=== PATIENT | female | born 1930 | race Caucasian/White ===

== ENCOUNTER 2016-03-08 10:13 | Outpatient (CLI) | payer MEDICARE, OTHER, MEDICAID | END 2016-03-08 10:14 | disposition home or self-care (01) | DX: I26.99 Other pulmonary embolism without acute cor pulmonale (principal); I82.529 Chronic embolism and thrombosis of unspecified iliac vein; Z79.01 Long term (current) use of anticoagulants ==

== ENCOUNTER 2016-04-04 10:37 | Outpatient (CLI) | payer MEDICARE, OTHER, MEDICAID | END 2016-04-04 10:38 | disposition home or self-care (01) | DX: I26.99 Other pulmonary embolism without acute cor pulmonale (principal); I82.529 Chronic embolism and thrombosis of unspecified iliac vein; Z79.01 Long term (current) use of anticoagulants ==

== ENCOUNTER 2016-04-18 12:05 | Outpatient (CLI) | payer MEDICARE, OTHER, MEDICAID | END 2016-04-18 12:06 | disposition home or self-care (01) | DX: I26.99 Other pulmonary embolism without acute cor pulmonale (principal); I82.529 Chronic embolism and thrombosis of unspecified iliac vein; Z79.01 Long term (current) use of anticoagulants ==

== ENCOUNTER 2016-04-25 09:19 | Outpatient (CLI) | payer MEDICARE, OTHER, MEDICAID | END 2016-04-25 09:20 | disposition home or self-care (01) | DX: I26.99 Other pulmonary embolism without acute cor pulmonale (principal); I82.529 Chronic embolism and thrombosis of unspecified iliac vein; Z79.01 Long term (current) use of anticoagulants ==

== ENCOUNTER 2016-05-02 11:26 | Outpatient (CLI) | payer MEDICARE, OTHER, MEDICAID | END 2016-05-02 11:27 | disposition home or self-care (01) | DX: I26.99 Other pulmonary embolism without acute cor pulmonale (principal); I48.91 Unspecified atrial fibrillation; Z79.01 Long term (current) use of anticoagulants ==

== ENCOUNTER 2016-05-20 10:00 | Outpatient (CLI) | payer MEDICARE, OTHER, MEDICAID | END 2016-05-20 10:01 | disposition home or self-care (01) | DX: I26.99 Other pulmonary embolism without acute cor pulmonale (principal); I82.529 Chronic embolism and thrombosis of unspecified iliac vein; Z79.01 Long term (current) use of anticoagulants ==

== ENCOUNTER 2016-06-03 10:55 | Outpatient (CLI) | payer MEDICARE, OTHER, MEDICAID | END 2016-06-03 10:56 | disposition home or self-care (01) | DX: I26.99 Other pulmonary embolism without acute cor pulmonale (principal); I82.529 Chronic embolism and thrombosis of unspecified iliac vein; Z79.01 Long term (current) use of anticoagulants ==

== ENCOUNTER 2016-06-10 09:42 | Outpatient (CLI) | payer MEDICARE, OTHER, MEDICAID | END 2016-06-10 09:43 | disposition home or self-care (01) | DX: I26.99 Other pulmonary embolism without acute cor pulmonale (principal); I82.529 Chronic embolism and thrombosis of unspecified iliac vein; Z79.01 Long term (current) use of anticoagulants ==

== ENCOUNTER 2016-06-27 12:38 | Outpatient (CLI) | payer MEDICARE, OTHER, MEDICAID | END 2016-06-27 12:39 | disposition critical access hospital (66) | DX: R42 Dizziness and giddiness (principal) | CPT/HCPCS: A0425; A0429 ==

== ENCOUNTER 2016-06-27 12:43 | Inpatient (IN) | payer MEDICARE, OTHER, MEDICAID ==
[2016-06-27] MEDS ORDERED: SODIUM CHLORIDE 0.9% 500 ML IV ONE (13:00)
[2016-06-27] MEDS ORDERED: SODIUM CHLORIDE 0.9% 1,000 ML IV ONE ×2 (13:00→13:47)
[2016-06-27] MEDS ORDERED: SODIUM CHLORIDE FLUSH 0.9% 10 ML SYRINGE IVP PRN (17:14)
[2016-06-27] MEDS ORDERED: cefTRIAXone 1 GM in SODIUM CHLORIDE 0.9% MINIBAG 100 ML IV STA (17:31)
[2016-06-27] MEDS: SODIUM CHLORIDE 0.9% 1,000 ML IV SCH ×2 (18:57→22:43)
[2016-06-27] MEDS: SODIUM CHLORIDE FLUSH 0.9% 10 ML SYRINGE IVP SCH (18:57)
[2016-06-27] MEDS: DULoxetine 30 MG CAPSULE PO SCH (21:06)
[2016-06-27] MEDS: NITROFURANTOIN MACRO 100 MG CAPSULE PO SCH (21:06)
[2016-06-27] MEDS: HYDROcod/ACETAM 7.5 MG/325 MG TABLET PO PRN (21:06)
[2016-06-28] MEDS: LORazepam 0.5 MG TABLET PO PRN ×2 (00:45→23:44)
[2016-06-28] MEDS: SODIUM CHLORIDE FLUSH 0.9% 10 ML SYRINGE IVP SCH ×3 (06:59→20:29)
[2016-06-28] MEDS: PANTOPRAZOLE 40 MG TABLET PO SCH (07:00)
[2016-06-28] MEDS ORDERED: METOPROLOL 5 MG/5 ML VIAL IVP SCH (08:00)
[2016-06-28] MEDS: POLYETHYLENE GLYCOL 3350 17 GM PACKET PO SCH (08:24)
[2016-06-28] MEDS: DULoxetine 30 MG CAPSULE PO SCH ×2 (08:25→20:28)
[2016-06-28] MEDS: DOCUSATE SODIUM 100 MG CAPSULE PO SCH (08:25)
[2016-06-28] MEDS: NITROFURANTOIN MACRO 100 MG CAPSULE PO SCH ×2 (08:25→20:28)
[2016-06-28] MEDS: MULTIVITAMIN TABLET PO SCH (08:26)
[2016-06-28] MEDS: amLODIPine 5 MG TABLET PO SCH (08:26)
[2016-06-28] MEDS: SODIUM CHLORIDE 0.9% 1,000 ML IV SCH (08:28)
[2016-06-28] MEDS ORDERED: METOPROLOL 5 MG/5 ML VIAL IVP ONE ×2 (08:55→09:05)
[2016-06-28] MEDS ORDERED: LOSARTAN 50 MG TABLET PO SCH (09:00)
[2016-06-28] MEDS ORDERED: NON FORMULARY MED (Esomeprazole Magnesium [Nexium] 40 MG) PO SCH (09:00)
[2016-06-28] MEDS ORDERED: METOPROLOL TARTRATE 25 MG TABLET PO SCH (10:00)
[2016-06-28] MEDS: HYDROcod/ACETAM 7.5 MG/325 MG TABLET PO PRN (10:31)
[2016-06-28] MEDS: WARFARIN 2.5 MG TABLET PO SCH (14:21)
[2016-06-28] MEDS ORDERED: METOPROLOL TARTRATE 25 MG TABLET PO ONE (14:45)
[2016-06-28] MEDS: METOPROLOL TARTRATE 25 MG TABLET PO SCH (20:29)
[2016-06-29] MEDS: HYDROcod/ACETAM 7.5 MG/325 MG TABLET PO PRN ×2 (01:40→19:25)
[2016-06-29] MEDS: PANTOPRAZOLE 40 MG TABLET PO SCH (06:44)
[2016-06-29] MEDS: SODIUM CHLORIDE FLUSH 0.9% 10 ML SYRINGE IVP SCH ×3 (06:44→20:27)
[2016-06-29] MEDS: METOPROLOL TARTRATE 25 MG TABLET PO SCH ×2 (09:31→20:26)
[2016-06-29] MEDS: POLYETHYLENE GLYCOL 3350 17 GM PACKET PO SCH (09:31)
[2016-06-29] MEDS: amLODIPine 5 MG TABLET PO SCH (09:32)
[2016-06-29] MEDS: DULoxetine 30 MG CAPSULE PO SCH ×2 (09:34→20:25)
[2016-06-29] MEDS: DOCUSATE SODIUM 100 MG CAPSULE PO SCH (09:34)
[2016-06-29] MEDS: MULTIVITAMIN TABLET PO SCH (09:34)
[2016-06-29] MEDS: NITROFURANTOIN MACRO 100 MG CAPSULE PO SCH ×2 (09:34→20:25)
[2016-06-29] MEDS ORDERED: METOPROLOL TARTRATE 25 MG TABLET PO ONE (12:00)
[2016-06-29] MEDS: WARFARIN 2.5 MG TABLET PO SCH (13:45)
[2016-06-30] MEDS: LORazepam 0.5 MG TABLET PO PRN (00:07)
[2016-06-30] MEDS: PANTOPRAZOLE 40 MG TABLET PO SCH (06:19)
[2016-06-30] MEDS: SODIUM CHLORIDE FLUSH 0.9% 10 ML SYRINGE IVP SCH (06:19)
[2016-06-30] MEDS: POLYETHYLENE GLYCOL 3350 17 GM PACKET PO SCH (09:04)
[2016-06-30] MEDS: METOPROLOL TARTRATE 25 MG TABLET PO SCH (09:05)
[2016-06-30] MEDS: DOCUSATE SODIUM 100 MG CAPSULE PO SCH (09:06)
[2016-06-30] MEDS: MULTIVITAMIN TABLET PO SCH (09:06)
[2016-06-30] MEDS: NITROFURANTOIN MACRO 100 MG CAPSULE PO SCH (09:07)
[2016-06-30] MEDS: amLODIPine 5 MG TABLET PO SCH (09:08)
[2016-06-30] MEDS: DULoxetine 30 MG CAPSULE PO SCH (09:08)
== END 2016-06-30 13:16 | disposition home or self-care (01) | DRG 309 ==
DX: I48.92 Unspecified atrial flutter (principal); R00.0 Tachycardia, unspecified; N39.0 Urinary tract infection, site not specified; F32.9 Major depressive disorder, single episode, unspecified; K21.9 Gastro-esophageal reflux disease without esophagitis; B96.20 Unspecified Escherichia coli [E. coli] as the cause of diseases classified elsewhere; R55 Syncope and collapse; T42.8X5A Adverse effect of antiparkinsonism drugs and other central muscle-tone depressants, initial encounter; M48.56XD Collapsed vertebra, not elsewhere classified, lumbar region, subsequent encounter for fracture with routine healing; Y92.039 Unspecified place in apartment as the place of occurrence of the external cause; Z86.711 Personal history of pulmonary embolism; I48.91 Unspecified atrial fibrillation; Z88.0 Allergy status to penicillin; Z85.3 Personal history of malignant neoplasm of breast; Z90.11 Acquired absence of right breast and nipple; Z87.442 Personal history of urinary calculi; I10 Essential (primary) hypertension; Z87.891 Personal history of nicotine dependence; Z79.891 Long term (current) use of opiate analgesic; Z66 Do not resuscitate; G47.33 Obstructive sleep apnea (adult) (pediatric); G25.81 Restless legs syndrome; E66.9 Obesity, unspecified; Z16.12 Extended spectrum beta lactamase (ESBL) resistance; Z68.39 Body mass index [BMI] 39.0-39.9, adult; Z79.01 Long term (current) use of anticoagulants; Z86.718 Personal history of other venous thrombosis and embolism

== ENCOUNTER 2016-07-08 11:16 | Outpatient (CLI) | payer MEDICARE, OTHER, MEDICAID | END 2016-07-08 11:17 | disposition home or self-care (01) | DX: I26.99 Other pulmonary embolism without acute cor pulmonale (principal); I82.529 Chronic embolism and thrombosis of unspecified iliac vein ==

== ENCOUNTER 2016-08-01 13:03 | Outpatient (CLI) | payer MEDICARE, OTHER, MEDICAID | END 2016-08-01 23:59 | disposition critical access hospital (66) | LOC: EMS 13:03 | PROVIDERS: ATTEND Surgery | DX: R06.00 Dyspnea, unspecified (principal); R07.9 Chest pain, unspecified; R53.83 Other fatigue | CPT/HCPCS: A0425; A0429 ==

== ENCOUNTER 2016-08-01 13:05 | Inpatient (IN) | payer MEDICARE, OTHER, MEDICAID ==
--- NOTE | 2016-08-01 13:12 | ED Physician Documentation ---
PD HPI DYSPNEA - Stated complaint Stated Complaint: SOA - History obtained from History obtained from: Patient - History of Present Illness Timing - onset: How many weeks ago (2 weeks of cough and dyspnea, chills, and feeling weak. These symptoms worse the past 1-2 days. She felt weak for getting out of bed today so called EMS. They found her sats to be slightly low 88-90 on RA. Also they found her heart rate to be 140-150. Conversant though.) Timing - onset during: Rest Timing - duration: Weeks (2 weeks worsening cough and dyspnea.) Timing - details: Gradual onset, Still present Inciting event(s): URI. No: Out of meds, Allergic rxn/anaphylaxis Improved by: O2, BiPAP / CPAP (she wears it at night for sleep and has been using it during the day as well the past several days.), Inhaler/neb Associated symptoms: Fever, Cough, Wheezing, Anxiety. No: Hemoptysis, Chest pain / discomfort, Palpitations, Bilateral edema Similar symptoms before: Has not had sx before Recently seen: Not recently seen Review of Systems Constitutional: reports: Chills, Myalgias. denies: Fever Nose: reports: Congestion. denies: Rhinorrhea / runny nose Throat: reports: Sore throat Cardiac: denies: Chest pain / pressure Respiratory: reports: Dyspnea, Cough GI: denies: Abdominal Pain, Nausea, Vomiting, Diarrhea Musculoskeletal: reports: Extremity swelling (mild chronci edema in both ankles , left more.) Neurologic: denies: Focal weakness, Numbness PD PAST MEDICAL HISTORY - Past Medical History Cardiovascular: Hypertension, High cholesterol, Deep vein thrombosis, Pulmonary embolism Respiratory: Shortness of breath, Sleep apnea, CPAP use Neuro: None Endocrine/Autoimmune: None GI: GERD : Incontinence, Nocturia, Kidney stones HEENT: Chronic vision loss, Glaucoma, Chronic sinusitis Psych: Depression Musculoskeletal: Osteoarthritis, Osteoporosis, Fatigue, Chronic back pain Derm: None - Past Surgical History General: EGD, Colonoscopy Ortho: Arthroscopic surgery /[employer]: 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, Oophrectomy, Mastectomy HEENT: Cataracts, Other - Present Medications Home Medications: Ambulatory Orders Medication Instructions Recorded Confirmed Amlodipine Besylate 5 mg PO DAILY 07/31/12 08/01/16 Esomeprazole Magnesium [Nexium] 40 mg PO DAILY 03/08/14 08/01/16 Carboxymethylcellulose Sodium 1 drop EACHEYE QID PRN 01/16/15 08/01/16 [Refresh Tears] Latanoprost 0.005% Ophth Drops 1 drop RIGHTEYE QPM 01/16/15 08/01/16 [Xalatan Ophth Drops] Warfarin [Coumadin] 2.5 - 5 mg PO QDWARFARIN 04/23/15 08/01/16 DULoxetine [Cymbalta] 30 mg PO BID 05/17/15 08/01/16 Docusate Sodium 100 - 200 mg PO DAILY PRN 02/21/16 08/01/16 Hydrocodone/Acetaminophen 1 tab PO DAILY PRN 06/27/16 08/01/16 [Hydrocodon-Acetaminoph 7.5-325] Multivitamin [Theragran] 1 tab PO DAILY 06/27/16 08/01/16 Cetirizine HCl 10 mg PO DAILY 08/01/16 08/01/16 Magnesium Oxide [Mag Ox] 400 mg PO 0800 08/01/16 08/01/16 Metoprolol Tartrate [Metoprolol 75 mg PO BID 08/01/16 08/01/16 Tartrate] - Allergies Allergies/Adverse Reactions: Allergies Allergy/AdvReac Type Severity Reaction Status Date / Time Penicillins Allergy Rash Verified 06/27/16 12:48 prednisone Allergy Rash Verified 06/27/16 12:48 DEBBIE Inhibitors AdvReac Intermediate cough Verified 06/27/16 12:48 - Social History Does the pt smoke?: No Smoking Status: Never smoker Does the pt drink ETOH?: No Does the pt have substance abuse?: No - Immunizations Immunizations are current?: Yes - POLST Patient has POLST: No PD ED PE NORMAL - Vitals Vital signs reviewed: Yes - General General: Alert and oriented X 3, Well developed/nourished - HEENT HEENT: Pharynx benign - Neck Neck: Supple, no meningeal sign, No adenopathy, No JVD - Cardiac Cardiac: No: RRR (fast rate and irregular about 130-145) - Respiratory Respiratory: No: Clear bilaterally (some fine crackles in bases. Scattered moderate wheezing. ) - Abdomen Abdomen: Soft, Non tender - Female Female : Deferred - Rectal Rectal: Deferred - Back Back: No CVA TTP - Derm Derm: Normal color, Warm and dry - Extremities Extremities: No tenderness to palpate, Normal ROM s pain - Neuro Neuro: Alert and oriented X 3, No motor deficit, No sensory deficit - Psych Psych: Normal mood, Normal affect Results - Vitals Vitals: Vital Signs - 24 hr 08/01/16 08/01/16 08/01/16 13:09 13:55 13:58 Temperature 36.1 C L Heart Rate 125 H 119 H 106 H Respiratory 20 16 18 Rate Blood Pressure 129/86 H 124/103 H 101/80 O2 Saturation 96 93 94 08/01/16 08/01/16 08/01/16 14:13 14:20 15:09 Temperature Heart Rate 104 H 101 H 102 H Respiratory 16 24 Rate Blood Pressure 117/75 132/70 H O2 Saturation 100 08/01/16 08/01/16 16:29 16:37 Temperature Heart Rate 120 H 97 Respiratory 22 18 Rate Blood Pressure 115/91 H 137/89 H O2 Saturation 98 99 Oxygen O2 Source [With Activity] Room air O2 Source Nasal cannula - EKG (time done) 13:29 Rate: Rate (enter#) (105) Rhythm: Atrial fibrillation QRS: Normal Ischemia: Normal ST segments. No: ST elevation c/w ischemia, ST depression - Labs Labs: Laboratory Tests 08/01/16 08/01/16 08/01/16 13:20 13:20 13:56 WBC 12.0 H RBC 4.01 L Hgb 12.7 Hct 38.4 MCV 95.9 MCH 31.6 H MCHC 33.0 RDW 15.4 H Plt Count 302 MPV 8.0 Neut # 9.1 H Lymph # 1.9 Imperial # 0.7 Eos # 0.1 Baso # 0.1 Absolute Nucleated RBC 0.00 Nucleated RBCs 0.0 PT 65.1 H INR 5.7 H* Lactic Acid B-Natriuretic Peptide Blood Type Recheck A POSITIVE 08/01/16 08/01/16 13:56 13:56 WBC RBC Hgb Hct MCV MCH MCHC RDW Plt Count MPV Neut # Lymph # Imperial # Eos # Baso # Absolute Nucleated RBC Nucleated RBCs PT INR Lactic Acid 2.7 H B-Natriuretic Peptide 592 H Blood Type Recheck - Rads (name of study) chest Radiology: Prelim report reviewed (no acute infiltrates nor signs of failure) PD MEDICAL DECISION MAKING - ED course Complexity details: reviewed results, re-evaluated patient (she is improving with IV doses metoprolol, heart rate down to 100-110. She has had cough and wheezing. Concern for bronchitis/pneumonia, and given IV abx, steroids, nebulizers. During the ZIthromax infusion, she developed pallor, dyspnea, and nausea with vomiting once. No rash, sores, swelling of lips/throat, nor increased wheezing. Consider allergic reaction versus just effect of infection/ sepsis. Her BP remains good as does fast heart rate of 125. These symptoms do improve with some IV fluids and repeat nebulizer. ), considered differential, d/ w patient Departure - Departure Disposition: [facility] DC/Xfer Clinical Impression: Atrial fibrillation with rapid ventricular response, Bronchitis Dyspnea Qualifiers: Dyspnea type: shortness of breath Qualified Code(s): R06.02 - Shortness of breath Condition: Stable Discharge Date/Time: 08/01/16 18:14
[2016-08-01] MEDS ORDERED: METOPROLOL 5 MG/5 ML VIAL IVP STA ×4 (13:35→17:27)
[2016-08-01] MEDS ORDERED: LEVALBUTEROL 1.25 MG INH STA ×2 (13:35→17:27)
[2016-08-01 13:47] LABS: BASOPHILS # (AUTO) 0.1 10^3/uL (0.0-0.1); BASOPHILS % (AUTO) 0.7 %; EOSINOPHILS # (AUTO) 0.1 10^3/uL (0.0-0.7); EOSINOPHILS % (AUTO) 1.2 %; HCT - HEMATOCRIT 38.4 % (37.0-47.0); HGB - HEMOGLOBIN 12.7 g/dL (12.0-16.0); LYMPHOCYTES # (AUTO) 1.9 10^3/uL (1.5-3.5); LYMPHOCYTES % (AUTO) 16.2 %; MEAN CORPUSCULAR HEMOGLOBIN 31.6 pg (27.0-31.0); MEAN CORPUSCULAR VOLUME 95.9 fL (81.0-99.0); MONOCYTES # (AUTO) 0.7 10^3/uL (0.0-1.0); NEUTROPHILS # (AUTO) 9.1 10^3/uL (1.5-6.6); NEUTROPHILS % (AUTO) 75.9 %; RED BLOOD COUNT 4.01 10^6/uL (4.20-5.40); RED CELL DISTRIBUTION WIDTH 15.4 % (12.0-15.0)
[2016-08-01] MEDS ORDERED: METOPROLOL 5 MG/5 ML VIAL IVP ONE ×4 (13:52→17:28)
[2016-08-01] MEDS ORDERED: LEVALBUTEROL 1.25 MG INH ONE ×2 (14:00→17:41)
[2016-08-01] MEDS ORDERED: SODIUM CHLORIDE INHALATION 3 ML NEB ONE ×2 (14:01→17:42)
[2016-08-01 14:11] LABS: PT - PROTHROMBIN TIME 65.1 secs (9.9-12.6)
[2016-08-01 14:15] LABS: INR 5.7 (0.8-1.2)
[2016-08-01 14:21] LABS: ALBUMIN/GLOBULIN RATIO 1.2 (1.0-2.2); BILIRUBIN,TOTAL 0.6 mg/dL (0.2-1.0); CREATININE 1.1 mg/dL (0.4-1.0); MAGNESIUM 1.9 mg/dL (1.7-2.8); POTASSIUM 4.3 mmol/L (3.5-5.0); TOTAL PROTEIN 6.7 g/dL (6.7-8.2)
[2016-08-01] MEDS ORDERED: cefTRIAXone 1 GM in SODIUM CHLORIDE 0.9% MINIBAG 100 ML IV STA (15:12)
[2016-08-01] MEDS ORDERED: AZITHROMYCIN INJ 500 MG in SODIUM CHLORIDE 0.9% 250 ML IV STA (15:12)
[2016-08-01] MEDS ORDERED: BENZONATATE 100 MG CAPSULE PO STA (15:12)
[2016-08-01] MEDS ORDERED: BENZONATATE 100 MG CAPSULE PO ONE (15:38)
[2016-08-01] MEDS ORDERED: cefTRIAXone 1 GM VIAL ONE (15:39)
--- NOTE | 2016-08-01 16:38 | XRAY Preliminary Report ---
Exam: XR Chest 2 View PA/LAT IMPRESSION: Chronic findings. No definite acute disease. [facility] SITE ID: [id number]
[2016-08-01] MEDS ORDERED: ACETAMINOPHEN 325 MG TABLET PO PRN (16:41)
[2016-08-01] MEDS ORDERED: ONDANSETRON 4 MG/2 ML VIAL IVP PRN (16:41)
--- NOTE | 2016-08-01 16:41 | XRAY Report ---
EXAM: CHEST RADIOGRAPHY EXAM DATE: 08/01/2016 04:14 PM. CLINICAL HISTORY: Cough and dyspnea. COMPARISON: 11/14/2015. TECHNIQUE: 2 views. FINDINGS: Lungs/Pleura: Hyperexpanded with coarse lung markings typical of COPD. No localized infiltrate, effus ion, consolidation, or pneumothorax. Mediastinum: Heart and mediastinal contours are unremarkable. Other: Mild anterior compression of a midthoracic vertebral body unchanged. IMPRESSION: Chronic findings. No definite acute disease. [facility] Referring Provider Line: [phone] SITE ID: [id number]
[2016-08-01] MEDS ORDERED: ONDANSETRON 4 MG/2 ML VIAL IVP STA (17:27)
[2016-08-01] MEDS ORDERED: ONDANSETRON 4 MG/2 ML VIAL ONE (17:28)
[2016-08-01] MEDS ORDERED: SODIUM CHLORIDE 0.9% 500 ML IV ONE (17:43)
[2016-08-01] MEDS ORDERED: PHYTONADIONE 10 MG/ML AMP SUBQ ONE (18:00)
[2016-08-01] MEDS: PANTOPRAZOLE 40 MG TABLET PO SCH (19:07)
[2016-08-01] MEDS: HYDROcod/ACETAM 5/325 MG TABLET PO PRN (19:32)
[2016-08-01] MEDS: SODIUM CHLORIDE 0.9% 1,000 ML IV SCH (19:38)
--- NOTE | 2016-08-01 19:40 | HISTORY & PHYSICAL EXAMINATION ---
DATE OF ADMISSION: 08/01/2016 CHIEF COMPLAINT: Shortness of breath. IDENTIFYING INFORMATION: Please see summarized in personal history. She appears cogent, but is not excellent with recall. Additional information is obtained in the handoff from Dr. Eliseo Webb, Emergency Department physician, as well as EMS, and with personal review of past medical records which are summarized below, as well as data collected during this visit, the patient's examination as well is used in evaluation of this person and preparation of document. HISTORY OF PRESENT ILLNESS: The patient has been sick for 2 weeks. She has had a bad cough, she had bronchitis. She was given antibiotics, did not seem to get better, got more short of breath. She did have the sweats at home. She is very fatigued, as well. She has been using her BiPAP as directed. REVIEW OF SYSTEMS: The patient does not have a sore throat. She has had the cough, she is not bringing a lot up with the couth. The patient has no nausea, vomiting, she pooped last yesterday. The patient's urination has been okay. The rest of the complete review of systems as queried is negative except as noted above, as well. PAST MEDICAL HISTORY: 1. History of pulmonary embolus 1979. 2. Infiltrating ductal cancer, right breast, status post mastectomy 2012. 3. Hypertension. 4. Depression. 5. Gastroesophageal reflux disease. 6. Obstructive sleep apnea with BiPAP, which she uses. 7. Uric acid nephrolithiasis. 8. Chronic kidney disease. 9. Osteopenia. 10. T2 compression fracture. 11. Morbid obesity. 12. Venous thrombosis. PAST SURGICAL HISTORY: Right mastectomy 2002, hysterectomy, left eye glaucoma surgery x2 and bilateral cataract surgery. OBSTETRIC HISTORY: She had 6 pregnancies, 7 live births and one set of twins. SOCIAL HISTORY: She , now single, lives in [place] in the [facility] where she lives on the 7th floor. She does have 2 caregivers which come in 3 hours a day. The patient's smoking history was just 4 years, less than a 1/2 a pack a day many years ago. No alcohol or illicit drug use. FAMILY HISTORY: The patient's mother from breast cancer, the father of a CVA in his 90s and his sister with syringomyelia. ALLERGIES: 1. PENICILLIN. 2. PREDNISONE. 3. DEBBIE INHIBITORS. MEDICATIONS: 1. Amlodipine 5 mg a day. 2. Omeprazole 40 mg a day. 3. Refresh Tears 1 drop 4 times a day. 4. Latanoprost 0.005% drops, 1 drop right eye at bedtime. 5. Warfarin 2 to 5 mg as needed. 6. Cymbalta 30 mg b.i.d. 7. DSS 100 mg a day. 8. Hydrocodone/acetaminophen 1 tab daily. 9. Multivitamin once a day. 10. Metoprolol 125 mg twice a day. 11. Nitrofurantoin 100 mg daily. PHYSICAL EXAMINATION: GENERAL: The patient appears acutely ill. She is obese. She is complaining of multiple areas of pain. VITAL SIGNS: Heart rate is 120, 115/91, 22, 98% O2 saturation on 3 liters, heart rate is irregularly regular, atrial fibrillation on EKG. EYES: EOM within normal limits, PERRL, nonicteric. MOUTH AND THROAT: Somewhat dry. No other pathology noted in mouth or pharynx. NECK: No lymphadenopathy. No thyromegaly. No JVD, no bruits. CHEST WALL: Nontender, nonsymmetrical except for mastectomy on the right. No breast exam done. HEART: Irregular regular tachycardia (atrial fibrillation with rapid ventricular response). LUNGS: Distant breath sounds and some crackles scattered more right than left. No wheezes heard. ABDOMEN: Thick abdominal wall, soft, nontender. No masses appreciated. RECTAL/GENITAL: Exam not done. EXTREMITIES: 1+ to 2+ edema up to the knees bilaterally. No cyanosis. Capillary refill less than 2 seconds. Unable to feel posterior tibial pulses bilaterally. NEURO: Cranial nerves intact. Cognition intact. Motor intact. No gait tested. LABORATORY DATA: She has sodium 137, potassium is 4.3, chloride 107, CO2 20, BUN is 26, creatinine 1.1, glucose is 216, lactate is 2.7, calcium 9.0. Magnesium 1.9, bilirubin 0.6. Liver enzymes are mildly elevated with an AST of 66, ALT is 74. She has a BNP of 592, total protein 6.7, albumin is 3.3. The patient's CBC, white count 12.0, 12 and 38 hemoglobin and hematocrit, platelets 302. INR is 5.7. The patient's chest x-ray shows no definite acute pulmonary disease. SUMMARY: An 85-year-old female who had a cough, increased shortness of breath over the last 2 months. The patient has a past medical history of hypertension, pulmonary embolus, DVT, GERD. She is admitted now because she has atrial fibrillation with RVR and sepsis undetermined etiology. The patient also supratherapeutic on anticoagulation. DIAGNOSES: 1. Sepsis. 2. Atrial fibrillation with rapid ventricular response. 3. Hypertension. 4. Acute on chronic respiratory failure. 5. Obstructive sleep apnea on BiPAP. 6. Chronic kidney disease. 7. Pulmonary embolus in the remote past. DISCUSSION/DECISION MAKIN. Sepsis: The cluster of tachycardia, increased white count, increased lactate , the patient's septic workup will include blood cultures, UA, fluid resuscitation and antibiotics, namely Rocephin and Zithromax. The patient is at risk for other sources. She also has an elevated BNP, which she has no previous history of heart failure, this could be involved as well, so fluid resuscitation needs to be judicious. 2. Atrial fibrillation with rapid ventricular response. She will be placed on a diltiazem drip as metoprolol has not helped IV in addition to her high dose of metoprolol daily. 3. Hypertension. She is not hypertensive presently. Will be observed and is more at risk for hypotension actually. 4. Acute on chronic respiratory failure. The patient will be getting O2 supplementation, beta agonists and her BiPAP as needed. 5. Obstructive sleep apnea. She is currently on BiPAP at night. Respiratory will follow. 6. Chronic kidney disease will be monitored and interventions as needed. 7. Remote history of PE. She will be on warfarin, but since she is supratherapeutic and this will be held presently. She will have the daily INRs. HOSPITAL ISSUES: 1. CODE STATUS: SHE IS A DNR/DNI. 2. Deep venous thrombosis prophylaxis is warfarin. 3. Diet will be regular. 4. Activity with assistance. 5. Tubes and lines: She will just have a peripheral IV, may need a Mina catheter. 6. The patient is inpatient as she has serious illnesses which need diagnostic therapeutic interventions that will require at least 2 midnights. Length of stay will be estimated at 3 nights. 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 The patient will probably need physical therapy evaluation, as well. JOB #: [id number] EXT JOB #:[id number] MTDD
[2016-08-01] MEDS ORDERED: PHYTONADIONE 10 MG/ML AMP ONE (19:48)
[2016-08-01] MEDS ORDERED: diltiaZEM INJ 125 MG in DEXTROSE 5% 100 ML IV ONE (20:03)
[2016-08-01] MEDS ORDERED: diltiaZEM INJ 5 MG/ML VIAL IVP PRN (20:04)
[2016-08-01] MEDS ORDERED: LIDOCAINE-MPF 1% 5 ML VIAL ONE (20:22)
[2016-08-01] MEDS: METOPROLOL TARTRATE 50 MG TABLET PO SCH (21:07)
[2016-08-01] MEDS: DULoxetine 30 MG CAPSULE PO SCH (21:07)
[2016-08-01] MEDS: LATANOPROST 0.005% OPHTH DROPS RIGHTEYE SCH (21:15)
[2016-08-01] MEDS: SODIUM CHLORIDE FLUSH 0.9% 10 ML SYRINGE IVP SCH (21:16)
[2016-08-01 21:21] LABS: VBG BASE EXCESS -6.2 mmol/L (-2 - +2); VBG OXYGEN SATURATION 52.1 % (60-80); VBG PH 7.247 (7.31-7.41); VBG TOTAL CO2 22.7 mmol/L (24-29)
[2016-08-01] MEDS: MORPHINE 2 MG/ML SYRINGE IVP PRN (22:21)
[2016-08-01 23:40] LABS: INR 3.3 (0.8-1.2); PT - PROTHROMBIN TIME 38.1 secs (9.9-12.6)
[2016-08-01] MEDS: ALBUTEROL NEB 2.5 MG/3 ML INH SCH ×2 (23:46→23:47)
[2016-08-01] MEDS: IPRATROPIUM/ALBUTEROL 3 ML NEB INH SCH (23:47)
[2016-08-02] MEDS: ALBUTEROL NEB 2.5 MG/3 ML INH SCH ×2 (01:00→05:00)
[2016-08-02] MEDS: HYDROcod/ACETAM 5/325 MG TABLET PO PRN ×2 (01:45→20:04)
[2016-08-02 01:59] LABS: BILIRUBIN,URINE NEGATIVE (NEGATIVE); PH,URINE 5.5 PH (5.0-7.5)
[2016-08-02 02:11] LABS: UA w/ MICROSCOPIC CHARGE YES; UR CULTURE IF IND INDICATED; WBC,URINE >25 /HPF (0-5)
[2016-08-02 02:39] LABS: BASOPHILS # (AUTO) 0.1 10^3/uL (0.0-0.1); BASOPHILS % (AUTO) 0.6 %; EOSINOPHILS % (AUTO) 0.1 %; HCT - HEMATOCRIT 33.7 % (37.0-47.0); HGB - HEMOGLOBIN 11.1 g/dL (12.0-16.0); LYMPHOCYTES # (AUTO) 2.3 10^3/uL (1.5-3.5); LYMPHOCYTES % (AUTO) 17.3 %; MEAN CORPUSCULAR HEMOGLOBIN 31.5 pg (27.0-31.0); MEAN CORPUSCULAR HGB CONC 32.9 g/dL (32.0-36.0); MEAN CORPUSCULAR VOLUME 95.6 fL (81.0-99.0); MEAN PLATELET VOLUME 7.8 fL (7.9-10.8); MONOCYTES # (AUTO) 0.7 10^3/uL (0.0-1.0); NEUTROPHILS # (AUTO) 10.3 10^3/uL (1.5-6.6); RED BLOOD COUNT 3.52 10^6/uL (4.20-5.40); RED CELL DISTRIBUTION WIDTH 15.2 % (12.0-15.0); UNCORRECTED WHITE BLOOD COUNT 13.4 x10^3/uL; WHITE BLOOD COUNT 13.4 x10^3/uL (4.8-10.8)
[2016-08-02 02:40] LABS: VBG PH 7.392 (7.31-7.41)
[2016-08-02 02:41] LABS: VBG BASE EXCESS -2.5 mmol/L (-2 - +2); VBG OXYGEN SATURATION 96.8 % (60-80); VBG TOTAL CO2 23.1 mmol/L (24-29)
[2016-08-02 02:44] LABS: CALCIUM 8.9 mg/dL (8.5-10.3); CREATININE 1.1 mg/dL (0.4-1.0); POTASSIUM 4.1 mmol/L (3.5-5.0)
[2016-08-02 03:05] LABS: HEMOGLOBIN A1C 0.63 g/dL
[2016-08-02] MEDS: PANTOPRAZOLE 40 MG TABLET PO SCH ×2 (05:50→15:56)
[2016-08-02] MEDS: SODIUM CHLORIDE FLUSH 0.9% 10 ML SYRINGE IVP SCH ×3 (05:50→20:05)
[2016-08-02] MEDS ORDERED: ALBUTEROL NEB 2.5 MG/3 ML INH PRN (07:29)
[2016-08-02] MEDS: IPRATROPIUM/ALBUTEROL 3 ML NEB INH SCH ×3 (07:35→17:10)
[2016-08-02] MEDS: SODIUM CHLORIDE 0.9% 1,000 ML IV SCH ×2 (08:19→15:18)
[2016-08-02] MEDS: MAGNESIUM OXIDE 400 MG TABLET PO SCH (08:20)
[2016-08-02] MEDS: SACCHAROMYCES BOULARDII 250 MG CAPSULE PO SCH ×2 (08:20→17:18)
[2016-08-02] MEDS ORDERED: cefTRIAXone 1 GM VIAL IM SCH (08:30)
[2016-08-02] MEDS ORDERED: DIGOXIN 125 MCG TABLET PO SCH (08:35)
[2016-08-02] MEDS: diltiaZEM INJ 5 MG/ML VIAL IVP PRN ×4 (08:37→22:32)
[2016-08-02] MEDS: POLYETHYLENE GLYCOL 3350 17 GM PACKET PO SCH (08:44)
[2016-08-02] MEDS: cefTRIAXone 2 GM in SODIUM CHLORIDE 0.9% MINIBAG 100 ML IV SCH (08:45)
[2016-08-02] MEDS: METOPROLOL TARTRATE 50 MG TABLET PO SCH ×2 (08:45→20:04)
[2016-08-02] MEDS: MULTIVITAMIN TABLET PO SCH (08:47)
[2016-08-02] MEDS: DULoxetine 30 MG CAPSULE PO SCH ×2 (08:47→20:04)
[2016-08-02] MEDS: CETIRIZINE 10 MG TABLET PO SCH (08:49)
[2016-08-02] MEDS ORDERED: cloNIDine 0.1 MG TABLET PO SCH (09:00)
[2016-08-02] MEDS ORDERED: ENOXAPARIN 40 MG/0.4 ML SYRINGE SUBQ SCH (09:00)
[2016-08-02 09:06] LABS: INR 2.5 (0.8-1.2); PT - PROTHROMBIN TIME 27.9 secs (9.9-12.6)
[2016-08-02] MEDS: AZITHROMYCIN INJ 500 MG in SODIUM CHLORIDE 0.9% 250 ML IV SCH (09:29)
--- NOTE | 2016-08-02 11:05 | PROVIDER PROGRESS NOTE ---
Assessment/Plan - Problem List (1) Atrial fibrillation with rapid ventricular response Assessment/Plan: She has improved some.Last night was in the 30s for a short time. now on both Diltiazem and Toprol. Will monitor. (2) Urinary tract infection Assessment/Plan: awaiting C&S (3) Sepsis Assessment/Plan: She has UTI as source. Will get CXR tomorow to re assess the possibility of pneumonia. Rocephin should be satisfactory for UTI bacteria. C&S pending. No fevers over night. WBC up from 12 to 15 K - Current Meds Current Meds: Current Medications Generic Name Dose Route Start Last Admin Trade Name Freq PRN Reason Stop Dose Admin Acetaminophen/Hydrocodone Bitart 1 tab 08/01/16 16:41 08/02/16 01:45 [place] 5/325 PO 1 tab Q4HR PRN Administration Pain 5 to 7 Albuterol/Ipratropium 3 ml 08/01/16 19:00 08/02/16 07:35 Duoneb INH 08/02/16 18:59 3 ml RTQID LOWELL Administration Cetirizine HCl 10 mg 08/02/16 09:00 08/02/16 08:49 Zyrtec PO 10 mg DAILY LOWELL Administration Diltiazem HCl 10 mg 08/01/16 21:59 08/02/16 08:37 Cardizem Inj IVP 25 mg Q1H PRN Administration HR>110 Duloxetine HCl 30 mg 08/01/16 21:00 08/02/16 08:47 Cymbalta PO 30 mg BID LOWELL Administration Sodium Chloride 1,000 mls @ 70 mls/hr 08/01/16 18:00 08/02/16 08:19 Normal Saline 0.9% IV Not Given .[id number] LOWELL Azithromycin 500 mg/ Sodium 250 mls @ 250 mls/hr 08/02/16 10:00 08/02/16 09:29 Chloride IV 250 mls/hr DAILY@1000 LOWELL Administration Ceftriaxone Sodium 2 gm/ 100 mls @ 200 mls/hr 08/02/16 09:00 08/02/16 08:45 Sodium Chloride IV 200 mls/hr DAILY LOWELL Administration Diltiazem HCl 125 mg/ Dextrose 125 mls @ 5 mls/hr 08/01/16 20:03 08/01/16 22:50 IV 08/02/16 21:02 0 mg/hr .Q25H ONE Titration Protocol 5 MG/HR Latanoprost 1 drops 08/01/16 21:00 08/01/16 21:15 Xalatan Ophth Drops RIGHTEYE 1 drops QPM LOWELL Administration Magnesium Oxide 400 mg 08/02/16 08:00 08/02/16 08:20 Mag Ox PO 400 mg 0800 LOWELL Administration Metoprolol Tartrate 75 mg 08/01/16 21:00 08/02/16 08:45 Lopressor PO 75 mg BID LOWELL Administration Morphine Sulfate 2 mg 08/01/16 21:59 08/01/16 22:21 Morphine IVP 2 mg Q2HR PRN Administration PAIN Multivitamins 1 tab 08/02/16 09:00 08/02/16 08:47 Theragran PO 1 tab DAILY LOWELL Administration Ondansetron HCl 4 mg 08/01/16 16:41 08/01/16 17:47 Zofran Inj IVP 4 mg Q4HR PRN Administration Nausea / Vomiting Pantoprazole Sodium 40 mg 08/01/16 18:30 08/02/16 05:50 Protonix PO 40 mg BIDAC LOWELL Administration Polyethylene Glycol 17 gm 08/02/16 09:00 08/02/16 08:44 Miralax PO 17 gm DAILY LOWELL Administration Saccharomyces Boulardii 250 mg 08/02/16 08:00 08/02/16 08:20 Florastor PO 250 mg BIDWM LOWELL Administration Sodium Chloride 10 ml 08/01/16 22:00 08/02/16 05:50 Normal Saline Flush 0.9% IVP 10 ml Q8HR LOWELL Administration - Lab Result Fish Bone Diagrams: 08/02/16 02:26 08/02/16 02:26 - Additional Planning My Orders: My Active Orders 08/01/16 17:39 UA w/ MICROSCOPIC, CULT IF [URIN] Stat Carboxymethylcellulose 1% Opht [Refresh 1% Ophth Drops] 1 drops EACHEYE QID PRN Docusate Sodium 100Mg Capsule [Colace 100Mg Capsule] 200 mg PO DAILY PRN 08/01/16 18:30 Pantoprazole [Protonix] 40 mg PO BIDAC 08/01/16 21:00 DULoxetine [Cymbalta] 30 mg PO BID Latanoprost 0.005% Ophth Drops [Xalatan Ophth Drops] 1 drops RIGHTEYE QPM Metoprolol Tartrate [Lopressor] 75 mg PO BID 08/01/16 23:21 RT [Nebulizer/MDI Tx.] [] QID 08/02/16 FFP [FRESH FROZEN PLASMA] Urgent 08/02/16 07:29 Albuterol 2.5 mg INH RTQ4H PRN 08/02/16 08:00 Magnesium Oxide [Mag Ox] 400 mg PO 0800 08/02/16 08:29 Transfuse Fresh Frozen Plasma [] ONCE 08/02/16 08:50 Blood Glucose Checks - Eating [] 0800,1200,1700,2100 08/02/16 08:52 Initiate Hypoglycemia Protocol [] .protocol 08/02/16 09:00 Cetirizine [ZyrTEC] 10 mg PO DAILY Multivitamin [Theragran] 1 tab PO DAILY 08/02/16 12:00 Insulin Aspart [NovoLOG] 1 - 9 unit SUBQ 0800,1200,1700,2100 08/02/16 Lunch Carb-controlled Diet [DIET] 08/03/16 05:00 PT WITH INR [COAG] DAILYLAB 08/04/16 05:00 PT WITH INR [COAG] DAILYLAB 08/05/16 05:00 PT WITH INR [COAG] DAILYLAB Subjective - Subjective Patient Reports: Feeling Better, Fatigue, Shortness of Breath Objective Vital Signs: Vital Signs - 24 hr 08/01/16 08/01/16 08/01/16 17:45 18:36 18:41 Temperature Heart Rate 147 H Heart Rate [ 138 H 137 H Monitoring electrodes] Respiratory 34 H 26 H 22 Rate Blood Pressure 149/119 H Blood Pressure 113/87 H [Left Radial artery] Blood Pressure [Right Ankle] O2 Saturation 98 98 98 08/01/16 08/01/16 08/01/16 20:00 21:00 21:07 Temperature 37.0 C Heart Rate Heart Rate [ 144 H 138 H Monitoring electrodes] Respiratory 24 20 Rate Blood Pressure 131/91 H Blood Pressure 168/99 H 186/105 H [Left Radial artery] Blood Pressure [Right Ankle] O2 Saturation 95 95 08/01/16 08/01/16 08/01/16 22:00 22:45 23:00 Temperature 37.0 C 36.9 C Heart Rate 73 Heart Rate [ 142 H 72 Monitoring electrodes] Respiratory 22 18 18 Rate Blood Pressure Blood Pressure 165/106 H 115/98 H [Left Radial artery] Blood Pressure [Right Ankle] O2 Saturation 99 95 08/02/16 08/02/16 08/02/16 00:00 00:55 01:53 Temperature 36.8 C 36.8 C 36.6 C Heart Rate Heart Rate [ 60 73 104 H Monitoring electrodes] Respiratory 16 15 15 Rate Blood Pressure Blood Pressure 132/83 H 137/85 H 168/122 H [Left Radial artery] Blood Pressure [Right Ankle] O2 Saturation 96 98 94 08/02/16 08/02/16 08/02/16 02:59 03:53 04:58 Temperature 36.6 C Heart Rate Heart Rate [ 82 81 84 Monitoring electrodes] Respiratory 19 16 16 Rate Blood Pressure Blood Pressure 136/71 H 151/85 H 139/75 H [Left Radial artery] Blood Pressure [Right Ankle] O2 Saturation 94 96 98 08/02/16 08/02/16 08/02/16 05:55 06:59 07:35 Temperature Heart Rate 99 Heart Rate [ 90 88 Monitoring electrodes] Respiratory 16 19 18 Rate Blood Pressure Blood Pressure 148/69 H 149/88 H [Left Radial artery] Blood Pressure [Right Ankle] O2 Saturation 96 96 08/02/16 08/02/16 08/02/16 08:03 08:37 08:45 Temperature 36.8 C Heart Rate Heart Rate [ 114 H Monitoring electrodes] Respiratory 23 Rate Blood Pressure 138/109 H 150/91 H Blood Pressure 169/86 H [Left Radial artery] Blood Pressure [Right Ankle] O2 Saturation 95 08/02/16 08/02/16 08/02/16 09:00 09:07 10:00 Temperature Heart Rate Heart Rate [ 95 109 H Monitoring electrodes] Respiratory 21 21 Rate Blood Pressure 151/84 H Blood Pressure [Left Radial artery] Blood Pressure 149/81 H 142/82 H [Right Ankle] O2 Saturation 95 96 Oxygen O2 Source Nasal cannula I&O (Last 24 Hrs): Intake and Output Totals x24h 07/31/16 08/01/16 08/02/16 23:59 23:59 23:59 Intake Total 400 2270 Output Total 464 Balance 400 1806 General: Alert, Oriented x3, Cooperative HEENT: PERRLA, EOMI Neck: No JVD, No thyromegaly Neuro: Alert, Oriented Times 3 Cardiovascular: No murmurs Respiratory: Chest non-tender, No respiratory distress, Breath sounds nml Abdomen: Normal bowel sounds, Soft, No tenderness Skin: No breakdown - Results Results: Laboratory Results WBC 13.4 x10^3/uL (4.8-10.8) H 08/02/16 02:26 RBC 3.52 10^6/uL (4.20-5.40) L 08/02/16 02:26 Hgb 11.1 g/dL (12.0-16.0) L 08/02/16 02:26 Hct 33.7 % (37.0-47.0) L 08/02/16 02:26 MCV 95.6 fL (81.0-99.0) 08/02/16 02:26 MCH 31.5 pg (27.0-31.0) H 08/02/16 02:26 MCHC 32.9 g/dL (32.0-36.0) 08/02/16 02:26 RDW 15.2 % (12.0-15.0) H 08/02/16 02:26 Plt Count 268 10^3/uL (130-450) 08/02/16 02:26 MPV 7.8 fL (7.9-10.8) L 08/02/16 02:26 Neut # 10.3 10^3/uL (1.5-6.6) H 08/02/16 02:26 Lymph # 2.3 10^3/uL (1.5-3.5) 08/02/16 02:26 [place] # 0.7 10^3/uL (0.0-1.0) 08/02/16 02:26 Eos # 0.0 10^3/uL (0.0-0.7) 08/02/16 02:26 Baso # 0.1 10^3/uL (0.0-0.1) 08/02/16 02:26 Absolute Nucleated RBC 0.00 x10^3/uL 08/02/16 02:26 Nucleated RBCs 0.0 /100WBC 08/02/16 02:26 PT 27.9 secs (9.9-12.6) H 08/02/16 08:52 INR 2.5 (0.8-1.2) H 08/02/16 08:52 VBG pH 7.392 (7.31-7.41) 08/02/16 02:26 VBG pCO2 37.0 mmHg (41-51) L 08/02/16 02:26 VBG pO2 218.4 mmHg (25-47) H 08/02/16 02:26 VBG HCO3 22.0 mmol/L (23-28) L 08/02/16 02:26 VBG Total CO2 23.1 mmol/L (24-29) L 08/02/16 02:26 VBG O2 Saturation 96.8 % (60-80) H 08/02/16 02:26 VBG Base Excess -2.5 mmol/L (-2 - +2) L 08/02/16 02:26 Sodium 140 mmol/L (135-145) 08/02/16 02:26 Potassium 4.1 mmol/L (3.5-5.0) 08/02/16 02:26 Chloride 108 mmol/L (101-111) 08/02/16 02:26 Carbon Dioxide 21 mmol/L (21-32) 08/02/16 02:26 Anion Gap 11.0 (6-13) 08/02/16 02:26 BUN 28 mg/dL (6-20) H 08/02/16 02:26 Creatinine 1.1 mg/dL (0.4-1.0) H 08/02/16 02:26 Estimated GFR (MDRD) 47 (>89) L 08/02/16 02:26 Glucose 201 mg/dL (70-100) H 08/02/16 02:26 Glycated Hemoglobin 7.2 % (4.6-6.2) H 08/02/16 02:26 Estim Average Glucose 160 (70-100) H 08/02/16 02:26 Lactic Acid 1.1 mmol/L (0.5-2.2) 08/02/16 02:26 Calcium 8.9 mg/dL (8.5-10.3) 08/02/16 02:26 Magnesium 1.9 mg/dL (1.7-2.8) 08/01/16 Unknown Total Bilirubin 0.6 mg/dL (0.2-1.0) 08/01/16 Unknown AST 66 IU/L (10-42) H 08/01/16 Unknown ALT 74 IU/L (10-60) H 08/01/16 Unknown Alkaline Phosphatase 69 IU/L (42-121) 08/01/16 Unknown Troponin I 0.18 ng/mL (<0.49) 08/02/16 05:04 B-Natriuretic Peptide 592 pg/mL (5-100) H 08/01/16 13:56 Total Protein 6.7 g/dL (6.7-8.2) 08/01/16 Unknown Albumin 3.6 g/dL (3.2-5.5) 08/01/16 Unknown Globulin 3.1 g/dL (2.1-4.2) 08/01/16 Unknown Albumin/Globulin Ratio 1.2 (1.0-2.2) 08/01/16 Unknown Lipase 11 U/L (22-51) L 08/01/16 Unknown Urine Color YELLOW 08/02/16 01:27 Urine Clarity HAZY (CLEAR) 08/02/16 01:27 Urine pH 5.5 PH (5.0-7.5) 08/02/16 01:27 Ur Specific [place] 1.025 (1.002-1.030) 08/02/16 01:27 Urine Protein 30 mg/dL (NEGATIVE) H 08/02/16 01:27 Urine Glucose (UA) NEGATIVE mg/dL (NEGATIVE) 08/02/16 01:27 Urine Ketones NEGATIVE mg/dL (NEGATIVE) 08/02/16 01:27 Urine Occult Blood MODERATE (NEGATIVE) H 08/02/16 01:27 Urine Nitrite POSITIVE (NEGATIVE) H 08/02/16 01:27 Urine Bilirubin NEGATIVE (NEGATIVE) 08/02/16 01:27 Urine Urobilinogen 0.2 (NORMAL) E.U./dL (NORMAL) 08/02/16 01:27 Ur Leukocyte Esterase LARGE (NEGATIVE) H 08/02/16 01:27 Urine RBC 11-25 /HPF (0-5) H 08/02/16 01:27 Urine WBC >25 /HPF (0-5) H 08/02/16 01:27 Ur Squamous Epith Cells FEW Squamous (<= Few) 08/02/16 01:27 Urine Bacteria Moderate /HPF (None Seen) H 08/02/16 01:27 Ur Microscopic Review INDICATED 08/02/16 01:27 Urine Culture Comments INDICATED 08/02/16 01:27 Blood Type A POSITIVE 08/01/16 21:00 Blood Type Recheck A POSITIVE 08/01/16 13:20 - Procedures Procedures: Procedures ENDO RECTUM POLYPECTOMY (11/29/13) ENDOSC POLYPECTOMY OF LG INTEST (11/29/13) EXC LES SOFT TISSUE NEC (01/05/13) EYELID BIOPSY (03/09/14) LOCAL EXCIS BREAST LES (01/05/13) LYMPHATIC STRUCT BIOPSY (08/04/12) OTHER ENDOSCOPY OF SM INTEST (11/29/13) TU REMOV URETER OBSTRUCT (08/30/13) UNILAT EXTEN SIMP MASTEC (08/04/12) URETERAL CATHETERIZATION (08/30/13)
[2016-08-02] MEDS: MORPHINE 2 MG/ML SYRINGE IVP PRN (12:11)
[2016-08-02] MEDS: INSULIN ASPART 300 UNIT/3 ML PEN SUBQ SCH ×3 (13:56→20:08)
--- NOTE | 2016-08-02 14:04 | XRAY Report ---
FRONTAL CHEST: 08/02/2016 CLINICAL INDICATION: PICC placement. COMPARISON: 08/01/2016. FINDINGS: Frontal view of the chest demonstrates a left arm PICC terminating at the cavoatrial junct ion. Minimal interstitial prominence is stable from previous. No new consolidation, effusion, or pneu mothorax. IMPRESSION: LEFT ARM PICC TERMINATING AT THE CAVOATRIAL JUNCTION. JOB #: [id number] EXT JOB #:[id number]
[2016-08-02] MEDS: LATANOPROST 0.005% OPHTH DROPS RIGHTEYE SCH (20:04)
[2016-08-02] MEDS: SODIUM CHLORIDE FLUSH 0.9% 10 ML SYRINGE IVP PRN (20:04)
[2016-08-02] MEDS: CARBOXYMETHYLCELLULOSE OPHTH DROPS EACHEYE PRN (20:11)
[2016-08-03] MEDS: diltiaZEM INJ 5 MG/ML VIAL IVP PRN ×3 (02:51→08:29)
[2016-08-03 05:52] LABS: BASOPHILS # (AUTO) 0.1 10^3/uL (0.0-0.1); BASOPHILS % (AUTO) 0.9 %; EOSINOPHILS # (AUTO) 0.3 10^3/uL (0.0-0.7); EOSINOPHILS % (AUTO) 2.4 %; HCT - HEMATOCRIT 31.9 % (37.0-47.0); HGB - HEMOGLOBIN 10.5 g/dL (12.0-16.0); LYMPHOCYTES # (AUTO) 2.6 10^3/uL (1.5-3.5); LYMPHOCYTES % (AUTO) 22.9 %; MEAN CORPUSCULAR HEMOGLOBIN 31.8 pg (27.0-31.0); MEAN CORPUSCULAR HGB CONC 32.9 g/dL (32.0-36.0); MEAN CORPUSCULAR VOLUME 96.5 fL (81.0-99.0); MEAN PLATELET VOLUME 8.3 fL (7.9-10.8); MONOCYTES # (AUTO) 1.1 10^3/uL (0.0-1.0); MONOCYTES % (AUTO) 9.6 %; NEUTROPHILS # (AUTO) 7.4 10^3/uL (1.5-6.6); NEUTROPHILS % (AUTO) 64.2 %; NUCLEATED RED BLOOD CELLS AUTO 0.1 /100WBC; RED CELL DISTRIBUTION WIDTH 15.2 % (12.0-15.0); UNCORRECTED WHITE BLOOD COUNT 11.5 x10^3/uL; WHITE BLOOD COUNT 11.5 x10^3/uL (4.8-10.8)
[2016-08-03 05:53] LABS: INR 2.1 (0.8-1.2); PT - PROTHROMBIN TIME 23.6 secs (9.9-12.6)
[2016-08-03 05:55] LABS: CALCIUM 8.6 mg/dL (8.5-10.3); POTASSIUM 4.2 mmol/L (3.5-5.0)
[2016-08-03] MEDS: SODIUM CHLORIDE FLUSH 0.9% 10 ML SYRINGE IVP SCH ×3 (06:01→20:07)
[2016-08-03] MEDS: PANTOPRAZOLE 40 MG TABLET PO SCH ×2 (06:09→16:54)
[2016-08-03] MEDS: INSULIN ASPART 300 UNIT/3 ML PEN SUBQ SCH ×4 (08:19→20:05)
[2016-08-03] MEDS: MAGNESIUM OXIDE 400 MG TABLET PO SCH (08:21)
[2016-08-03] MEDS: cefTRIAXone 2 GM in SODIUM CHLORIDE 0.9% MINIBAG 100 ML IV SCH (08:22)
[2016-08-03] MEDS: CETIRIZINE 10 MG TABLET PO SCH (08:22)
[2016-08-03] MEDS: DULoxetine 30 MG CAPSULE PO SCH ×2 (08:25→20:03)
[2016-08-03] MEDS: METOPROLOL TARTRATE 50 MG TABLET PO SCH ×2 (08:26→20:03)
[2016-08-03] MEDS: MULTIVITAMIN TABLET PO SCH (08:27)
[2016-08-03] MEDS: POLYETHYLENE GLYCOL 3350 17 GM PACKET PO SCH (08:28)
[2016-08-03] MEDS: DOCUSATE SODIUM 100 MG CAPSULE PO PRN (08:29)
[2016-08-03] MEDS: SACCHAROMYCES BOULARDII 250 MG CAPSULE PO SCH ×2 (08:35→16:58)
--- NOTE | 2016-08-03 09:04 | PROVIDER PROGRESS NOTE ---
Assessment/Plan - Problem List (1) Atrial fibrillation with rapid ventricular response Assessment/Plan: Dulce Maria is still spiking to the 140s with min. exertion. She used 50 mgs 0f dilttiazem in 24 hrs. Will transition to 120 mgs BID. Her BP is in 160s so should tolerate Will not restart the Norvasc. (2) Urinary tract infection Assessment/Plan: on antibx. Await C&S (3) Sepsis Assessment/Plan: She has cleared the Sepsis see improvement on all organ systems except the RV - Current Meds Current Meds: Current Medications Generic Name Dose Route Start Last Admin Trade Name Freq PRN Reason Stop Dose Admin Acetaminophen/Hydrocodone Bitart 1 tab 08/01/16 16:41 08/02/16 20:04 [place] 5/325 PO 1 tab Q4HR PRN Administration Pain 5 to 7 Carboxymethylcellulose 1 drops 08/01/16 17:39 08/02/16 20:11 Refresh 1% Ophth Drops EACHEYE 1 drops QID PRN Administration Dry Eye Cetirizine HCl 10 mg 08/02/16 09:00 08/03/16 08:22 Zyrtec PO 10 mg DAILY LOWELL Administration Diltiazem HCl 10 mg 08/01/16 21:59 08/03/16 08:29 Cardizem Inj IVP 10 mg Q1H PRN Administration HR>110 Docusate Sodium 200 mg 08/01/16 17:39 08/03/16 08:29 Colace 100mg Capsule PO 200 mg DAILY PRN Administration Constipation Duloxetine HCl 30 mg 08/01/16 21:00 08/03/16 08:25 Cymbalta PO 30 mg BID LOWELL Administration Sodium Chloride 1,000 mls @ 70 mls/hr 08/01/16 18:00 08/02/16 15:18 Normal Saline 0.9% IV 70 mls/hr .[id number] LOWELL Administration Azithromycin 500 mg/ Sodium 250 mls @ 250 mls/hr 08/02/16 10:00 08/02/16 09:29 Chloride IV 250 mls/hr DAILY@1000 LOWELL Administration Ceftriaxone Sodium 2 gm/ 100 mls @ 200 mls/hr 08/02/16 09:00 08/03/16 08:22 Sodium Chloride IV 200 mls/hr DAILY LOWELL Administration Insulin Aspart 1 - 9 unit 08/02/16 12:00 08/03/16 08:19 Novolog SUBQ 1 unit 0800,1200,1700,2100 LOWELL Administration Protocol Latanoprost 1 drops 08/01/16 21:00 08/02/16 20:04 Xalatan Ophth Drops RIGHTEYE 1 drops QPM LOWELL Administration Magnesium Oxide 400 mg 08/02/16 08:00 08/03/16 08:21 Mag Ox PO 400 mg 0800 LOWELL Administration Metoprolol Tartrate 75 mg 08/01/16 21:00 08/03/16 08:26 Lopressor PO 75 mg BID LOWELL Administration Morphine Sulfate 2 mg 08/01/16 21:59 08/02/16 12:11 Morphine IVP 2 mg Q2HR PRN Administration PAIN Multivitamins 1 tab 08/02/16 09:00 08/03/16 08:27 Theragran PO 1 tab DAILY LOWELL Administration Ondansetron HCl 4 mg 08/01/16 16:41 08/01/16 17:47 Zofran Inj IVP 4 mg Q4HR PRN Administration Nausea / Vomiting Pantoprazole Sodium 40 mg 08/01/16 18:30 08/03/16 06:09 Protonix PO 40 mg BIDAC LOWELL Administration Polyethylene Glycol 17 gm 08/02/16 09:00 08/03/16 08:28 Miralax PO 17 gm DAILY LOWELL Administration Saccharomyces Boulardii 250 mg 08/02/16 08:00 08/03/16 08:35 Florastor PO 250 mg BIDWM LOWELL Administration Sodium Chloride 10 ml 08/01/16 16:41 08/02/16 20:04 Normal Saline Flush 0.9% IVP 10 ml PRN PRN Administration NEEDED PER PROVIDER ORDERS Sodium Chloride 10 ml 08/01/16 22:00 08/03/16 06:01 Normal Saline Flush 0.9% IVP Not Given Q8HR LOWELL - Lab Result Fish Bone Diagrams: 08/03/16 04:50 08/03/16 04:50 - Additional Planning My Orders: My Active Orders 08/02/16 08:29 Transfuse Fresh Frozen Plasma [RC] ONCE 08/02/16 08:50 Blood Glucose Checks - Eating [RC] 0800,1200,1700,2100 08/02/16 08:52 Initiate Hypoglycemia Protocol [RC] .protocol 08/02/16 09:00 Cetirizine [ZyrTEC] 10 mg PO DAILY Multivitamin [Theragran] 1 tab PO DAILY 08/02/16 12:00 Insulin Aspart [NovoLOG] 1 - 9 unit SUBQ 0800,1200,1700,2100 08/02/16 Lunch Carb-controlled Diet [DIET] 08/03/16 08:15 Chest 2 View PA/LAT [XR] Routine 08/03/16 09:00 [id number] CD [Cardizem Cd] 120 mg PO BID 08/03/16 14:00 Warfarin [Coumadin] 5 mg PO [id number] 08/03/16 21:00 Patient Own Med [Patient Own Medication] 1 each PO QPM 08/04/16 05:00 PT WITH INR [COAG] DAILYLAB 08/05/16 05:00 PT WITH INR [COAG] DAILYLAB Subjective - Subjective Patient Reports: Resting Comfortably, Fatigue (Needs her melotonin. She says she uses her CPAP alot at home even when she is well. She does go to [employer] and [employer] sometimes.) Nursing Reports: Cough, Shortness of Breath Objective Vital Signs: Vital Signs - 24 hr 08/02/16 08/02/16 08/02/16 09:07 10:00 11:00 Temperature Heart Rate Heart Rate [ 109 H 88 Monitoring electrodes] Respiratory 21 21 Rate Blood Pressure 151/84 H Blood Pressure [Left Ankle] Blood Pressure 142/82 H 118/80 [Right Ankle] O2 Saturation 96 95 08/02/16 08/02/16 08/02/16 11:44 11:45 12:00 Temperature Heart Rate 96 Heart Rate [ 92 Monitoring electrodes] Respiratory 21 22 Rate Blood Pressure 136/110 H Blood Pressure [Left Ankle] Blood Pressure 104/68 [Right Ankle] O2 Saturation 95 08/02/16 08/02/16 08/02/16 12:14 13:00 14:00 Temperature Heart Rate Heart Rate [ 72 57 L Monitoring electrodes] Respiratory 15 18 Rate Blood Pressure 104/68 Blood Pressure [Left Ankle] Blood Pressure 134/78 H 143/83 H [Right Ankle] O2 Saturation 94 96 08/02/16 08/02/16 08/02/16 15:00 16:00 16:48 Temperature 36.8 C Heart Rate Heart Rate [ 96 87 83 Monitoring electrodes] Respiratory 20 15 14 Rate Blood Pressure Blood Pressure [Left Ankle] Blood Pressure 152/99 H 152/87 H 138/78 H [Right Ankle] O2 Saturation 97 97 98 08/02/16 08/02/16 08/02/16 17:10 17:27 17:53 Temperature Heart Rate 99 Heart Rate [ Monitoring electrodes] Respiratory 19 Rate Blood Pressure 149/91 H 165/87 H Blood Pressure [Left Ankle] Blood Pressure [Right Ankle] O2 Saturation 08/02/16 08/02/16 08/02/16 18:00 19:00 19:10 Temperature Heart Rate 70 Heart Rate [ 72 70 Monitoring electrodes] Respiratory 16 17 18 Rate Blood Pressure Blood Pressure [Left Ankle] Blood Pressure 156/81 H 156/81 H [Right Ankle] O2 Saturation 95 96 08/02/16 08/02/16 08/02/16 19:57 20:04 21:00 Temperature 36.9 C Heart Rate Heart Rate [ 90 85 Monitoring electrodes] Respiratory 18 19 Rate Blood Pressure 162/81 H Blood Pressure [Left Ankle] Blood Pressure 162/81 H 129/84 H [Right Ankle] O2 Saturation 98 96 08/02/16 08/02/16 08/02/16 22:00 22:32 23:00 Temperature Heart Rate Heart Rate [ 109 H 88 Monitoring electrodes] Respiratory 22 17 Rate Blood Pressure 156/84 H Blood Pressure 157/82 H [Left Ankle] Blood Pressure 135/80 H [Right Ankle] O2 Saturation 95 98 08/02/16 08/03/16 08/03/16 23:02 00:25 01:00 Temperature Heart Rate Heart Rate [ 91 97 Monitoring electrodes] Respiratory 18 18 Rate Blood Pressure 157/82 H Blood Pressure 129/69 129/69 [Left Ankle] Blood Pressure [Right Ankle] O2 Saturation 93 94 08/03/16 08/03/16 08/03/16 02:00 02:51 03:00 Temperature Heart Rate Heart Rate [ 87 101 H Monitoring electrodes] Respiratory 19 19 Rate Blood Pressure 134/80 H Blood Pressure 137/77 H 138/75 H [Left Ankle] Blood Pressure [Right Ankle] O2 Saturation 93 94 08/03/16 08/03/16 08/03/16 03:21 04:00 05:00 Temperature Heart Rate Heart Rate [ 85 93 Monitoring electrodes] Respiratory 19 20 Rate Blood Pressure 138/75 H Blood Pressure 144/97 H 141/80 H [Left Ankle] Blood Pressure [Right Ankle] O2 Saturation 93 93 08/03/16 08/03/16 08/03/16 06:00 06:19 06:49 Temperature Heart Rate Heart Rate [ 102 H Monitoring electrodes] Respiratory 20 Rate Blood Pressure 159/97 H 133/84 H Blood Pressure 164/78 H [Left Ankle] Blood Pressure [Right Ankle] O2 Saturation 94 08/03/16 08/03/16 08/03/16 07:00 07:47 08:26 Temperature 37.4 C Heart Rate Heart Rate [ 86 110 H Monitoring electrodes] Respiratory 22 17 Rate Blood Pressure 155/114 H Blood Pressure 133/84 H 162/106 H [Left Ankle] Blood Pressure [Right Ankle] O2 Saturation 95 91 L 08/03/16 08/03/16 08:29 08:55 Temperature Heart Rate Heart Rate [ 82 Monitoring electrodes] Respiratory 15 Rate Blood Pressure 155/114 H Blood Pressure 129/79 [Left Ankle] Blood Pressure [Right Ankle] O2 Saturation 95 Oxygen O2 Source Oxymask I&O (Last 24 Hrs): Intake and Output Totals x24h 08/01/16 08/02/16 08/03/16 23:59 23:59 23:59 Intake Total 400 4320 1402 Output Total 949 545 Balance 400 3371 857 General: Alert, Oriented x3, Cooperative HEENT: PERRLA, EOMI Neck: No JVD, No thyromegaly Neuro: Alert, Oriented Times 3 Cardiovascular: No murmurs Respiratory: Chest non-tender, Rhonchi Abdomen: Normal bowel sounds, Soft Extremities: No cyanosis, No edema Skin: No rashes, No breakdown - Results Results: Laboratory Results WBC 11.5 x10^3/uL (4.8-10.8) H 08/03/16 04:50 RBC 3.30 10^6/uL (4.20-5.40) L 08/03/16 04:50 Hgb 10.5 g/dL (12.0-16.0) L 08/03/16 04:50 Hct 31.9 % (37.0-47.0) L 08/03/16 04:50 MCV 96.5 fL (81.0-99.0) 08/03/16 04:50 MCH 31.8 pg (27.0-31.0) H 08/03/16 04:50 MCHC 32.9 g/dL (32.0-36.0) 08/03/16 04:50 RDW 15.2 % (12.0-15.0) H 08/03/16 04:50 Plt Count 223 10^3/uL (130-450) 08/03/16 04:50 MPV 8.3 fL (7.9-10.8) 08/03/16 04:50 Neut # 7.4 10^3/uL (1.5-6.6) H 08/03/16 04:50 Lymph # 2.6 10^3/uL (1.5-3.5) 08/03/16 04:50 [place] # 1.1 10^3/uL (0.0-1.0) H 08/03/16 04:50 Eos # 0.3 10^3/uL (0.0-0.7) 08/03/16 04:50 Baso # 0.1 10^3/uL (0.0-0.1) 08/03/16 04:50 Absolute Nucleated RBC 0.01 x10^3/uL 08/03/16 04:50 Nucleated RBCs 0.1 /100WBC 08/03/16 04:50 PT 23.6 secs (9.9-12.6) H 08/03/16 04:50 INR 2.1 (0.8-1.2) H 08/03/16 04:50 VBG pH 7.392 (7.31-7.41) 08/02/16 02:26 VBG pCO2 37.0 mmHg (41-51) L 08/02/16 02:26 VBG pO2 218.4 mmHg (25-47) H 08/02/16 02:26 VBG HCO3 22.0 mmol/L (23-28) L 08/02/16 02:26 VBG Total CO2 23.1 mmol/L (24-29) L 08/02/16 02:26 VBG O2 Saturation 96.8 % (60-80) H 08/02/16 02:26 VBG Base Excess -2.5 mmol/L (-2 - +2) L 08/02/16 02:26 Sodium 141 mmol/L (135-145) 08/03/16 04:50 Potassium 4.2 mmol/L (3.5-5.0) 08/03/16 04:50 Chloride 109 mmol/L (101-111) 08/03/16 04:50 Carbon Dioxide 25 mmol/L (21-32) 08/03/16 04:50 Anion Gap 7.0 (6-13) 08/03/16 04:50 BUN 25 mg/dL (6-20) H 08/03/16 04:50 Creatinine 1.0 mg/dL (0.4-1.0) 08/03/16 04:50 Estimated GFR (MDRD) 53 (>89) L 08/03/16 04:50 Glucose 161 mg/dL (70-100) H 08/03/16 04:50 Glycated Hemoglobin 7.2 % (4.6-6.2) H 08/02/16 02:26 Estim Average Glucose 160 (70-100) H 08/02/16 02:26 Lactic Acid 1.1 mmol/L (0.5-2.2) 08/02/16 02:26 Calcium 8.6 mg/dL (8.5-10.3) 08/03/16 04:50 Magnesium 1.9 mg/dL (1.7-2.8) 08/01/16 Unknown Total Bilirubin 0.6 mg/dL (0.2-1.0) 08/01/16 Unknown AST 66 IU/L (10-42) H 08/01/16 Unknown ALT 74 IU/L (10-60) H 08/01/16 Unknown Alkaline Phosphatase 69 IU/L (42-121) 08/01/16 Unknown Troponin I 0.18 ng/mL (<0.49) 08/02/16 05:04 B-Natriuretic Peptide 592 pg/mL (5-100) H 08/01/16 13:56 Total Protein 6.7 g/dL (6.7-8.2) 08/01/16 Unknown Albumin 3.6 g/dL (3.2-5.5) 08/01/16 Unknown Globulin 3.1 g/dL (2.1-4.2) 08/01/16 Unknown Albumin/Globulin Ratio 1.2 (1.0-2.2) 08/01/16 Unknown Lipase 11 U/L (22-51) L 08/01/16 Unknown Urine Color YELLOW 08/02/16 01:27 Urine Clarity HAZY (CLEAR) 08/02/16 01:27 Urine pH 5.5 PH (5.0-7.5) 08/02/16 01:27 Ur Specific [place] 1.025 (1.002-1.030) 08/02/16 01:27 Urine Protein 30 mg/dL (NEGATIVE) H 08/02/16 01:27 Urine Glucose (UA) NEGATIVE mg/dL (NEGATIVE) 08/02/16 01:27 Urine Ketones NEGATIVE mg/dL (NEGATIVE) 08/02/16 01:27 Urine Occult Blood MODERATE (NEGATIVE) H 08/02/16 01:27 Urine Nitrite POSITIVE (NEGATIVE) H 08/02/16 01:27 Urine Bilirubin NEGATIVE (NEGATIVE) 08/02/16 01:27 Urine Urobilinogen 0.2 (NORMAL) E.U./dL (NORMAL) 08/02/16 01:27 Ur Leukocyte Esterase LARGE (NEGATIVE) H 08/02/16 01:27 Urine RBC 11-25 /HPF (0-5) H 08/02/16 01:27 Urine WBC >25 /HPF (0-5) H 08/02/16 01:27 Ur Squamous Epith Cells FEW Squamous (<= Few) 08/02/16 01:27 Urine Bacteria Moderate /HPF (None Seen) H 08/02/16 01:27 Ur Microscopic Review INDICATED 08/02/16 01:27 Urine Culture Comments INDICATED 08/02/16 01:27 Blood Type A POSITIVE 08/01/16 21:00 Blood Type Recheck A POSITIVE 08/01/16 13:20 - Procedures Procedures: Procedures ENDO RECTUM POLYPECTOMY (11/29/13) ENDOSC POLYPECTOMY OF LG INTEST (11/29/13) EXC LES SOFT TISSUE NEC (01/05/13) EYELID BIOPSY (03/09/14) LOCAL EXCIS BREAST LES (01/05/13) LYMPHATIC STRUCT BIOPSY (08/04/12) OTHER ENDOSCOPY OF SM INTEST (11/29/13) TU REMOV URETER OBSTRUCT (08/30/13) UNILAT EXTEN SIMP MASTEC (08/04/12) URETERAL CATHETERIZATION (08/30/13)
--- NOTE | 2016-08-03 10:12 | XRAY Preliminary Report ---
Exam: XR Chest 2 View PA/LAT IMPRESSION: New left lower lobe pleural effusion and increasing increased interstitial markings with peribronchia l cuffing which is nonspecific image seen in the setting of reactive airways disease, bronchitis and viral infection. [facility] SITE ID: [id number]
--- NOTE | 2016-08-03 10:15 | XRAY Report ---
EXAM: CHEST RADIOGRAPHY EXAM DATE: 08/03/2016 09:22 AM. CLINICAL HISTORY: Sepsis, cough. COMPARISON: Chest radiograph dated 08/01/2016. TECHNIQUE: 2 views. FINDINGS: Lungs/Pleura: Small left-sided pleural effusion. Increased interstitial markings with subtle peribron chial cuffing. This has increased from the prior examination. Mediastinum: Heart and mediastinal contours are unremarkable. Other: None. IMPRESSION: New left lower lobe pleural effusion and increasing increased interstitial markings with peribronchia l cuffing which is nonspecific image seen in the setting of reactive airways disease, bronchitis and viral infection. [facility] Referring Provider Line: [phone] SITE ID: [id number]
[2016-08-03] MEDS: AZITHROMYCIN INJ 500 MG in SODIUM CHLORIDE 0.9% 250 ML IV SCH (10:41)
[2016-08-03] MEDS: diltiaZEM CD 120 MG CAPSULE PO SCH ×2 (10:50→17:10)
[2016-08-03] MEDS: WARFARIN 5 MG TABLET PO SCH (14:12)
[2016-08-03] MEDS: SODIUM CHLORIDE 0.9% 1,000 ML IV SCH (14:17)
[2016-08-03] MEDS: HYDROcod/ACETAM 5/325 MG TABLET PO PRN (20:03)
[2016-08-03] MEDS: LATANOPROST 0.005% OPHTH DROPS RIGHTEYE SCH (20:06)
[2016-08-03] MEDS: [UNRECOGNIZED DRUG - OTHER] PO SCH (20:06)
[2016-08-03] MEDS: MELATONIN PO SCH (20:06)
[2016-08-03] MEDS: SODIUM CHLORIDE FLUSH 0.9% 10 ML SYRINGE IVP PRN (20:07)
[2016-08-03] MEDS ORDERED: MELATONIN 8 MG PO SCH (21:00)
[2016-08-04] MEDS: PANTOPRAZOLE 40 MG TABLET PO SCH ×2 (07:09→17:11)
[2016-08-04] MEDS: SODIUM CHLORIDE FLUSH 0.9% 10 ML SYRINGE IVP SCH ×4 (07:09→21:32)
[2016-08-04] MEDS: SODIUM CHLORIDE FLUSH 0.9% 10 ML SYRINGE IVP PRN ×2 (07:10→21:49)
[2016-08-04] MEDS: INSULIN ASPART 300 UNIT/3 ML PEN SUBQ SCH ×4 (08:07→21:20)
[2016-08-04] MEDS: SACCHAROMYCES BOULARDII 250 MG CAPSULE PO SCH ×2 (09:22→17:11)
[2016-08-04] MEDS: DULoxetine 30 MG CAPSULE PO SCH ×2 (09:22→20:57)
[2016-08-04] MEDS: POLYETHYLENE GLYCOL 3350 17 GM PACKET PO SCH (09:23)
[2016-08-04] MEDS: MAGNESIUM OXIDE 400 MG TABLET PO SCH (09:23)
[2016-08-04] MEDS: CETIRIZINE 10 MG TABLET PO SCH (09:23)
[2016-08-04] MEDS: MULTIVITAMIN TABLET PO SCH (09:23)
[2016-08-04] MEDS: cefTRIAXone 2 GM in SODIUM CHLORIDE 0.9% MINIBAG 100 ML IV SCH (09:24)
[2016-08-04] MEDS: diltiaZEM CD 120 MG CAPSULE PO SCH ×2 (09:24→20:57)
[2016-08-04] MEDS: METOPROLOL TARTRATE 50 MG TABLET PO SCH ×2 (09:25→20:58)
[2016-08-04 09:53] LABS: BASOPHILS % (AUTO) 1.5 %; EOSINOPHILS % (AUTO) 1.4 %; HCT - HEMATOCRIT 32.9 % (37.0-47.0); HGB - HEMOGLOBIN 10.8 g/dL (12.0-16.0); LYMPHOCYTES % (AUTO) 9.8 %; MEAN CORPUSCULAR HEMOGLOBIN 31.2 pg (27.0-31.0); MEAN CORPUSCULAR HGB CONC 32.7 g/dL (32.0-36.0); MEAN CORPUSCULAR VOLUME 95.3 fL (81.0-99.0); MEAN PLATELET VOLUME 7.9 fL (7.9-10.8); MONOCYTES % (AUTO) 6.6 %; NEUTROPHILS % (AUTO) 80.7 %; RED BLOOD COUNT 3.46 10^6/uL (4.20-5.40); RED CELL DISTRIBUTION WIDTH 15.7 % (12.0-15.0); UNCORRECTED WHITE BLOOD COUNT 12.4 x10^3/uL; WHITE BLOOD COUNT 12.4 x10^3/uL (4.8-10.8)
[2016-08-04 10:02] LABS: CREATININE 0.9 mg/dL (0.4-1.0); POTASSIUM 4.2 mmol/L (3.5-5.0)
[2016-08-04 10:03] LABS: INR 2.5 (0.8-1.2); PT - PROTHROMBIN TIME 27.8 secs (9.9-12.6)
[2016-08-04 10:24] LABS: BAND NEUTROPHILS % (MANUAL) 2 %; EOSINOPHILS % (MANUAL) 1 %; LYMPHOCYTES % (MANUAL) 10 %; NEUTROPHILS % (MANUAL) 79 %; NP AUTO DIFFERENTIAL? YES; NP MAN DIFFERENTIAL? NO; PLATELET ESTIMATE, MANUAL NORMAL (130-450,000) (NORMAL); WBC MORPHOLOGY (MULTIPLE) 1+ TOXIC GRANULATION (NORMAL)
[2016-08-04] MEDS: AZITHROMYCIN INJ 500 MG in SODIUM CHLORIDE 0.9% 250 ML IV SCH (11:24)
[2016-08-04] MEDS: WARFARIN 5 MG TABLET PO SCH (14:00)
[2016-08-04] MEDS: LORazepam 0.5 MG TABLET PO SCH ×2 (17:09→21:31)
[2016-08-04] MEDS ORDERED: ALTEPLASE 2 MG VIAL IC SCH (18:17)
[2016-08-04] MEDS: LATANOPROST 0.005% OPHTH DROPS RIGHTEYE SCH (20:59)
[2016-08-04] MEDS: MELATONIN PO SCH (21:01)
[2016-08-04] MEDS: [UNRECOGNIZED DRUG - OTHER] PO SCH (21:01)
[2016-08-04] MEDS: CARBOXYMETHYLCELLULOSE OPHTH DROPS EACHEYE PRN (21:28)
[2016-08-04] MEDS: HYDROcod/ACETAM 5/325 MG TABLET PO PRN (21:28)
[2016-08-05 05:51] LABS: BASOPHILS # (AUTO) 0.1 10^3/uL (0.0-0.1); BASOPHILS % (AUTO) 1.3 %; EOSINOPHILS # (AUTO) 0.2 10^3/uL (0.0-0.7); EOSINOPHILS % (AUTO) 1.5 %; HCT - HEMATOCRIT 32.4 % (37.0-47.0); HGB - HEMOGLOBIN 10.5 g/dL (12.0-16.0); LYMPHOCYTES # (AUTO) 2.7 10^3/uL (1.5-3.5); LYMPHOCYTES % (AUTO) 23.5 %; MEAN CORPUSCULAR HEMOGLOBIN 31.3 pg (27.0-31.0); MEAN CORPUSCULAR HGB CONC 32.4 g/dL (32.0-36.0); MEAN CORPUSCULAR VOLUME 96.5 fL (81.0-99.0); MEAN PLATELET VOLUME 7.9 fL (7.9-10.8); MONOCYTES # (AUTO) 0.8 10^3/uL (0.0-1.0); NEUTROPHILS # (AUTO) 7.6 10^3/uL (1.5-6.6); NEUTROPHILS % (AUTO) 66.7 %; RED BLOOD COUNT 3.36 10^6/uL (4.20-5.40); RED CELL DISTRIBUTION WIDTH 15.5 % (12.0-15.0); UNCORRECTED WHITE BLOOD COUNT 11.4 x10^3/uL; WHITE BLOOD COUNT 11.4 x10^3/uL (4.8-10.8)
[2016-08-05] MEDS: SODIUM CHLORIDE FLUSH 0.9% 10 ML SYRINGE IVP SCH ×3 (05:58→22:46)
[2016-08-05] MEDS: LORazepam 0.5 MG TABLET PO SCH ×3 (05:58→21:14)
[2016-08-05] MEDS: PANTOPRAZOLE 40 MG TABLET PO SCH ×2 (06:00→17:00)
[2016-08-05 06:14] LABS: BILIRUBIN,TOTAL 0.5 mg/dL (0.2-1.0); POTASSIUM 3.9 mmol/L (3.5-5.0); TOTAL PROTEIN 6.2 g/dL (6.7-8.2)
[2016-08-05 06:17] LABS: INR 3.3 (0.8-1.2); PT - PROTHROMBIN TIME 37.4 secs (9.9-12.6)
[2016-08-05] MEDS: diltiaZEM CD 120 MG CAPSULE PO SCH ×2 (08:13→21:14)
[2016-08-05] MEDS: cefTRIAXone 2 GM in SODIUM CHLORIDE 0.9% MINIBAG 100 ML IV SCH (08:13)
[2016-08-05] MEDS: POLYETHYLENE GLYCOL 3350 17 GM PACKET PO SCH (08:13)
[2016-08-05] MEDS: MULTIVITAMIN TABLET PO SCH (08:14)
[2016-08-05] MEDS: CETIRIZINE 10 MG TABLET PO SCH (08:14)
[2016-08-05] MEDS: SACCHAROMYCES BOULARDII 250 MG CAPSULE PO SCH ×2 (08:14→17:00)
[2016-08-05] MEDS: MAGNESIUM OXIDE 400 MG TABLET PO SCH (08:14)
[2016-08-05] MEDS: METOPROLOL TARTRATE 50 MG TABLET PO SCH ×2 (08:14→21:11)
[2016-08-05] MEDS: DULoxetine 30 MG CAPSULE PO SCH ×2 (08:14→21:11)
[2016-08-05] MEDS: INSULIN ASPART 300 UNIT/3 ML PEN SUBQ SCH ×4 (08:25→21:16)
[2016-08-05] MEDS: AZITHROMYCIN INJ 500 MG in SODIUM CHLORIDE 0.9% 250 ML IV SCH (10:24)
[2016-08-05] MEDS: WARFARIN 5 MG TABLET PO SCH (13:39)
--- NOTE | 2016-08-05 15:49 | PROVIDER PROGRESS NOTE ---
Subjective - Prog Note Date Prog Note Date: 08/05/16 Prog Note Time: 15:30 - Subjective Pt reports feeling: Improved Subjective: she is getting up with RN to go to bathroom this am. yesterday she was fearful of falling so didn't want to stand and walk. this am different story. still has castillo Current Medications - Current Medications Current Medications: Active Medications Acetaminophen (Tylenol) 650 mg PO Q4HR PRN PRN Reason: Pain 1 to 4 Acetaminophen/Hydrocodone Bitart (Usk 5/325) 1 tab PO Q4HR PRN PRN Reason: Pain 5 to 7 Last Admin: 08/04/16 21:28 Dose: 1 tab Carboxymethylcellulose (Refresh 1% Ophth Drops) 1 drops EACHEYE QID PRN PRN Reason: Dry Eye Last Admin: 08/04/16 21:28 Dose: 1 drops Cetirizine HCl (Zyrtec) 10 mg PO DAILY [facility] Last Admin: 08/05/16 08:14 Dose: 10 mg Diltiazem HCl (Cardizem Inj) 10 mg IVP Q1H PRN PRN Reason: HR>110 Last Admin: 08/03/16 08:29 Dose: 10 mg Diltiazem HCl (Cardizem Cd) 120 mg PO BID [facility] Last Admin: 08/05/16 08:13 Dose: 120 mg Docusate Sodium (Colace 100mg Capsule) 200 mg PO DAILY PRN PRN Reason: Constipation Last Admin: 08/03/16 08:29 Dose: 200 mg Duloxetine HCl (Cymbalta) 30 mg PO BID [facility] Last Admin: 08/05/16 08:14 Dose: 30 mg Azithromycin 500 mg/ Sodium (Chloride) 250 mls @ 250 mls/hr IV DAILY@1000 LOWELL Last Admin: 08/05/16 10:24 Dose: 250 mls/hr Ceftriaxone Sodium 2 gm/ (Sodium Chloride) 100 mls @ 200 mls/hr IV DAILY [facility] Last Admin: 08/05/16 08:13 Dose: 200 mls/hr Insulin Aspart (Novolog) 1 - 9 unit SUBQ 0800,1200,1700,2100 LOWELL PRN Reason: Protocol Last Admin: 08/05/16 11:59 Dose: 3 unit Latanoprost (Xalatan Ophth Drops) 1 drops RIGHTEYE QPM [facility] Last Admin: 08/04/16 20:59 Dose: 1 drops Lorazepam (Ativan) 0.5 mg PO TID [facility] Last Admin: 08/05/16 14:06 Dose: Not Given Magnesium Oxide (Mag Ox) 400 mg PO 0800 [facility] Last Admin: 08/05/16 08:14 Dose: 400 mg Metoprolol Tartrate (Lopressor) 75 mg PO BID [facility] Last Admin: 08/05/16 08:14 Dose: 75 mg Morphine Sulfate (Morphine) 2 mg IVP Q2HR PRN PRN Reason: PAIN Last Admin: 08/02/16 12:11 Dose: 2 mg Multivitamins (Theragran) 1 tab PO DAILY [facility] Last Admin: 08/05/16 08:14 Dose: 1 tab Ondansetron HCl (Zofran Inj) 4 mg IVP Q4HR PRN PRN Reason: Nausea / Vomiting Last Admin: 08/01/16 17:47 Dose: 4 mg Pantoprazole Sodium (Protonix) 40 mg PO BIDAC [facility] Last Admin: 08/05/16 06:00 Dose: 40 mg Meltatonin 5 Mg + (Melatonin 3 Mg Tabs) 1 each PO QPM [facility] Last Admin: 08/04/16 21:01 Dose: 1 each Polyethylene Glycol (Miralax) 17 gm PO DAILY [facility] Last Admin: 08/05/16 08:13 Dose: 17 gm Saccharomyces Boulardii (Florastor) 250 mg PO BIDWM [facility] Last Admin: 08/05/16 08:14 Dose: 250 mg Sodium Chloride (Normal Saline Flush 0.9%) 10 ml IVP PRN PRN PRN Reason: NEEDED PER PROVIDER ORDERS Last Admin: 08/04/16 21:49 Dose: 10 ml Sodium Chloride (Normal Saline Flush 0.9%) 10 ml IVP Q8HR [facility] Last Admin: 08/05/16 14:04 Dose: Not Given Warfarin Sodium (Coumadin) 5 mg PO QDWARFARIN [facility] Last Admin: 08/05/16 13:39 Dose: Not Given Amlodipine Besylate 5 mg PO DAILY 07/31/12 Esomeprazole Magnesium [Nexium] 40 mg PO DAILY 03/08/14 Carboxymethylcellulose Sodium [Refresh Tears] 1 drop EACHEYE QID PRN 01/16/15 Latanoprost 0.005% Ophth Drops [Xalatan Ophth Drops] 1 drop RIGHTEYE QPM Warfarin [Coumadin] 2.5 - 5 mg PO QDWARFARIN 04/23/15 DULoxetine [Cymbalta] 30 mg PO BID 05/17/15 Docusate Sodium 100 - 200 mg PO DAILY PRN 02/21/16 Hydrocodone/Acetaminophen [Hydrocodon-Acetaminoph 7.5-325] 1 tab PO DAILY PRN Multivitamin [Theragran] 1 tab PO DAILY 06/27/16 Cetirizine HCl 10 mg PO DAILY 08/01/16 Magnesium Oxide [Mag Ox] 400 mg PO 0800 08/01/16 Metoprolol Tartrate [Metoprolol Tartrate] 75 mg PO BID 08/01/16 Melatonin 8 mg PO QPM 08/03/16 Objective - Vital Signs/Intake & Output Reviewed Vital Signs: Yes Vital Signs: Vital Signs x48h Temp Pulse Resp BP Pulse Ox 08/05/16 11:58 36.4 C L 80 18 110/77 98 08/05/16 07:49 36.4 C L 78 19 159/95 H 95 Intake & Output: Intake & Output 08/02/16 08/03/16 08/04/16 08/05/16 23:59 23:59 23:59 23:59 Intake Total 4320 3463 1170 736 Output Total 949 1521 1495 400 Balance 3371 1942 -325 336 - Objective General Appearance: positive: No acute distress, Alert, Other (short statured morbidly obese elderly female looks younger than stated age.) Eyes Bilateral: positive: PERRL, EOMI ENT: positive: Pharynx nml Neck: positive: No JVD. negative: Lymphadenopathy (R), Lymphadenopathy (L) Respiratory: positive: Chest non-tender. negative: Wheezes, Rales, Rhonchi Cardiovascular: positive: Irregularly irregular (rate was 140s and today is 78 with change in cardizem) Abdomen: positive: Non-tender, Other (obese). negative: Guarding, Rebound Skin: positive: Warm, Dry Extremities: positive: Full ROM, Pedal edema (minimal) Neurologic/Psychiatric: positive: Oriented x3, CN's nml (2-12), Motor nml (but weak) - Lab Results Fish Bones: 08/05/16 05:37 08/05/16 05:37 Other Labs: Lab Results x24hrs 08/05/16 08/05/16 08/05/16 Range/Units 11:44 07:16 05:37 WBC (4.8-10.8) x10^3/uL RBC (4.20-5.40) 10^6/uL Hgb (12.0-16.0) g/dL Hct (37.0-47.0) % MCV (81.0-99.0) fL MCH (27.0-31.0) pg MCHC (32.0-36.0) g/dL RDW (12.0-15.0) % Plt Count (130-450) 10^3/uL MPV (7.9-10.8) fL Neut # (1.5-6.6) 10^3/uL Lymph # (1.5-3.5) 10^3/uL [place] # (0.0-1.0) 10^3/uL Eos # (0.0-0.7) 10^3/uL Baso # (0.0-0.1) 10^3/uL Absolute Nucleated RBC x10^3/uL Nucleated RBCs /100WBC PT (9.9-12.6) secs INR (0.8-1.2) Sodium 139 (135-145) mmol/L Potassium 3.9 (3.5-5.0) mmol/L Chloride 107 (101-111) mmol/L Carbon Dioxide 24 (21-32) mmol/L Anion Gap 8.0 (6-13) BUN 23 H (6-20) mg/dL Creatinine 1.0 (0.4-1.0) mg/dL Estimated GFR (MDRD) 53 L (>89) Glucose 142 H (70-100) mg/dL POC Whole Bld Glucose 213 H 146 H (70 - 100) mg/dL Calcium 9.0 (8.5-10.3) mg/dL Total Bilirubin 0.5 (0.2-1.0) mg/dL AST 27 (10-42) IU/L ALT 59 (10-60) IU/L Alkaline Phosphatase 66 (42-121) IU/L Total Protein 6.2 L (6.7-8.2) g/dL Albumin 3.1 L (3.2-5.5) g/dL Globulin 3.1 (2.1-4.2) g/dL Albumin/Globulin Ratio 1.0 (1.0-2.2) 08/05/16 08/05/16 08/04/16 Range/Units 05:37 05:37 20:44 WBC 11.4 H (4.8-10.8) x10^3/uL RBC 3.36 L (4.20-5.40) 10^6/uL Hgb 10.5 L (12.0-16.0) g/dL Hct 32.4 L (37.0-47.0) % MCV 96.5 (81.0-99.0) fL MCH 31.3 H (27.0-31.0) pg MCHC 32.4 (32.0-36.0) g/dL RDW 15.5 H (12.0-15.0) % Plt Count 247 (130-450) 10^3/uL MPV 7.9 (7.9-10.8) fL Neut # 7.6 H (1.5-6.6) 10^3/uL Lymph # 2.7 (1.5-3.5) 10^3/uL [place] # 0.8 (0.0-1.0) 10^3/uL Eos # 0.2 (0.0-0.7) 10^3/uL Baso # 0.1 (0.0-0.1) 10^3/uL Absolute Nucleated RBC 0.01 x10^3/uL Nucleated RBCs 0.0 /100WBC PT 37.4 H (9.9-12.6) secs INR 3.3 H (0.8-1.2) Sodium (135-145) mmol/L Potassium (3.5-5.0) mmol/L Chloride (101-111) mmol/L Carbon Dioxide (21-32) mmol/L Anion Gap (6-13) BUN (6-20) mg/dL Creatinine (0.4-1.0) mg/dL Estimated GFR (MDRD) (>89) Glucose (70-100) mg/dL POC Whole Bld Glucose 145 H (70 - 100) mg/dL Calcium (8.5-10.3) mg/dL Total Bilirubin (0.2-1.0) mg/dL AST (10-42) IU/L ALT (10-60) IU/L Alkaline Phosphatase (42-121) IU/L Total Protein (6.7-8.2) g/dL Albumin (3.2-5.5) g/dL Globulin (2.1-4.2) g/dL Albumin/Globulin Ratio (1.0-2.2) 08/04/16 08/04/16 08/04/16 Range/Units 16:26 12:48 11:12 WBC (4.8-10.8) x10^3/uL RBC (4.20-5.40) 10^6/uL Hgb (12.0-16.0) g/dL Hct (37.0-47.0) % MCV (81.0-99.0) fL MCH (27.0-31.0) pg MCHC (32.0-36.0) g/dL RDW (12.0-15.0) % Plt Count (130-450) 10^3/uL MPV (7.9-10.8) fL Neut # (1.5-6.6) 10^3/uL Lymph # (1.5-3.5) 10^3/uL [place] # (0.0-1.0) 10^3/uL Eos # (0.0-0.7) 10^3/uL Baso # (0.0-0.1) 10^3/uL Absolute Nucleated RBC x10^3/uL Nucleated RBCs /100WBC PT (9.9-12.6) secs INR (0.8-1.2) Sodium (135-145) mmol/L Potassium (3.5-5.0) mmol/L Chloride (101-111) mmol/L Carbon Dioxide (21-32) mmol/L Anion Gap (6-13) BUN (6-20) mg/dL Creatinine (0.4-1.0) mg/dL Estimated GFR (MDRD) (>89) Glucose (70-100) mg/dL POC Whole Bld Glucose 158 H 228 H 168 H (70 - 100) mg/dL Calcium (8.5-10.3) mg/dL Total Bilirubin (0.2-1.0) mg/dL AST (10-42) IU/L ALT (10-60) IU/L Alkaline Phosphatase (42-121) IU/L Total Protein (6.7-8.2) g/dL Albumin (3.2-5.5) g/dL Globulin (2.1-4.2) g/dL Albumin/Globulin Ratio (1.0-2.2) 08/04/16 08/03/16 08/03/16 Range/Units 07:49 20:02 16:42 WBC (4.8-10.8) x10^3/uL RBC (4.20-5.40) 10^6/uL Hgb (12.0-16.0) g/dL Hct (37.0-47.0) % MCV (81.0-99.0) fL MCH (27.0-31.0) pg MCHC (32.0-36.0) g/dL RDW (12.0-15.0) % Plt Count (130-450) 10^3/uL MPV (7.9-10.8) fL Neut # (1.5-6.6) 10^3/uL Lymph # (1.5-3.5) 10^3/uL [place] # (0.0-1.0) 10^3/uL Eos # (0.0-0.7) 10^3/uL Baso # (0.0-0.1) 10^3/uL Absolute Nucleated RBC x10^3/uL Nucleated RBCs /100WBC PT (9.9-12.6) secs INR (0.8-1.2) Sodium (135-145) mmol/L Potassium (3.5-5.0) mmol/L Chloride (101-111) mmol/L Carbon Dioxide (21-32) mmol/L Anion Gap (6-13) BUN (6-20) mg/dL Creatinine (0.4-1.0) mg/dL Estimated GFR (MDRD) (>89) Glucose (70-100) mg/dL POC Whole Bld Glucose 151 H 142 H 152 H (70 - 100) mg/dL Calcium (8.5-10.3) mg/dL Total Bilirubin (0.2-1.0) mg/dL AST (10-42) IU/L ALT (10-60) IU/L Alkaline Phosphatase (42-121) IU/L Total Protein (6.7-8.2) g/dL Albumin (3.2-5.5) g/dL Globulin (2.1-4.2) g/dL Albumin/Globulin Ratio (1.0-2.2) 08/03/16 08/03/16 08/03/16 Range/Units 11:05 08:49 07:26 WBC (4.8-10.8) x10^3/uL RBC (4.20-5.40) 10^6/uL Hgb (12.0-16.0) g/dL Hct (37.0-47.0) % MCV (81.0-99.0) fL MCH (27.0-31.0) pg MCHC (32.0-36.0) g/dL RDW (12.0-15.0) % Plt Count (130-450) 10^3/uL MPV (7.9-10.8) fL Neut # (1.5-6.6) 10^3/uL Lymph # (1.5-3.5) 10^3/uL [place] # (0.0-1.0) 10^3/uL Eos # (0.0-0.7) 10^3/uL Baso # (0.0-0.1) 10^3/uL Absolute Nucleated RBC x10^3/uL Nucleated RBCs /100WBC PT (9.9-12.6) secs INR (0.8-1.2) Sodium (135-145) mmol/L Potassium (3.5-5.0) mmol/L Chloride (101-111) mmol/L Carbon Dioxide (21-32) mmol/L Anion Gap (6-13) BUN (6-20) mg/dL Creatinine (0.4-1.0) mg/dL Estimated GFR (MDRD) (>89) Glucose (70-100) mg/dL POC Whole Bld Glucose 189 H 165 H 142 H (70 - 100) mg/dL Calcium (8.5-10.3) mg/dL Total Bilirubin (0.2-1.0) mg/dL AST (10-42) IU/L ALT (10-60) IU/L Alkaline Phosphatase (42-121) IU/L Total Protein (6.7-8.2) g/dL Albumin (3.2-5.5) g/dL Globulin (2.1-4.2) g/dL Albumin/Globulin Ratio (1.0-2.2) 08/02/16 08/02/16 08/02/16 Range/Units 20:04 17:14 11:49 WBC (4.8-10.8) x10^3/uL RBC (4.20-5.40) 10^6/uL Hgb (12.0-16.0) g/dL Hct (37.0-47.0) % MCV (81.0-99.0) fL MCH (27.0-31.0) pg MCHC (32.0-36.0) g/dL RDW (12.0-15.0) % Plt Count (130-450) 10^3/uL MPV (7.9-10.8) fL Neut # (1.5-6.6) 10^3/uL Lymph # (1.5-3.5) 10^3/uL [place] # (0.0-1.0) 10^3/uL Eos # (0.0-0.7) 10^3/uL Baso # (0.0-0.1) 10^3/uL Absolute Nucleated RBC x10^3/uL Nucleated RBCs /100WBC PT (9.9-12.6) secs INR (0.8-1.2) Sodium (135-145) mmol/L Potassium (3.5-5.0) mmol/L Chloride (101-111) mmol/L Carbon Dioxide (21-32) mmol/L Anion Gap (6-13) BUN (6-20) mg/dL Creatinine (0.4-1.0) mg/dL Estimated GFR (MDRD) (>89) Glucose (70-100) mg/dL POC Whole Bld Glucose 194 H 155 H 190 H (70 - 100) mg/dL Calcium (8.5-10.3) mg/dL Total Bilirubin (0.2-1.0) mg/dL AST (10-42) IU/L ALT (10-60) IU/L Alkaline Phosphatase (42-121) IU/L Total Protein (6.7-8.2) g/dL Albumin (3.2-5.5) g/dL Globulin (2.1-4.2) g/dL Albumin/Globulin Ratio (1.0-2.2) 08/01/16 Range/Units 17:42 WBC (4.8-10.8) x10^3/uL RBC (4.20-5.40) 10^6/uL Hgb (12.0-16.0) g/dL Hct (37.0-47.0) % MCV (81.0-99.0) fL MCH (27.0-31.0) pg MCHC (32.0-36.0) g/dL RDW (12.0-15.0) % Plt Count (130-450) 10^3/uL MPV (7.9-10.8) fL Neut # (1.5-6.6) 10^3/uL Lymph # (1.5-3.5) 10^3/uL [place] # (0.0-1.0) 10^3/uL Eos # (0.0-0.7) 10^3/uL Baso # (0.0-0.1) 10^3/uL Absolute Nucleated RBC x10^3/uL Nucleated RBCs /100WBC PT (9.9-12.6) secs INR (0.8-1.2) Sodium (135-145) mmol/L Potassium (3.5-5.0) mmol/L Chloride (101-111) mmol/L Carbon Dioxide (21-32) mmol/L Anion Gap (6-13) BUN (6-20) mg/dL Creatinine (0.4-1.0) mg/dL Estimated GFR (MDRD) (>89) Glucose (70-100) mg/dL POC Whole Bld Glucose 223 H (70 - 100) mg/dL Calcium (8.5-10.3) mg/dL Total Bilirubin (0.2-1.0) mg/dL AST (10-42) IU/L ALT (10-60) IU/L Alkaline Phosphatase (42-121) IU/L Total Protein (6.7-8.2) g/dL Albumin (3.2-5.5) g/dL Globulin (2.1-4.2) g/dL Albumin/Globulin Ratio (1.0-2.2) Assessment/Plan - Problem List (1) Pneumonia Impression: presented as cough, sob fatigue and sweats unreponsive to oupt tx. CXR on 08/01 and 08/02 neg but finally showed pneumonia on 08/03 blood C&S neg. on room air with good O2 sat., able to move more today. Day # 4 of rocephin and azithromycin plan for 7 days of abx. Qualifiers: Pneumonia type: due to unspecified organism Laterality: left Lung location: lower lobe of lung Qualified Code(s): J18.1 - Lobar pneumonia, unspecified organism (2) E. coli UTI Impression: present on admission. sensitive to rocephin Day #4 abx. (3) Atrial fibrillation with rapid ventricular response Impression: improving from the rate of 140s with min. exertion yesterday. She used 50 mgs of diltiazem in 24 hrs and was transitioned to 120 mgs BID. Her BP is in 110 to 159 systolic today Will not restart the Norvasc. on coumadin and INR is 3.3 Plan is to hold coumadin tonight. resume when INR <3. Check INR daily continue current dilt. (4) Vasovagal episode Impression: happened on the toilet yesterday. states it happens at home no change today. (5) Sepsis Impression: culture is from urine. sepsis criteria present on admission now resolved with appropriate tx. Qualifiers: Sepsis type: Escherichia coli Qualified Code(s): A41.51 - Sepsis due to Escherichia coli [E. coli] (6) Weakness Impression: from deconditioning and illness. improving a bit today. Plan: ANGEL castillo PT ordered. she is refusing now but encouraged to follow thru so she can get home.
[2016-08-05] MEDS: [UNRECOGNIZED DRUG - OTHER] PO SCH (21:14)
[2016-08-05] MEDS: MELATONIN PO SCH (21:14)
[2016-08-05] MEDS: LATANOPROST 0.005% OPHTH DROPS RIGHTEYE SCH (21:16)
[2016-08-05] MEDS: CARBOXYMETHYLCELLULOSE OPHTH DROPS EACHEYE PRN (21:19)
[2016-08-05] MEDS: HYDROcod/ACETAM 5/325 MG TABLET PO PRN (22:45)
[2016-08-06] MEDS: HYDROcod/ACETAM 5/325 MG TABLET PO PRN ×2 (02:36→18:19)
[2016-08-06 03:32] LABS: BASOPHILS # (AUTO) 0.1 10^3/uL (0.0-0.1); BASOPHILS % (AUTO) 0.9 %; EOSINOPHILS # (AUTO) 0.2 10^3/uL (0.0-0.7); EOSINOPHILS % (AUTO) 1.3 %; HCT - HEMATOCRIT 31.5 % (37.0-47.0); HGB - HEMOGLOBIN 10.3 g/dL (12.0-16.0); LYMPHOCYTES # (AUTO) 2.5 10^3/uL (1.5-3.5); LYMPHOCYTES % (AUTO) 20.6 %; MEAN CORPUSCULAR HGB CONC 32.7 g/dL (32.0-36.0); MEAN CORPUSCULAR VOLUME 94.5 fL (81.0-99.0); MEAN PLATELET VOLUME 7.9 fL (7.9-10.8); MONOCYTES # (AUTO) 0.8 10^3/uL (0.0-1.0); MONOCYTES % (AUTO) 6.9 %; NEUTROPHILS # (AUTO) 8.4 10^3/uL (1.5-6.6); NEUTROPHILS % (AUTO) 70.3 %; NUCLEATED RED BLOOD CELLS AUTO 0.1 /100WBC; RED BLOOD COUNT 3.33 10^6/uL (4.20-5.40); RED CELL DISTRIBUTION WIDTH 15.5 % (12.0-15.0); UNCORRECTED WHITE BLOOD COUNT 11.9 x10^3/uL; WHITE BLOOD COUNT 11.9 x10^3/uL (4.8-10.8)
[2016-08-06 03:38] LABS: BILIRUBIN,TOTAL 0.4 mg/dL (0.2-1.0); CALCIUM 8.8 mg/dL (8.5-10.3); MAGNESIUM 1.9 mg/dL (1.7-2.8); PHOSPHORUS 2.8 mg/dL (2.5-4.6); POTASSIUM 4.1 mmol/L (3.5-5.0); TOTAL PROTEIN 6.3 g/dL (6.7-8.2)
[2016-08-06] MEDS: SODIUM CHLORIDE FLUSH 0.9% 10 ML SYRINGE IVP SCH ×3 (05:30→21:16)
[2016-08-06] MEDS: LORazepam 0.5 MG TABLET PO SCH ×3 (06:13→21:13)
[2016-08-06] MEDS: PANTOPRAZOLE 40 MG TABLET PO SCH ×2 (06:13→18:10)
[2016-08-06] MEDS: INSULIN ASPART 300 UNIT/3 ML PEN SUBQ SCH ×4 (08:25→21:14)
[2016-08-06] MEDS: cefTRIAXone 2 GM in SODIUM CHLORIDE 0.9% MINIBAG 100 ML IV SCH (10:46)
[2016-08-06] MEDS: POLYETHYLENE GLYCOL 3350 17 GM PACKET PO SCH (10:46)
[2016-08-06] MEDS: MAGNESIUM OXIDE 400 MG TABLET PO SCH (10:59)
[2016-08-06] MEDS: SACCHAROMYCES BOULARDII 250 MG CAPSULE PO SCH ×2 (10:59→18:10)
[2016-08-06] MEDS: DULoxetine 30 MG CAPSULE PO SCH ×2 (10:59→21:12)
[2016-08-06] MEDS: diltiaZEM CD 120 MG CAPSULE PO SCH ×2 (11:00→21:13)
[2016-08-06] MEDS: METOPROLOL TARTRATE 50 MG TABLET PO SCH ×3 (11:00→21:12)
[2016-08-06] MEDS: CETIRIZINE 10 MG TABLET PO SCH (11:02)
[2016-08-06] MEDS: AZITHROMYCIN INJ 500 MG in SODIUM CHLORIDE 0.9% 250 ML IV SCH (11:33)
[2016-08-06] MEDS: MULTIVITAMIN TABLET PO SCH (11:36)
[2016-08-06 13:39] LABS: ABG ANALYSIS TIME 1330; ABG PCO2 33 mmHg (34-45); ABG PO2 135 mmHg (80-100)
[2016-08-06 13:40] LABS: ABG BASE EXCESS -3.6 mmol/L (-2.0-3.0); ABG HCO3 20.4 mmol/L (22.0-26.0); ABG OXYGEN SATURATION 96 % (94-98); ABG SATURATION PULSE OXIMETRY% 96 %; ABG SITE OF DRAW LEFT RADIAL; ABG TCO2 21.4 MMOL/L (21.0-29.0); ALLEN TEST POSITIVE
[2016-08-06 13:41] LABS: ABG O2 DEVICE NASAL CANNULA; ABG ROOM AIR YES
--- NOTE | 2016-08-06 18:15 | PROVIDER PROGRESS NOTE ---
Hospitalist Cross-cover Note - Cross-Cover Note Cross-Cover Note: Rapid response called. Patient complained of difficulty breathing and was difficult to arouse. She was not hypoxic and vitals were stable. Blood glucose normal. ABG showed no hypercapnia and good PO2. Patients lethargy was odd as she would answer certain questions and appeared alert but then would not respond for periods of time. No obvious source was found and this spontaneously resolved. This may have be secondary to anxiety.
[2016-08-06] MEDS: CARBOXYMETHYLCELLULOSE OPHTH DROPS EACHEYE PRN (18:22)
--- NOTE | 2016-08-06 18:25 | PROVIDER PROGRESS NOTE ---
Assessment/Plan - Problem List (1) Pneumonia Qualifiers: Laterality: left Lung location: lower lobe of lung Assessment/Plan: presented as cough, sob fatigue and sweats unreponsive to oupt tx. CXR on 08/01 and 08/02 neg but finally showed pneumonia on 08/03 blood C&S neg. On BiPAP most of the day not feeling well Had an episode of shortness of breath with unclear origin Requiring 3L of O2 Feels weaker Will repeat CXR in am if not improving and consider changing abx Day # 5 of rocephin and azithromycin plan for 7 days of abx. Qualifiers: Pneumonia type: due to unspecified organism Laterality: left Lung location: lower lobe of lung Qualified Code(s): J18.1 - Lobar pneumonia, unspecified organism (2) E. coli UTI Impression: present on admission. Ecoli on cx sensitive to rocephin Day #5of rocephin (3) Atrial fibrillation with rapid ventricular response Impression: HR is all over the place goes up to 120-130s at rest and then comes down to 90s Continue Dilt 120 bID and increase Metoprolol to 100 mg BID on coumadin recheck INR tomorrow yesterday was high at 3.3 Continue tele monitoring (4) Vasovagal episode Impression: happened on the toilet 2 days ago states it happens at home Stable (5) Sepsis Impression: Secondary to uti and pneumonia sepsis criteria present on admission now resolved with appropriate tx. Qualifiers: Sepsis type: Escherichia coli Qualified Code(s): A41.51 - Sepsis due to Escherichia coli [E. coli] (6) Weakness Impression: from deconditioning and illness. Poor today PT ordered very weak and SOA today will need to try again tomorrow - Current Meds Current Meds: Current Medications Generic Name Dose Route Start Last Admin Trade Name Freq PRN Reason Stop Dose Admin Acetaminophen/Hydrocodone Bitart 1 tab 08/01/16 16:41 08/06/16 02:36 Moro 5/325 PO 1 tab Q4HR PRN Administration Pain 5 to 7 Carboxymethylcellulose 1 drops 08/01/16 17:39 08/05/16 21:19 Refresh 1% Ophth Drops EACHEYE 1 drops QID PRN Administration Dry Eye Cetirizine HCl 10 mg 08/02/16 09:00 08/06/16 11:02 Zyrtec PO 10 mg DAILY LOWELL Administration Diltiazem HCl 10 mg 08/01/16 21:59 08/03/16 08:29 Cardizem Inj IVP 10 mg Q1H PRN Administration HR>110 Diltiazem HCl 120 mg 08/03/16 09:00 08/06/16 11:00 Cardizem Cd PO 120 mg BID LOWELL Administration Docusate Sodium 200 mg 08/01/16 17:39 08/03/16 08:29 Colace 100mg Capsule PO 200 mg DAILY PRN Administration Constipation Duloxetine HCl 30 mg 08/01/16 21:00 08/06/16 10:59 Cymbalta PO 30 mg BID LOWELL Administration Azithromycin 500 mg/ Sodium 250 mls @ 250 mls/hr 08/02/16 10:00 08/06/16 11:33 Chloride IV 250 mls/hr DAILY@1000 LOWELL Administration Ceftriaxone Sodium 2 gm/ 100 mls @ 200 mls/hr 08/02/16 09:00 08/06/16 10:46 Sodium Chloride IV 200 mls/hr DAILY LOWELL Administration Insulin Aspart 1 - 9 unit 08/02/16 12:00 08/06/16 18:10 Novolog SUBQ Not Given 0800,1200,1700,2100 [facility] Protocol Latanoprost 1 drops 08/01/16 21:00 08/05/16 21:16 Xalatan Ophth Drops RIGHTEYE 1 drops QPM LOWELL Administration Lorazepam 0.5 mg 08/04/16 15:00 08/06/16 15:24 Ativan PO 0.5 mg TID LOWELL Administration Magnesium Oxide 400 mg 08/02/16 08:00 08/06/16 10:59 Mag Ox PO 400 mg 0800 LOWELL Administration Metoprolol Tartrate 75 mg 08/01/16 21:00 08/06/16 11:33 Lopressor PO 50 mg BID LOWELL Administration Morphine Sulfate 2 mg 08/01/16 21:59 08/02/16 12:11 Morphine IVP 2 mg Q2HR PRN Administration PAIN Multivitamins 1 tab 08/02/16 09:00 08/06/16 11:36 Theragran PO 1 tab DAILY LOWELL Administration Ondansetron HCl 4 mg 08/01/16 16:41 08/01/16 17:47 Zofran Inj IVP 4 mg Q4HR PRN Administration Nausea / Vomiting Pantoprazole Sodium 40 mg 08/01/16 18:30 08/06/16 18:10 Protonix PO 40 mg BIDAC LOWELL Administration Meltatonin 5 Mg + 1 each 08/03/16 21:00 08/05/16 21:14 Melatonin 3 Mg Tabs PO 1 each QPM LOWELL Administration Polyethylene Glycol 17 gm 08/02/16 09:00 08/06/16 10:46 Miralax PO 17 gm DAILY LOWELL Administration Saccharomyces Boulardii 250 mg 08/02/16 08:00 08/06/16 18:10 Florastor PO 250 mg BIDWM LOWELL Administration Sodium Chloride 10 ml 08/01/16 16:41 08/04/16 21:49 Normal Saline Flush 0.9% IVP 10 ml PRN PRN Administration NEEDED PER PROVIDER ORDERS Sodium Chloride 10 ml 08/01/16 22:00 08/06/16 15:24 Normal Saline Flush 0.9% IVP 10 ml Q8HR LOWELL Administration - Lab Result Lab results reviewed: Yes Fish Bone Diagrams: 08/06/16 03:00 08/06/16 03:00 - EKG Results EKG Interpreted Independently: Yes - Additional Planning Condition/Complexity: Guarded Consult/Specialty: PT Plan Discussed with:: Patient Time Spent: 31-60 minutes Subjective - Subjective Patient Reports: Other (Feels weak today could not participate with PT. She is short of breath. Wearing bIPAP most of the day. She continues to have cough but no fevers. Denies any chest pain.) Nursing Reports: No Complaints Objective Vital Signs: Vital Signs - 24 hr 08/05/16 08/05/16 08/06/16 21:00 21:11 01:00 Temperature 37.3 C 36.6 C Heart Rate [ 66 Brachial] Heart Rate [ Monitoring electrodes] Heart Rate [ 82 Radial] Respiratory 16 20 Rate Blood Pressure 132/81 H Blood Pressure [Left Brachial artery] Blood Pressure 132/81 H 150/86 H [Left Radial artery] Blood Pressure [Right Brachial artery] O2 Saturation 95 95 08/06/16 08/06/16 08/06/16 03:15 06:28 08:28 Temperature 36.6 C 36.6 C Heart Rate [ 75 74 Brachial] Heart Rate [ 62 Monitoring electrodes] Heart Rate [ Radial] Respiratory 17 20 18 Rate Blood Pressure Blood Pressure 161/84 H 146/81 H [Left Brachial artery] Blood Pressure [Left Radial artery] Blood Pressure 120/73 [Right Brachial artery] O2 Saturation 93 96 93 08/06/16 08/06/16 08/06/16 11:00 11:33 12:17 Temperature 36.7 C Heart Rate [ 139 H Brachial] Heart Rate [ Monitoring electrodes] Heart Rate [ Radial] Respiratory 20 Rate Blood Pressure 140/105 H 180/106 H Blood Pressure 180/106 H [Left Brachial artery] Blood Pressure [Left Radial artery] Blood Pressure [Right Brachial artery] O2 Saturation 98 08/06/16 08/06/16 08/06/16 12:39 12:55 13:10 Temperature Heart Rate [ 75 Brachial] Heart Rate [ 124 H 76 Monitoring electrodes] Heart Rate [ Radial] Respiratory 20 8 L 16 Rate Blood Pressure Blood Pressure [Left Brachial artery] Blood Pressure 130/92 H 130/78 128/78 [Left Radial artery] Blood Pressure [Right Brachial artery] O2 Saturation 93 99 08/06/16 15:55 Temperature 36.6 C Heart Rate [ 68 Brachial] Heart Rate [ Monitoring electrodes] Heart Rate [ Radial] Respiratory 18 Rate Blood Pressure Blood Pressure [Left Brachial artery] Blood Pressure 130/86 H [Left Radial artery] Blood Pressure [Right Brachial artery] O2 Saturation 95 Oxygen O2 Source [With Activity] Nasal cannula O2 Source BIPAP I&O (Last 24 Hrs): Intake and Output Totals x24h 08/04/16 08/05/16 08/06/16 23:59 23:59 23:59 Intake Total 1170 1086 876 Output Total 1495 400 Balance -325 686 876 General: Alert, Oriented x3, Moderate distress (Short of breath and weak) HEENT: Atraumatic, PERRLA, EOMI, Mucous membr. moist/pink Neck: Supple, No JVD, No thyromegaly, +2 carotid pulse wo bruit, No LAD Lymphatic: no adenopathy Neuro: Alert, Non Focal, CN 2-12 Grossly Intact, Oriented Times 3 Cardiovascular: Regular rate, Normal S1, Normal S2, No murmurs Respiratory: Chest non-tender, Wheezes, Rhonchi Abdomen: Normal bowel sounds, Soft, No tenderness, No hepatospenomegaly, No masses Extremities: No clubbing, No cyanosis, No edema, Normal pulses, No tenderness/ swelling Skin: No rashes, No breakdown - Results Results: Laboratory Results WBC 11.9 x10^3/uL (4.8-10.8) H 08/06/16 03:00 RBC 3.33 10^6/uL (4.20-5.40) L 08/06/16 03:00 Hgb 10.3 g/dL (12.0-16.0) L 08/06/16 03:00 Hct 31.5 % (37.0-47.0) L 08/06/16 03:00 MCV 94.5 fL (81.0-99.0) 08/06/16 03:00 MCH 31.0 pg (27.0-31.0) 08/06/16 03:00 MCHC 32.7 g/dL (32.0-36.0) 08/06/16 03:00 RDW 15.5 % (12.0-15.0) H 08/06/16 03:00 Plt Count 262 10^3/uL (130-450) 08/06/16 03:00 MPV 7.9 fL (7.9-10.8) 08/06/16 03:00 Neut # 8.4 10^3/uL (1.5-6.6) H 08/06/16 03:00 Lymph # 2.5 10^3/uL (1.5-3.5) 08/06/16 03:00 [place] # 0.8 10^3/uL (0.0-1.0) 08/06/16 03:00 Eos # 0.2 10^3/uL (0.0-0.7) 08/06/16 03:00 Baso # 0.1 10^3/uL (0.0-0.1) 08/06/16 03:00 Absolute Nucleated RBC 0.01 x10^3/uL 08/06/16 03:00 Band Neuts % (Manual) 2 % (0-10) 08/04/16 09:45 Reactive Lymphs % (Man) 3 % 08/04/16 09:45 Neutrophils # (Manual) 10.0 10^3/uL (1.5-6.6) H 08/04/16 09:45 Lymphocytes # (Manual) 1.6 10^3/uL (1.5-3.5) 08/04/16 09:45 Monocytes # (Manual) 0.6 10^3/uL (0.0-1.0) 08/04/16 09:45 Eosinophils # (Manual) 0.1 10^3/uL (0-0.7) 08/04/16 09:45 Nucleated RBCs 0.1 /100WBC 08/06/16 03:00 WBC Morphology 1+ TOXIC GRANULATION (NORMAL) 08/04/16 09:45 Platelet Estimate NORMAL (130-450,000) (NORMAL) 08/04/16 09:45 RBC Morph Micro Appear NORMAL APPEARANCE (NORMAL) 08/04/16 09:45 PT 37.4 secs (9.9-12.6) H 08/05/16 05:37 INR 3.3 (0.8-1.2) H 08/05/16 05:37 Bld Gas Analysis Time 1330 08/06/16 13:30 Sample Site LEFT RADIAL 08/06/16 13:30 ABG pH 7.40 (7.35-7.45) 08/06/16 13:30 ABG pCO2 33 mmHg (34-45) L 08/06/16 13:30 ABG pO2 135 mmHg (80-100) H 08/06/16 13:30 ABG HCO3 20.4 mmol/L (22.0-26.0) L 08/06/16 13:30 ABG Total CO2 21.4 MMOL/L (21.0-29.0) 08/06/16 13:30 ABG O2 Saturation 96 % (94-98) 08/06/16 13:30 ABG Oximetry Spot Check 96 % 08/06/16 13:30 ABG Base Excess -3.6 mmol/L (-2.0-3.0) L 08/06/16 13:30 Matthew Test POSITIVE 08/06/16 13:30 VBG pH 7.392 (7.31-7.41) 08/02/16 02:26 VBG pCO2 37.0 mmHg (41-51) L 08/02/16 02:26 VBG pO2 218.4 mmHg (25-47) H 08/02/16 02:26 VBG HCO3 22.0 mmol/L (23-28) L 08/02/16 02:26 VBG Total CO2 23.1 mmol/L (24-29) L 08/02/16 02:26 VBG O2 Saturation 96.8 % (60-80) H 08/02/16 02:26 VBG Base Excess -2.5 mmol/L (-2 - +2) L 08/02/16 02:26 Room Air YES 08/06/16 13:30 O2 Delivery Device NASAL CANNULA 08/06/16 13:30 O2 Liters/Min 3.50 LPM 08/06/16 13:30 Sodium 137 mmol/L (135-145) 08/06/16 03:00 Potassium 4.1 mmol/L (3.5-5.0) 08/06/16 03:00 Chloride 104 mmol/L (101-111) 08/06/16 03:00 Carbon Dioxide 24 mmol/L (21-32) 08/06/16 03:00 Anion Gap 9.0 (6-13) 08/06/16 03:00 BUN 22 mg/dL (6-20) H 08/06/16 03:00 Creatinine 1.0 mg/dL (0.4-1.0) 08/06/16 03:00 Estimated GFR (MDRD) 53 (>89) L 08/06/16 03:00 Glucose 170 mg/dL (70-100) H 08/06/16 03:00 POC Whole Bld Glucose 137 mg/dL (70 - 100) H 08/06/16 16:46 Glycated Hemoglobin 7.2 % (4.6-6.2) H 08/02/16 02:26 Estim Average Glucose 160 (70-100) H 08/02/16 02:26 Lactic Acid 1.1 mmol/L (0.5-2.2) 08/02/16 02:26 Calcium 8.8 mg/dL (8.5-10.3) 08/06/16 03:00 Phosphorus 2.8 mg/dL (2.5-4.6) 08/06/16 03:00 Magnesium 1.9 mg/dL (1.7-2.8) 08/06/16 03:00 Total Bilirubin 0.4 mg/dL (0.2-1.0) 08/06/16 03:00 AST 29 IU/L (10-42) 08/06/16 03:00 ALT 61 IU/L (10-60) H 08/06/16 03:00 Alkaline Phosphatase 71 IU/L (42-121) 08/06/16 03:00 Troponin I 0.18 ng/mL (<0.49) 08/02/16 05:04 B-Natriuretic Peptide 592 pg/mL (5-100) H 08/01/16 13:56 Total Protein 6.3 g/dL (6.7-8.2) L 08/06/16 03:00 Albumin 3.1 g/dL (3.2-5.5) L 08/06/16 03:00 Globulin 3.2 g/dL (2.1-4.2) 08/06/16 03:00 Albumin/Globulin Ratio 1.0 (1.0-2.2) 08/06/16 03:00 Lipase 11 U/L (22-51) L 08/01/16 Unknown Urine Color YELLOW 08/02/16 01:27 Urine Clarity HAZY (CLEAR) 08/02/16 01:27 Urine pH 5.5 PH (5.0-7.5) 08/02/16 01:27 Ur Specific [place] 1.025 (1.002-1.030) 08/02/16 01:27 Urine Protein 30 mg/dL (NEGATIVE) H 08/02/16 01:27 Urine Glucose (UA) NEGATIVE mg/dL (NEGATIVE) 08/02/16 01:27 Urine Ketones NEGATIVE mg/dL (NEGATIVE) 08/02/16 01:27 Urine Occult Blood MODERATE (NEGATIVE) H 08/02/16 01:27 Urine Nitrite POSITIVE (NEGATIVE) H 08/02/16 01:27 Urine Bilirubin NEGATIVE (NEGATIVE) 08/02/16 01:27 Urine Urobilinogen 0.2 (NORMAL) E.U./dL (NORMAL) 08/02/16 01:27 Ur Leukocyte Esterase LARGE (NEGATIVE) H 08/02/16 01:27 Urine RBC 11-25 /HPF (0-5) H 08/02/16 01:27 Urine WBC >25 /HPF (0-5) H 08/02/16 01:27 Ur Squamous Epith Cells FEW Squamous (<= Few) 08/02/16 01:27 Urine Bacteria Moderate /HPF (None Seen) H 08/02/16 01:27 Ur Microscopic Review INDICATED 08/02/16 01:27 Urine Culture Comments INDICATED 08/02/16 01:27 Blood Type A POSITIVE 08/01/16 21:00 Blood Type Recheck A POSITIVE 08/01/16 13:20 - Procedures Procedures: Procedures ENDO RECTUM POLYPECTOMY (11/29/13) ENDOSC POLYPECTOMY OF LG INTEST (11/29/13) EXC LES SOFT TISSUE NEC (01/05/13) EYELID BIOPSY (03/09/14) LOCAL EXCIS BREAST LES (01/05/13) LYMPHATIC STRUCT BIOPSY (08/04/12) OTHER ENDOSCOPY OF SM INTEST (11/29/13) TU REMOV URETER OBSTRUCT (08/30/13) UNILAT EXTEN SIMP MASTEC (08/04/12) URETERAL CATHETERIZATION (08/30/13)
[2016-08-06] MEDS: LATANOPROST 0.005% OPHTH DROPS RIGHTEYE SCH (21:14)
[2016-08-06] MEDS: [UNRECOGNIZED DRUG - OTHER] PO SCH (21:16)
[2016-08-06] MEDS: MELATONIN PO SCH (21:16)
[2016-08-07] MEDS: LORazepam 0.5 MG TABLET PO SCH ×3 (06:11→20:45)
[2016-08-07] MEDS: SODIUM CHLORIDE FLUSH 0.9% 10 ML SYRINGE IVP SCH ×3 (06:11→20:47)
[2016-08-07] MEDS: PANTOPRAZOLE 40 MG TABLET PO SCH ×2 (06:11→17:06)
[2016-08-07 06:43] LABS: BASOPHILS # (AUTO) 0.1 10^3/uL (0.0-0.1); EOSINOPHILS # (AUTO) 0.2 10^3/uL (0.0-0.7); EOSINOPHILS % (AUTO) 1.2 %; HCT - HEMATOCRIT 38.1 % (37.0-47.0); HGB - HEMOGLOBIN 12.3 g/dL (12.0-16.0); LYMPHOCYTES # (AUTO) 2.8 10^3/uL (1.5-3.5); LYMPHOCYTES % (AUTO) 20.5 %; MEAN CORPUSCULAR HEMOGLOBIN 31.2 pg (27.0-31.0); MEAN CORPUSCULAR HGB CONC 32.4 g/dL (32.0-36.0); MEAN CORPUSCULAR VOLUME 96.2 fL (81.0-99.0); MEAN PLATELET VOLUME 7.5 fL (7.9-10.8); MONOCYTES # (AUTO) 1.1 10^3/uL (0.0-1.0); MONOCYTES % (AUTO) 7.9 %; NEUTROPHILS # (AUTO) 9.5 10^3/uL (1.5-6.6); NEUTROPHILS % (AUTO) 69.4 %; RED BLOOD COUNT 3.95 10^6/uL (4.20-5.40); RED CELL DISTRIBUTION WIDTH 15.3 % (12.0-15.0); UNCORRECTED WHITE BLOOD COUNT 13.8 x10^3/uL; WHITE BLOOD COUNT 13.8 x10^3/uL (4.8-10.8)
[2016-08-07 06:53] LABS: INR 2.9 (0.8-1.2); PT - PROTHROMBIN TIME 33.3 secs (9.9-12.6)
[2016-08-07 06:58] LABS: ALBUMIN/GLOBULIN RATIO 1.1 (1.0-2.2); BILIRUBIN,TOTAL 0.8 mg/dL (0.2-1.0); CALCIUM 9.2 mg/dL (8.5-10.3); CREATININE 0.9 mg/dL (0.4-1.0); POTASSIUM 4.4 mmol/L (3.5-5.0)
[2016-08-07] MEDS: INSULIN ASPART 300 UNIT/3 ML PEN SUBQ SCH ×4 (08:35→20:46)
[2016-08-07] MEDS: SACCHAROMYCES BOULARDII 250 MG CAPSULE PO SCH ×2 (09:00→17:06)
[2016-08-07] MEDS: MAGNESIUM OXIDE 400 MG TABLET PO SCH (09:00)
[2016-08-07] MEDS: diltiaZEM CD 120 MG CAPSULE PO SCH (09:01)
[2016-08-07] MEDS: METOPROLOL TARTRATE 50 MG TABLET PO SCH ×2 (09:01→20:43)
[2016-08-07] MEDS: MULTIVITAMIN TABLET PO SCH (09:01)
[2016-08-07] MEDS: CETIRIZINE 10 MG TABLET PO SCH (09:01)
[2016-08-07] MEDS: DULoxetine 30 MG CAPSULE PO SCH ×2 (09:01→20:44)
[2016-08-07] MEDS: POLYETHYLENE GLYCOL 3350 17 GM PACKET PO SCH (09:02)
[2016-08-07] MEDS: cefTRIAXone 2 GM in SODIUM CHLORIDE 0.9% MINIBAG 100 ML IV SCH (09:03)
[2016-08-07] MEDS: SODIUM CHLORIDE FLUSH 0.9% 10 ML SYRINGE IVP PRN (09:08)
--- NOTE | 2016-08-07 10:02 | XRAY Report ---
FRONTAL CHEST: 08/07/2016 CLINICAL INDICATION: Worsening shortness of breath and hypoxia. COMPARISON: 08/03/2016. FINDINGS: Frontal view of the chest demonstrates a mildly enlarged cardiac silhouette. Left effusion and changes of congestive failure appear stable. No new infiltrate or pneumothorax. IMPRESSION: STABLE EFFUSION, PULMONARY VASCULAR CONGESTION, AND CARDIOMEGALY. JOB #: [id number] EXT JOB #:[id number]
[2016-08-07] MEDS ORDERED: FUROSEMIDE 40 MG/4 ML VIAL IVP SCH (12:00)
[2016-08-07] MEDS ORDERED: diltiaZEM CD 120 MG CAPSULE PO SCH (12:00)
[2016-08-07] MEDS: AZITHROMYCIN INJ 500 MG in SODIUM CHLORIDE 0.9% 250 ML IV SCH (12:03)
[2016-08-07] MEDS ORDERED: LORazepam 2 MG/ML SYRINGE IVP ONE (13:40)
[2016-08-07] MEDS ORDERED: WARFARIN 2.5 MG TABLET PO SCH (14:00)
[2016-08-07] MEDS ORDERED: LORazepam 2 MG/ML SYRINGE IVP PRN (14:22)
[2016-08-07 15:55] LABS: BASOPHILS # (AUTO) 0.1 10^3/uL (0.0-0.1); BASOPHILS % (AUTO) 0.5 %; EOSINOPHILS # (AUTO) 0.1 10^3/uL (0.0-0.7); EOSINOPHILS % (AUTO) 0.3 %; HCT - HEMATOCRIT 35.8 % (37.0-47.0); HGB - HEMOGLOBIN 11.6 g/dL (12.0-16.0); LYMPHOCYTES # (AUTO) 1.2 10^3/uL (1.5-3.5); LYMPHOCYTES % (AUTO) 6.2 %; MEAN CORPUSCULAR HEMOGLOBIN 31.1 pg (27.0-31.0); MEAN CORPUSCULAR HGB CONC 32.5 g/dL (32.0-36.0); MEAN CORPUSCULAR VOLUME 95.9 fL (81.0-99.0); MEAN PLATELET VOLUME 7.9 fL (7.9-10.8); MONOCYTES # (AUTO) 1.2 10^3/uL (0.0-1.0); MONOCYTES % (AUTO) 5.9 %; NEUTROPHILS # (AUTO) 17.6 10^3/uL (1.5-6.6); NEUTROPHILS % (AUTO) 87.1 %; RED BLOOD COUNT 3.73 10^6/uL (4.20-5.40); RED CELL DISTRIBUTION WIDTH 15.3 % (12.0-15.0); UNCORRECTED WHITE BLOOD COUNT 20.1 x10^3/uL; WHITE BLOOD COUNT 20.1 x10^3/uL (4.8-10.8)
[2016-08-07 15:57] LABS: VBG BASE EXCESS -1.3 mmol/L (-2 - +2); VBG OXYGEN SATURATION 71.1 % (60-80); VBG PH 7.346 (7.31-7.41)
[2016-08-07 16:11] LABS: ALBUMIN/GLOBULIN RATIO 0.9 (1.0-2.2); BILIRUBIN,TOTAL 0.4 mg/dL (0.2-1.0); BUN - BLOOD UREA NITROGEN 21 mg/dL (6-20); CALCIUM 8.8 mg/dL (8.5-10.3); CARBON DIOXIDE - CO2 24 mmol/L (21-32); CHLORIDE 101 mmol/L (101-111); CREATININE 1.2 mg/dL (0.4-1.0); GFR - MDRD 43 (>89); GLUCOSE 195 mg/dL (70-100); PHOSPHORUS 4.5 mg/dL (2.5-4.6); POTASSIUM 4.5 mmol/L (3.5-5.0); SODIUM 135 mmol/L (135-145); TOTAL PROTEIN 6.8 g/dL (6.7-8.2)
[2016-08-07] MEDS: WARFARIN 2.5 MG TABLET PO SCH (17:06)
[2016-08-07] MEDS ORDERED: VANCOMYCIN WEIGHT BASED (PHA COMPOUNDING) IV SCH (18:00)
--- NOTE | 2016-08-07 18:13 | PROVIDER PROGRESS NOTE ---
Assessment/Plan - Problem List (1) Pneumonia Qualifiers: Laterality: left Lung location: lower lobe of lung Assessment/Plan: presented as cough, sob fatigue and sweats unreponsive to oupt tx. CXR on 08/01 and 08/02 neg but finally showed pneumonia on 08/03 blood C&S neg. On BiPAP most of the day not feeling well Had an episode of shortness of breath with unclear origin for 3rd time today and became diaphoretic and felt abd discomfort repeat labs showed worsening WBC and elevated lactate therefore CTA of abd ordered to rule out possible ischemic bowel as this appears to happen after meal every time Requiring 4L of O2 Feels weak Will repeat CXR in am if not improving and consider changing abx Day # 6 of rocephin and azithromycin switched to Vanco and cefepime today as WBC worsening and she is not improving Qualifiers: Pneumonia type: due to unspecified organism Laterality: left Lung location: lower lobe of lung Qualified Code(s): J18.1 - Lobar pneumonia, unspecified organism (2) E. coli UTI Impression: present on admission. Ecoli on cx sensitive to rocephin Day #6 of rocephin changed to cefepime today will complete treatment tomorrow (3) Atrial fibrillation with rapid ventricular response Impression: HR is all over the place goes up to 120-130s at rest and then comes down to 90s Change Dilt to 240 daily and continue Metoprolol to 100 mg BID on coumadin recheck INR tomorrow yesterday was high at 3.3 Continue tele monitoring (4) Vasovagal episode Impression: happened on the toilet 3 days ago states it happens at home Stable (5) Sepsis Impression: Secondary to uti and pneumonia sepsis criteria present on admission now resolved with appropriate tx. Qualifiers: Sepsis type: Escherichia coli Qualified Code(s): A41.51 - Sepsis due to Escherichia coli [E. coli] (6) Weakness Impression: from deconditioning and illness. PT will be reordered once patient is better - Current Meds Current Meds: Current Medications Generic Name Dose Route Start Last Admin Trade Name Freq PRN Reason Stop Dose Admin Acetaminophen/Hydrocodone Bitart 1 tab 08/01/16 16:41 08/06/16 18:19 [place] 5/325 PO 1 tab Q4HR PRN Administration Pain 5 to 7 Carboxymethylcellulose 1 drops 08/01/16 17:39 08/06/16 18:22 Refresh 1% Ophth Drops EACHEYE 1 drops QID PRN Administration Dry Eye Cetirizine HCl 10 mg 08/02/16 09:00 08/07/16 09:01 Zyrtec PO Not Given DAILY LOWELL Diltiazem HCl 10 mg 08/01/16 21:59 08/03/16 08:29 Cardizem Inj IVP 10 mg Q1H PRN Administration HR>110 Docusate Sodium 200 mg 08/01/16 17:39 08/03/16 08:29 Colace 100mg Capsule PO 200 mg DAILY PRN Administration Constipation Duloxetine HCl 30 mg 08/01/16 21:00 08/07/16 09:01 Cymbalta PO 30 mg BID LOWELL Administration Azithromycin 500 mg/ Sodium 250 mls @ 250 mls/hr 08/02/16 10:00 08/07/16 12:03 Chloride IV 250 mls/hr DAILY@1000 LOWELL Administration Ceftriaxone Sodium 2 gm/ 100 mls @ 200 mls/hr 08/02/16 09:00 08/07/16 09:03 Sodium Chloride IV 200 mls/hr DAILY LOWELL Administration Insulin Aspart 1 - 9 unit 08/02/16 12:00 08/07/16 17:06 Novolog SUBQ 1 unit 0800,1200,1700,2100 LOWELL Administration Protocol Latanoprost 1 drops 08/01/16 21:00 08/06/16 21:14 Xalatan Ophth Drops RIGHTEYE 1 drops QPM LOWELL Administration Lorazepam 0.5 mg 08/04/16 15:00 08/07/16 12:45 Ativan PO 0.5 mg TID LOWELL Administration Magnesium Oxide 400 mg 08/02/16 08:00 08/07/16 09:00 Mag Ox PO 400 mg 0800 LOWELL Administration Metoprolol Tartrate 100 mg 08/06/16 19:00 08/07/16 09:01 Lopressor PO 100 mg BID LOWELL Administration Morphine Sulfate 2 mg 08/01/16 21:59 08/02/16 12:11 Morphine IVP 2 mg Q2HR PRN Administration PAIN Multivitamins 1 tab 08/02/16 09:00 08/07/16 09:01 Theragran PO 1 tab DAILY LOWELL Administration Ondansetron HCl 4 mg 08/01/16 16:41 08/01/16 17:47 Zofran Inj IVP 4 mg Q4HR PRN Administration Nausea / Vomiting Pantoprazole Sodium 40 mg 08/01/16 18:30 08/07/16 17:06 Protonix PO 40 mg BIDAC LOWELL Administration Meltatonin 5 Mg + 1 each 08/03/16 21:00 08/06/16 21:16 Melatonin 3 Mg Tabs PO 1 each QPM LOWELL Administration Polyethylene Glycol 17 gm 08/02/16 09:00 08/07/16 09:02 Miralax PO 17 gm DAILY LOWELL Administration Saccharomyces Boulardii 250 mg 08/02/16 08:00 08/07/16 17:06 Florastor PO 250 mg BIDWM LOWELL Administration Sodium Chloride 10 ml 08/01/16 16:41 08/07/16 09:08 Normal Saline Flush 0.9% IVP 10 ml PRN PRN Administration NEEDED PER PROVIDER ORDERS Sodium Chloride 10 ml 08/01/16 22:00 08/07/16 13:56 Normal Saline Flush 0.9% IVP 10 ml Q8HR LOWELL Administration Warfarin Sodium 2.5 mg 08/07/16 16:00 08/07/16 17:06 Coumadin PO 2.5 mg QDWARFARIN LOWELL Administration - Lab Result Lab results reviewed: Yes Fish Bone Diagrams: 08/07/16 15:46 08/07/16 15:46 - EKG Results EKG Interpreted Independently: Yes - Diagnostic Imaging Results Diagnostic Imaging Results: positive: Final report reviewed - Additional Planning Condition/Complexity: Guarded My Orders: My Active Orders 08/06/16 19:00 Metoprolol Tartrate [Lopressor] 100 mg PO BID 08/07/16 Abdomen/Pelvis Angio [CT] Stat 08/07/16 14:22 LORazepam INJ [Ativan Inj] 1 mg IVP Q2HR PRN 08/07/16 16:00 Warfarin [Coumadin] 2.5 mg PO QDWARFARIN 08/07/16 18:00 Sodium Chloride 0.9% [Normal Saline 0.9%] 1,000 ml IV 125 mls/hr Vancomycin Inj [Vancomycin] 1.5 gm Sodium Chloride 0.9% [Normal Saline 0.9%] 500 ml IV Q24H 08/07/16 21:00 Cefepime 2 gm Sodium Chloride 0.9% Minibag [Normal Saline 0.9% Minibag] 100 ml IV Q24H 08/08/16 05:00 PT WITH INR [COAG] DAILYLAB 08/08/16 09:00 diltiaZEM CD [Cardizem Cd] 240 mg PO DAILY 08/09/16 05:00 PT WITH INR [COAG] DAILYLAB 08/10/16 05:00 PT WITH INR [COAG] DAILYLAB 08/10/16 15:30 VANCOMYCIN TROUGH [CHEM] Timed Plan Discussed with:: Patient, Family Time Spent: 31-60 minutes Subjective - Subjective Patient Reports: Fatigue, Shortness of Breath (Patient continues to be short of breath especially with exertion.), Other (Very weak. Had another episode today of acute SOA with diaphoresis and lower abd discomfort after eating.) Nursing Reports: Shortness of Breath Objective Vital Signs: Vital Signs - 24 hr 08/06/16 08/06/16 08/07/16 21:00 21:12 00:49 Temperature 37.1 C 36.5 C Heart Rate [ Brachial] Heart Rate [ 74 64 Radial] Respiratory 18 18 Rate Blood Pressure 141/77 H Blood Pressure [Left Brachial artery] Blood Pressure 141/77 H 148/85 H [Left Radial artery] O2 Saturation 93 94 08/07/16 08/07/16 08/07/16 05:15 09:00 09:01 Temperature 36.4 C L 36.5 C Heart Rate [ 77 118 H Brachial] Heart Rate [ Radial] Respiratory 20 24 Rate Blood Pressure 149/64 H Blood Pressure 149/64 H [Left Brachial artery] Blood Pressure 136/82 H [Left Radial artery] O2 Saturation 95 94 08/07/16 08/07/16 11:29 15:30 Temperature 37.0 C 36.6 C Heart Rate [ 89 73 Brachial] Heart Rate [ Radial] Respiratory 22 18 Rate Blood Pressure Blood Pressure 148/92 H 156/91 H [Left Brachial artery] Blood Pressure [Left Radial artery] O2 Saturation 93 97 Oxygen O2 Source [With Activity] Nasal cannula O2 Source Nasal cannula I&O (Last 24 Hrs): Intake and Output Totals x24h 08/05/16 08/06/16 08/07/16 23:59 23:59 23:59 Intake Total 1086 1226 200 Output Total 400 100 500 Balance 686 1126 -300 General: Alert, Oriented x3, Mild distress (SOB) HEENT: Atraumatic, PERRLA, EOMI, Mucous membr. moist/pink Neck: Supple, No JVD, No thyromegaly, +2 carotid pulse wo bruit, No LAD Lymphatic: no adenopathy Neuro: Alert, Non Focal, CN 2-12 Grossly Intact, Oriented Times 3 Cardiovascular: No murmurs, Other (Tachy, irregular) Respiratory: Chest non-tender, Rales, Rhonchi Abdomen: Normal bowel sounds, Soft, Other (Mild tenderness in lower abd) Extremities: No clubbing, No cyanosis, No edema, Normal pulses, No tenderness/ swelling Skin: No rashes, No breakdown, No significant lesion - Results Results: Laboratory Results WBC 20.1 x10^3/uL (4.8-10.8) H 08/07/16 15:46 RBC 3.73 10^6/uL (4.20-5.40) L 08/07/16 15:46 Hgb 11.6 g/dL (12.0-16.0) L 08/07/16 15:46 Hct 35.8 % (37.0-47.0) L 08/07/16 15:46 MCV 95.9 fL (81.0-99.0) 08/07/16 15:46 MCH 31.1 pg (27.0-31.0) H 08/07/16 15:46 MCHC 32.5 g/dL (32.0-36.0) 08/07/16 15:46 RDW 15.3 % (12.0-15.0) H 08/07/16 15:46 Plt Count 306 10^3/uL (130-450) 08/07/16 15:46 MPV 7.9 fL (7.9-10.8) 08/07/16 15:46 Neut # 17.6 10^3/uL (1.5-6.6) H 08/07/16 15:46 Lymph # 1.2 10^3/uL (1.5-3.5) L 08/07/16 15:46 [place] # 1.2 10^3/uL (0.0-1.0) H 08/07/16 15:46 Eos # 0.1 10^3/uL (0.0-0.7) 08/07/16 15:46 Baso # 0.1 10^3/uL (0.0-0.1) 08/07/16 15:46 Absolute Nucleated RBC 0.00 x10^3/uL 08/07/16 15:46 Band Neuts % (Manual) 2 % (0-10) 08/04/16 09:45 Reactive Lymphs % (Man) 3 % 08/04/16 09:45 Neutrophils # (Manual) 10.0 10^3/uL (1.5-6.6) H 08/04/16 09:45 Lymphocytes # (Manual) 1.6 10^3/uL (1.5-3.5) 08/04/16 09:45 Monocytes # (Manual) 0.6 10^3/uL (0.0-1.0) 08/04/16 09:45 Eosinophils # (Manual) 0.1 10^3/uL (0-0.7) 08/04/16 09:45 Nucleated RBCs 0.0 /100WBC 08/07/16 15:46 WBC Morphology 1+ TOXIC GRANULATION (NORMAL) 08/04/16 09:45 Platelet Estimate NORMAL (130-450,000) (NORMAL) 08/04/16 09:45 RBC Morph Micro Appear NORMAL APPEARANCE (NORMAL) 08/04/16 09:45 ESR 19 mm/Hr (0-30) 08/07/16 15:46 PT 33.3 secs (9.9-12.6) H 08/07/16 06:38 INR 2.9 (0.8-1.2) H 08/07/16 06:38 Bld Gas Analysis Time 1330 08/06/16 13:30 Sample Site LEFT RADIAL 08/06/16 13:30 ABG pH 7.40 (7.35-7.45) 08/06/16 13:30 ABG pCO2 33 mmHg (34-45) L 08/06/16 13:30 ABG pO2 135 mmHg (80-100) H 08/06/16 13:30 ABG HCO3 20.4 mmol/L (22.0-26.0) L 08/06/16 13:30 ABG Total CO2 21.4 MMOL/L (21.0-29.0) 08/06/16 13:30 ABG O2 Saturation 96 % (94-98) 08/06/16 13:30 ABG Oximetry Spot Check 96 % 08/06/16 13:30 ABG Base Excess -3.6 mmol/L (-2.0-3.0) L 08/06/16 13:30 Matthew Test POSITIVE 08/06/16 13:30 VBG pH 7.346 (7.31-7.41) 08/07/16 15:46 VBG pCO2 45.9 mmHg (41-51) 08/07/16 15:46 VBG pO2 40.2 mmHg (25-47) 08/07/16 15:46 VBG HCO3 24.5 mmol/L (23-28) 08/07/16 15:46 VBG Total CO2 26.0 mmol/L (24-29) 08/07/16 15:46 VBG O2 Saturation 71.1 % (60-80) 08/07/16 15:46 VBG Base Excess -1.3 mmol/L (-2 - +2) 08/07/16 15:46 Room Air YES 08/06/16 13:30 O2 Delivery Device NASAL CANNULA 08/06/16 13:30 O2 Liters/Min 3.50 LPM 08/06/16 13:30 Sodium 135 mmol/L (135-145) 08/07/16 15:46 Potassium 4.5 mmol/L (3.5-5.0) 08/07/16 15:46 Chloride 101 mmol/L (101-111) 08/07/16 15:46 Carbon Dioxide 24 mmol/L (21-32) 08/07/16 15:46 Anion Gap 10.0 (6-13) 08/07/16 15:46 BUN 21 mg/dL (6-20) H 08/07/16 15:46 Creatinine 1.2 mg/dL (0.4-1.0) H 08/07/16 15:46 Estimated GFR (MDRD) 43 (>89) L 08/07/16 15:46 Glucose 195 mg/dL (70-100) H 08/07/16 15:46 POC Whole Bld Glucose 180 mg/dL (70 - 100) H 08/07/16 16:53 Glycated Hemoglobin 7.2 % (4.6-6.2) H 08/02/16 02:26 Estim Average Glucose 160 (70-100) H 08/02/16 02:26 Lactic Acid 2.3 mmol/L (0.5-2.2) H 08/07/16 15:46 Calcium 8.8 mg/dL (8.5-10.3) 08/07/16 15:46 Ionized Calcium NO 08/07/16 15:46 Phosphorus 4.5 mg/dL (2.5-4.6) 08/07/16 15:46 Magnesium 2.0 mg/dL (1.7-2.8) 08/07/16 15:46 Total Bilirubin 0.4 mg/dL (0.2-1.0) 08/07/16 15:46 AST 76 IU/L (10-42) H 08/07/16 15:46 ALT 90 IU/L (10-60) H 08/07/16 15:46 Alkaline Phosphatase 104 IU/L (42-121) 08/07/16 15:46 Troponin I < 0.04 ng/mL (<0.49) 08/07/16 15:46 C-Reactive Protein < 1.0 mg/dL (0-1.0) 08/07/16 15:46 B-Natriuretic Peptide 592 pg/mL (5-100) H 08/01/16 13:56 Total Protein 6.8 g/dL (6.7-8.2) 08/07/16 15:46 Albumin 3.3 g/dL (3.2-5.5) 08/07/16 15:46 Globulin 3.5 g/dL (2.1-4.2) 08/07/16 15:46 Albumin/Globulin Ratio 0.9 (1.0-2.2) L 08/07/16 15:46 Lipase 11 U/L (22-51) L 08/01/16 Unknown Urine Color YELLOW 08/02/16 01:27 Urine Clarity HAZY (CLEAR) 08/02/16 01:27 Urine pH 5.5 PH (5.0-7.5) 08/02/16 01:27 Ur Specific [place] 1.025 (1.002-1.030) 08/02/16 01:27 Urine Protein 30 mg/dL (NEGATIVE) H 08/02/16 01:27 Urine Glucose (UA) NEGATIVE mg/dL (NEGATIVE) 08/02/16 01:27 Urine Ketones NEGATIVE mg/dL (NEGATIVE) 08/02/16 01:27 Urine Occult Blood MODERATE (NEGATIVE) H 08/02/16 01:27 Urine Nitrite POSITIVE (NEGATIVE) H 08/02/16 01:27 Urine Bilirubin NEGATIVE (NEGATIVE) 08/02/16 01:27 Urine Urobilinogen 0.2 (NORMAL) E.U./dL (NORMAL) 08/02/16 01:27 Ur Leukocyte Esterase LARGE (NEGATIVE) H 08/02/16 01:27 Urine RBC 11-25 /HPF (0-5) H 08/02/16 01:27 Urine WBC >25 /HPF (0-5) H 08/02/16 01:27 Ur Squamous Epith Cells FEW Squamous (<= Few) 08/02/16 01:27 Urine Bacteria Moderate /HPF (None Seen) H 08/02/16 01:27 Ur Microscopic Review INDICATED 08/02/16 01:27 Urine Culture Comments INDICATED 08/02/16 01:27 Blood Type A POSITIVE 08/01/16 21:00 Blood Type Recheck A POSITIVE 08/01/16 13:20 - Procedures Procedures: Procedures ENDO RECTUM POLYPECTOMY (11/29/13) ENDOSC POLYPECTOMY OF LG INTEST (11/29/13) EXC LES SOFT TISSUE NEC (01/05/13) EYELID BIOPSY (03/09/14) LOCAL EXCIS BREAST LES (01/05/13) LYMPHATIC STRUCT BIOPSY (08/04/12) OTHER ENDOSCOPY OF SM INTEST (11/29/13) TU REMOV URETER OBSTRUCT (08/30/13) UNILAT EXTEN SIMP MASTEC (08/04/12) URETERAL CATHETERIZATION (08/30/13)
[2016-08-07] MEDS: VANCOMYCIN INJ 1.5 GM in SODIUM CHLORIDE 0.9% 500 ML IV SCH (18:17)
[2016-08-07] MEDS: SODIUM CHLORIDE 0.9% 1,000 ML IV SCH (18:17)
[2016-08-07] MEDS: LATANOPROST 0.005% OPHTH DROPS RIGHTEYE SCH (20:44)
[2016-08-07] MEDS: MELATONIN PO SCH (20:45)
[2016-08-07] MEDS: [UNRECOGNIZED DRUG - OTHER] PO SCH (20:45)
[2016-08-07] MEDS ORDERED: IOPAMIDOL-300 100 ML VIAL IVP ONE (20:58)
--- NOTE | 2016-08-07 21:12 | CT Preliminary Report ---
Exam: CT Abdomen/Pelvis W/ IMPRESSION: 1. Small distal left ureteral stone with [id number] hydronephrosis. 2. Bilateral pleural effusions with underlying consolidative atelectasis versus infiltrates. 3. bilat. Renal cysts, atrophic left kidney. 4. Moderate diverticulosis and other chronic or incidental findings. [facility] SITE ID: [id number]
--- NOTE | 2016-08-07 21:14 | CT Report ---
EXAM: CT ABDOMEN AND PELVIS EXAM DATE: 08/07/2016 08:30 PM. CLINICAL HISTORY: WBC 20K with elevated lactate and episodic sweats. COMPARISONS: 01/09/2015. Also chest radiograph dated 08/07/2016. TECHNIQUE: Routine helical CT imaging was performed through the abdomen and pelvis. IV contrast: 100 cc Isovue-300. Enteric contrast: No. Reconstructions: Coronal and sagittal. In accordance with CT protocol optimization, one or more of the following dose reduction techniques w ere utilized for this exam: automated exposure control, adjustment of mA and/or KV based on patient s ize, or use of iterative reconstructive technique. FINDINGS: Lung Bases: Small pleural effusions, right more than left, with underlying consolidative atelectasis versus infiltrates in the lung bases. Liver: Subtle heterogeneity, especially in the periphery with tiny rounded foci of rim enhancement. Gallbladder/Bile Ducts: Small amount of pericholecystic fluid. Otherwise unremarkable. No ductal dila tion. Spleen: Normal. Pancreas: Atrophic changes. Adrenal Glands: Normal. Kidneys: 2 mm distal left ureteral stone about 2 cm proximal to the UVJ with [id number] hydrone phrosis. A prominent extra renal pelvis contributes to this appearance. Atrophic left kidney. Bilater al cysts including a right parapelvic cyst and possible left parapelvic cyst. Peritoneal Cavity/Bowel: Moderate colonic diverticulosis. A definite diverticulitis. No dilation. No free fluid, free air, or lymphadenopathy. The appendix is well visualized and normal. Pelvic Organs: Normal. The bladder and visualized pelvic organs are within normal limits. Vasculature: No aneurysms or other significant abnormality. Bones: Old L2 upper endplate fracture, degenerative changes. Other: None. IMPRESSION: 1. Small distal left ureteral stone with [id number] hydronephrosis. 2. Bilateral pleural effusions with underlying consolidative atelectasis versus infiltrates. 3. bilat. Renal cysts, atrophic left kidney. 4. Moderate diverticulosis and other chronic or incidental findings. [facility] Referring Provider Line: [phone] SITE ID: [id number]
[2016-08-07] MEDS: CEFEPIME 2 GM in SODIUM CHLORIDE 0.9% MINIBAG 100 ML IV SCH (22:22)
[2016-08-08] MEDS: MORPHINE 2 MG/ML SYRINGE IVP PRN (03:43)
[2016-08-08] MEDS: SODIUM CHLORIDE 0.9% 1,000 ML IV SCH (05:42)
[2016-08-08] MEDS ORDERED: FUROSEMIDE 40 MG/4 ML VIAL IVP STA (06:02)
[2016-08-08 06:13] LABS: BASOPHILS # (AUTO) 0.1 10^3/uL (0.0-0.1); BASOPHILS % (AUTO) 0.6 %; EOSINOPHILS % (AUTO) 0.2 %; HCT - HEMATOCRIT 33.5 % (37.0-47.0); HGB - HEMOGLOBIN 10.9 g/dL (12.0-16.0); LYMPHOCYTES # (AUTO) 1.8 10^3/uL (1.5-3.5); LYMPHOCYTES % (AUTO) 11.7 %; MEAN CORPUSCULAR HEMOGLOBIN 31.2 pg (27.0-31.0); MEAN CORPUSCULAR HGB CONC 32.5 g/dL (32.0-36.0); MEAN CORPUSCULAR VOLUME 95.9 fL (81.0-99.0); MEAN PLATELET VOLUME 7.7 fL (7.9-10.8); MONOCYTES % (AUTO) 6.7 %; NEUTROPHILS # (AUTO) 12.3 10^3/uL (1.5-6.6); NEUTROPHILS % (AUTO) 80.8 %; RED CELL DISTRIBUTION WIDTH 15.5 % (12.0-15.0); UNCORRECTED WHITE BLOOD COUNT 15.2 x10^3/uL; WHITE BLOOD COUNT 15.2 x10^3/uL (4.8-10.8)
[2016-08-08 06:23] LABS: INR 3.2 (0.8-1.2); PT - PROTHROMBIN TIME 36.6 secs (9.9-12.6)
[2016-08-08 06:24] LABS: ALBUMIN/GLOBULIN RATIO 1.1 (1.0-2.2); BILIRUBIN,TOTAL 0.8 mg/dL (0.2-1.0); CALCIUM 8.4 mg/dL (8.5-10.3); CREATININE 1.1 mg/dL (0.4-1.0); TOTAL PROTEIN 6.1 g/dL (6.7-8.2)
[2016-08-08] MEDS: LORazepam 0.5 MG TABLET PO SCH ×2 (06:30→13:20)
[2016-08-08] MEDS: SODIUM CHLORIDE FLUSH 0.9% 10 ML SYRINGE IVP SCH ×2 (06:30→13:20)
[2016-08-08] MEDS: PANTOPRAZOLE 40 MG TABLET PO SCH ×2 (06:49→16:45)
--- NOTE | 2016-08-08 07:08 | XRAY Preliminary Report ---
Exam: XR Chest 1 View Impression: Hypoexpansion of the lungs. Probable CHF. [facility] SITE ID: [id number]
--- NOTE | 2016-08-08 07:11 | XRAY Report ---
EXAM: CHEST RADIOGRAPHY EXAM DATE: 08/08/2016 07:01 AM. CLINICAL HISTORY: Acute sob, respriatory distress. COMPARISON: None. TECHNIQUE: 1 view. FINDINGS: There is hypoexpansion of the lungs. Increased perihilar lung markings are noted bilaterally. This ma y be secondary to atelectasis or infiltrates. There is blunting of both costophrenic angles most like ly represents bilateral pleural effusions. Atherosclerosis of the aorta is noted. Surgical clips are noted within the right axilla. Impression: Hypoexpansion of the lungs. Probable CHF. [facility] Referring Provider Line: [phone] SITE ID: [id number]
[2016-08-08 07:14] LABS: ABG BASE EXCESS -0.1 mmol/L (-2.0-3.0); ABG HCO3 23.3 mmol/L (22.0-26.0); ABG PCO2 34 mmHg (34-45); ABG PH 7.46 (7.35-7.45); ABG PO2 84 mmHg (80-100); ABG TCO2 24.4 MMOL/L (21.0-29.0)
[2016-08-08 07:15] LABS: ABG O2 DEVICE C-PAP; ABG OXYGEN SATURATION 94 % (94-98); ABG SITE OF DRAW LEFT RADIAL; ALLEN TEST POSITIVE
[2016-08-08] MEDS ORDERED: SODIUM CHLORIDE 0.9% 1,000 ML IV SCH (09:00)
[2016-08-08] MEDS: INSULIN ASPART 300 UNIT/3 ML PEN SUBQ SCH ×4 (09:27→21:18)
[2016-08-08] MEDS: MAGNESIUM OXIDE 400 MG TABLET PO SCH (09:28)
[2016-08-08] MEDS: CETIRIZINE 10 MG TABLET PO SCH (09:28)
[2016-08-08] MEDS: SACCHAROMYCES BOULARDII 250 MG CAPSULE PO SCH ×2 (09:28→16:42)
[2016-08-08] MEDS: diltiaZEM CD 240 MG CAPSULE PO SCH (09:28)
[2016-08-08] MEDS: DULoxetine 30 MG CAPSULE PO SCH ×2 (09:28→21:00)
[2016-08-08] MEDS: MULTIVITAMIN TABLET PO SCH (09:29)
[2016-08-08] MEDS: POLYETHYLENE GLYCOL 3350 17 GM PACKET PO SCH (09:29)
[2016-08-08] MEDS: METOPROLOL TARTRATE 50 MG TABLET PO SCH ×2 (09:29→21:00)
[2016-08-08 10:47] LABS: BILIRUBIN,URINE NEGATIVE (NEGATIVE); PH,URINE 5.5 PH (5.0-7.5)
[2016-08-08 10:53] LABS: WBC,URINE 0-3 /HPF (0-5)
[2016-08-08 10:54] LABS: UR CULTURE IF IND NOT INDICATED
[2016-08-08] MEDS: WARFARIN 2.5 MG TABLET PO SCH (13:20)
[2016-08-08] MEDS ORDERED: POTASSIUM CHLORIDE 20 MEQ TABLET PO SCH (16:00)
[2016-08-08] MEDS: VANCOMYCIN INJ 1.5 GM in SODIUM CHLORIDE 0.9% 500 ML IV SCH (18:38)
[2016-08-08] MEDS: CEFEPIME 2 GM in SODIUM CHLORIDE 0.9% MINIBAG 100 ML IV SCH (20:54)
[2016-08-08] MEDS: HYDROcod/ACETAM 5/325 MG TABLET PO PRN (21:03)
[2016-08-08] MEDS: MELATONIN PO SCH (21:03)
[2016-08-08] MEDS: [UNRECOGNIZED DRUG - OTHER] PO SCH (21:03)
[2016-08-08] MEDS: LATANOPROST 0.005% OPHTH DROPS RIGHTEYE SCH (21:04)
[2016-08-09] MEDS: LORazepam 0.5 MG TABLET PO SCH ×3 (00:39→13:55)
[2016-08-09 03:46] LABS: BASOPHILS # (AUTO) 0.1 10^3/uL (0.0-0.1); BASOPHILS % (AUTO) 1.2 %; EOSINOPHILS # (AUTO) 0.3 10^3/uL (0.0-0.7); EOSINOPHILS % (AUTO) 3.2 %; HCT - HEMATOCRIT 32.4 % (37.0-47.0); HGB - HEMOGLOBIN 10.8 g/dL (12.0-16.0); LYMPHOCYTES # (AUTO) 2.7 10^3/uL (1.5-3.5); LYMPHOCYTES % (AUTO) 25.1 %; MEAN CORPUSCULAR HEMOGLOBIN 31.5 pg (27.0-31.0); MEAN CORPUSCULAR HGB CONC 33.2 g/dL (32.0-36.0); MEAN CORPUSCULAR VOLUME 94.8 fL (81.0-99.0); MEAN PLATELET VOLUME 7.6 fL (7.9-10.8); MONOCYTES % (AUTO) 8.9 %; NEUTROPHILS # (AUTO) 6.7 10^3/uL (1.5-6.6); NEUTROPHILS % (AUTO) 61.6 %; RED BLOOD COUNT 3.42 10^6/uL (4.20-5.40); RED CELL DISTRIBUTION WIDTH 15.5 % (12.0-15.0); UNCORRECTED WHITE BLOOD COUNT 10.8 x10^3/uL; WHITE BLOOD COUNT 10.8 x10^3/uL (4.8-10.8)
[2016-08-09 03:52] LABS: INR 3.3 (0.8-1.2); PT - PROTHROMBIN TIME 38.1 secs (9.9-12.6)
[2016-08-09 03:54] LABS: ALBUMIN/GLOBULIN RATIO 1.1 (1.0-2.2); BILIRUBIN,TOTAL 0.7 mg/dL (0.2-1.0); BUN - BLOOD UREA NITROGEN 20 mg/dL (6-20); CALCIUM 8.8 mg/dL (8.5-10.3); CARBON DIOXIDE - CO2 29 mmol/L (21-32); CHLORIDE 103 mmol/L (101-111); GFR - MDRD 53 (>89); GLUCOSE 160 mg/dL (70-100); PHOSPHORUS 2.6 mg/dL (2.5-4.6); POTASSIUM 3.8 mmol/L (3.5-5.0); SODIUM 140 mmol/L (135-145); TOTAL PROTEIN 6.2 g/dL (6.7-8.2)
[2016-08-09] MEDS: SODIUM CHLORIDE FLUSH 0.9% 10 ML SYRINGE IVP SCH ×3 (05:53→13:55)
[2016-08-09] MEDS: PANTOPRAZOLE 40 MG TABLET PO SCH (06:43)
[2016-08-09] MEDS: INSULIN ASPART 300 UNIT/3 ML PEN SUBQ SCH ×2 (07:56→11:45)
[2016-08-09] MEDS: MAGNESIUM OXIDE 400 MG TABLET PO SCH (08:23)
[2016-08-09] MEDS: CETIRIZINE 10 MG TABLET PO SCH (08:26)
[2016-08-09] MEDS: diltiaZEM CD 240 MG CAPSULE PO SCH (08:26)
[2016-08-09] MEDS: METOPROLOL TARTRATE 50 MG TABLET PO SCH (08:27)
[2016-08-09] MEDS: DULoxetine 30 MG CAPSULE PO SCH (08:27)
[2016-08-09] MEDS: MULTIVITAMIN TABLET PO SCH (08:28)
[2016-08-09] MEDS: DOCUSATE SODIUM 100 MG CAPSULE PO PRN (08:29)
[2016-08-09] MEDS: POLYETHYLENE GLYCOL 3350 17 GM PACKET PO SCH (08:30)
[2016-08-09] MEDS: SACCHAROMYCES BOULARDII 250 MG CAPSULE PO SCH (08:33)
[2016-08-09] MEDS: WARFARIN 2.5 MG TABLET PO SCH (14:00)
--- NOTE | 2016-08-09 17:56 | PROVIDER PROGRESS NOTE ---
Assessment/Plan - Problem List (1) Sepsis Assessment/Plan: Patient initially presented with sepsis but seemed to be improving The last 23 days she would have episodes that appeared to be secondary to anxiety but yesterday the episode was more concerning as she became pale and diaphoretic and was having some lower abdominal pain CT abd was ordered and showed a small distal left uretral stone with mild to moderate hydronephrosis Patient also had CXR which showed possible CHF The patient however had increasing WBC up to 20.1 and became increasingly hypoxic, tachypnic and tachycardic also looked septic with elevated lactic acid She was transferred to the ICU overnight Her abx were changed vancomycin and cefepime and we repeated a UA She is not spiking fevers Will continue to monitor closely in the ICU (2) Community Acquired Pneumonia Impression: presented as cough, sob fatigue and sweats unreponsive to oupt tx. CXR on 08/01 and 08/02 neg but finally showed pneumonia on 08/03 blood C&S neg. Had an episode of shortness of breath with unclear origin for 3rd time yesterday and became diaphoretic and felt abd discomfort repeat labs showed worsening WBC and elevated lactate therefore CT of abd ordered to rule out possible ischemic bowel showed a small distal left uretral stone with mild to moderate hydronephrosis Increased O2 requirement and more short of breath Feels weak Repeat CXR showed possible CHF Patient received 6 days of rocephin and azithromycin switched to Vanco and cefepime for worsening WBC and elevated lactic acid Qualifiers: Pneumonia type: due to unspecified organism Laterality: left Lung location: lower lobe of lung Qualified Code(s): J18.1 - Lobar pneumonia, unspecified organism (3) E. coli UTI Impression: present on admission. Ecoli on cx sensitive to rocephin Received 6 days of rocephin changed to cefepime day 2 (4) Renal Caliculi Impression: CT abd was ordered and showed a small distal left uretral stone with mild to moderate hydronephrosis Pain is controlled May have been source of intermittent episodes of distress Would hydrate patient but she appears overloaded Will monitor Pain control (5) Atrial fibrillation with rapid ventricular response Impression: HR was elevated last night likely secondary to On Dilt to 240 daily and continue Metoprolol to 100 mg BID on coumadin recheck INR tomorrow yesterday was high at 3.3 Continue tele monitoring (6) Vasovagal episode Impression: happened on the toilet 4 days ago states it happens at home Stable (7) Weakness Impression: from deconditioning and illness. PT will be reordered once patient is better - Current Meds Current Meds: Current Medications Generic Name Dose Route Start Last Admin Trade Name Freq PRN Reason Stop Dose Admin Acetaminophen/Hydrocodone Bitart 1 tab 08/01/16 16:41 08/08/16 21:03 [place] 5/325 PO 1 tab Q4HR PRN Administration Pain 5 to 7 Carboxymethylcellulose 1 drops 08/01/16 17:39 08/06/16 18:22 Refresh 1% Ophth Drops EACHEYE 1 drops QID PRN Administration Dry Eye Cetirizine HCl 10 mg 08/02/16 09:00 08/09/16 08:26 Zyrtec PO 10 mg DAILY LOWELL Administration Diltiazem HCl 10 mg 08/01/16 21:59 08/03/16 08:29 Cardizem Inj IVP 10 mg Q1H PRN Administration HR>110 Diltiazem HCl 240 mg 08/08/16 09:00 08/09/16 08:26 Cardizem Cd PO 240 mg DAILY LOWELL Administration Docusate Sodium 200 mg 08/01/16 17:39 08/09/16 08:29 Colace 100mg Capsule PO 200 mg DAILY PRN Administration Constipation Duloxetine HCl 30 mg 08/01/16 21:00 08/09/16 08:27 Cymbalta PO 30 mg BID LOWELL Administration Cefepime HCl 2 gm/ Sodium 100 mls @ 200 mls/hr 08/07/16 21:00 08/08/16 20:54 Chloride IV 200 mls/hr Q24H LOWELL Administration Vancomycin HCl 1.5 gm/ Sodium 500 mls @ 250 mls/hr 08/07/16 18:00 08/08/16 18: 38 Chloride IV 250 mls/hr Q24H LOWELL Administration Insulin Aspart 1 - 9 unit 08/02/16 12:00 08/09/16 11:45 Novolog SUBQ 3 unit 0800,1200,1700,2100 LOWELL Administration Protocol Latanoprost 1 drops 08/01/16 21:00 08/08/16 21:04 Xalatan Ophth Drops RIGHTEYE 1 drops QPM LOWELL Administration Lorazepam 0.5 mg 08/04/16 15:00 06/16/17 13:55 Ativan PO Not Given TID LOWELL Lorazepam 1 mg 08/07/16 14:22 08/07/16 23:26 Ativan Inj IVP 1 mg Q2HR PRN Administration Anxiety Magnesium Oxide 400 mg 08/02/16 08:00 08/09/16 08:23 Mag Ox PO 400 mg 0800 LOWELL Administration Metoprolol Tartrate 100 mg 08/06/16 19:00 08/09/16 08:27 Lopressor PO 100 mg BID LOWELL Administration Morphine Sulfate 2 mg 08/01/16 21:59 08/08/16 03:43 Morphine IVP 2 mg Q2HR PRN Administration PAIN Multivitamins 1 tab 08/02/16 09:00 08/09/16 08:28 Theragran PO 1 tab DAILY LOWELL Administration Ondansetron HCl 4 mg 08/01/16 16:41 08/01/16 17:47 Zofran Inj IVP 4 mg Q4HR PRN Administration Nausea / Vomiting Pantoprazole Sodium 40 mg 08/01/16 18:30 08/09/16 06:43 Protonix PO 40 mg BIDAC LOWELL Administration Meltatonin 5 Mg + 1 each 08/03/16 21:00 08/08/16 21:03 Melatonin 3 Mg Tabs PO 1 each QPM LOWELL Administration Polyethylene Glycol 17 gm 08/02/16 09:00 08/09/16 08:30 Miralax PO 17 gm DAILY LOWELL Administration Saccharomyces Boulardii 250 mg 08/02/16 08:00 08/09/16 08:33 Florastor PO 250 mg BIDWM LOWELL Administration Sodium Chloride 10 ml 08/01/16 16:41 08/07/16 09:08 Normal Saline Flush 0.9% IVP 10 ml PRN PRN Administration NEEDED PER PROVIDER ORDERS Sodium Chloride 10 ml 08/01/16 22:00 08/09/16 13:55 Normal Saline Flush 0.9% IVP 10 ml Q8HR LOWELL Administration Warfarin Sodium 2.5 mg 08/07/16 16:00 08/09/16 14:00 Coumadin PO Not Given QDWARFARIN LOWELL - Lab Result Lab results reviewed: Yes Fish Bone Diagrams: 08/09/16 03:27 08/09/16 03:27 - EKG Results EKG Interpreted Independently: Yes - Diagnostic Imaging Results Diagnostic Imaging Results: positive: Final report reviewed - Additional Planning Condition/Complexity: Guarded My Orders: My Active Orders 08/09/16 Evaluate and Treat PT [PT] Routine 08/09/16 15:02 Admit [Admit \ Transfer \ Status] [RC] ONCE Vital Signs [RC] Q4HR 08/10/16 05:00 CBC - COMP BLD CT W/AUTO DIFF [HEME] DAILYLAB CMP, RFLX TO IONIZED CA IF [CHEM] DAILYLAB MAGNESIUM [CHEM] DAILYLAB PHOSPHORUS [CHEM] DAILYLAB PT WITH INR [COAG] DAILYLAB 08/10/16 15:30 VANCOMYCIN TROUGH [CHEM] Timed 08/11/16 05:00 CBC - COMP BLD CT W/AUTO DIFF [HEME] DAILYLAB CMP, RFLX TO IONIZED CA IF [CHEM] DAILYLAB MAGNESIUM [CHEM] DAILYLAB PHOSPHORUS [CHEM] DAILYLAB 08/12/16 05:00 CBC - COMP BLD CT W/AUTO DIFF [HEME] DAILYLAB CMP, RFLX TO IONIZED CA IF [CHEM] DAILYLAB MAGNESIUM [CHEM] DAILYLAB PHOSPHORUS [CHEM] DAILYLAB 08/13/16 05:00 CBC - COMP BLD CT W/AUTO DIFF [HEME] DAILYLAB CMP, RFLX TO IONIZED CA IF [CHEM] DAILYLAB MAGNESIUM [CHEM] DAILYLAB PHOSPHORUS [CHEM] DAILYLAB Plan Discussed with:: Patient Time Spent: 31-60 minutes Subjective - Subjective Patient Reports: Shortness of Breath (Feels short of breath and is very weak and lethargic this morning. Denies any cough or fevers. She denies any flank pain.) Nursing Reports: No Complaints Objective Vital Signs: Vital Signs - 24 hr 08/08/16 08/08/16 08/08/16 18:00 19:00 20:00 Temperature 36.8 C Heart Rate [ 84 82 94 Monitoring electrodes] Respiratory 18 20 22 Rate Blood Pressure Blood Pressure 141/80 H 127/79 152/92 H [Left Radial artery] O2 Saturation 94 98 96 08/08/16 08/08/16 08/08/16 21:00 22:00 23:00 Temperature Heart Rate [ 91 88 84 Monitoring electrodes] Respiratory 19 18 18 Rate Blood Pressure 156/78 H Blood Pressure 158/73 H 155/75 H 142/75 H [Left Radial artery] O2 Saturation 96 97 95 08/09/16 08/09/16 08/09/16 00:00 01:00 02:00 Temperature Heart Rate [ 83 82 63 Monitoring electrodes] Respiratory 18 20 17 Rate Blood Pressure Blood Pressure 124/75 146/69 H 108/83 H [Left Radial artery] O2 Saturation 94 95 95 08/09/16 08/09/16 08/09/16 03:00 04:00 05:00 Temperature 36.8 C Heart Rate [ 60 75 75 Monitoring electrodes] Respiratory 17 17 17 Rate Blood Pressure Blood Pressure 138/77 H 138/83 H 154/71 H [Left Radial artery] O2 Saturation 95 93 95 08/09/16 08/09/16 08/09/16 06:00 07:00 08:00 Temperature 97.5 C H Heart Rate [ 85 80 113 H Monitoring electrodes] Respiratory 19 18 20 Rate Blood Pressure Blood Pressure 152/87 H 155/83 H 159/92 H [Left Radial artery] O2 Saturation 97 95 96 08/09/16 08/09/16 08/09/16 08:27 09:00 10:00 Temperature Heart Rate [ 85 88 Monitoring electrodes] Respiratory 20 22 Rate Blood Pressure 159/92 H Blood Pressure 141/56 H 143/75 H [Left Radial artery] O2 Saturation 98 97 08/09/16 08/09/16 08/09/16 11:00 11:59 13:00 Temperature 98.7 C H Heart Rate [ 105 H 88 65 Monitoring electrodes] Respiratory 18 19 20 Rate Blood Pressure Blood Pressure 149/75 H 132/64 H 141/85 H [Left Radial artery] O2 Saturation 96 95 96 08/09/16 14:00 Temperature Heart Rate [ 64 Monitoring electrodes] Respiratory 19 Rate Blood Pressure Blood Pressure 124/66 [Left Radial artery] O2 Saturation 95 Oxygen O2 Source [With Activity] Nasal cannula O2 Source Nasal cannula I&O (Last 24 Hrs): Intake and Output Totals x24h 08/07/16 08/08/16 08/09/16 23:59 23:59 23:59 Intake Total 1105 3036 1050 Output Total 500 4910 676 Balance 605 -3557 374 General: Cooperative, Mild distress (short of breath), Other (lethargic) HEENT: Atraumatic, PERRLA, EOMI, Mucous membr. moist/pink Neck: Supple, No JVD, No thyromegaly, +2 carotid pulse wo bruit, No LAD Lymphatic: no adenopathy Neuro: Non Focal, CN 2-12 Grossly Intact, Other (Lethargic) Cardiovascular: No murmurs, Other (Irregular tachy) Respiratory: Chest non-tender, Rales, Rhonchi Abdomen: Normal bowel sounds, Soft, No tenderness, No hepatospenomegaly Extremities: No clubbing, No cyanosis, Normal pulses Skin: No rashes, No breakdown - Results Results: Laboratory Results WBC 10.8 x10^3/uL (4.8-10.8) 08/09/16 03:27 RBC 3.42 10^6/uL (4.20-5.40) L 08/09/16 03:27 Hgb 10.8 g/dL (12.0-16.0) L 08/09/16 03:27 Hct 32.4 % (37.0-47.0) L 08/09/16 03:27 MCV 94.8 fL (81.0-99.0) 08/09/16 03:27 MCH 31.5 pg (27.0-31.0) H 08/09/16 03:27 MCHC 33.2 g/dL (32.0-36.0) 08/09/16 03:27 RDW 15.5 % (12.0-15.0) H 08/09/16 03:27 Plt Count 270 10^3/uL (130-450) 08/09/16 03:27 MPV 7.6 fL (7.9-10.8) L 08/09/16 03:27 Neut # 6.7 10^3/uL (1.5-6.6) H 08/09/16 03:27 Lymph # 2.7 10^3/uL (1.5-3.5) 08/09/16 03:27 [place] # 1.0 10^3/uL (0.0-1.0) 08/09/16 03:27 Eos # 0.3 10^3/uL (0.0-0.7) 08/09/16 03:27 Baso # 0.1 10^3/uL (0.0-0.1) 08/09/16 03:27 Absolute Nucleated RBC 0.01 x10^3/uL 08/09/16 03:27 Band Neuts % (Manual) 2 % (0-10) 08/04/16 09:45 Reactive Lymphs % (Man) 3 % 08/04/16 09:45 Neutrophils # (Manual) 10.0 10^3/uL (1.5-6.6) H 08/04/16 09:45 Lymphocytes # (Manual) 1.6 10^3/uL (1.5-3.5) 08/04/16 09:45 Monocytes # (Manual) 0.6 10^3/uL (0.0-1.0) 08/04/16 09:45 Eosinophils # (Manual) 0.1 10^3/uL (0-0.7) 08/04/16 09:45 Nucleated RBCs 0.0 /100WBC 08/09/16 03:27 WBC Morphology 1+ TOXIC GRANULATION (NORMAL) 08/04/16 09:45 Platelet Estimate NORMAL (130-450,000) (NORMAL) 08/04/16 09:45 RBC Morph Micro Appear NORMAL APPEARANCE (NORMAL) 08/04/16 09:45 ESR 19 mm/Hr (0-30) 08/07/16 15:46 PT 38.1 secs (9.9-12.6) H 08/09/16 03:27 INR 3.3 (0.8-1.2) H 08/09/16 03:27 Bld Gas Analysis Time 07:07 08/08/16 07:07 Sample Site LEFT RADIAL 08/08/16 07:07 ABG pH 7.46 (7.35-7.45) H 08/08/16 07:07 ABG pCO2 34 mmHg (34-45) 08/08/16 07:07 ABG pO2 84 mmHg (80-100) 08/08/16 07:07 ABG HCO3 23.3 mmol/L (22.0-26.0) 08/08/16 07:07 ABG Total CO2 24.4 MMOL/L (21.0-29.0) 08/08/16 07:07 ABG O2 Saturation 94 % (94-98) 08/08/16 07:07 ABG Oximetry Spot Check 96 % 08/06/16 13:30 ABG Base Excess -0.1 mmol/L (-2.0-3.0) 08/08/16 07:07 Matthew Test POSITIVE 08/08/16 07:07 VBG pH 7.346 (7.31-7.41) 08/07/16 15:46 VBG pCO2 45.9 mmHg (41-51) 08/07/16 15:46 VBG pO2 40.2 mmHg (25-47) 08/07/16 15:46 VBG HCO3 24.5 mmol/L (23-28) 08/07/16 15:46 VBG Total CO2 26.0 mmol/L (24-29) 08/07/16 15:46 VBG O2 Saturation 71.1 % (60-80) 08/07/16 15:46 VBG Base Excess -1.3 mmol/L (-2 - +2) 08/07/16 15:46 Room Air YES 08/06/16 13:30 O2 Delivery Device C-PAP 08/08/16 07:07 O2 Liters/Min 4.00 LPM 08/08/16 07:07 Sodium 140 mmol/L (135-145) 08/09/16 03:27 Potassium 3.8 mmol/L (3.5-5.0) 08/09/16 03:27 Chloride 103 mmol/L (101-111) 08/09/16 03:27 Carbon Dioxide 29 mmol/L (21-32) 08/09/16 03:27 Anion Gap 8.0 (6-13) 08/09/16 03:27 BUN 20 mg/dL (6-20) 08/09/16 03:27 Creatinine 1.0 mg/dL (0.4-1.0) 08/09/16 03:27 Estimated GFR (MDRD) 53 (>89) L 08/09/16 03:27 Glucose 160 mg/dL (70-100) H 08/09/16 03:27 POC Whole Bld Glucose 205 mg/dL (70 - 100) H 08/09/16 11:37 Glycated Hemoglobin 7.2 % (4.6-6.2) H 08/02/16 02:26 Estim Average Glucose 160 (70-100) H 08/02/16 02:26 Lactic Acid 2.3 mmol/L (0.5-2.2) H 08/07/16 15:46 Calcium 8.8 mg/dL (8.5-10.3) 08/09/16 03:27 Ionized Calcium NO 08/09/16 03:27 Phosphorus 2.6 mg/dL (2.5-4.6) 08/09/16 03:27 Magnesium 2.0 mg/dL (1.7-2.8) 08/09/16 03:27 Total Bilirubin 0.7 mg/dL (0.2-1.0) 08/09/16 03:27 AST 26 IU/L (10-42) 08/09/16 03:27 ALT 56 IU/L (10-60) 08/09/16 03:27 Alkaline Phosphatase 80 IU/L (42-121) 08/09/16 03:27 Troponin I < 0.04 ng/mL (<0.49) 08/08/16 06:00 C-Reactive Protein < 1.0 mg/dL (0-1.0) 08/07/16 15:46 B-Natriuretic Peptide 592 pg/mL (5-100) H 08/01/16 13:56 Total Protein 6.2 g/dL (6.7-8.2) L 08/09/16 03:27 Albumin 3.2 g/dL (3.2-5.5) 08/09/16 03:27 Globulin 3.0 g/dL (2.1-4.2) 08/09/16 03:27 Albumin/Globulin Ratio 1.1 (1.0-2.2) 08/09/16 03:27 Lipase 11 U/L (22-51) L 08/01/16 Unknown Urine Color LIGHT YELLOW 08/08/16 09:45 Urine Clarity CLEAR (CLEAR) 08/08/16 09:45 Urine pH 5.5 PH (5.0-7.5) 08/08/16 09:45 Ur Specific [place] 1.010 (1.002-1.030) 08/08/16 09:45 Urine Protein NEGATIVE mg/dL (NEGATIVE) 08/08/16 09:45 Urine Glucose (UA) NEGATIVE mg/dL (NEGATIVE) 08/08/16 09:45 Urine Ketones NEGATIVE mg/dL (NEGATIVE) 08/08/16 09:45 Urine Occult Blood TRACE-LYSE (NEGATIVE) 08/08/16 09:45 Urine Nitrite NEGATIVE (NEGATIVE) 08/08/16 09:45 Urine Bilirubin NEGATIVE (NEGATIVE) 08/08/16 09:45 Urine Urobilinogen 0.2 (NORMAL) E.U./dL (NORMAL) 08/08/16 09:45 Ur Leukocyte Esterase NEGATIVE (NEGATIVE) 08/08/16 09:45 Urine RBC None Seen /HPF (0-5) 08/08/16 09:45 Urine WBC 0-3 /HPF (0-5) 08/08/16 09:45 Ur Squamous Epith Cells NONE SEEN (<= Few) 08/08/16 09:45 Urine Bacteria Rare /HPF (None Seen) 08/08/16 09:45 Ur Microscopic Review INDICATED 08/02/16 01:27 Urine Culture Comments NOT INDICATED 08/08/16 09:45 Blood Type A POSITIVE 08/01/16 21:00 Blood Type Recheck A POSITIVE 08/01/16 13:20 - Procedures Procedures: Procedures ENDO RECTUM POLYPECTOMY (11/29/13) ENDOSC POLYPECTOMY OF LG INTEST (11/29/13) EXC LES SOFT TISSUE NEC (01/05/13) EYELID BIOPSY (03/09/14) LOCAL EXCIS BREAST LES (01/05/13) LYMPHATIC STRUCT BIOPSY (08/04/12) OTHER ENDOSCOPY OF SM INTEST (11/29/13) TU REMOV URETER OBSTRUCT (08/30/13) UNILAT EXTEN SIMP MASTEC (08/04/12) URETERAL CATHETERIZATION (08/30/13)
[2016-08-10] MEDS: PANTOPRAZOLE 40 MG TABLET PO SCH ×3 (02:40→16:10)
[2016-08-10] MEDS: INSULIN ASPART 300 UNIT/3 ML PEN SUBQ SCH ×6 (02:42→21:58)
[2016-08-10] MEDS: SACCHAROMYCES BOULARDII 250 MG CAPSULE PO SCH ×3 (02:43→18:52)
[2016-08-10] MEDS: VANCOMYCIN INJ 1.5 GM in SODIUM CHLORIDE 0.9% 500 ML IV SCH ×2 (02:43→16:27)
[2016-08-10] MEDS: CEFEPIME 2 GM in SODIUM CHLORIDE 0.9% MINIBAG 100 ML IV SCH ×2 (02:43→21:45)
[2016-08-10] MEDS: DULoxetine 30 MG CAPSULE PO SCH ×3 (02:44→21:53)
[2016-08-10] MEDS: LATANOPROST 0.005% OPHTH DROPS RIGHTEYE SCH ×2 (02:44→21:49)
[2016-08-10] MEDS: METOPROLOL TARTRATE 50 MG TABLET PO SCH ×4 (02:44→21:50)
[2016-08-10] MEDS: LORazepam 0.5 MG TABLET PO SCH (02:46)
[2016-08-10] MEDS: [UNRECOGNIZED DRUG - OTHER] PO SCH ×2 (02:46→21:52)
[2016-08-10] MEDS: MELATONIN PO SCH ×2 (02:46→21:52)
[2016-08-10] MEDS: SODIUM CHLORIDE FLUSH 0.9% 10 ML SYRINGE IVP SCH ×4 (02:47→22:54)
[2016-08-10 05:49] LABS: BASOPHILS % (AUTO) 0.2 %; EOSINOPHILS # (AUTO) 0.4 10^3/uL (0.0-0.7); EOSINOPHILS % (AUTO) 3.5 %; HCT - HEMATOCRIT 33.4 % (37.0-47.0); HGB - HEMOGLOBIN 11.1 g/dL (12.0-16.0); LYMPHOCYTES # (AUTO) 2.7 10^3/uL (1.5-3.5); LYMPHOCYTES % (AUTO) 26.4 %; MEAN CORPUSCULAR HEMOGLOBIN 32.2 pg (27.0-31.0); MEAN CORPUSCULAR HGB CONC 33.2 g/dL (32.0-36.0); MEAN CORPUSCULAR VOLUME 96.8 fL (81.0-99.0); MEAN PLATELET VOLUME 7.5 fL (7.9-10.8); MONOCYTES # (AUTO) 0.9 10^3/uL (0.0-1.0); MONOCYTES % (AUTO) 9.2 %; NEUTROPHILS # (AUTO) 6.2 10^3/uL (1.5-6.6); NEUTROPHILS % (AUTO) 60.7 %; NUCLEATED RED BLOOD CELLS AUTO 0.1 /100WBC; RED BLOOD COUNT 3.45 10^6/uL (4.20-5.40); RED CELL DISTRIBUTION WIDTH 16.1 % (12.0-15.0); UNCORRECTED WHITE BLOOD COUNT 10.2 x10^3/uL; WHITE BLOOD COUNT 10.2 x10^3/uL (4.8-10.8)
[2016-08-10 05:52] LABS: INR 3.5 (0.8-1.2)
[2016-08-10 05:57] LABS: ALBUMIN/GLOBULIN RATIO 1.1 (1.0-2.2); BILIRUBIN,TOTAL 0.4 mg/dL (0.2-1.0); BUN - BLOOD UREA NITROGEN 19 mg/dL (6-20); CALCIUM 9.1 mg/dL (8.5-10.3); CARBON DIOXIDE - CO2 28 mmol/L (21-32); CHLORIDE 103 mmol/L (101-111); GFR - MDRD 53 (>89); GLUCOSE 151 mg/dL (70-100); PHOSPHORUS 3.2 mg/dL (2.5-4.6); POTASSIUM 4.2 mmol/L (3.5-5.0); SODIUM 138 mmol/L (135-145); TOTAL PROTEIN 6.2 g/dL (6.7-8.2)
--- NOTE | 2016-08-10 07:39 | PROVIDER PROGRESS NOTE ---
Assessment/Plan - Problem List (1) Sepsis Assessment/Plan: Likely secondary to pneumonia and UTI Seemed to worsen during hospitalization with likely worsening pneumonia Abx changed to Vancomycin and Cefepime day 3 with which patient had a good response She is much improved today Will transfer to med/surg (2) Community Acquired Pneumonia Impression: Presented with Sepsis, cough and shortness of breath initial CXR was negative but subsequent CXR showed pneumonia CT abd/pelvis showed lower lobe infiltrates and patient had worsening status had to be moved back to ICU with sepsis so abx were escalated Patient received 6 days of rocephin and azithromycin switched to Vanco and cefepime for worsening WBC and elevated lactic acid now on day 3 Patient is improving Decreased O2 requirement Continue Abx Qualifiers: Pneumonia type: due to unspecified organism Laterality: left Lung location: lower lobe of lung Qualified Code(s): J18.1 - Lobar pneumonia, unspecified organism (3) E. coli UTI Impression: present on admission. Ecoli on cx sensitive to rocephin Received 6 days of rocephin changed to cefepime day 3 Repeat UA negative Resolving (4) Renal Caliculi Impression: CT abd was ordered and showed a small distal left uretral stone with mild to moderate hydronephrosis Pain is controlled May have been source of intermittent episodes of distress Renal function is stable Repeat UA is negative Patient feels much better has likely passed the stone (5) Atrial fibrillation with rapid ventricular response Impression: HR better controlled On Dilt to 240 daily and continue Metoprolol to 100 mg BID On coumadin recheck INR is 3.3 will hold coumadin today Continue tele monitoring (6) Obstructive Sleep Apnea Impression: On CPAP (7) Weakness Impression: from deconditioning and illness. PT to evaluate - Current Meds Current Meds: Current Medications Generic Name Dose Route Start Last Admin Trade Name Freq PRN Reason Stop Dose Admin Acetaminophen/Hydrocodone Bitart 1 tab 08/01/16 16:41 08/08/16 21:03 [place] 5/325 PO 1 tab Q4HR PRN Administration Pain 5 to 7 Carboxymethylcellulose 1 drops 08/01/16 17:39 08/06/16 18:22 Refresh 1% Ophth Drops EACHEYE 1 drops QID PRN Administration Dry Eye Cetirizine HCl 10 mg 08/02/16 09:00 08/09/16 08:26 Zyrtec PO 10 mg DAILY LOWELL Administration Diltiazem HCl 10 mg 08/01/16 21:59 08/03/16 08:29 Cardizem Inj IVP 10 mg Q1H PRN Administration HR>110 Diltiazem HCl 240 mg 08/08/16 09:00 08/09/16 08:26 Cardizem Cd PO 240 mg DAILY LOWELL Administration Docusate Sodium 200 mg 08/01/16 17:39 08/09/16 08:29 Colace 100mg Capsule PO 200 mg DAILY PRN Administration Constipation Duloxetine HCl 30 mg 08/01/16 21:00 08/10/16 02:44 Cymbalta PO Not Given BID [facility] Cefepime HCl 2 gm/ Sodium 100 mls @ 200 mls/hr 08/07/16 21:00 08/10/16 02:43 Chloride IV Not Given Q24H [facility] Vancomycin HCl 1.5 gm/ Sodium 500 mls @ 250 mls/hr 08/07/16 18:00 08/10/16 02: 43 Chloride IV Not Given Q24H [facility] Insulin Aspart 1 - 9 unit 08/02/16 12:00 08/10/16 02:44 Novolog SUBQ Not Given 0800,1200,1700,2100 [facility] Protocol Latanoprost 1 drops 08/01/16 21:00 08/10/16 02:44 Xalatan Ophth Drops RIGHTEYE Not Given QPM [facility] Lorazepam 0.5 mg 08/04/16 15:00 08/10/16 02:46 Ativan PO Not Given TID [facility] Lorazepam 1 mg 08/07/16 14:22 08/07/16 23:26 Ativan Inj IVP 1 mg Q2HR PRN Administration Anxiety Magnesium Oxide 400 mg 08/02/16 08:00 08/09/16 08:23 Mag Ox PO 400 mg 0800 [facility] Administration Metoprolol Tartrate 100 mg 08/06/16 19:00 08/10/16 02:44 Lopressor PO Not Given BID [facility] Morphine Sulfate 2 mg 08/01/16 21:59 08/08/16 03:43 Morphine IVP 2 mg Q2HR PRN Administration PAIN Multivitamins 1 tab 08/02/16 09:00 08/09/16 08:28 Theragran PO 1 tab DAILY [facility] Administration Ondansetron HCl 4 mg 08/01/16 16:41 08/01/16 17:47 Zofran Inj IVP 4 mg Q4HR PRN Administration Nausea / Vomiting Pantoprazole Sodium 40 mg 08/01/16 18:30 08/10/16 07:01 Protonix PO 40 mg BIDAC [facility] Administration Meltatonin 5 Mg + 1 each 08/03/16 21:00 08/10/16 02:46 Melatonin 3 Mg Tabs PO Not Given QPM [facility] Polyethylene Glycol 17 gm 08/02/16 09:00 08/09/16 08:30 Miralax PO 17 gm DAILY [facility] Administration Saccharomyces Boulardii 250 mg 08/02/16 08:00 08/10/16 02:43 Florastor PO Not Given BIDWM [facility] Sodium Chloride 10 ml 08/01/16 16:41 08/07/16 09:08 Normal Saline Flush 0.9% IVP 10 ml PRN PRN Administration NEEDED PER PROVIDER ORDERS Sodium Chloride 10 ml 08/01/16 22:00 08/10/16 06:55 Normal Saline Flush 0.9% IVP 10 ml Q8HR [facility] Administration Warfarin Sodium 2.5 mg 08/07/16 16:00 08/09/16 14:00 Coumadin PO Not Given QDWARFARIN LOWE[facility] - Lab Result Lab results reviewed: Yes Fish Bone Diagrams: 08/10/16 05:30 08/10/16 05:30 - EKG Results EKG Interpreted Independently: Yes - Diagnostic Imaging Results Diagnostic Imaging Results: positive: Final report reviewed - Additional Planning Condition/Complexity: Guarded My Orders: My Active Orders 08/09/16 15:02 Admit [Admit \ Transfer \ Status] [RC] ONCE Vital Signs [RC] Q4HR 08/10/16 15:30 VANCOMYCIN TROUGH [CHEM] Timed 08/11/16 05:00 CBC - COMP BLD CT W/AUTO DIFF [HEME] DAILYLAB CMP, RFLX TO IONIZED CA IF [CHEM] DAILYLAB MAGNESIUM [CHEM] DAILYLAB PHOSPHORUS [CHEM] DAILYLAB 08/12/16 05:00 CBC - COMP BLD CT W/AUTO DIFF [HEME] DAILYLAB CMP, RFLX TO IONIZED CA IF [CHEM] DAILYLAB MAGNESIUM [CHEM] DAILYLAB PHOSPHORUS [CHEM] DAILYLAB 08/13/16 05:00 CBC - COMP BLD CT W/AUTO DIFF [HEME] DAILYLAB CMP, RFLX TO IONIZED CA IF [CHEM] DAILYLAB MAGNESIUM [CHEM] DAILYLAB PHOSPHORUS [CHEM] DAILYLAB Plan Discussed with:: Patient Time Spent: 31-60 minutes Subjective - Subjective Patient Reports: Feeling Better (Denies any pain, she states she still feels weak but breathing is improved.), Shortness of Breath (Improving), Other Nursing Reports: No Complaints Objective Vital Signs: Vital Signs - 24 hr 08/09/16 08/09/16 08/09/16 08:00 08:27 09:00 Temperature 97.5 C H Heart Rate [ 113 H 85 Monitoring electrodes] Respiratory 20 20 Rate Blood Pressure 159/92 H Blood Pressure 159/92 H 141/56 H [Left Radial artery] O2 Saturation 96 98 08/09/16 08/09/16 08/09/16 10:00 11:00 11:59 Temperature 98.7 C H Heart Rate [ 88 105 H 88 Monitoring electrodes] Respiratory 22 18 19 Rate Blood Pressure Blood Pressure 143/75 H 149/75 H 132/64 H [Left Radial artery] O2 Saturation 97 96 95 08/09/16 08/09/16 08/10/16 13:00 14:00 05:00 Temperature 36.8 C Heart Rate [ 65 64 62 Monitoring electrodes] Respiratory 20 19 20 Rate Blood Pressure Blood Pressure 141/85 H 124/66 138/66 H [Left Radial artery] O2 Saturation 96 95 96 Oxygen O2 Source [With Activity] Nasal cannula O2 Source Nasal cannula I&O (Last 24 Hrs): Intake and Output Totals x24h 08/08/16 08/09/16 08/10/16 23:59 23:59 23:59 Intake Total 3036 1050 Output Total 4910 676 Balance -1874 374 General: Alert, Oriented x3, Cooperative, Other (Obese) HEENT: Atraumatic, PERRLA, EOMI, Mucous membr. moist/pink Neck: Supple, No JVD, No thyromegaly, +2 carotid pulse wo bruit, No LAD Lymphatic: no adenopathy Neuro: Alert, Non Focal, CN 2-12 Grossly Intact, Oriented Times 3 Cardiovascular: Other (irregular) Respiratory: Chest non-tender, Rales, Rhonchi Abdomen: Normal bowel sounds, Soft, No tenderness, No hepatospenomegaly Extremities: No clubbing, No cyanosis, No edema, Normal pulses Skin: No rashes, No breakdown - Results Results: Laboratory Results WBC 10.2 x10^3/uL (4.8-10.8) 08/10/16 05:30 RBC 3.45 10^6/uL (4.20-5.40) L 08/10/16 05:30 Hgb 11.1 g/dL (12.0-16.0) L 08/10/16 05:30 Hct 33.4 % (37.0-47.0) L 08/10/16 05:30 MCV 96.8 fL (81.0-99.0) 08/10/16 05:30 MCH 32.2 pg (27.0-31.0) H 08/10/16 05:30 MCHC 33.2 g/dL (32.0-36.0) 08/10/16 05:30 RDW 16.1 % (12.0-15.0) H 08/10/16 05:30 Plt Count 267 10^3/uL (130-450) 08/10/16 05:30 MPV 7.5 fL (7.9-10.8) L 08/10/16 05:30 Neut # 6.2 10^3/uL (1.5-6.6) 08/10/16 05:30 Lymph # 2.7 10^3/uL (1.5-3.5) 08/10/16 05:30 [place] # 0.9 10^3/uL (0.0-1.0) 08/10/16 05:30 Eos # 0.4 10^3/uL (0.0-0.7) 08/10/16 05:30 Baso # 0.0 10^3/uL (0.0-0.1) 08/10/16 05:30 Absolute Nucleated RBC 0.01 x10^3/uL 08/10/16 05:30 Band Neuts % (Manual) 2 % (0-10) 08/04/16 09:45 Reactive Lymphs % (Man) 3 % 08/04/16 09:45 Neutrophils # (Manual) 10.0 10^3/uL (1.5-6.6) H 08/04/16 09:45 Lymphocytes # (Manual) 1.6 10^3/uL (1.5-3.5) 08/04/16 09:45 Monocytes # (Manual) 0.6 10^3/uL (0.0-1.0) 08/04/16 09:45 Eosinophils # (Manual) 0.1 10^3/uL (0-0.7) 08/04/16 09:45 Nucleated RBCs 0.1 /100WBC 08/10/16 05:30 WBC Morphology 1+ TOXIC GRANULATION (NORMAL) 08/04/16 09:45 Platelet Estimate NORMAL (130-450,000) (NORMAL) 08/04/16 09:45 RBC Morph Micro Appear NORMAL APPEARANCE (NORMAL) 08/04/16 09:45 ESR 19 mm/Hr (0-30) 08/07/16 15:46 PT 40.0 secs (9.9-12.6) H 08/10/16 05:30 INR 3.5 (0.8-1.2) H 08/10/16 05:30 Bld Gas Analysis Time 07:07 08/08/16 07:07 Sample Site LEFT RADIAL 08/08/16 07:07 ABG pH 7.46 (7.35-7.45) H 08/08/16 07:07 ABG pCO2 34 mmHg (34-45) 08/08/16 07:07 ABG pO2 84 mmHg (80-100) 08/08/16 07:07 ABG HCO3 23.3 mmol/L (22.0-26.0) 08/08/16 07:07 ABG Total CO2 24.4 MMOL/L (21.0-29.0) 08/08/16 07:07 ABG O2 Saturation 94 % (94-98) 08/08/16 07:07 ABG Oximetry Spot Check 96 % 08/06/16 13:30 ABG Base Excess -0.1 mmol/L (-2.0-3.0) 08/08/16 07:07 Matthew Test POSITIVE 08/08/16 07:07 VBG pH 7.346 (7.31-7.41) 08/07/16 15:46 VBG pCO2 45.9 mmHg (41-51) 08/07/16 15:46 VBG pO2 40.2 mmHg (25-47) 08/07/16 15:46 VBG HCO3 24.5 mmol/L (23-28) 08/07/16 15:46 VBG Total CO2 26.0 mmol/L (24-29) 08/07/16 15:46 VBG O2 Saturation 71.1 % (60-80) 08/07/16 15:46 VBG Base Excess -1.3 mmol/L (-2 - +2) 08/07/16 15:46 Room Air YES 08/06/16 13:30 O2 Delivery Device C-PAP 08/08/16 07:07 O2 Liters/Min 4.00 LPM 08/08/16 07:07 Sodium 138 mmol/L (135-145) 08/10/16 05:30 Potassium 4.2 mmol/L (3.5-5.0) 08/10/16 05:30 Chloride 103 mmol/L (101-111) 08/10/16 05:30 Carbon Dioxide 28 mmol/L (21-32) 08/10/16 05:30 Anion Gap 7.0 (6-13) 08/10/16 05:30 BUN 19 mg/dL (6-20) 08/10/16 05:30 Creatinine 1.0 mg/dL (0.4-1.0) 08/10/16 05:30 Estimated GFR (MDRD) 53 (>89) L 08/10/16 05:30 Glucose 151 mg/dL (70-100) H 08/10/16 05:30 POC Whole Bld Glucose 157 mg/dL (70 - 100) H 08/09/16 21:36 Glycated Hemoglobin 7.2 % (4.6-6.2) H 08/02/16 02:26 Estim Average Glucose 160 (70-100) H 08/02/16 02:26 Lactic Acid 2.3 mmol/L (0.5-2.2) H 08/07/16 15:46 Calcium 9.1 mg/dL (8.5-10.3) 08/10/16 05:30 Ionized Calcium NO 08/10/16 05:30 Phosphorus 3.2 mg/dL (2.5-4.6) 08/10/16 05:30 Magnesium 2.0 mg/dL (1.7-2.8) 08/10/16 05:30 Total Bilirubin 0.4 mg/dL (0.2-1.0) 08/10/16 05:30 AST 21 IU/L (10-42) 08/10/16 05:30 ALT 45 IU/L (10-60) 08/10/16 05:30 Alkaline Phosphatase 75 IU/L (42-121) 08/10/16 05:30 Troponin I < 0.04 ng/mL (<0.49) 08/08/16 06:00 C-Reactive Protein < 1.0 mg/dL (0-1.0) 08/07/16 15:46 B-Natriuretic Peptide 592 pg/mL (5-100) H 08/01/16 13:56 Total Protein 6.2 g/dL (6.7-8.2) L 08/10/16 05:30 Albumin 3.2 g/dL (3.2-5.5) 08/10/16 05:30 Globulin 3.0 g/dL (2.1-4.2) 08/10/16 05:30 Albumin/Globulin Ratio 1.1 (1.0-2.2) 08/10/16 05:30 Lipase 11 U/L (22-51) L 08/01/16 Unknown Urine Color LIGHT YELLOW 08/08/16 09:45 Urine Clarity CLEAR (CLEAR) 08/08/16 09:45 Urine pH 5.5 PH (5.0-7.5) 08/08/16 09:45 Ur Specific [place] 1.010 (1.002-1.030) 08/08/16 09:45 Urine Protein NEGATIVE mg/dL (NEGATIVE) 08/08/16 09:45 Urine Glucose (UA) NEGATIVE mg/dL (NEGATIVE) 08/08/16 09:45 Urine Ketones NEGATIVE mg/dL (NEGATIVE) 08/08/16 09:45 Urine Occult Blood TRACE-LYSE (NEGATIVE) 08/08/16 09:45 Urine Nitrite NEGATIVE (NEGATIVE) 08/08/16 09:45 Urine Bilirubin NEGATIVE (NEGATIVE) 08/08/16 09:45 Urine Urobilinogen 0.2 (NORMAL) E.U./dL (NORMAL) 08/08/16 09:45 Ur Leukocyte Esterase NEGATIVE (NEGATIVE) 08/08/16 09:45 Urine RBC None Seen /HPF (0-5) 08/08/16 09:45 Urine WBC 0-3 /HPF (0-5) 08/08/16 09:45 Ur Squamous Epith Cells NONE SEEN (<= Few) 08/08/16 09:45 Urine Bacteria Rare /HPF (None Seen) 08/08/16 09:45 Ur Microscopic Review INDICATED 08/02/16 01:27 Urine Culture Comments NOT INDICATED 08/08/16 09:45 Blood Type A POSITIVE 08/01/16 21:00 Blood Type Recheck A POSITIVE 08/01/16 13:20 - Procedures Procedures: Procedures ENDO RECTUM POLYPECTOMY (11/29/13) ENDOSC POLYPECTOMY OF LG INTEST (11/29/13) EXC LES SOFT TISSUE NEC (01/05/13) EYELID BIOPSY (03/09/14) LOCAL EXCIS BREAST LES (01/05/13) LYMPHATIC STRUCT BIOPSY (08/04/12) OTHER ENDOSCOPY OF SM INTEST (11/29/13) TU REMOV URETER OBSTRUCT (08/30/13) UNILAT EXTEN SIMP MASTEC (08/04/12) URETERAL CATHETERIZATION (08/30/13)
[2016-08-10] MEDS: MAGNESIUM OXIDE 400 MG TABLET PO SCH (09:12)
[2016-08-10] MEDS: diltiaZEM CD 240 MG CAPSULE PO SCH (09:14)
[2016-08-10] MEDS: MULTIVITAMIN TABLET PO SCH (09:15)
[2016-08-10] MEDS: CETIRIZINE 10 MG TABLET PO SCH (09:15)
[2016-08-10] MEDS: POLYETHYLENE GLYCOL 3350 17 GM PACKET PO SCH (09:54)
[2016-08-10] MEDS: WARFARIN 2.5 MG TABLET PO SCH (14:04)
[2016-08-10] MEDS: SODIUM CHLORIDE FLUSH 0.9% 10 ML SYRINGE IVP PRN (15:40)
[2016-08-11 06:10] LABS: BUN - BLOOD UREA NITROGEN 15 mg/dL (6-20); CALCIUM 9.1 mg/dL (8.5-10.3); CARBON DIOXIDE - CO2 26 mmol/L (21-32); CHLORIDE 102 mmol/L (101-111); GFR - MDRD 53 (>89); GLUCOSE 157 mg/dL (70-100); MAGNESIUM 1.8 mg/dL (1.7-2.8); PHOSPHORUS 2.4 mg/dL (2.5-4.6); POTASSIUM 4.2 mmol/L (3.5-5.0); SODIUM 138 mmol/L (135-145); TOTAL PROTEIN 6.7 g/dL (6.7-8.2)
[2016-08-11 06:27] LABS: BASOPHILS # (AUTO) 0.2 10^3/uL (0.0-0.1); BASOPHILS % (AUTO) 1.2 %; EOSINOPHILS # (AUTO) 0.2 10^3/uL (0.0-0.7); EOSINOPHILS % (AUTO) 1.2 %; HCT - HEMATOCRIT 35.2 % (37.0-47.0); HGB - HEMOGLOBIN 11.6 g/dL (12.0-16.0); LYMPHOCYTES # (AUTO) 3.1 10^3/uL (1.5-3.5); LYMPHOCYTES % (AUTO) 21.6 %; MEAN CORPUSCULAR HEMOGLOBIN 31.7 pg (27.0-31.0); MONOCYTES # (AUTO) 1.1 10^3/uL (0.0-1.0); NEUTROPHILS # (AUTO) 9.7 10^3/uL (1.5-6.6); RED BLOOD COUNT 3.66 10^6/uL (4.20-5.40); RED CELL DISTRIBUTION WIDTH 15.8 % (12.0-15.0); UNCORRECTED WHITE BLOOD COUNT 14.3 x10^3/uL; WHITE BLOOD COUNT 14.3 x10^3/uL (4.8-10.8)
[2016-08-11 06:32] LABS: PLATELET ESTIMATE, MANUAL NORMAL (130-450,000) (NORMAL); PLATELET MORPHOLOGY PLATELET CLUMPING (NORMAL)
[2016-08-11] MEDS: PANTOPRAZOLE 40 MG TABLET PO SCH ×2 (06:39→16:57)
[2016-08-11] MEDS: SODIUM CHLORIDE FLUSH 0.9% 10 ML SYRINGE IVP SCH ×3 (06:40→21:18)
[2016-08-11] MEDS: WARFARIN 2.5 MG TABLET PO SCH (08:15)
[2016-08-11] MEDS: POLYETHYLENE GLYCOL 3350 17 GM PACKET PO SCH (09:20)
[2016-08-11] MEDS: DULoxetine 30 MG CAPSULE PO SCH ×2 (09:23→19:16)
[2016-08-11] MEDS: MAGNESIUM OXIDE 400 MG TABLET PO SCH (09:23)
[2016-08-11] MEDS: CETIRIZINE 10 MG TABLET PO SCH (09:24)
[2016-08-11] MEDS: MULTIVITAMIN TABLET PO SCH (09:24)
[2016-08-11] MEDS: METOPROLOL TARTRATE 50 MG TABLET PO SCH ×2 (09:26→19:16)
[2016-08-11] MEDS: diltiaZEM CD 240 MG CAPSULE PO SCH (09:26)
[2016-08-11] MEDS: SACCHAROMYCES BOULARDII 250 MG CAPSULE PO SCH ×2 (09:26→16:57)
[2016-08-11] MEDS: INSULIN ASPART 300 UNIT/3 ML PEN SUBQ SCH ×4 (09:33→20:55)
[2016-08-11] MEDS ORDERED: VANCOMYCIN INJ 1.5 GM in SODIUM CHLORIDE 0.9% 500 ML IV SCH (18:00)
[2016-08-11] MEDS: LORazepam 0.5 MG TABLET PO PRN (19:05)
[2016-08-11] MEDS: HYDROcod/ACETAM 5/325 MG TABLET PO PRN (19:18)
[2016-08-11] MEDS: CEFEPIME 2 GM in SODIUM CHLORIDE 0.9% MINIBAG 100 ML IV SCH (21:17)
[2016-08-11] MEDS: LATANOPROST 0.005% OPHTH DROPS RIGHTEYE SCH (21:17)
[2016-08-11] MEDS: [UNRECOGNIZED DRUG - OTHER] PO SCH (21:18)
[2016-08-11] MEDS: MELATONIN PO SCH (21:18)
[2016-08-11] MEDS ORDERED: FUROSEMIDE 40 MG/4 ML VIAL IVP SCH (22:32)
[2016-08-11] MEDS: SODIUM CHLORIDE FLUSH 0.9% 10 ML SYRINGE IVP PRN (23:37)
[2016-08-12] MEDS: diltiaZEM INJ 5 MG/ML VIAL IVP PRN (02:13)
[2016-08-12] MEDS: SODIUM CHLORIDE FLUSH 0.9% 10 ML SYRINGE IVP SCH (05:30)
[2016-08-12] MEDS: SODIUM CHLORIDE FLUSH 0.9% 10 ML SYRINGE IVP PRN (05:31)
[2016-08-12] MEDS: PANTOPRAZOLE 40 MG TABLET PO SCH (05:42)
[2016-08-12 06:58] LABS: BASOPHILS # (AUTO) 0.1 10^3/uL (0.0-0.1); BASOPHILS % (AUTO) 0.5 %; EOSINOPHILS # (AUTO) 0.1 10^3/uL (0.0-0.7); HGB - HEMOGLOBIN 12.3 g/dL (12.0-16.0); LYMPHOCYTES % (AUTO) 23.2 %; MEAN CORPUSCULAR HEMOGLOBIN 31.4 pg (27.0-31.0); MEAN CORPUSCULAR HGB CONC 32.4 g/dL (32.0-36.0); MEAN CORPUSCULAR VOLUME 96.8 fL (81.0-99.0); MEAN PLATELET VOLUME 7.8 fL (7.9-10.8); MONOCYTES # (AUTO) 1.1 10^3/uL (0.0-1.0); MONOCYTES % (AUTO) 8.6 %; NEUTROPHILS # (AUTO) 8.7 10^3/uL (1.5-6.6); NEUTROPHILS % (AUTO) 66.7 %; RED BLOOD COUNT 3.93 10^6/uL (4.20-5.40); RED CELL DISTRIBUTION WIDTH 16.6 % (12.0-15.0); UNCORRECTED WHITE BLOOD COUNT 13.1 x10^3/uL; WHITE BLOOD COUNT 13.1 x10^3/uL (4.8-10.8)
[2016-08-12 07:13] LABS: BUN - BLOOD UREA NITROGEN 15 mg/dL (6-20); CALCIUM 9.4 mg/dL (8.5-10.3); CARBON DIOXIDE - CO2 26 mmol/L (21-32); CHLORIDE 104 mmol/L (101-111); GFR - MDRD 53 (>89); GLUCOSE 150 mg/dL (70-100); PHOSPHORUS 2.7 mg/dL (2.5-4.6); SODIUM 142 mmol/L (135-145); TOTAL PROTEIN 7.4 g/dL (6.7-8.2)
[2016-08-12] MEDS: INSULIN ASPART 300 UNIT/3 ML PEN SUBQ SCH ×2 (07:30→11:36)
--- NOTE | 2016-08-12 07:58 | PROVIDER PROGRESS NOTE ---
Assessment/Plan - Problem List (1) Sepsis Assessment/Plan: Likely secondary to pneumonia and UTI Seemed to worsen during hospitalization with likely worsening pneumonia Abx changed to Vancomycin and Cefepime day 4 with which patient had a good response Continues to improve slowly Resolving (2) Community Acquired Pneumonia Impression: Presented with Sepsis, cough and shortness of breath initial CXR was negative but subsequent CXR showed pneumonia CT abd/pelvis showed lower lobe infiltrates and patient had worsening status had to be moved back to ICU with sepsis so abx were escalated Patient received 6 days of rocephin and azithromycin switched to Vanco and cefepime for worsening WBC and elevated lactic acid now on day 4 Patient is improving slowly Wean O2 Continue Abx Qualifiers: Pneumonia type: due to unspecified organism Laterality: left Lung location: lower lobe of lung Qualified Code(s): J18.1 - Lobar pneumonia, unspecified organism (3) E. coli UTI Impression: present on admission. Ecoli on cx sensitive to rocephin Received 6 days of rocephin changed to cefepime day 4 Repeat UA negative Resolving (4) Renal Caliculi Impression: CT abd was ordered and showed a small distal left uretral stone with mild to moderate hydronephrosis Pain is controlled May have been source of intermittent episodes of distress Renal function is stable Repeat UA is negative Patient feels much better has likely passed the stone (5) Atrial fibrillation with rapid ventricular response Impression: HR still up and down but better controlled she seems to get more SOA when HR goes up likely gets congested when she is uncontrolled On Dilt to 240 daily and continue Metoprolol to 100 mg BID On coumadin recheck INR is 3.3 will hold coumadin today Continue tele monitoring (6) Obstructive Sleep Apnea Impression: On CPAP (7) Weakness Impression: from deconditioning and illness. PT recs SNF - Current Meds Current Meds: Current Medications Generic Name Dose Route Start Last Admin Trade Name Freq PRN Reason Stop Dose Admin Acetaminophen/Hydrocodone Bitart 1 tab 08/01/16 16:41 08/11/16 19:18 [place] 5/325 PO 1 tab Q4HR PRN Administration Pain 5 to 7 Carboxymethylcellulose 1 drops 08/01/16 17:39 08/06/16 18:22 Refresh 1% Ophth Drops EACHEYE 1 drops QID PRN Administration Dry Eye Cetirizine HCl 10 mg 08/02/16 09:00 08/11/16 09:24 Zyrtec PO 10 mg DAILY LOWELL Administration Diltiazem HCl 10 mg 08/01/16 21:59 08/12/16 02:13 Cardizem Inj IVP 10 mg Q1H PRN Administration HR>110 Diltiazem HCl 240 mg 08/08/16 09:00 08/11/16 09:26 Cardizem Cd PO 240 mg DAILY LOWELL Administration Docusate Sodium 200 mg 08/01/16 17:39 08/09/16 08:29 Colace 100mg Capsule PO 200 mg DAILY PRN Administration Constipation Duloxetine HCl 30 mg 08/01/16 21:00 08/11/16 19:16 Cymbalta PO 30 mg BID LOWELL Administration Cefepime HCl 2 gm/ Sodium 100 mls @ 200 mls/hr 08/07/16 21:00 08/11/16 21:17 Chloride IV 200 mls/hr Q24H LOWELL Administration Vancomycin HCl 1.5 gm/ Sodium 500 mls @ 250 mls/hr 08/11/16 18:00 08/11/16 17: 03 Chloride IV 250 mls/hr Q24H LOWELL Administration Insulin Aspart 1 - 9 unit 08/02/16 12:00 08/11/16 20:55 Novolog SUBQ 3 unit 0800,1200,1700,2100 LOWELL Administration Protocol Latanoprost 1 drops 08/01/16 21:00 08/11/16 21:17 Xalatan Ophth Drops RIGHTEYE 1 drops QPM LOWELL Administration Lorazepam 0.5 mg 08/10/16 09:29 08/11/16 19:05 Ativan PO 0.5 mg TID PRN Administration Anxiety Magnesium Oxide 400 mg 08/02/16 08:00 08/11/16 09:23 Mag Ox PO 400 mg 0800 LOWELL Administration Metoprolol Tartrate 100 mg 08/11/16 07:58 08/11/16 19:16 Lopressor PO 100 mg BID LOWELL Administration Morphine Sulfate 2 mg 08/01/16 21:59 08/08/16 03:43 Morphine IVP 2 mg Q2HR PRN Administration PAIN Multivitamins 1 tab 08/02/16 09:00 08/11/16 09:24 Theragran PO 1 tab DAILY LOWELL Administration Ondansetron HCl 4 mg 08/01/16 16:41 08/01/16 17:47 Zofran Inj IVP 4 mg Q4HR PRN Administration Nausea / Vomiting Pantoprazole Sodium 40 mg 08/01/16 18:30 08/12/16 05:42 Protonix PO 40 mg BIDAC LOWELL Administration Meltatonin 5 Mg + 1 each 08/03/16 21:00 08/11/16 21:18 Melatonin 3 Mg Tabs PO Not Given QPM LOWELL Polyethylene Glycol 17 gm 08/02/16 09:00 08/11/16 09:20 Miralax PO 17 gm DAILY LOWELL Administration Saccharomyces Boulardii 250 mg 08/02/16 08:00 08/11/16 16:57 Florastor PO 250 mg BIDWM LOWELL Administration Sodium Chloride 10 ml 08/01/16 16:41 08/12/16 05:31 Normal Saline Flush 0.9% IVP 10 ml PRN PRN Administration NEEDED PER PROVIDER ORDERS Sodium Chloride 10 ml 08/01/16 22:00 08/12/16 05:30 Normal Saline Flush 0.9% IVP 10 ml Q8HR LOWELL Administration Warfarin Sodium 2.5 mg 08/07/16 16:00 08/11/16 08:15 Coumadin PO Not Given QDWARFARIN LOWELL - Lab Result Lab results reviewed: Yes Fish Bone Diagrams: 08/12/16 06:00 08/12/16 06:00 - EKG Results EKG Interpreted Independently: Yes - Diagnostic Imaging Results Diagnostic Imaging Results: positive: Final report reviewed - Additional Planning Condition/Complexity: Guarded My Orders: My Active Orders 08/11/16 07:58 Metoprolol Tartrate [Lopressor] 100 mg PO BID 08/11/16 18:00 Vancomycin Inj [Vancomycin] 1.5 gm Sodium Chloride 0.9% [Normal Saline 0.9%] 500 ml IV Q24H 08/13/16 05:00 CBC - COMP BLD CT W/AUTO DIFF [HEME] DAILYLAB CMP, RFLX TO IONIZED CA IF [CHEM] DAILYLAB MAGNESIUM [CHEM] DAILYLAB PHOSPHORUS [CHEM] DAILYLAB Consult/Specialty: PT Plan Discussed with:: Patient Subjective - Subjective Patient Reports: Shortness of Breath (Still feels short of breath. Did get up with PT but very weak. Denies chest pain. More alert. NO fevers overnight.) Nursing Reports: Shortness of Breath Objective Vital Signs: Vital Signs - 24 hr 08/11/16 08/11/16 08/11/16 08:00 09:15 09:26 Temperature 36.5 C Heart Rate [ 102 H 85 Brachial] Heart Rate [ Monitoring electrodes] Heart Rate [ Radial] Respiratory 22 Rate Blood Pressure 148/88 H Blood Pressure 154/105 H [Left Brachial artery] Blood Pressure 148/88 H [Left Radial artery] O2 Saturation 98 08/11/16 08/11/16 08/11/16 12:48 16:02 19:16 Temperature 36.5 C 36.4 C L Heart Rate [ 101 H Brachial] Heart Rate [ Monitoring electrodes] Heart Rate [ 91 Radial] Respiratory 20 20 Rate Blood Pressure 172/90 H Blood Pressure 169/89 H [Left Brachial artery] Blood Pressure 130/100 H [Left Radial artery] O2 Saturation 97 98 08/11/16 08/11/16 08/12/16 20:49 23:45 00:23 Temperature 36.4 C L 36.4 C L Heart Rate [ 88 113 H 90 Brachial] Heart Rate [ Monitoring electrodes] Heart Rate [ Radial] Respiratory 18 20 Rate Blood Pressure Blood Pressure [Left Brachial artery] Blood Pressure 161/96 H 179/122 H 170/88 H [Left Radial artery] O2 Saturation 93 96 08/12/16 08/12/16 08/12/16 01:58 02:13 02:21 Temperature Heart Rate [ Brachial] Heart Rate [ 96 90 Monitoring electrodes] Heart Rate [ Radial] Respiratory Rate Blood Pressure 178/86 H Blood Pressure [Left Brachial artery] Blood Pressure 166/80 H [Left Radial artery] O2 Saturation 08/12/16 08/12/16 08/12/16 02:23 02:43 02:45 Temperature Heart Rate [ Brachial] Heart Rate [ 87 83 Monitoring electrodes] Heart Rate [ Radial] Respiratory Rate Blood Pressure 153/90 H Blood Pressure [Left Brachial artery] Blood Pressure 156/78 H 153/90 H [Left Radial artery] O2 Saturation 08/12/16 08/12/16 02:57 04:30 Temperature 36.6 C Heart Rate [ 105 H Brachial] Heart Rate [ 102 H Monitoring electrodes] Heart Rate [ Radial] Respiratory 20 Rate Blood Pressure Blood Pressure [Left Brachial artery] Blood Pressure 158/90 H 130/81 H [Left Radial artery] O2 Saturation 94 Oxygen O2 Source [With Activity] Nasal cannula O2 Source BIPAP I&O (Last 24 Hrs): Intake and Output Totals x24h 08/10/16 08/11/16 08/12/16 23:59 23:59 23:59 Intake Total 750 1060 Output Total 850 2500 Balance -100 1060 -2500 General: Alert, Oriented x3, Cooperative, No acute distress HEENT: Atraumatic, PERRLA, EOMI, Mucous membr. moist/pink Neck: Supple, No JVD, No thyromegaly, +2 carotid pulse wo bruit, No LAD Lymphatic: no adenopathy Neuro: Alert, Non Focal, CN 2-12 Grossly Intact, Oriented Times 3 Cardiovascular: No murmurs, Other (Irregularly irregular) Respiratory: Chest non-tender, No respiratory distress, Rales, Rhonchi ( bilateral) Abdomen: Normal bowel sounds, Soft, No tenderness, No hepatospenomegaly Extremities: No clubbing, No cyanosis, No edema, Normal pulses Skin: No rashes, No breakdown - Results Results: Laboratory Results WBC 13.1 x10^3/uL (4.8-10.8) H 08/12/16 06:00 RBC 3.93 10^6/uL (4.20-5.40) L 08/12/16 06:00 Hgb 12.3 g/dL (12.0-16.0) 08/12/16 06:00 Hct 38.0 % (37.0-47.0) 08/12/16 06:00 MCV 96.8 fL (81.0-99.0) 08/12/16 06:00 MCH 31.4 pg (27.0-31.0) H 08/12/16 06:00 MCHC 32.4 g/dL (32.0-36.0) 08/12/16 06:00 RDW 16.6 % (12.0-15.0) H 08/12/16 06:00 Plt Count 291 10^3/uL (130-450) 08/12/16 06:00 MPV 7.8 fL (7.9-10.8) L 08/12/16 06:00 Neut # 8.7 10^3/uL (1.5-6.6) H 08/12/16 06:00 Lymph # 3.0 10^3/uL (1.5-3.5) 08/12/16 06:00 [place] # 1.1 10^3/uL (0.0-1.0) H 08/12/16 06:00 Eos # 0.1 10^3/uL (0.0-0.7) 08/12/16 06:00 Baso # 0.1 10^3/uL (0.0-0.1) 08/12/16 06:00 Absolute Nucleated RBC 0.00 x10^3/uL 08/12/16 06:00 Band Neuts % (Manual) 2 % (0-10) 08/04/16 09:45 Reactive Lymphs % (Man) 3 % 08/04/16 09:45 Neutrophils # (Manual) 10.0 10^3/uL (1.5-6.6) H 08/04/16 09:45 Lymphocytes # (Manual) 1.6 10^3/uL (1.5-3.5) 08/04/16 09:45 Monocytes # (Manual) 0.6 10^3/uL (0.0-1.0) 08/04/16 09:45 Eosinophils # (Manual) 0.1 10^3/uL (0-0.7) 08/04/16 09:45 Nucleated RBCs 0.0 /100WBC 08/12/16 06:00 Manual Slide Review Indicated 08/11/16 05:30 WBC Morphology 1+ TOXIC GRANULATION (NORMAL) 08/04/16 09:45 Platelet Estimate NORMAL (130-450,000) (NORMAL) 08/11/16 05:30 Platelet Morphology PLATELET CLUMPING (NORMAL) 08/11/16 05:30 RBC Morph Micro Appear NORMAL APPEARANCE (NORMAL) 08/11/16 05:30 ESR 19 mm/Hr (0-30) 08/07/16 15:46 PT 40.0 secs (9.9-12.6) H 08/10/16 05:30 INR 3.5 (0.8-1.2) H 08/10/16 05:30 Bld Gas Analysis Time 07:07 08/08/16 07:07 Sample Site LEFT RADIAL 08/08/16 07:07 ABG pH 7.46 (7.35-7.45) H 08/08/16 07:07 ABG pCO2 34 mmHg (34-45) 08/08/16 07:07 ABG pO2 84 mmHg (80-100) 08/08/16 07:07 ABG HCO3 23.3 mmol/L (22.0-26.0) 08/08/16 07:07 ABG Total CO2 24.4 MMOL/L (21.0-29.0) 08/08/16 07:07 ABG O2 Saturation 94 % (94-98) 08/08/16 07:07 ABG Oximetry Spot Check 96 % 08/06/16 13:30 ABG Base Excess -0.1 mmol/L (-2.0-3.0) 08/08/16 07:07 Matthew Test POSITIVE 08/08/16 07:07 VBG pH 7.346 (7.31-7.41) 08/07/16 15:46 VBG pCO2 45.9 mmHg (41-51) 08/07/16 15:46 VBG pO2 40.2 mmHg (25-47) 08/07/16 15:46 VBG HCO3 24.5 mmol/L (23-28) 08/07/16 15:46 VBG Total CO2 26.0 mmol/L (24-29) 08/07/16 15:46 VBG O2 Saturation 71.1 % (60-80) 08/07/16 15:46 VBG Base Excess -1.3 mmol/L (-2 - +2) 08/07/16 15:46 Room Air YES 08/06/16 13:30 O2 Delivery Device C-PAP 08/08/16 07:07 O2 Liters/Min 4.00 LPM 08/08/16 07:07 Sodium 142 mmol/L (135-145) 08/12/16 06:00 Potassium 4.0 mmol/L (3.5-5.0) 08/12/16 06:00 Chloride 104 mmol/L (101-111) 08/12/16 06:00 Carbon Dioxide 26 mmol/L (21-32) 08/12/16 06:00 Anion Gap 12.0 (6-13) 08/12/16 06:00 BUN 15 mg/dL (6-20) 08/12/16 06:00 Creatinine 1.0 mg/dL (0.4-1.0) 08/12/16 06:00 Estimated GFR (MDRD) 53 (>89) L 08/12/16 06:00 Glucose 150 mg/dL (70-100) H 08/12/16 06:00 POC Whole Bld Glucose 134 mg/dL (70 - 100) H 08/12/16 07:41 Glycated Hemoglobin 7.2 % (4.6-6.2) H 08/02/16 02:26 Estim Average Glucose 160 (70-100) H 08/02/16 02:26 Lactic Acid 2.3 mmol/L (0.5-2.2) H 08/07/16 15:46 Calcium 9.4 mg/dL (8.5-10.3) 08/12/16 06:00 Ionized Calcium NO 08/12/16 06:00 Phosphorus 2.7 mg/dL (2.5-4.6) 08/12/16 06:00 Magnesium 2.0 mg/dL (1.7-2.8) 08/12/16 06:00 Total Bilirubin 1.0 mg/dL (0.2-1.0) 08/12/16 06:00 AST 25 IU/L (10-42) 08/12/16 06:00 ALT 41 IU/L (10-60) 08/12/16 06:00 Alkaline Phosphatase 78 IU/L (42-121) 08/12/16 06:00 Troponin I < 0.04 ng/mL (<0.49) 08/08/16 06:00 C-Reactive Protein < 1.0 mg/dL (0-1.0) 08/07/16 15:46 B-Natriuretic Peptide 941 pg/mL (5-100) H 08/12/16 06:00 Total Protein 7.4 g/dL (6.7-8.2) 08/12/16 06:00 Albumin 3.7 g/dL (3.2-5.5) 08/12/16 06:00 Globulin 3.7 g/dL (2.1-4.2) 08/12/16 06:00 Albumin/Globulin Ratio 1.0 (1.0-2.2) 08/12/16 06:00 Lipase 11 U/L (22-51) L 08/01/16 Unknown Urine Color LIGHT YELLOW 08/08/16 09:45 Urine Clarity CLEAR (CLEAR) 08/08/16 09:45 Urine pH 5.5 PH (5.0-7.5) 08/08/16 09:45 Ur Specific [place] 1.010 (1.002-1.030) 08/08/16 09:45 Urine Protein NEGATIVE mg/dL (NEGATIVE) 08/08/16 09:45 Urine Glucose (UA) NEGATIVE mg/dL (NEGATIVE) 08/08/16 09:45 Urine Ketones NEGATIVE mg/dL (NEGATIVE) 08/08/16 09:45 Urine Occult Blood TRACE-LYSE (NEGATIVE) 08/08/16 09:45 Urine Nitrite NEGATIVE (NEGATIVE) 08/08/16 09:45 Urine Bilirubin NEGATIVE (NEGATIVE) 08/08/16 09:45 Urine Urobilinogen 0.2 (NORMAL) E.U./dL (NORMAL) 08/08/16 09:45 Ur Leukocyte Esterase NEGATIVE (NEGATIVE) 08/08/16 09:45 Urine RBC None Seen /HPF (0-5) 08/08/16 09:45 Urine WBC 0-3 /HPF (0-5) 08/08/16 09:45 Ur Squamous Epith Cells NONE SEEN (<= Few) 08/08/16 09:45 Urine Bacteria Rare /HPF (None Seen) 08/08/16 09:45 Ur Microscopic Review INDICATED 08/02/16 01:27 Urine Culture Comments NOT INDICATED 08/08/16 09:45 Last Dose Date 08/07/16 08/10/16 15:36 Last Dose Time 1800 08/10/16 15:36 Vancomycin Trough 14.0 ug/mL (5.0-15.0) 08/10/16 15:36 Blood Type A POSITIVE 08/01/16 21:00 Blood Type Recheck A POSITIVE 08/01/16 13:20 - Procedures Procedures: Procedures ENDO RECTUM POLYPECTOMY (11/29/13) ENDOSC POLYPECTOMY OF LG INTEST (11/29/13) EXC LES SOFT TISSUE NEC (01/05/13) EYELID BIOPSY (03/09/14) LOCAL EXCIS BREAST LES (01/05/13) LYMPHATIC STRUCT BIOPSY (08/04/12) OTHER ENDOSCOPY OF SM INTEST (11/29/13) TU REMOV URETER OBSTRUCT (08/30/13) UNILAT EXTEN SIMP MASTEC (08/04/12) URETERAL CATHETERIZATION (08/30/13)
[2016-08-12] MEDS: MULTIVITAMIN TABLET PO SCH (08:07)
[2016-08-12] MEDS: CETIRIZINE 10 MG TABLET PO SCH (08:07)
[2016-08-12] MEDS: SACCHAROMYCES BOULARDII 250 MG CAPSULE PO SCH (08:08)
[2016-08-12] MEDS: MAGNESIUM OXIDE 400 MG TABLET PO SCH (08:08)
[2016-08-12] MEDS: POLYETHYLENE GLYCOL 3350 17 GM PACKET PO SCH (08:09)
[2016-08-12] MEDS: METOPROLOL TARTRATE 50 MG TABLET PO SCH (08:09)
--- NOTE | 2016-08-12 08:09 | PROVIDER PROGRESS NOTE ---
Assessment/Plan - Problem List (1) Sepsis Assessment/Plan: Likely secondary to pneumonia and UTI Seemed to worsen during hospitalization with likely worsening pneumonia Abx changed to Vancomycin and Cefepime day 5 with which patient improved Resolved (2) Community Acquired Pneumonia Impression: Presented with Sepsis, cough and shortness of breath initial CXR was negative but subsequent CXR showed pneumonia CT abd/pelvis showed lower lobe infiltrates and patient had worsening status had to be moved back to ICU with sepsis so abx were escalated Patient received 6 days of rocephin and azithromycin switched to Vanco and cefepime for worsening WBC and elevated lactic acid now on day 5 Patient is improving slowly Wean O2 Continue Abx Needs placement will plan for CareAge tomorrow Qualifiers: Pneumonia type: due to unspecified organism Laterality: left Lung location: lower lobe of lung Qualified Code(s): J18.1 - Lobar pneumonia, unspecified organism (3) E. coli UTI Impression: present on admission. Ecoli on cx sensitive to rocephin Received 6 days of rocephin changed to cefepime day 5 Repeat UA negative Resolving (4) Renal Caliculi Impression: CT abd was ordered and showed a small distal left uretral stone with mild to moderate hydronephrosis Pain is controlled May have been source of intermittent episodes of distress Renal function is stable Repeat UA is negative Patient feels much better has likely passed the stone (5) Atrial fibrillation with rapid ventricular response Impression: HR still up and down but better controlled she seems to get more SOA when HR goes up likely gets congested when she is uncontrolled On Dilt to 240 daily and continue Metoprolol to 100 mg BID On coumadin recheck INR is 3.3 will hold coumadin today Continue tele monitoring (6) Obstructive Sleep Apnea Impression: On CPAP (7) Weakness Impression: from deconditioning and illness. PT recs SNF patient to go to [facility] - Current Meds Current Meds: Current Medications Generic Name Dose Route Start Last Admin Trade Name Freq PRN Reason Stop Dose Admin Acetaminophen/Hydrocodone Bitart 1 tab 08/01/16 16:41 08/11/16 19:18 Byron 5/325 PO 1 tab Q4HR PRN Administration Pain 5 to 7 Carboxymethylcellulose 1 drops 08/01/16 17:39 08/06/16 18:22 Refresh 1% Ophth Drops EACHEYE 1 drops QID PRN Administration Dry Eye Cetirizine HCl 10 mg 08/02/16 09:00 08/11/16 09:24 Zyrtec PO 10 mg DAILY LOWELL Administration Diltiazem HCl 10 mg 08/01/16 21:59 08/12/16 02:13 Cardizem Inj IVP 10 mg Q1H PRN Administration HR>110 Diltiazem HCl 240 mg 08/08/16 09:00 08/11/16 09:26 Cardizem Cd PO 240 mg DAILY LOWELL Administration Docusate Sodium 200 mg 08/01/16 17:39 08/09/16 08:29 Colace 100mg Capsule PO 200 mg DAILY PRN Administration Constipation Duloxetine HCl 30 mg 08/01/16 21:00 08/11/16 19:16 Cymbalta PO 30 mg BID LOWELL Administration Cefepime HCl 2 gm/ Sodium 100 mls @ 200 mls/hr 08/07/16 21:00 08/11/16 21:17 Chloride IV 200 mls/hr Q24H LOWELL Administration Vancomycin HCl 1.5 gm/ Sodium 500 mls @ 250 mls/hr 08/11/16 18:00 08/11/16 17: 03 Chloride IV 250 mls/hr Q24H LOWELL Administration Insulin Aspart 1 - 9 unit 08/02/16 12:00 08/11/16 20:55 Novolog SUBQ 3 unit 0800,1200,1700,2100 LOWELL Administration Protocol Latanoprost 1 drops 08/01/16 21:00 08/11/16 21:17 Xalatan Ophth Drops RIGHTEYE 1 drops QPM LOWELL Administration Lorazepam 0.5 mg 08/10/16 09:29 08/11/16 19:05 Ativan PO 0.5 mg TID PRN Administration Anxiety Magnesium Oxide 400 mg 08/02/16 08:00 08/11/16 09:23 Mag Ox PO 400 mg 0800 LOWELL Administration Metoprolol Tartrate 100 mg 08/11/16 07:58 08/11/16 19:16 Lopressor PO 100 mg BID LOWELL Administration Morphine Sulfate 2 mg 08/01/16 21:59 08/08/16 03:43 Morphine IVP 2 mg Q2HR PRN Administration PAIN Multivitamins 1 tab 08/02/16 09:00 08/11/16 09:24 Theragran PO 1 tab DAILY LOWELL Administration Ondansetron HCl 4 mg 08/01/16 16:41 08/01/16 17:47 Zofran Inj IVP 4 mg Q4HR PRN Administration Nausea / Vomiting Pantoprazole Sodium 40 mg 08/01/16 18:30 08/12/16 05:42 Protonix PO 40 mg BIDAC LOWELL Administration Meltatonin 5 Mg + 1 each 08/03/16 21:00 08/11/16 21:18 Melatonin 3 Mg Tabs PO Not Given QPM LOWELL Polyethylene Glycol 17 gm 08/02/16 09:00 08/11/16 09:20 Miralax PO 17 gm DAILY LOWELL Administration Saccharomyces Boulardii 250 mg 08/02/16 08:00 08/11/16 16:57 Florastor PO 250 mg BIDWM LOWELL Administration Sodium Chloride 10 ml 08/01/16 16:41 08/12/16 05:31 Normal Saline Flush 0.9% IVP 10 ml PRN PRN Administration NEEDED PER PROVIDER ORDERS Sodium Chloride 10 ml 08/01/16 22:00 08/12/16 05:30 Normal Saline Flush 0.9% IVP 10 ml Q8HR LOWELL Administration Warfarin Sodium 2.5 mg 08/07/16 16:00 08/11/16 08:15 Coumadin PO Not Given QDWARFARIN LOWELL - Lab Result Lab results reviewed: Yes Fish Bone Diagrams: 08/12/16 06:00 08/12/16 06:00 - EKG Results EKG Interpreted Independently: Yes - Diagnostic Imaging Results Diagnostic Imaging Results: positive: Final report reviewed - Additional Planning Condition/Complexity: Improved My Orders: My Active Orders 08/11/16 07:58 Metoprolol Tartrate [Lopressor] 100 mg PO BID 08/11/16 18:00 Vancomycin Inj [Vancomycin] 1.5 gm Sodium Chloride 0.9% [Normal Saline 0.9%] 500 ml IV Q24H 08/13/16 05:00 CBC - COMP BLD CT W/AUTO DIFF [HEME] DAILYLAB CMP, RFLX TO IONIZED CA IF [CHEM] DAILYLAB MAGNESIUM [CHEM] DAILYLAB PHOSPHORUS [CHEM] DAILYLAB Consult/Specialty: PT Plan Discussed with:: Patient Time Spent: 31-60 minutes Subjective - Subjective Patient Reports: Shortness of Breath (Still feels short of breath. No fevers. Patient states she still feels weak and is not feeling ready to go to SNF.) Nursing Reports: No Complaints Objective Vital Signs: Vital Signs - 24 hr 08/11/16 08/11/16 08/11/16 09:15 09:26 12:48 Temperature 36.5 C Heart Rate [ 85 101 H Brachial] Heart Rate [ Monitoring electrodes] Heart Rate [ Radial] Respiratory 20 Rate Blood Pressure 148/88 H Blood Pressure 169/89 H [Left Brachial artery] Blood Pressure 148/88 H [Left Radial artery] O2 Saturation 97 08/11/16 08/11/16 08/11/16 16:02 19:16 20:49 Temperature 36.4 C L 36.4 C L Heart Rate [ 88 Brachial] Heart Rate [ Monitoring electrodes] Heart Rate [ 91 Radial] Respiratory 20 18 Rate Blood Pressure 172/90 H Blood Pressure [Left Brachial artery] Blood Pressure 130/100 H 161/96 H [Left Radial artery] O2 Saturation 98 93 08/11/16 08/12/16 08/12/16 23:45 00:23 01:58 Temperature 36.4 C L Heart Rate [ 113 H 90 Brachial] Heart Rate [ 96 Monitoring electrodes] Heart Rate [ Radial] Respiratory 20 Rate Blood Pressure Blood Pressure [Left Brachial artery] Blood Pressure 179/122 H 170/88 H [Left Radial artery] O2 Saturation 96 08/12/16 08/12/16 08/12/16 02:13 02:21 02:23 Temperature Heart Rate [ Brachial] Heart Rate [ 90 87 Monitoring electrodes] Heart Rate [ Radial] Respiratory Rate Blood Pressure 178/86 H Blood Pressure [Left Brachial artery] Blood Pressure 166/80 H 156/78 H [Left Radial artery] O2 Saturation 08/12/16 08/12/16 08/12/16 02:43 02:45 02:57 Temperature Heart Rate [ Brachial] Heart Rate [ 83 102 H Monitoring electrodes] Heart Rate [ Radial] Respiratory Rate Blood Pressure 153/90 H Blood Pressure [Left Brachial artery] Blood Pressure 153/90 H 158/90 H [Left Radial artery] O2 Saturation 08/12/16 04:30 Temperature 36.6 C Heart Rate [ 105 H Brachial] Heart Rate [ Monitoring electrodes] Heart Rate [ Radial] Respiratory 20 Rate Blood Pressure Blood Pressure [Left Brachial artery] Blood Pressure 130/81 H [Left Radial artery] O2 Saturation 94 Oxygen O2 Source [With Activity] Nasal cannula O2 Source BIPAP I&O (Last 24 Hrs): Intake and Output Totals x24h 08/10/16 08/11/16 08/12/16 23:59 23:59 23:59 Intake Total 750 1060 Output Total 850 2500 Balance -100 1060 -2500 General: Alert, Oriented x3, Cooperative, No acute distress HEENT: Atraumatic, PERRLA, EOMI, Mucous membr. moist/pink Neck: Supple, No JVD, No thyromegaly, +2 carotid pulse wo bruit Lymphatic: no adenopathy Neuro: Alert, Non Focal, CN 2-12 Grossly Intact, Oriented Times 3 Cardiovascular: No murmurs, Other (Irregularily irregular) Respiratory: Chest non-tender, Rales, Rhonchi Abdomen: Normal bowel sounds, Soft, No tenderness, No hepatospenomegaly Extremities: No clubbing, No cyanosis, Normal pulses Skin: No rashes, No breakdown - Results Results: Laboratory Results WBC 13.1 x10^3/uL (4.8-10.8) H 08/12/16 06:00 RBC 3.93 10^6/uL (4.20-5.40) L 08/12/16 06:00 Hgb 12.3 g/dL (12.0-16.0) 08/12/16 06:00 Hct 38.0 % (37.0-47.0) 08/12/16 06:00 MCV 96.8 fL (81.0-99.0) 08/12/16 06:00 MCH 31.4 pg (27.0-31.0) H 08/12/16 06:00 MCHC 32.4 g/dL (32.0-36.0) 08/12/16 06:00 RDW 16.6 % (12.0-15.0) H 08/12/16 06:00 Plt Count 291 10^3/uL (130-450) 08/12/16 06:00 MPV 7.8 fL (7.9-10.8) L 08/12/16 06:00 Neut # 8.7 10^3/uL (1.5-6.6) H 08/12/16 06:00 Lymph # 3.0 10^3/uL (1.5-3.5) 08/12/16 06:00 Loup # 1.1 10^3/uL (0.0-1.0) H 08/12/16 06:00 Eos # 0.1 10^3/uL (0.0-0.7) 08/12/16 06:00 Baso # 0.1 10^3/uL (0.0-0.1) 08/12/16 06:00 Absolute Nucleated RBC 0.00 x10^3/uL 08/12/16 06:00 Band Neuts % (Manual) 2 % (0-10) 08/04/16 09:45 Reactive Lymphs % (Man) 3 % 08/04/16 09:45 Neutrophils # (Manual) 10.0 10^3/uL (1.5-6.6) H 08/04/16 09:45 Lymphocytes # (Manual) 1.6 10^3/uL (1.5-3.5) 08/04/16 09:45 Monocytes # (Manual) 0.6 10^3/uL (0.0-1.0) 08/04/16 09:45 Eosinophils # (Manual) 0.1 10^3/uL (0-0.7) 08/04/16 09:45 Nucleated RBCs 0.0 /100WBC 08/12/16 06:00 Manual Slide Review Indicated 08/11/16 05:30 WBC Morphology 1+ TOXIC GRANULATION (NORMAL) 08/04/16 09:45 Platelet Estimate NORMAL (130-450,000) (NORMAL) 08/11/16 05:30 Platelet Morphology PLATELET CLUMPING (NORMAL) 08/11/16 05:30 RBC Morph Micro Appear NORMAL APPEARANCE (NORMAL) 08/11/16 05:30 ESR 19 mm/Hr (0-30) 08/07/16 15:46 PT 40.0 secs (9.9-12.6) H 08/10/16 05:30 INR 3.5 (0.8-1.2) H 08/10/16 05:30 Bld Gas Analysis Time 07:07 08/08/16 07:07 Sample Site LEFT RADIAL 08/08/16 07:07 ABG pH 7.46 (7.35-7.45) H 08/08/16 07:07 ABG pCO2 34 mmHg (34-45) 08/08/16 07:07 ABG pO2 84 mmHg (80-100) 08/08/16 07:07 ABG HCO3 23.3 mmol/L (22.0-26.0) 08/08/16 07:07 ABG Total CO2 24.4 MMOL/L (21.0-29.0) 08/08/16 07:07 ABG O2 Saturation 94 % (94-98) 08/08/16 07:07 ABG Oximetry Spot Check 96 % 08/06/16 13:30 ABG Base Excess -0.1 mmol/L (-2.0-3.0) 08/08/16 07:07 Matthew Test POSITIVE 08/08/16 07:07 VBG pH 7.346 (7.31-7.41) 08/07/16 15:46 VBG pCO2 45.9 mmHg (41-51) 08/07/16 15:46 VBG pO2 40.2 mmHg (25-47) 08/07/16 15:46 VBG HCO3 24.5 mmol/L (23-28) 08/07/16 15:46 VBG Total CO2 26.0 mmol/L (24-29) 08/07/16 15:46 VBG O2 Saturation 71.1 % (60-80) 08/07/16 15:46 VBG Base Excess -1.3 mmol/L (-2 - +2) 08/07/16 15:46 Room Air YES 08/06/16 13:30 O2 Delivery Device C-PAP 08/08/16 07:07 O2 Liters/Min 4.00 LPM 08/08/16 07:07 Sodium 142 mmol/L (135-145) 08/12/16 06:00 Potassium 4.0 mmol/L (3.5-5.0) 08/12/16 06:00 Chloride 104 mmol/L (101-111) 08/12/16 06:00 Carbon Dioxide 26 mmol/L (21-32) 08/12/16 06:00 Anion Gap 12.0 (6-13) 08/12/16 06:00 BUN 15 mg/dL (6-20) 08/12/16 06:00 Creatinine 1.0 mg/dL (0.4-1.0) 08/12/16 06:00 Estimated GFR (MDRD) 53 (>89) L 08/12/16 06:00 Glucose 150 mg/dL (70-100) H 08/12/16 06:00 POC Whole Bld Glucose 134 mg/dL (70 - 100) H 08/12/16 07:41 Glycated Hemoglobin 7.2 % (4.6-6.2) H 08/02/16 02:26 Estim Average Glucose 160 (70-100) H 08/02/16 02:26 Lactic Acid 2.3 mmol/L (0.5-2.2) H 08/07/16 15:46 Calcium 9.4 mg/dL (8.5-10.3) 08/12/16 06:00 Ionized Calcium NO 08/12/16 06:00 Phosphorus 2.7 mg/dL (2.5-4.6) 08/12/16 06:00 Magnesium 2.0 mg/dL (1.7-2.8) 08/12/16 06:00 Total Bilirubin 1.0 mg/dL (0.2-1.0) 08/12/16 06:00 AST 25 IU/L (10-42) 08/12/16 06:00 ALT 41 IU/L (10-60) 08/12/16 06:00 Alkaline Phosphatase 78 IU/L (42-121) 08/12/16 06:00 Troponin I < 0.04 ng/mL (<0.49) 08/08/16 06:00 C-Reactive Protein < 1.0 mg/dL (0-1.0) 08/07/16 15:46 B-Natriuretic Peptide 941 pg/mL (5-100) H 08/12/16 06:00 Total Protein 7.4 g/dL (6.7-8.2) 08/12/16 06:00 Albumin 3.7 g/dL (3.2-5.5) 08/12/16 06:00 Globulin 3.7 g/dL (2.1-4.2) 08/12/16 06:00 Albumin/Globulin Ratio 1.0 (1.0-2.2) 08/12/16 06:00 Lipase 11 U/L (22-51) L 08/01/16 Unknown Urine Color LIGHT YELLOW 08/08/16 09:45 Urine Clarity CLEAR (CLEAR) 08/08/16 09:45 Urine pH 5.5 PH (5.0-7.5) 08/08/16 09:45 Ur Specific Murdock 1.010 (1.002-1.030) 08/08/16 09:45 Urine Protein NEGATIVE mg/dL (NEGATIVE) 08/08/16 09:45 Urine Glucose (UA) NEGATIVE mg/dL (NEGATIVE) 08/08/16 09:45 Urine Ketones NEGATIVE mg/dL (NEGATIVE) 08/08/16 09:45 Urine Occult Blood TRACE-LYSE (NEGATIVE) 08/08/16 09:45 Urine Nitrite NEGATIVE (NEGATIVE) 08/08/16 09:45 Urine Bilirubin NEGATIVE (NEGATIVE) 08/08/16 09:45 Urine Urobilinogen 0.2 (NORMAL) E.U./dL (NORMAL) 08/08/16 09:45 Ur Leukocyte Esterase NEGATIVE (NEGATIVE) 08/08/16 09:45 Urine RBC None Seen /HPF (0-5) 08/08/16 09:45 Urine WBC 0-3 /HPF (0-5) 08/08/16 09:45 Ur Squamous Epith Cells NONE SEEN (<= Few) 08/08/16 09:45 Urine Bacteria Rare /HPF (None Seen) 08/08/16 09:45 Ur Microscopic Review INDICATED 08/02/16 01:27 Urine Culture Comments NOT INDICATED 08/08/16 09:45 Last Dose Date 08/07/16 08/10/16 15:36 Last Dose Time 1800 08/10/16 15:36 Vancomycin Trough 14.0 ug/mL (5.0-15.0) 08/10/16 15:36 Blood Type A POSITIVE 08/01/16 21:00 Blood Type Recheck A POSITIVE 08/01/16 13:20 - Procedures Procedures: Procedures ENDO RECTUM POLYPECTOMY (11/29/13) ENDOSC POLYPECTOMY OF LG INTEST (11/29/13) EXC LES SOFT TISSUE NEC (01/05/13) EYELID BIOPSY (03/09/14) LOCAL EXCIS BREAST LES (01/05/13) LYMPHATIC STRUCT BIOPSY (08/04/12) OTHER ENDOSCOPY OF SM INTEST (11/29/13) TU REMOV URETER OBSTRUCT (08/30/13) UNILAT EXTEN SIMP MASTEC (08/04/12) URETERAL CATHETERIZATION (08/30/13)
[2016-08-12] MEDS: diltiaZEM CD 240 MG CAPSULE PO SCH (08:10)
[2016-08-12] MEDS: DULoxetine 30 MG CAPSULE PO SCH (08:12)
--- NOTE | 2016-08-12 10:17 | XRAY Report ---
AP PORTABLE CHEST: 08/12/2016 CLINICAL HISTORY: Shortness of breath. COMPARISON: 08/08/2016 FINDINGS: EKG electrodes are noted across the chest. Normal cardiac size is seen with vascular calcification in the aortic arch. PICC line is noted in place with its tip in the superior vena cava. It enters the vascular system via the left antecubital vein. Pulmonary parenchyma appears improved as compared to preceding exam. Reduction of interstitial parenchymal disease about each perihilar region is noted. There is some mild obscuration of each hemidiaphragm that raises concern in regard to small to moderate-sized bilateral pleural effusions. IMPRESSION: 1. PICC LINE IS NOTED IN PLACE WITH ITS TIP IN THE SUPERIOR VENA CAVA. IT ENTERS THE VASCULAR SYSTEM VIA THE LEFT ANTECUBITAL VEIN. 2. IMPROVEMENT IS NOTED COMPARED TO PRECEDING EXAM DATED 08/08/2016 WITH RESOLUTION OF PREVIOUSLY NOTED BILATERAL INTERSTITIAL PERIHILAR PARENCHYMAL DISEASE/INTERSTITIAL EDEMA. 3. FINDINGS ARE SUGGESTIVE OF PERSISTENT SMALL TO MODERATE-SIZED BILATERAL PLEURAL EFFUSIONS. JOB #: [id number] EXT JOB #: [id number] [facility]
[2016-08-12] MEDS: LORazepam 0.5 MG TABLET PO PRN (10:19)
[2016-08-12 10:22] VITALS: BP 143/85
[2016-08-12] MEDS: WARFARIN 2.5 MG TABLET PO SCH (11:35)
--- NOTE | 2016-08-13 09:16 | DISCHARGE SUMMARY ---
DATE OF ADMISSION: 08/01/2016 DATE OF DISCHARGE: 08/12/2016 PRIMARY CARE PHYSICIAN: Berry Lance M.D. DISCHARGING PHYSICIAN: Byron lBanchard MD DISCHARGE DIAGNOSES 1. Sepsis. 2. Community-acquired pneumonia. 3. Escherichia coli urinary tract infection. 4. Renal calculus. 5. Fibrillation with rapid ventricular response. 6. Obstructive sleep apnea on CPAP. 7. Weakness. 8. Diabetes. DISCHARGE MEDICATIONS 1. Cefuroxime 250 mg p.o. b.i.d. for 3 days. 2. Coumadin 2.5 mg p.o. daily. 3. Lopressor 100 mg p.o. b.i.d. 4. Diltiazem XR 320 mg p.o. daily. 5. Amlodipine 5 mg p.o. daily. 6. Multivitamin 1 tablet p.o. daily. 7. Cymbalta 30 mg p.o. b.i.d. 8. Refresh 1% ophthalmic eye drops 1 drop each eye q.i.d. p.r.n. for dry eyes. 9. Hydrocodone/acetaminophen 7.5/325 mg 1 tablet p.o. q.8h. p.r.n. for pain. 10. Melatonin 8 mg p.o. at bedtime p.r.n. for insomnia. 11. Zyrtec 10 mg p.o. daily. 12. Latanoprost 0.005% ophthalmic drops 1 drop each eye nightly. 13. Nexium 40 mg p.o. daily. 14. Florastor 250 mg p.o. b.i.d. for 3 days. 15. CPAP at night. 16. NovoLog sliding scale insulin low dose. 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 She had had a bad cough, she had bronchitis, and she was becoming more and more short of breath despite being given antibiotics. She was having sweats at home and was very fatigued, and continued to use her BiPAP as directed but was not improving. The patient on presentation was found to be tachycardic, tachypneic, and hypoxic, requiring 3 liters of oxygen. She had a leukocytosis and was admitted to the hospital with sepsis. The source initially was thought to be urinary. The patient's repeat chest x-ray, however, revealed that she did have a pn eumonia as well. The patient was treated initially with IV antibiotics with ceftriaxone and azithromy olegario, and she appeared to be improving; however, then began having acute episodes of shortness of tano th, diaphoresis, and becoming quite cool and pale. This was thought to be panic attacks initially, bu t then it was realized that the patient was having some sort of vagal response, possibly TO worsening illness. Patient's labs were repeated. Her WBC had increased to 20.1. It appeared that she was again septic as her lactic acid was elevated. She underwent a CT abdomen and pelvis showed that she was having worse elian pneumonia, also revealed that she had a ureteral stone with some hydronephrosis. So patient's an tibiotics were changed to vancomycin and cefepime. The patient did have increasing oxygen requirement s and also began having increased atrial fibrillation/RVR with pulmonary vascular congestion. The bruce jackson was treated with Lasix, IV antibiotics, and monitored in the ICU. She did improve and was able t o be weaned off of oxygen by the time of discharge. We did get her heart rate better controlled with increasing her doses of diltiazem and Lopressor. The patient was eventually stabilized enough to be seen by Physical Therapy. After assessment, the kedar obando was thought to need rehabilitation at [facility]. The patient was discharged to [facility] to [facility] on oral antibiotics for 3 additional days. She was off of oxygen and appeared to be finally improvi ng after a long hospitalization with pneumonia, UTI, and sepsis. PHYSICAL EXAMINATION AT DISCHARGE VITAL SIGNS: Temperature 36.5, heart rate 98, blood pressure 143/85, respiratory rate 20, O2 saturati on 96% on room air. GENERAL: Patient is alert, sitting up in the chair. She does have some mild paranoia about the nurse, but otherwise is a little anxious and not in any acute respiratory distress. HEENT: Pupils are equal and reactive to light. Extraocular muscles are intact. Mucous membranes are m oist. There is no conjunctival pallor or scleral icterus noted. NECK: Supple. No thyromegaly, no JVD. Trachea is midline. LYMPH NODES: There is no cervical or axillary lymphadenopathy noted. CARDIOVASCULAR: S1, S2, irregularly irregular rhythm. No murmurs, rubs, or gallops. LUNGS: There is still some mild rhonchi at the bases along with mild rales bibasilar. There is no use of accessory muscles of breathing. The patient is not in any respiratory distress at the moment. ABDOMEN: Obese, soft, nontender, nondistended. Bowel sounds are present in all 4 quadrants. EXTREMITIES: The patient has mild lower extremity edema. Peripheral pulses are palpable. There is no cyanosis or clubbing. MUSCULOSKELETAL: The patient has good range of motion. No joint tenderness, no joint effusions. SKIN: No skin rashes, lesions, cellulitis, or abscesses. NEUROLOGIC: Patient is alert, oriented x3. Cranial nerves 2 through 12 are grossly intact. Strength i s grossly normal. Sensations are intact. LABORATORY: WBC is 13.1, hemoglobin 12.3, hematocrit 38.0, platelet count 291. Sodium 142, potassium 4.0, chloride 104, carbon dioxide 26, BUN 15, creatinine 1.0, glucose 191, calcium 9.4, phosphorus 2. 7, magnesium 2.0. Total bilirubin 1.0, AST 25, ALT 41, alkaline phosphatase 78. BNP 941. Total protei n 7.4, albumin 3.7. UA initial greater than 25 WBCs with moderate bacteria, RBCs, and large leukocyte esterase, positive nitrites. Repeat UA negative. MICROBIOLOGY: Negative blood cultures. Urine culture growing E coli, susceptible to cefuroxime. IMAGING Chest x-ray. Impression: Chronic findings, no definite acute disease. Repeat chest x-ray. Impression: Left arm PICC terminating at the cavoatrial junction. Chest x-ray on 08/03/2016. Impression: New left lower lobe pleural effusion and increased interstitia l markings with peribronchial cuffing which is nonspecific image, seen in the setting of reactive air way disease, bronchitis, or viral infection. Chest x-ray 08/07/2016. Impression: Stable effusion, pulmonary vascular congestion and cardiomegaly. CT abdomen/pelvis. Impression: 1. Small distal left ureteral stone with mild to moderate hydronephrosis. 2. Bilateral pleural effusion with underlying consolidative atelectasis versus infiltrates. 3. Bilateral renal cysts, atrophic left kidney. 4. Moderate diverticulosis and other chronic incidental findings. Chest x-ray 08/08/2016. Impression: Hypo-expansion of the lungs, probable CHF. Chest x-ray 08/12/2016. Impression: 1. PICC line is noted in place with its tip in the superior vena cava. It enters the vascular system by the left antecubital vein. 2. Improvement is noted as compared to preceding exam, with resolution of previous noted bilateral i nterstitial perihilar parenchymal disease, congestive failure noted. 3. Findings are suggestive of persistent small to moderate sized bilateral pleural effusions. FOLLOWUP/RECOMMENDATIONS: Patient had a prolonged hospitalization with sepsis from urinary tract infe ction and persistent pneumonia. She had to have her IV antibiotics switched during the hospitalizatio n, which did help to improve her symptoms. She was also found to have a ureteral stone with some hydr onephrosis. The patient had several attacks of anxiety during the hospitalization. She was also found to be in atrial fibrillation with RVR and then did develop pulmonary vascular congestion, required s everal doses of IV Lasix. By the time of discharge, the patient's respiratory status had stabilized, she was requiring 3 more days of antibiotics, which she will take orally at [facility]. She was found to be too weak to return home. Therefore, she is going to a retirement facility for rehabilitation with physical therapy. The patient did have her doses of diltiazem and metoprolol increased for her AFib with RVR. The patient was discharged in guarded condition and will need to follow up with her [facility] physician. TIME SPENT ON DISCHARGE: Greater than 30 minutes were spent on discharge. JOB #: [id number] EXT JOB #:[id number]
== END 2016-08-12 13:00 | DRG 871 ==
LOC: EDUNIT# → ED 13:05 → ICU 16:41 → MS 08-04 03:30 → ICU 08-08 06:39 → MS 08-10 22:13
PROVIDERS: ADMIT Internal Medicine; ATTEND Internal Medicine
PROC: 30233K1 Transfusion of Nonautologous Frozen Plasma into Peripheral Vein, Percutaneous Approach (ICD-10-PCS; 2016-08-01)
PROC: 02HV33Z Insertion of Infusion Device into Superior Vena Cava, Percutaneous Approach (ICD-10-PCS; principal; 2016-08-02)
DX: A41.51 Sepsis due to Escherichia coli [E. coli] (principal); J40 Bronchitis, not specified as acute or chronic; I10 Essential (primary) hypertension; E78.00 Pure hypercholesterolemia, unspecified; G47.30 Sleep apnea, unspecified; J18.1 Lobar pneumonia, unspecified organism; J96.21 Acute and chronic respiratory failure with hypoxia; N13.6 Pyonephrosis; Z68.41 Body mass index [BMI] 40.0-44.9, adult; R65.20 Severe sepsis without septic shock; I48.91 Unspecified atrial fibrillation; I12.9 Hypertensive chronic kidney disease with stage 1 through stage 4 chronic kidney disease, or unspecified chronic kidney disease; E11.22 Type 2 diabetes mellitus with diabetic chronic kidney disease; N18.9 Chronic kidney disease, unspecified; F32.9 Major depressive disorder, single episode, unspecified; K21.9 Gastro-esophageal reflux disease without esophagitis; G47.33 Obstructive sleep apnea (adult) (pediatric); F41.9 Anxiety disorder, unspecified; E66.01 Morbid (severe) obesity due to excess calories; Z66 Do not resuscitate; Z87.442 Personal history of urinary calculi; Z87.891 Personal history of nicotine dependence; Z90.11 Acquired absence of right breast and nipple; Z86.711 Personal history of pulmonary embolism; Z85.3 Personal history of malignant neoplasm of breast; Z79.01 Long term (current) use of anticoagulants; Z86.718 Personal history of other venous thrombosis and embolism
CPT/HCPCS: 36415; 36600; 71010; 71020; 74177; 80048; 80053; 81001; 81003; 82803; 83036; 83605; 83690; 83735; 83880; 84100; 84132; 84484; 85025; 85610; 85651; 86140; 86900; 86901; 87040; 87077; 87086; 87150; 93005; 93010; 94640; 96365; 96367; 96375; 96376; 99284

== ENCOUNTER 2016-08-21 08:00 | Outpatient (CLI) | payer MEDICAID, MEDICARE, OTHER ==
[2016-08-21 17:58] LABS: ALBUMIN/GLOBULIN RATIO 1.1 (1.0-2.2); BILIRUBIN,TOTAL 0.4 mg/dL (0.2-1.0); CALCIUM 9.2 mg/dL (8.5-10.3); CREATININE 1.1 mg/dL (0.4-1.0); POTASSIUM 4.6 mmol/L (3.5-5.0); TOTAL PROTEIN 7.1 g/dL (6.7-8.2)
[2016-08-21 20:59] LABS: BASOPHILS # (AUTO) 0.2 10^3/uL (0.0-0.1); BASOPHILS % (AUTO) 1.7 %; EOSINOPHILS # (AUTO) 0.3 10^3/uL (0.0-0.7); EOSINOPHILS % (AUTO) 2.4 %; HCT - HEMATOCRIT 37.7 % (37.0-47.0); HGB - HEMOGLOBIN 12.5 g/dL (12.0-16.0); LYMPHOCYTES # (AUTO) 2.8 10^3/uL (1.5-3.5); LYMPHOCYTES % (AUTO) 22.3 %; MEAN CORPUSCULAR HEMOGLOBIN 32.1 pg (27.0-31.0); MEAN CORPUSCULAR HGB CONC 33.3 g/dL (32.0-36.0); MEAN CORPUSCULAR VOLUME 96.6 fL (81.0-99.0); MEAN PLATELET VOLUME 8.2 fL (7.9-10.8); MONOCYTES # (AUTO) 0.8 10^3/uL (0.0-1.0); MONOCYTES % (AUTO) 6.4 %; NEUTROPHILS # (AUTO) 8.5 10^3/uL (1.5-6.6); NEUTROPHILS % (AUTO) 67.2 %; RED CELL DISTRIBUTION WIDTH 16.6 % (12.0-15.0); UNCORRECTED WHITE BLOOD COUNT 12.7 x10^3/uL; WHITE BLOOD COUNT 12.7 x10^3/uL (4.8-10.8)
[2016-08-21 21:17] LABS: PLATELET ESTIMATE, MANUAL NORMAL (130-450,000) (NORMAL); PLATELET MORPHOLOGY NORMAL APPEARANCE (NORMAL)
== END 2016-08-21 08:01 | disposition home or self-care (01) ==
LOC: LAB.R 08:00
DX: D55.1 Anemia due to other disorders of glutathione metabolism (principal)
CPT/HCPCS: 80053; 83880; 85025

== ENCOUNTER 2016-08-30 08:00 | Outpatient (CLI) | payer MEDICAID, MEDICARE, OTHER | END 2016-08-30 08:01 | disposition home or self-care (01) | DX: N18.9 Chronic kidney disease, unspecified (principal) ==

== ENCOUNTER 2016-09-18 10:56 | Outpatient (CLI) | payer MEDICARE, OTHER, MEDICAID | END 2016-09-18 10:57 | disposition home or self-care (01) | LOC: LAB 10:56 | PROVIDERS: ATTEND Physician Assistant Medical | DX: I26.99 Other pulmonary embolism without acute cor pulmonale (principal) | CPT/HCPCS: 85610 ==

== ENCOUNTER 2016-09-25 14:37 | Outpatient (CLI) | payer MEDICARE, OTHER, MEDICAID | END 2016-09-25 14:38 | disposition home or self-care (01) | LOC: SC 14:37 | PROVIDERS: ATTEND Nurse Practitioner Family | DX: G47.33 Obstructive sleep apnea (adult) (pediatric) (principal); G47.00 Insomnia, unspecified | CPT/HCPCS: 99204; G0463; 99212 ==

== ENCOUNTER 2016-10-02 10:22 | Outpatient (CLI) | payer MEDICARE, OTHER, MEDICAID | END 2016-10-02 10:23 | disposition home or self-care (01) | LOC: LAB 10:22 | PROVIDERS: ATTEND Physician Assistant Medical | DX: I26.99 Other pulmonary embolism without acute cor pulmonale (principal) | CPT/HCPCS: 85610 ==

== ENCOUNTER 2016-10-10 06:53 | Emergency (ER) | payer MEDICARE, OTHER, MEDICAID ==
--- NOTE | 2016-10-10 07:01 | ED Physician Documentation ---
PD HPI DYSPNEA - Stated complaint Stated Complaint: SOA - History obtained from History obtained from: Patient - History of Present Illness Timing - onset: How many days ago (some dyspnea for few days, worse last night and could not sleep/lie down due to dyspnea and heaviness on chest.) Timing - onset during: Rest Timing - duration: Days Timing - details: Gradual onset, Still present Inciting event(s): No: Out of meds (she said she was without meds for 2 days as pharmacy did not deliver her med pack.), URI, Immobilization/travel Improved by: Sitting up. No: Rest Worsened by: Exertion, Laying flat. No: Coughing Associated symptoms: Bilateral edema. No: Fever, Cough, Wheezing, Palpitations Similar symptoms before: Diagnosis Recently seen: Admitted (in July for 11 days then was at [facility] for 3 weeks. Has been home for few weeks.) Review of Systems Constitutional: denies: Fever, Chills Ears: denies: Ear pain Nose: reports: Congestion. denies: Rhinorrhea / runny nose Throat: reports: Sore throat Cardiac: reports: Pedal edema. denies: Chest pain / pressure, Calf pain Respiratory: reports: Dyspnea, Cough. denies: Wheezing Musculoskeletal: reports: Extremity swelling. denies: Neck pain, Back pain Neurologic: reports: Generalized weakness. denies: Focal weakness, Numbness, Near syncope Endocrine: reports: Easy bruising / bleeding. denies: Weight gain Immunocompromised: denies: Immunocompromised PD PAST MEDICAL HISTORY - Past Medical History Cardiovascular: Hypertension, High cholesterol, Deep vein thrombosis, Pulmonary embolism Respiratory: Shortness of breath, Sleep apnea, CPAP use Neuro: None Endocrine/Autoimmune: Type 2 diabetes GI: GERD : Incontinence, Nocturia, Kidney stones HEENT: Chronic vision loss, Glaucoma, Chronic sinusitis Psych: Depression Musculoskeletal: Osteoarthritis, Osteoporosis, Fatigue, Chronic back pain Derm: None - Past Surgical History Past Surgical History: Yes General: EGD, Colonoscopy Ortho: Arthroscopic surgery /COLLECTIONS 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, Oophrectomy, Mastectomy HEENT: Cataracts, Other - Present Medications Home Medications: Ambulatory Orders Medication Instructions Recorded Confirmed Amlodipine Besylate 5 mg PO DAILY 07/31/12 10/10/16 Esomeprazole Magnesium [Nexium] 40 mg PO DAILY 03/08/14 10/10/16 Carboxymethylcellulose Sodium 1 drop EACHEYE QID PRN 01/16/15 10/10/16 [Refresh Tears] Latanoprost 0.005% Ophth Drops 1 drop RIGHTEYE QPM 01/16/15 10/10/16 [Xalatan Ophth Drops] Warfarin [Coumadin] 2.5 - 5 mg PO QDWARFARIN 04/23/15 10/10/16 DULoxetine [Cymbalta] 30 mg PO BID 05/17/15 10/10/16 Docusate Sodium 100 - 200 mg PO DAILY PRN 02/21/16 10/10/16 Hydrocodone/Acetaminophen 1 tab PO DAILY PRN 06/27/16 10/10/16 [Hydrocodon-Acetaminoph 7.5-325] Multivitamin [Theragran] 1 tab PO DAILY 06/27/16 10/10/16 Cetirizine HCl 10 mg PO DAILY 08/01/16 10/10/16 Magnesium Oxide [Mag Ox] 400 mg PO 0800 08/01/16 10/10/16 Metoprolol Tartrate [Metoprolol 75 mg PO BID 08/01/16 10/10/16 Tartrate] Melatonin 8 mg PO QPM 08/03/16 10/10/16 Albuterol Sulfate [Proair Hfa 2 puffs IH QID #1 hfa.aer.ad 10/10/16 Inhaler] - Allergies Allergies/Adverse Reactions: Allergies Allergy/AdvReac Type Severity Reaction Status Date / Time Penicillins Allergy Rash Verified 10/10/16 07:15 prednisone Allergy Rash Verified 10/10/16 07:15 DEBBIE Inhibitors AdvReac Intermediate cough Verified 10/10/16 07:15 - Living Situation Living Situation: reports: Alone Living Arrangement: reports: Assisted living, Other (has aide 4 days per week for few hours daily, who has not been there this week due to illness/or such. ) - Social History Does the pt smoke?: No Smoking Status: Former smoker Does the pt drink ETOH?: No Does the pt have substance abuse?: No - Immunizations Immunizations are current?: Yes - POLST Patient has POLST: No PD ED PE NORMAL - Vitals Vital signs reviewed: Yes - General General: Alert and oriented X 3, No acute distress, Well developed/nourished - HEENT HEENT: Moist mucous membranes, Pharynx benign - Neck Neck: Supple, no meningeal sign, No adenopathy - Cardiac Cardiac: RRR, No murmur - Respiratory Respiratory: Clear bilaterally (no wheeze nor crackles) - Abdomen Abdomen: Soft, Non tender - Back Back: No CVA TTP - Derm Derm: Normal color, Warm and dry - Extremities Extremities: No tenderness to palpate, Normal ROM s pain, No calf tenderness / cord, Other (1+ edema in ankles) - Neuro Neuro: Alert and oriented X 3, No motor deficit, Normal speech - Psych Psych: Normal mood. No: Normal affect (slightly anxious) Results - Vitals Vitals: Vital Signs - 24 hr 10/10/16 10/10/16 10/10/16 07:05 07:33 07:40 Temperature 35.9 C L Heart Rate 65 60 61 Respiratory 23 20 19 Rate Blood Pressure 167/72 H 152/65 H 114/65 O2 Saturation 96 94 93 10/10/16 10/10/16 10/10/16 08:19 08:59 09:15 Temperature Heart Rate 60 58 L 64 Respiratory 18 12 16 Rate Blood Pressure 143/55 H 142/56 H O2 Saturation 94 93 10/10/16 09:53 Temperature Heart Rate 62 Respiratory 16 Rate Blood Pressure 129/73 O2 Saturation 95 Oxygen O2 Source [With Activity] Nasal cannula O2 Source Room air - Labs Labs: Laboratory Tests 10/10/16 10/10/16 10/10/16 07:36 07:36 07:36 WBC 9.6 RBC 3.99 L Hgb 12.4 Hct 37.2 MCV 93.3 MCH 31.2 H MCHC 33.4 RDW 15.3 H Plt Count 231 MPV 7.4 L Neut # 5.9 Lymph # 2.7 [place] # 0.8 Eos # 0.2 Baso # 0.1 Absolute Nucleated RBC 0.00 Nucleated RBCs 0.0 PT INR Sodium 135 Potassium 4.1 Chloride 103 Carbon Dioxide 24 Anion Gap 8.0 BUN 25 H Creatinine 1.1 H Estimated GFR (MDRD) 47 L Glucose 193 H Calcium 9.7 Magnesium 1.8 Total Bilirubin 0.4 AST 14 ALT 29 Alkaline Phosphatase 65 Troponin I < 0.04 B-Natriuretic Peptide Total Protein 7.3 Albumin 3.7 Globulin 3.6 Albumin/Globulin Ratio 1.0 Lipase 18 L Urine Color Urine Clarity Urine pH Ur Specific [place] Urine Protein Urine Glucose (UA) Urine Ketones Urine Occult Blood Urine Nitrite Urine Bilirubin Urine Urobilinogen Ur Leukocyte Esterase Urine RBC Urine WBC Ur Epithelial Cells Ur Squamous Epith Cells Urine Bacteria Ur Microscopic Review Urine Culture Comments 10/10/16 10/10/16 10/10/16 07:36 07:36 08:30 WBC RBC Hgb Hct MCV MCH MCHC RDW Plt Count MPV Neut # Lymph # [place] # Eos # Baso # Absolute Nucleated RBC Nucleated RBCs PT 16.9 H INR 1.5 H Sodium Potassium Chloride Carbon Dioxide Anion Gap BUN Creatinine Estimated GFR (MDRD) Glucose Calcium Magnesium Total Bilirubin AST ALT Alkaline Phosphatase Troponin I B-Natriuretic Peptide 255 H Total Protein Albumin Globulin Albumin/Globulin Ratio Lipase Urine Color YELLOW Urine Clarity CLEAR Urine pH 6.0 Ur Specific [place] <=1.005 Urine Protein NEGATIVE Urine Glucose (UA) NEGATIVE Urine Ketones NEGATIVE Urine Occult Blood SMALL H Urine Nitrite NEGATIVE Urine Bilirubin NEGATIVE Urine Urobilinogen 0.2 (NORMAL) Ur Leukocyte Esterase NEGATIVE Urine RBC 0-5 Urine WBC 0-3 Ur Epithelial Cells RARE Transitional Ur Squamous Epith Cells NONE SEEN Urine Bacteria Rare Ur Microscopic Review INDICATED Urine Culture Comments NOT INDICATED PD MEDICAL DECISION MAKING - ED course Complexity details: re-evaluated patient (no improvement with NTG nor GI cocktail. She did feel improved with Albuterol neb. CXR and labs are good. Heart rhythm is normal. Can try MDI and short course steroid to see if better, though states allergy to Prednisone. She did feel better with albuterol neb; so can give MDI and she is agreeable with this idea. ), considered differential ( will get labs, CXR, ECG to consider pneumonia, lung process, ND, CHF, anemia, lytes. Consider possible anxious due to aide not being there this week. ), d/w patient Departure - Departure Disposition: 01 Home, Self Care Clinical Impression: Dyspnea Qualifiers: Dyspnea type: shortness of breath Qualified Code(s): R06.02 - Shortness of breath Condition: Stable Record reviewed to determine appropriate education?: Yes Instructions: ED Dyspnea Shortness of Breath Follow-Up: Berry Lance MD [Primary Care Provider] - Prescriptions: Albuterol Sulfate [Proair Hfa Inhaler] 2 puffs IH QID #1 hfa.aer.ad Comments: Continue usual medications. Add albuterol inhaler 2 puffs 4 times a day for the next week. Recheck if not improved over the next few days. Return if worsening symptoms. Right now there is no signs of heart failure, pneumonia, heart attack. I presume your shortness of breath is related to some bronchial irritation and the inhaler should help. Discharge Date/Time: 10/10/16 10:13
[2016-10-10] MEDS ORDERED: SODIUM CHLORIDE FLUSH 0.9% 10 ML SYRINGE IVP ONE (07:10)
[2016-10-10] MEDS ORDERED: NITROGLYCERIN SL 0.4 MG TABLET SL STA (07:18)
[2016-10-10] MEDS ORDERED: NITROGLYCERIN SL 0.4 MG TABLET SL ONE (07:31)
[2016-10-10] MEDS ORDERED: MAG HYDROX/AL HYDROX/SIMETH 30 ML UDC PO STA (07:40)
[2016-10-10 07:44] LABS: BASOPHILS # (AUTO) 0.1 10^3/uL (0.0-0.1); BASOPHILS % (AUTO) 0.5 %; EOSINOPHILS # (AUTO) 0.2 10^3/uL (0.0-0.7); EOSINOPHILS % (AUTO) 2.4 %; HCT - HEMATOCRIT 37.2 % (37.0-47.0); HGB - HEMOGLOBIN 12.4 g/dL (12.0-16.0); LYMPHOCYTES # (AUTO) 2.7 10^3/uL (1.5-3.5); LYMPHOCYTES % (AUTO) 28.4 %; MEAN CORPUSCULAR HEMOGLOBIN 31.2 pg (27.0-31.0); MEAN CORPUSCULAR HGB CONC 33.4 g/dL (32.0-36.0); MEAN CORPUSCULAR VOLUME 93.3 fL (81.0-99.0); MEAN PLATELET VOLUME 7.4 fL (7.9-10.8); MONOCYTES # (AUTO) 0.8 10^3/uL (0.0-1.0); MONOCYTES % (AUTO) 7.9 %; NEUTROPHILS # (AUTO) 5.9 10^3/uL (1.5-6.6); NEUTROPHILS % (AUTO) 60.8 %; RED BLOOD COUNT 3.99 10^6/uL (4.20-5.40); RED CELL DISTRIBUTION WIDTH 15.3 % (12.0-15.0); UNCORRECTED WHITE BLOOD COUNT 9.6 x10^3/uL; WHITE BLOOD COUNT 9.6 x10^3/uL (4.8-10.8)
[2016-10-10] MEDS ORDERED: MAG HYDROX/AL HYDROX/SIMETH 30 ML UDC ONE (07:49)
[2016-10-10 07:54] LABS: INR 1.5 (0.8-1.2); PT - PROTHROMBIN TIME 16.9 secs (9.9-12.6)
[2016-10-10 07:58] LABS: BILIRUBIN,TOTAL 0.4 mg/dL (0.2-1.0); CALCIUM 9.7 mg/dL (8.5-10.3); CREATININE 1.1 mg/dL (0.4-1.0); MAGNESIUM 1.8 mg/dL (1.7-2.8); POTASSIUM 4.1 mmol/L (3.5-5.0); TOTAL PROTEIN 7.3 g/dL (6.7-8.2)
[2016-10-10] MEDS ORDERED: ALBUTEROL NEB 2.5 MG/3 ML INH STA (08:27)
--- NOTE | 2016-10-10 08:37 | XRAY Preliminary Report ---
Exam: XR Chest 2 View PA/LAT IMPRESSION: No acute cardiopulmonary findings. [facility] SITE ID: [id number]
[2016-10-10] MEDS ORDERED: ALBUTEROL NEB 2.5 MG/3 ML INH ONE (08:39)
--- NOTE | 2016-10-10 08:40 | XRAY Report ---
EXAM: CHEST RADIOGRAPHY EXAM DATE: 10/10/2016 08:14 AM. CLINICAL HISTORY: Dyspnea for 5 days, worsening yesterday. History of pneumonia in August 2016 COMPARISON: 08/12/2016 and 08/03/2016 radiograph. TECHNIQUE: 2 views. FINDINGS: Lungs/Pleura: No focal opacities evident. No pleural effusion. No pneumothorax. Normal volumes. Mediastinum: The heart size is normal. Arterial calcifications indicate atherosclerosis. Other: A 2 column burst fracture of the mid thoracic vertebral body is chronic. Moderate osteopenia i s demonstrated. IMPRESSION: No acute cardiopulmonary findings. [facility] Referring Provider Line: [phone] SITE ID: [id number]
[2016-10-10 09:22] LABS: BILIRUBIN,URINE NEGATIVE (NEGATIVE)
[2016-10-10 09:29] LABS: UA w/ MICROSCOPIC CHARGE YES
[2016-10-10 09:44] LABS: UR CULTURE IF IND NOT INDICATED; WBC,URINE 0-3 /HPF (0-5)
[2016-10-10] MEDS ORDERED: WARFARIN 5 MG TABLET PO STA (09:47)
[2016-10-10 09:55] VITALS: BP 129/73
== END 2016-10-10 10:13 | disposition home or self-care (01) ==
LOC: ED 06:53
DX: R06.02 Shortness of breath (principal); I45.10 Unspecified right bundle-branch block; I10 Essential (primary) hypertension; E78.00 Pure hypercholesterolemia, unspecified; Z86.718 Personal history of other venous thrombosis and embolism; Z86.711 Personal history of pulmonary embolism
CPT/HCPCS: 36415; 71020; 80053; 81001; 83690; 83735; 83880; 84484; 85025; 85610; 93005; 94640; 99284; A9270; J7613; 81003; 87086

== ENCOUNTER 2016-10-16 08:38 | Outpatient (CLI) | payer MEDICARE, OTHER, MEDICAID | END 2016-10-16 08:39 | disposition home or self-care (01) | LOC: LAB 08:38 | PROVIDERS: ATTEND Physician Assistant Medical | DX: I26.99 Other pulmonary embolism without acute cor pulmonale (principal) | CPT/HCPCS: 85610 ==

== ENCOUNTER 2016-11-01 12:45 | Outpatient (CLI) | payer MEDICARE, OTHER, MEDICAID | END 2016-11-01 12:46 | disposition home or self-care (01) | LOC: LAB.R 12:45 | PROVIDERS: ATTEND Nurse Practitioner Primary Care | DX: N39.0 Urinary tract infection, site not specified (principal) | CPT/HCPCS: 87086 ==

== ENCOUNTER 2016-11-02 17:08 | Outpatient (CLI) | payer MEDICARE, OTHER, MEDICAID | END 2016-11-02 17:09 | disposition EMS.NT | LOC: EMS 17:08 | PROVIDERS: ATTEND Surgery | DX: S80.212A Abrasion, left knee, initial encounter (principal); W06.XXXA Fall from bed, initial encounter; Y92.032 Bedroom in apartment as the place of occurrence of the external cause ==

== ENCOUNTER 2016-11-10 13:10 | Outpatient (CLI) | payer MEDICARE, OTHER, MEDICAID | END 2016-11-10 13:11 | disposition critical access hospital (66) | LOC: EMS 13:10 | PROVIDERS: ATTEND Surgery | DX: R07.81 Pleurodynia (principal); Z91.81 History of falling | CPT/HCPCS: A0425; A0429 ==

== ENCOUNTER 2016-11-10 13:15 | Emergency (ER) | payer MEDICARE, OTHER, MEDICAID ==
[2016-11-10] MEDS ORDERED: HYDROcod/ACETAM 5/325 MG TABLET PO STA (13:29)
--- NOTE | 2016-11-10 13:30 | ED Physician Documentation ---
PD HPI TRUNK INJURY - Stated complaint Stated Complaint: RIB PX - History obtained from History obtained from: Patient, EMS - History of Present Illness Location: Posterior chest, Left chest Type of injury: Fall (lost balance and fell against stand, striking left lower thoracic area.) Timing - duration: Days (5) Timing - details: Abrupt onset, Still present (worse pain today with moving to get up from bed.) Quality: Pain, Sharp Improved by: Rest Worsened by: Moving, Palpating, Other (only some worse with breathing.) Associated symtptoms: No: Weakness, Numbness Similar symptoms before: Has not had sx before Recently seen: Not recently seen Review of Systems Constitutional: denies: Fever, Chills Throat: denies: Sore throat Cardiac: denies: Palpitations Respiratory: denies: Dyspnea, Cough GI: denies: Abdominal Pain, Nausea, Vomiting, Diarrhea : denies: Hematuria Skin: denies: Abrasion (s), Laceration (s) Neurologic: denies: Focal weakness, Numbness PD PAST MEDICAL HISTORY - Past Medical History Cardiovascular: Hypertension, High cholesterol, Deep vein thrombosis, Pulmonary embolism Respiratory: Shortness of breath, Sleep apnea, CPAP use Neuro: None Endocrine/Autoimmune: Type 2 diabetes GI: GERD : Incontinence, Nocturia, Kidney stones HEENT: Chronic vision loss, Glaucoma, Chronic sinusitis Psych: Depression Musculoskeletal: Osteoarthritis, Osteoporosis, Fatigue, Chronic back pain Derm: None - Past Surgical History Past Surgical History: Yes General: EGD, Colonoscopy 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: 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, Oophrectomy, Mastectomy HEENT: Cataracts, Other - Present Medications Home Medications: Ambulatory Orders Medication Instructions Recorded Confirmed Amlodipine Besylate 5 mg PO DAILY 07/31/12 10/10/16 Esomeprazole Magnesium [Nexium] 40 mg PO DAILY 03/08/14 10/10/16 Carboxymethylcellulose Sodium 1 drop EACHEYE QID PRN 01/16/15 10/10/16 [Refresh Tears] Latanoprost 0.005% Ophth Drops 1 drop RIGHTEYE QPM 01/16/15 10/10/16 [Xalatan Ophth Drops] Warfarin [Coumadin] 2.5 - 5 mg PO QDWARFARIN 04/23/15 10/10/16 DULoxetine [Cymbalta] 30 mg PO BID 05/17/15 10/10/16 Docusate Sodium 100 - 200 mg PO DAILY PRN 02/21/16 10/10/16 Hydrocodone/Acetaminophen 1 tab PO DAILY PRN 06/27/16 10/10/16 [Hydrocodon-Acetaminoph 7.5-325] Multivitamin [Theragran] 1 tab PO DAILY 06/27/16 10/10/16 Cetirizine HCl 10 mg PO DAILY 08/01/16 10/10/16 Magnesium Oxide [Mag Ox] 400 mg PO 0800 08/01/16 10/10/16 Metoprolol Tartrate [Metoprolol 75 mg PO BID 08/01/16 10/10/16 Tartrate] Melatonin 8 mg PO QPM 08/03/16 10/10/16 Albuterol Sulfate [Proair Hfa 2 puffs IH QID #1 hfa.aer.ad 10/10/16 Inhaler] HYDROcod/ACETAM 5/325 [[place] 5/325] 1 tab PO Q6H PRN #25 tablet 11/10/16 - Allergies Allergies/Adverse Reactions: Allergies Allergy/AdvReac Type Severity Reaction Status Date / Time Penicillins Allergy Rash Verified 11/10/16 13:19 prednisone Allergy Rash Verified 11/10/16 13:19 DEBBIE Inhibitors AdvReac Intermediate cough Verified 11/10/16 13:19 - Social History Does the pt smoke?: No Smoking Status: Former smoker Does the pt drink ETOH?: No Does the pt have substance abuse?: No - Immunizations Immunizations are current?: Yes - POLST Patient has POLST: No PD ED PE NORMAL - Vitals Vital signs reviewed: Yes - General General: Alert and oriented X 3, No acute distress, Well developed/nourished - HEENT HEENT: Atraumatic - Neck Neck: Supple, no meningeal sign, No bony TTP, No adenopathy - Cardiac Cardiac: RRR, No murmur - Respiratory Respiratory: No respiratory distress, Clear bilaterally, Other (tender posterolateral chest/back lower ribs area. No crepitance. ) - Abdomen Abdomen: Normal bowel sounds, Soft, Non tender, Non distended, No organomegaly - Derm Derm: Normal color, Warm and dry - Extremities Extremities: No tenderness to palpate, Normal ROM s pain - Neuro Neuro: Alert and oriented X 3, No motor deficit, No sensory deficit, Normal speech Results - Vitals Vitals: Oxygen O2 Source [With Activity] Nasal cannula O2 Source Room air - Labs Labs: Laboratory Tests 11/10/16 13:38 Whole Blood INR 2.3 H - Rads (name of study) chest CT Radiology: Prelim report reviewed (10th rib fracture nondisplaced on left. No lung injury. ) PD MEDICAL DECISION MAKING - ED course Complexity details: reviewed results (single 10th rib fracture without internal injury. ), considered differential, d/w patient Departure - Departure Disposition: 01 Home, Self Care Clinical Impression: Accidental fall Qualifiers: Encounter type: initial encounter Qualified Code(s): W19.XXXA - Unspecified fall, initial encounter Rib fracture Qualifiers: Encounter type: initial encounter Rib fracture type: single rib Fracture type: closed Laterality: left Qualified Code(s): S22.32XA - Fracture of one rib, left side, initial encounter for closed fracture Condition: Stable Record reviewed to determine appropriate education?: Yes Instructions: ED Fx Rib Follow-Up: Altagracia Mckeon PA-C [Primary Care Provider] - Prescriptions: HYDROcod/ACETAM 5/325 [[place] 5/325] 1 tab PO Q6H PRN #25 tablet PRN Reason: Pain Comments: Continue usual medications. Activity as able based on comfort. He did have just a single broken rib but this will often hurt quite a bit for the first week and a half until the early callus formation keep it more still. It will take about 4 weeks to fully healed up. Use Tylenol 650 mg 2-3 times a day and add hydrocodone as needed for pain. Follow-up with your primary care towards the end of this week for recheck. Discharge Date/Time: 11/10/16 15:36
[2016-11-10] MEDS ORDERED: HYDROcod/ACETAM 5/325 MG TABLET ONE (13:36)
--- NOTE | 2016-11-10 14:52 | CT Preliminary Report ---
Exam: CT Chest W/O IMPRESSION: 1. Acute nondisplaced left posterolateral 10th rib fracture. 2. Within the limits of noncontrast examination, no other acute traumatic injury detected. [facility] SITE ID: [id number]
--- NOTE | 2016-11-10 14:54 | CT Report ---
EXAM: CT CHEST EXAM DATE: 11/10/2016 02:00 PM. CLINICAL HISTORY: Fell few days ago. Left rib pain. COMPARISONS: CTA chest 01/09/2015. TECHNIQUE: Routine helical CT imaging was performed through the chest. IV contrast: None. Reconstruct ions: Coronal and sagittal. In accordance with CT protocol optimization, one or more of the following dose reduction techniques w ere utilized for this exam: automated exposure control, adjustment of mA and/or KV based on patient s ize, or use of iterative reconstructive technique. FINDINGS: Lungs/Pleura: Mild atelectasis and/or scarring in the bilateral lower lobe bases. No focal consolidat ion, pleural effusion, or pneumothorax. Mediastinum: No evidence for mediastinal hematoma. Heart size is normal. Mild atherosclerotic complic ations in the left anterior descending coronary artery. Moderate atherosclerotic calcifications withi n the aorta. No aortic aneurysm. No adenopathy. Bones: Acute nondisplaced fracture of the left posterolateral 10th rib. Chronic compression deformiti es of the T4 and T12 vertebral bodies, and L2 superior endplate. Visualized Abdomen: Bilateral renal parapelvic cysts. 3.2 cm exophytic cortical cyst arising from the left upper pole. Multifocal left renal cortical scarring. Other: Post-right mastectomy. IMPRESSION: 1. Acute nondisplaced left posterolateral 10th rib fracture. 2. Within the limits of noncontrast examination, no other acute traumatic injury detected. [facility] Referring Provider Line: [phone] SITE ID: [id number]
[2016-11-10 15:29] VITALS: BP 150/78
== END 2016-11-10 15:36 | disposition home or self-care (01) ==
LOC: EDUNIT# → ED 13:15
DX: S22.32XA Fracture of one rib, left side, initial encounter for closed fracture (principal); W18.30XA Fall on same level, unspecified, initial encounter; I10 Essential (primary) hypertension; E11.9 Type 2 diabetes mellitus without complications; Z86.718 Personal history of other venous thrombosis and embolism; Z86.711 Personal history of pulmonary embolism; Z79.01 Long term (current) use of anticoagulants; Z87.891 Personal history of nicotine dependence
CPT/HCPCS: 71250; 85610; 99283; 99284; A9270

== ENCOUNTER 2016-11-22 12:12 | Outpatient (CLI) | payer MEDICARE, OTHER, MEDICAID | END 2016-11-22 12:13 | disposition home or self-care (01) | LOC: LAB 12:12 | PROVIDERS: ATTEND Physician Assistant Medical | DX: I26.99 Other pulmonary embolism without acute cor pulmonale (principal); I82.529 Chronic embolism and thrombosis of unspecified iliac vein; Z79.01 Long term (current) use of anticoagulants | CPT/HCPCS: 85610 ==

== ENCOUNTER 2016-11-25 08:46 | Outpatient (CLI) | payer MEDICARE, OTHER, MEDICAID | END 2016-11-25 08:47 | disposition home or self-care (01) | LOC: SC 08:46 | PROVIDERS: ATTEND Nurse Practitioner Family | DX: G47.33 Obstructive sleep apnea (adult) (pediatric) (principal); G47.00 Insomnia, unspecified | CPT/HCPCS: 99214; G0463; 99212 ==

== ENCOUNTER 2016-12-20 13:55 | Outpatient (CLI) | payer MEDICARE, OTHER, MEDICAID | END 2016-12-20 13:56 | disposition home or self-care (01) | LOC: LAB 13:55 | PROVIDERS: ATTEND Physician Assistant Medical | DX: I26.99 Other pulmonary embolism without acute cor pulmonale (principal); I82.529 Chronic embolism and thrombosis of unspecified iliac vein; Z79.01 Long term (current) use of anticoagulants | CPT/HCPCS: 85610 ==

== ENCOUNTER 2017-01-20 14:49 | Outpatient (CLI) | payer MEDICARE, OTHER, MEDICAID | END 2017-01-20 14:50 | disposition home or self-care (01) | LOC: LAB 14:49 | PROVIDERS: ATTEND Internal Medicine | DX: I26.99 Other pulmonary embolism without acute cor pulmonale (principal); I82.529 Chronic embolism and thrombosis of unspecified iliac vein; Z79.01 Long term (current) use of anticoagulants | CPT/HCPCS: 85610 ==

== ENCOUNTER 2017-01-27 10:39 | Outpatient (CLI) | payer MEDICARE, OTHER, MEDICAID | END 2017-01-27 10:40 | disposition home or self-care (01) | LOC: LAB 10:39 | PROVIDERS: ATTEND Internal Medicine | DX: I26.99 Other pulmonary embolism without acute cor pulmonale (principal); I82.529 Chronic embolism and thrombosis of unspecified iliac vein; Z79.01 Long term (current) use of anticoagulants | CPT/HCPCS: 85610 ==

== ENCOUNTER 2017-02-12 15:29 | Outpatient (CLI) | payer MEDICARE, OTHER, MEDICAID | END 2017-02-12 15:30 | disposition home or self-care (01) | LOC: LAB 15:29 | PROVIDERS: ATTEND Internal Medicine | DX: I26.99 Other pulmonary embolism without acute cor pulmonale (principal); I82.529 Chronic embolism and thrombosis of unspecified iliac vein; Z79.01 Long term (current) use of anticoagulants | CPT/HCPCS: 85610 ==

== ENCOUNTER 2017-02-28 13:47 | Outpatient (CLI) | payer MEDICARE, OTHER, MEDICAID | END 2017-02-28 13:48 | disposition home or self-care (01) | LOC: LAB 13:47 | PROVIDERS: ATTEND Internal Medicine | DX: I26.99 Other pulmonary embolism without acute cor pulmonale (principal); Z79.01 Long term (current) use of anticoagulants; I82.529 Chronic embolism and thrombosis of unspecified iliac vein | CPT/HCPCS: 85610 ==

== ENCOUNTER 2017-03-06 13:42 | Outpatient (CLI) | payer MEDICARE, OTHER, MEDICAID | END 2017-03-06 13:43 | disposition home or self-care (01) | LOC: LAB 13:42 | PROVIDERS: ATTEND Internal Medicine | DX: I26.99 Other pulmonary embolism without acute cor pulmonale (principal); I82.529 Chronic embolism and thrombosis of unspecified iliac vein; Z79.01 Long term (current) use of anticoagulants | CPT/HCPCS: 85610 ==

== ENCOUNTER 2017-03-13 13:02 | Outpatient (CLI) | payer MEDICARE, OTHER, MEDICAID ==
[2017-03-13 13:20] LABS: BASOPHILS # (AUTO) 0.1 10^3/uL (0.0-0.1); BASOPHILS % (AUTO) 1.1 %; EOSINOPHILS # (AUTO) 0.1 10^3/uL (0.0-0.7); EOSINOPHILS % (AUTO) 1.2 %; HGB - HEMOGLOBIN 14.4 g/dL (12.0-16.0); LYMPHOCYTES # (AUTO) 2.3 10^3/uL (1.5-3.5); LYMPHOCYTES % (AUTO) 21.5 %; MEAN CORPUSCULAR HEMOGLOBIN 30.9 pg (27.0-31.0); MEAN CORPUSCULAR HGB CONC 32.7 g/dL (32.0-36.0); MEAN CORPUSCULAR VOLUME 94.7 fL (81.0-99.0); MEAN PLATELET VOLUME 7.7 fL (7.9-10.8); MONOCYTES # (AUTO) 0.6 10^3/uL (0.0-1.0); NEUTROPHILS # (AUTO) 7.3 10^3/uL (1.5-6.6); NEUTROPHILS % (AUTO) 70.2 %; PLT - PLATELET COUNT 276 10^3/uL (130-450); RED BLOOD COUNT 4.66 10^6/uL (4.20-5.40); RED CELL DISTRIBUTION WIDTH 15.2 % (12.0-15.0); WHITE BLOOD COUNT 10.5 x10^3/uL (4.8-10.8)
[2017-03-13 13:27] LABS: PT - PROTHROMBIN TIME 21.6 secs (9.9-12.6)
[2017-03-13 13:35] LABS: HB2 TOTAL 15.5 g/dL; HEMOGLOBIN A1C 0.94 g/dL; HEMOGLOBIN A1C % 7.7 % (4.6-6.2)
[2017-03-13 13:36] LABS: ALBUMIN 4.1 g/dL (3.2-5.5); ALBUMIN/GLOBULIN RATIO 1.1 (1.0-2.2); ALKALINE PHOSPHATASE 74 IU/L (42-121); ALT ALANINE AMINOTRANSFERASE 51 IU/L (10-60); AST ASPARTATE AMINOTRANSFERASE 42 IU/L (10-42); BILIRUBIN,TOTAL 0.6 mg/dL (0.2-1.0); BUN - BLOOD UREA NITROGEN 26 mg/dL (6-20); CALCIUM 9.4 mg/dL (8.5-10.3); CARBON DIOXIDE - CO2 24 mmol/L (21-32); CHLORIDE 98 mmol/L (101-111); CHOL/HDL RATIO 5.5 (<4.4); CHOLESTEROL 210 mg/dL; CREATININE 1.3 mg/dL (0.4-1.0); GFR - MDRD 39 (>89); GLUCOSE 175 mg/dL (70-100); HDL CHOLESTEROL 38 mg/dL; LDL CHOLESTEROL,CALCULATED 128 mg/dL; LDL/HDL RATIO 3.4 (<4.4); SODIUM 134 mmol/L (135-145); VLDL CHOLESTEROL 44 mg/dL
== END 2017-03-13 13:03 | disposition home or self-care (01) ==
LOC: LAB 13:02
PROVIDERS: ATTEND Physician Assistant Medical
DX: E66.9 Obesity, unspecified (principal); Z79.899 Other long term (current) drug therapy; I10 Essential (primary) hypertension; R73.9 Hyperglycemia, unspecified; Z79.01 Long term (current) use of anticoagulants; I26.99 Other pulmonary embolism without acute cor pulmonale; I82.529 Chronic embolism and thrombosis of unspecified iliac vein
CPT/HCPCS: 36415; 80053; 80061; 83036; 85025; 85610

== ENCOUNTER 2017-03-20 13:47 | Outpatient (CLI) | payer MEDICARE, OTHER, MEDICAID | END 2017-03-20 13:48 | disposition home or self-care (01) | LOC: NS 13:47 | PROVIDERS: ATTEND Physician Assistant Medical | DX: Z71.3 Dietary counseling and surveillance (principal); E66.9 Obesity, unspecified; E11.9 Type 2 diabetes mellitus without complications; N18.3 Chronic kidney disease, stage 3 (moderate); Z68.41 Body mass index [BMI] 40.0-44.9, adult | CPT/HCPCS: 97802 ==

== ENCOUNTER 2017-03-25 13:51 | Outpatient (CLI) | payer MEDICARE, OTHER, MEDICAID | END 2017-03-25 13:52 | disposition home or self-care (01) | LOC: SC 13:51 | PROVIDERS: ATTEND Nurse Practitioner Family | DX: G47.33 Obstructive sleep apnea (adult) (pediatric) (principal); G47.00 Insomnia, unspecified; R06.00 Dyspnea, unspecified; J44.9 Chronic obstructive pulmonary disease, unspecified | CPT/HCPCS: 71046; 99214; G0463; 99212 ==

== ENCOUNTER 2017-03-25 16:31 | Outpatient (CLI) | payer MEDICARE, OTHER, MEDICAID ==
--- NOTE | 2017-03-26 09:37 | XRAY Report ---
DATE OF SERVICE: 03/25/2017 TWO VIEW CHEST: 03/25/2017 CLINICAL INDICATION: Dyspnea. COMPARISON: 10/10/2016, chest CT of 11/10/2016. FINDINGS: Frontal and lateral views of the chest demonstrate a normal cardiac silhouette. Linear scarring or fibrosis at the left base is stable. No focal consolidation, effusion, or pneumothorax is present. IMPRESSION: STABLE LINEAR SCARRING OR FIBROSIS AT THE LEFT BASE. COPD. TD: 03/26/2017 10:36
== END 2017-03-25 16:32 | disposition home or self-care (01) ==
LOC: DI 16:31
PROVIDERS: ATTEND Nurse Practitioner Family
DX: R06.09 Other forms of dyspnea (principal); J44.9 Chronic obstructive pulmonary disease, unspecified
CPT/HCPCS: 71046

== ENCOUNTER 2017-03-27 14:00 | Outpatient (CLI) | payer MEDICARE, OTHER, MEDICAID | END 2017-03-27 14:01 | disposition home or self-care (01) | LOC: LAB 14:00 | PROVIDERS: ATTEND Internal Medicine | DX: I26.99 Other pulmonary embolism without acute cor pulmonale (principal); I82.529 Chronic embolism and thrombosis of unspecified iliac vein; Z79.01 Long term (current) use of anticoagulants | CPT/HCPCS: 85610 ==

== ENCOUNTER 2017-04-03 12:23 | Outpatient (CLI) | payer MEDICARE, OTHER, MEDICAID | END 2017-04-03 12:24 | disposition home or self-care (01) | LOC: LAB 12:23 | PROVIDERS: ATTEND Internal Medicine | DX: I26.99 Other pulmonary embolism without acute cor pulmonale (principal); I82.529 Chronic embolism and thrombosis of unspecified iliac vein; Z79.01 Long term (current) use of anticoagulants | CPT/HCPCS: 85610 ==

== ENCOUNTER 2017-04-17 13:44 | Outpatient (CLI) | payer MEDICARE, OTHER, MEDICAID | END 2017-04-17 13:45 | disposition home or self-care (01) | LOC: LAB 13:44 | PROVIDERS: ATTEND Internal Medicine | DX: I26.99 Other pulmonary embolism without acute cor pulmonale (principal); I82.529 Chronic embolism and thrombosis of unspecified iliac vein; Z79.01 Long term (current) use of anticoagulants | CPT/HCPCS: 85610 ==

== ENCOUNTER 2017-04-17 14:24 | Outpatient (CLI) | payer MEDICARE, OTHER, MEDICAID | END 2017-04-17 14:25 | disposition home or self-care (01) | LOC: NS 14:24 | PROVIDERS: ATTEND Physician Assistant Medical | DX: Z71.3 Dietary counseling and surveillance (principal); E11.9 Type 2 diabetes mellitus without complications; N18.3 Chronic kidney disease, stage 3 (moderate); E66.9 Obesity, unspecified; I82.529 Chronic embolism and thrombosis of unspecified iliac vein; I26.99 Other pulmonary embolism without acute cor pulmonale; Z79.01 Long term (current) use of anticoagulants; Z68.41 Body mass index [BMI] 40.0-44.9, adult | CPT/HCPCS: 85610; 97803 ==

== ENCOUNTER 2017-04-24 13:14 | Outpatient (CLI) | payer MEDICARE, OTHER, MEDICAID ==
[2017-04-24 15:41] LABS: BASOPHILS # (AUTO) 0.1 10^3/uL (0.0-0.1); EOSINOPHILS # (AUTO) 0.2 10^3/uL (0.0-0.7); HGB - HEMOGLOBIN 13.8 g/dL (12.0-16.0); LYMPHOCYTES % (AUTO) 21.7 %; MEAN CORPUSCULAR HEMOGLOBIN 30.7 pg (27.0-31.0); MEAN CORPUSCULAR HGB CONC 32.6 g/dL (32.0-36.0); MEAN PLATELET VOLUME 8.1 fL (7.9-10.8); MONOCYTES # (AUTO) 0.7 10^3/uL (0.0-1.0); MONOCYTES % (AUTO) 7.1 %; NEUTROPHILS # (AUTO) 6.3 10^3/uL (1.5-6.6); NEUTROPHILS % (AUTO) 68.2 %; PLT - PLATELET COUNT 239 10^3/uL (130-450); RED BLOOD COUNT 4.49 10^6/uL (4.20-5.40); RED CELL DISTRIBUTION WIDTH 16.8 % (12.0-15.0); WHITE BLOOD COUNT 9.2 x10^3/uL (4.8-10.8)
[2017-04-24 15:47] LABS: ALBUMIN 3.9 g/dL (3.2-5.5); ALBUMIN/GLOBULIN RATIO 1.1 (1.0-2.2); BILIRUBIN,TOTAL 0.7 mg/dL (0.2-1.0); CALCIUM 9.3 mg/dL (8.5-10.3); CREATININE 1.2 mg/dL (0.4-1.0); TOTAL PROTEIN 7.4 g/dL (6.7-8.2)
--- NOTE | 2017-04-24 18:03 | XRAY Report ---
TWO VIEW CHEST: 04/24/2017 CLINICAL INDICATION: Dyspnea. COMPARISON: 03/25/2017 FINDINGS: Frontal and lateral views of the chest demonstrate a normal cardiac silhouette. Left basilar scarring is stable, as are fibrotic changes. No focal consolidation, effusion, or pneumothorax is present. IMPRESSION: STABLE COPD AND FIBROSIS. NO SIGNIFICANT INTERVAL CHANGE. TD: 04/24/2017 18:02
== END 2017-04-24 13:15 | disposition home or self-care (01) ==
LOC: LAB 13:14
PROVIDERS: ATTEND Internal Medicine
DX: J44.9 Chronic obstructive pulmonary disease, unspecified (principal); J84.10 Pulmonary fibrosis, unspecified; I48.91 Unspecified atrial fibrillation; I26.99 Other pulmonary embolism without acute cor pulmonale; I82.529 Chronic embolism and thrombosis of unspecified iliac vein; Z79.01 Long term (current) use of anticoagulants
CPT/HCPCS: 36415; 71046; 80053; 83880; 85025; 85610

== ENCOUNTER 2017-05-01 13:43 | Outpatient (CLI) | payer MEDICARE, OTHER, MEDICAID | END 2017-05-01 13:44 | disposition home or self-care (01) | LOC: LAB 13:43 | PROVIDERS: ATTEND Internal Medicine | DX: I26.99 Other pulmonary embolism without acute cor pulmonale (principal); I82.529 Chronic embolism and thrombosis of unspecified iliac vein; Z79.01 Long term (current) use of anticoagulants | CPT/HCPCS: 85610 ==

== ENCOUNTER 2017-05-02 13:23 | Outpatient (CLI) | payer MEDICARE, OTHER, MEDICAID | END 2017-05-02 13:24 | disposition home or self-care (01) | LOC: LAB 13:23 | PROVIDERS: ATTEND Physician Assistant Medical | DX: N39.0 Urinary tract infection, site not specified (principal) | CPT/HCPCS: 87086 ==

== ENCOUNTER 2017-05-08 15:22 | Outpatient (CLI) | payer MEDICARE, OTHER, MEDICAID | END 2017-05-08 15:23 | disposition home or self-care (01) | LOC: LAB 15:22 | PROVIDERS: ATTEND Internal Medicine | DX: I26.99 Other pulmonary embolism without acute cor pulmonale (principal); I82.529 Chronic embolism and thrombosis of unspecified iliac vein; Z79.01 Long term (current) use of anticoagulants | CPT/HCPCS: 85610 ==

== ENCOUNTER 2017-05-09 16:16 | Emergency (ER) | payer MEDICARE, OTHER, MEDICAID ==
[2017-05-09 18:05] LABS: BASOPHILS # (AUTO) 0.1 10^3/uL (0.0-0.1); BASOPHILS % (AUTO) 1.1 %; EOSINOPHILS # (AUTO) 0.2 10^3/uL (0.0-0.7); EOSINOPHILS % (AUTO) 2.2 %; HGB - HEMOGLOBIN 13.4 g/dL (12.0-16.0); LYMPHOCYTES # (AUTO) 2.5 10^3/uL (1.5-3.5); LYMPHOCYTES % (AUTO) 22.9 %; MEAN CORPUSCULAR HEMOGLOBIN 30.5 pg (27.0-31.0); MEAN CORPUSCULAR HGB CONC 32.3 g/dL (32.0-36.0); MEAN CORPUSCULAR VOLUME 94.4 fL (81.0-99.0); MEAN PLATELET VOLUME 7.8 fL (7.9-10.8); MONOCYTES # (AUTO) 0.8 10^3/uL (0.0-1.0); MONOCYTES % (AUTO) 7.2 %; NEUTROPHILS # (AUTO) 7.2 10^3/uL (1.5-6.6); NEUTROPHILS % (AUTO) 66.6 %; PLT - PLATELET COUNT 254 10^3/uL (130-450); RED BLOOD COUNT 4.39 10^6/uL (4.20-5.40); RED CELL DISTRIBUTION WIDTH 17.2 % (12.0-15.0); WHITE BLOOD COUNT 10.8 x10^3/uL (4.8-10.8)
[2017-05-09 18:16] LABS: INR 1.7 (0.8-1.2); PT - PROTHROMBIN TIME 18.9 secs (9.9-12.6)
[2017-05-09] MEDS ORDERED: FUROSEMIDE 20 MG/2 ML VIAL IVP STA (18:17)
[2017-05-09] MEDS ORDERED: ALBUTEROL NEB 2.5 MG/3 ML INH STA (18:17)
[2017-05-09 18:18] LABS: TROPONIN I < 0.04 ng/mL (<0.49)
--- NOTE | 2017-05-09 18:19 | ED Physician Documentation ---
PD HPI DYSPNEA - Stated complaint Stated Complaint: SOA - Chief complaint Chief Complaint: Cardiac - History obtained from History obtained from: Patient - History of Present Illness Timing - onset: Other (This is an 86-year-old woman with history of pulmonary embolism and A. fib for which she is maintained on warfarin, she also has sleep apnea and uses BiPAP. For the last week she has been short of breath with exertion but it is not positional. She denies pedal edema. There is no cough. She has had constant mild chest pressure with it. Records were reviewed, she had an echocardiogram last year showing mild LVH with an EF of 50-55%, mild MR and mildly high right heart pressures.) Review of Systems Ten Systems: 10 systems reviewed and negative Constitutional: reports: Fatigue. denies: Fever, Chills Throat: denies: Dental pain / toothache, Sore throat Cardiac: reports: Chest pain / pressure. denies: Palpitations, Pedal edema, Calf pain Respiratory: reports: Dyspnea. denies: Cough GI: denies: Abdominal Pain, Nausea, Vomiting PD PAST MEDICAL HISTORY - Past Medical History Past Medical History: Yes Cardiovascular: Hypertension, High cholesterol, Deep vein thrombosis, Pulmonary embolism Respiratory: Shortness of breath, Sleep apnea, CPAP use Neuro: None Endocrine/Autoimmune: Type 2 diabetes GI: GERD : Incontinence, Nocturia, Kidney stones HEENT: Chronic vision loss, Glaucoma, Chronic sinusitis Psych: Depression Musculoskeletal: Osteoarthritis, Osteoporosis, Fatigue, Chronic back pain Derm: None - Past Surgical History Past Surgical History: Yes General: EGD, Colonoscopy 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, 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, 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 HEENT: Cataracts, Other - Present Medications Home Medications: Ambulatory Orders Medication Instructions Recorded Confirmed Amlodipine Besylate 5 mg PO DAILY 07/31/12 10/10/16 Esomeprazole Magnesium [Nexium] 40 mg PO DAILY 03/08/14 10/10/16 Carboxymethylcellulose Sodium 1 drop EACHEYE QID PRN 01/16/15 10/10/16 [Refresh Tears] Latanoprost 0.005% Ophth Drops 1 drop RIGHTEYE QPM 01/16/15 10/10/16 [Xalatan Ophth Drops] Warfarin [Coumadin] 2.5 - 5 mg PO QDWARFARIN 04/23/15 10/10/16 DULoxetine [Cymbalta] 30 mg PO BID 05/17/15 10/10/16 Docusate Sodium 100 - 200 mg PO DAILY PRN 02/21/16 10/10/16 Hydrocodone/Acetaminophen 1 tab PO DAILY PRN 06/27/16 10/10/16 [Hydrocodone-Acetamin 7.5-325] Multivitamin [Theragran] 1 tab PO DAILY 06/27/16 10/10/16 Cetirizine HCl 10 mg PO DAILY 08/01/16 10/10/16 Magnesium Oxide [Mag Ox] 400 mg PO 0800 08/01/16 10/10/16 Metoprolol Tartrate [Metoprolol 75 mg PO BID 08/01/16 10/10/16 Tartrate] Melatonin 8 mg PO QPM 08/03/16 10/10/16 Albuterol Sulfate [Proair Hfa 2 puffs IH QID #1 hfa.aer.ad 10/10/16 Inhaler] HYDROcod/ACETAM 5/325 [[place] 5/325] 1 tab PO Q6H PRN #25 tablet 11/10/16 - Allergies Allergies/Adverse Reactions: Allergies Allergy/AdvReac Type Severity Reaction Status Date / Time Penicillins Allergy Rash Verified 05/09/17 16:37 prednisone Allergy Rash Verified 05/09/17 16:37 DEBBIE Inhibitors AdvReac Intermediate cough Verified 05/09/17 16:37 - Social History Does the pt smoke?: No Smoking Status: Never smoker Does the pt drink ETOH?: No Does the pt have substance abuse?: No - Immunizations Immunizations are current?: Yes - POLST Patient has POLST: No PD ED PE NORMAL - Vitals Vital signs reviewed: Yes - General General: Alert and oriented X 3, No acute distress - HEENT HEENT: PERRL, EOMI - Neck Neck: Supple, no meningeal sign, No bony TTP - Cardiac Cardiac: RRR, No murmur - Respiratory Respiratory: Other (Mild bibasilar rhonchi) - Abdomen Abdomen: Soft, Non tender - Back Back: No CVA TTP, No spinal TTP - Extremities Extremities: Other (Slight pitting pedal edema of both legs) - Neuro Neuro: Alert and oriented X 3, Normal speech Results - Vitals Vitals: Vital Signs - 24 hr 03/16/18 03/16/18 03/16/18 16:29 17:30 18:30 Temperature 36 C L Heart Rate 60 77 90 Respiratory 24 24 22 Rate Blood Pressure 132/74 H 116/75 134/80 H O2 Saturation 96 94 94 05/09/17 05/09/17 18:31 19:03 Temperature Heart Rate 95 86 Respiratory 14 20 Rate Blood Pressure O2 Saturation 95 Oxygen O2 Source [] Nasal cannula O2 Source Room air - EKG (time done) 1632 Rate: Rate (enter#) (102) Rhythm: NSR (Sinus rhythm with frequent PACs) Intervals: Prolonged MT Ischemia: Other (She has a right bundle branch block and tiny Q waves in the anterior septal areas which are old compared with an EKG dated October 10, 2016.) . No: ST elevation c/w ischemia Computer interpretation: Agree with computer - Labs Labs: Laboratory Tests 05/09/17 05/09/17 05/09/17 17:56 17:56 17:56 WBC 10.8 RBC 4.39 Hgb 13.4 Hct 41.5 MCV 94.4 MCH 30.5 MCHC 32.3 RDW 17.2 H Plt Count 254 MPV 7.8 L Neut # 7.2 H Lymph # 2.5 [place] # 0.8 Eos # 0.2 Baso # 0.1 Absolute Nucleated RBC 0.00 Nucleated RBC % 0.0 PT 18.9 H INR 1.7 H Sodium 134 L Potassium 4.0 Chloride 102 Carbon Dioxide 23 Anion Gap 9.0 BUN 25 H Creatinine 1.1 H Estimated GFR (MDRD) 47 L Glucose 148 H Calcium 9.1 Total Bilirubin 0.5 AST 27 ALT 35 Alkaline Phosphatase 62 Total Creatine Kinase 42 CK-MB (CK-2) Troponin I B-Natriuretic Peptide Total Protein 7.2 Albumin 4.0 Globulin 3.2 Albumin/Globulin Ratio 1.3 Lipase < 10 L 05/09/17 05/09/17 17:56 17:56 WBC RBC Hgb Hct MCV MCH MCHC RDW Plt Count MPV Neut # Lymph # [place] # Eos # Baso # Absolute Nucleated RBC Nucleated RBC % PT INR Sodium Potassium Chloride Carbon Dioxide Anion Gap BUN Creatinine Estimated GFR (MDRD) Glucose Calcium Total Bilirubin AST ALT Alkaline Phosphatase Total Creatine Kinase CK-MB (CK-2) 1.4 Troponin I < 0.04 B-Natriuretic Peptide 325 H Total Protein Albumin Globulin Albumin/Globulin Ratio Lipase PD MEDICAL DECISION MAKING - ED course ED course: This is an 86-year-old woman who presents with nonspecific dyspnea, she may be in mild CHF and she is administered Lasix and albuterol. PE is considered, but she is not tachycardic and she is anticoagulated. Of note talking to her I think another component is she seems profoundly depressed. She is talking about how her family never visits even though they live locally. Departure - Departure Disposition: Home, Self Care Clinical Impression: Congestive heart failure Qualifiers: Congestive heart failure type: unspecified Congestive heart failure chronicity : acute Qualified Code(s): I50.9 - Heart failure, unspecified Condition: Good Record reviewed to determine appropriate education?: Yes Instructions: ED CHF General Comments: Your INR was 1.7 today, we gave you an extra dose. Also a dose of Lasix to take some of the extra fluid off. Follow-up with Dr. giraldo on Friday and return if worse. Discharge Date/Time: 05/09/17 19:05
[2017-05-09 18:21] LABS: CREATINE KINASE MB 1.4 ng/mL (0.6-6.3)
--- NOTE | 2017-05-09 18:31 | XRAY Report ---
EXAM: CHEST RADIOGRAPHY EXAM DATE: 05/09/2017 05:56 PM. CLINICAL HISTORY: Dyspnea x1 week. COMPARISON: 04/24/2017. TECHNIQUE: 1 view. FINDINGS: Lungs/Pleura: Stable mild left basilar atelectasis or scarring. No consolidation or pulmonary edema. Stable mild diffuse interstitial prominence. No pneumothorax or obvious pleural effusion. Mediastinum: Stable cardiomediastinal silhouette. Other: No acute fracture evident. Right-sided surgical clips. IMPRESSION: 1. No acute cardiopulmonary findings or significant change. [facility] Referring Provider Line: [phone] SITE ID: [id number]
--- NOTE | 2017-05-09 18:31 | XRAY Preliminary Report ---
Exam: XR CHEST 1 VIEW X-RAY IMPRESSION: 1. No acute cardiopulmonary findings or significant change. [facility] SITE ID: [id number]
[2017-05-09 18:40] LABS: ALBUMIN/GLOBULIN RATIO 1.3 (1.0-2.2); ALKALINE PHOSPHATASE 62 IU/L (42-121); ALT ALANINE AMINOTRANSFERASE 35 IU/L (10-60); AST ASPARTATE AMINOTRANSFERASE 27 IU/L (10-42); BILIRUBIN,TOTAL 0.5 mg/dL (0.2-1.0); BUN - BLOOD UREA NITROGEN 25 mg/dL (6-20); CALCIUM 9.1 mg/dL (8.5-10.3); CARBON DIOXIDE - CO2 23 mmol/L (21-32); CHLORIDE 102 mmol/L (101-111); CK- CREATINE KINASE 42 IU/L (22-269); CREATININE 1.1 mg/dL (0.4-1.0); GFR - MDRD 47 (>89); GLUCOSE 148 mg/dL (70-100); SODIUM 134 mmol/L (135-145); TOTAL PROTEIN 7.2 g/dL (6.7-8.2)
[2017-05-09] MEDS ORDERED: WARFARIN 5 MG TABLET PO STA (18:48)
[2017-05-09 18:57] VITALS: BP 134/80
[2017-05-09 19:21] LABS: LIPASE < 10 U/L (22-51)
== END 2017-05-09 19:05 | disposition home or self-care (01) ==
LOC: ED 16:16
DX: I11.0 Hypertensive heart disease with heart failure (principal); I50.9 Heart failure, unspecified; E78.00 Pure hypercholesterolemia, unspecified; E11.9 Type 2 diabetes mellitus without complications; I48.91 Unspecified atrial fibrillation; I45.81 Long QT syndrome; I45.10 Unspecified right bundle-branch block; R00.8 Other abnormalities of heart beat; Z86.711 Personal history of pulmonary embolism; Z86.718 Personal history of other venous thrombosis and embolism; Z79.01 Long term (current) use of anticoagulants
CPT/HCPCS: 36415; 71045; 80053; 82550; 82553; 83690; 83880; 84484; 85025; 85610; 93005; 94640; 96374; 99283; 99284; A9270

== ENCOUNTER 2017-05-15 12:54 | Outpatient (CLI) | payer MEDICARE, OTHER, MEDICAID | END 2017-05-15 12:55 | disposition home or self-care (01) | LOC: LAB 12:54 | PROVIDERS: ATTEND Internal Medicine | DX: I26.99 Other pulmonary embolism without acute cor pulmonale (principal); I82.529 Chronic embolism and thrombosis of unspecified iliac vein; Z79.01 Long term (current) use of anticoagulants | CPT/HCPCS: 85610 ==

== ENCOUNTER 2017-05-15 12:58 | Outpatient (CLI) | payer MEDICARE, OTHER, MEDICAID | END 2017-05-15 12:59 | disposition home or self-care (01) | LOC: NS 12:58 | PROVIDERS: ATTEND Physician Assistant Medical | DX: Z71.3 Dietary counseling and surveillance (principal); I26.99 Other pulmonary embolism without acute cor pulmonale; I82.529 Chronic embolism and thrombosis of unspecified iliac vein; E66.9 Obesity, unspecified; E11.22 Type 2 diabetes mellitus with diabetic chronic kidney disease; N18.3 Chronic kidney disease, stage 3 (moderate); Z79.01 Long term (current) use of anticoagulants; Z79.84 Long term (current) use of oral hypoglycemic drugs; Z68.41 Body mass index [BMI] 40.0-44.9, adult | CPT/HCPCS: 85610; 97803 ==

== ENCOUNTER 2017-05-22 14:15 | Outpatient (CLI) | payer MEDICARE, OTHER, MEDICAID | END 2017-05-22 14:16 | disposition home or self-care (01) | LOC: LAB 14:15 | PROVIDERS: ATTEND Internal Medicine | DX: I26.99 Other pulmonary embolism without acute cor pulmonale (principal); I82.529 Chronic embolism and thrombosis of unspecified iliac vein; Z79.01 Long term (current) use of anticoagulants | CPT/HCPCS: 85610 ==

== ENCOUNTER 2017-05-29 13:56 | Emergency (ER) | payer MEDICARE, OTHER, MEDICAID ==
--- NOTE | 2017-05-29 14:17 | ED Physician Documentation ---
PD HPI FOCAL NEURO - Stated complaint Stated Complaint: DIZZY/WEAK/FATIGUE - Chief complaint Chief Complaint: Neuro - History obtained from History obtained from: Patient - History of Present Illness Timing - onset: Other (This is a ru 86-year-old woman with history of PE on warfarin, also A. fib, obesity, and right-sided breast cancer as well as sleep apnea on BiPAP at night. She feels profoundly weak starting this morning, there is no other specific complaint. Weakness is all over and not associated with shortness of breath more than normal, chest pain, abdominal pain. She is constipated but has not noted any dark or tarry stools. She denies pedal edema , wheezing. No urinary complaints.) Review of Systems Constitutional: reports: Fatigue. denies: Fever, Chills, Myalgias Nose: denies: Rhinorrhea / runny nose, Congestion Throat: denies: Sore throat Cardiac: denies: Chest pain / pressure, Palpitations Respiratory: reports: Dyspnea (Always, not more than normal) GI: reports: Constipation. 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, 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, 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 HEENT: Cataracts, Other - Present Medications Home Medications: Ambulatory Orders Medication Instructions Recorded Confirmed Amlodipine Besylate 5 mg PO DAILY 07/31/12 10/10/16 Esomeprazole Magnesium [Nexium] 40 mg PO DAILY 03/08/14 10/10/16 Carboxymethylcellulose Sodium 1 drop EACHEYE QID PRN 01/16/15 10/10/16 [Refresh Tears] Latanoprost 0.005% Ophth Drops 1 drop RIGHTEYE QPM 01/16/15 10/10/16 [Xalatan Ophth Drops] Warfarin [Coumadin] 2.5 - 5 mg PO QDWARFARIN 04/23/15 10/10/16 DULoxetine [Cymbalta] 30 mg PO BID 05/17/15 10/10/16 Docusate Sodium 100 - 200 mg PO DAILY PRN 02/21/16 10/10/16 Hydrocodone/Acetaminophen 1 tab PO DAILY PRN 06/27/16 10/10/16 [Hydrocodone-Acetamin 7.5-325] Multivitamin [Theragran] 1 tab PO DAILY 06/27/16 10/10/16 Cetirizine HCl 10 mg PO DAILY 08/01/16 10/10/16 Magnesium Oxide [Mag Ox] 400 mg PO 0800 08/01/16 10/10/16 Metoprolol Tartrate [Metoprolol 75 mg PO BID 08/01/16 10/10/16 Tartrate] Melatonin 8 mg PO QPM 08/03/16 10/10/16 Albuterol Sulfate [Proair Hfa 2 puffs IH QID #1 hfa.aer.ad 10/10/16 Inhaler] HYDROcod/ACETAM 5/325 [[place] 5/325] 1 tab PO Q6H PRN #25 tablet 11/10/16 - Allergies Allergies/Adverse Reactions: Allergies Allergy/AdvReac Type Severity Reaction Status Date / Time Penicillins Allergy Rash Verified 05/09/17 16:37 prednisone Allergy Rash Verified 05/09/17 16:37 DEBBIE Inhibitors AdvReac Intermediate cough Verified 05/09/17 16:37 - Social History Does the pt smoke?: No Smoking Status: Never smoker Does the pt drink ETOH?: No Does the pt have substance abuse?: No - Family History Family history: reports: Non contributory - Immunizations Immunizations are current?: Yes - POLST Patient has POLST: No PD ED PE NORMAL - Vitals Vital signs reviewed: Yes - General General: Alert and oriented X 3, Other (She looks ill, slightly slow to answer questions and somnolent but alert and oriented and cooperative.) - HEENT HEENT: PERRL, EOMI - Neck Neck: Supple, no meningeal sign, No bony TTP - Cardiac Cardiac: RRR, No murmur - Respiratory Respiratory: No respiratory distress, Clear bilaterally - Abdomen Abdomen: Normal bowel sounds, Soft, Non tender - Back Back: No CVA TTP, No spinal TTP - Derm Derm: Normal color, Warm and dry - Extremities Extremities: No edema, No calf tenderness / cord - Neuro Neuro: Alert and oriented X 3, Normal speech, Other (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 Rate: Rate (enter#) (55) Rhythm: NSR [place]: Normal Intervals: RBBB Compare to prior EKG: Unchanged from prior EKG (Compared with May 09 of this year, she has decreased extrasystoles, otherwise there is no interval change.) Computer interpretation: Agree with computer - Labs Labs: Laboratory Tests 05/29/17 05/29/17 05/29/17 14:12 14:16 14:16 WBC 10.5 RBC 4.57 Hgb 14.4 Hct 42.9 MCV 93.9 MCH 31.5 H MCHC 33.6 RDW 17.1 H Plt Count 257 MPV 8.2 Neut # 7.0 H Lymph # 2.4 [place] # 0.8 Eos # 0.2 Baso # 0.1 Absolute Nucleated RBC 0.00 Nucleated RBC % 0.0 PT INR Sodium Potassium Chloride Carbon Dioxide Anion Gap BUN Creatinine Estimated GFR (MDRD) Glucose POC Whole Bld Glucose 160 H Lactic Acid Calcium Total Bilirubin AST ALT Alkaline Phosphatase Total Creatine Kinase CK-MB (CK-2) Troponin I Total Protein Albumin Globulin Albumin/Globulin Ratio Lipase Urine Color Urine Clarity Urine pH Ur Specific [place] Urine Protein Urine Glucose (UA) Urine Ketones Urine Occult Blood Urine Nitrite Urine Bilirubin Urine Urobilinogen Ur Leukocyte Esterase Urine RBC Urine WBC Ur Squamous Epith Cells Urine Bacteria Ur Microscopic Review Urine Culture Comments Blood Type A POSITIVE Antibody Screen NEGATIVE 05/29/17 05/29/17 05/29/17 14:16 14:16 14:23 WBC RBC Hgb Hct MCV MCH MCHC RDW Plt Count MPV Neut # Lymph # [place] # Eos # Baso # Absolute Nucleated RBC Nucleated RBC % PT INR Sodium 136 Potassium 4.4 Chloride 104 Carbon Dioxide 24 Anion Gap 8.0 BUN 31 H Creatinine 1.3 H Estimated GFR (MDRD) 39 L Glucose 164 H POC Whole Bld Glucose Lactic Acid 1.4 Calcium 9.4 Total Bilirubin 0.7 AST 26 ALT 29 Alkaline Phosphatase 74 Total Creatine Kinase 50 CK-MB (CK-2) 1.9 Troponin I < 0.04 Total Protein 7.5 Albumin 4.1 Globulin 3.4 Albumin/Globulin Ratio 1.2 Lipase 10 L Urine Color Urine Clarity Urine pH Ur Specific [place] Urine Protein Urine Glucose (UA) Urine Ketones Urine Occult Blood Urine Nitrite Urine Bilirubin Urine Urobilinogen Ur Leukocyte Esterase Urine RBC Urine WBC Ur Squamous Epith Cells Urine Bacteria Ur Microscopic Review Urine Culture Comments Blood Type Antibody Screen 05/29/17 05/29/17 14:56 16:25 WBC RBC Hgb Hct MCV MCH MCHC RDW Plt Count MPV Neut # Lymph # [place] # Eos # Baso # Absolute Nucleated RBC Nucleated RBC % PT 29.9 H INR 2.8 H Sodium Potassium Chloride Carbon Dioxide Anion Gap BUN Creatinine Estimated GFR (MDRD) Glucose POC Whole Bld Glucose Lactic Acid Calcium Total Bilirubin AST ALT Alkaline Phosphatase Total Creatine Kinase CK-MB (CK-2) Troponin I Total Protein Albumin Globulin Albumin/Globulin Ratio Lipase Urine Color YELLOW Urine Clarity CLEAR Urine pH 6.0 Ur Specific [place] 1.020 Urine Protein NEGATIVE Urine Glucose (UA) NEGATIVE Urine Ketones NEGATIVE Urine Occult Blood SMALL H Urine Nitrite NEGATIVE Urine Bilirubin NEGATIVE Urine Urobilinogen 0.2 (NORMAL) Ur Leukocyte Esterase NEGATIVE Urine RBC 0-5 Urine WBC 0-3 Ur Squamous Epith Cells MANY Squamous H Urine Bacteria Few Ur Microscopic Review INDICATED Urine Culture Comments NOT INDICATED Blood Type Antibody Screen - Rads (name of study) CT Head Radiology: EMP read contemporaneously (NAD) 1v chest Radiology: EMP read contemporaneously (NAD) PD MEDICAL DECISION MAKING - ED course ED course: 86-year-old woman with a nonspecific episode of weakness here that was not lateralizing or otherwise consistent with CVA. A thorough workup was undertaken with head CT, urinalysis, blood work, no acute findings were found. She was feeling better here and passed a "road test." Departure - Departure Disposition: 01 Home, Self Care Clinical Impression: Dizziness, Weakness Condition: Good Record reviewed to determine appropriate education?: Yes Instructions: ED Dizziness UKO Comments: Call your doctor to arrange a follow-up appointment, make the next available appointment. In the interim, return anytime if worse or if new symptoms develop.
[2017-05-29 14:35] LABS: BASOPHILS # (AUTO) 0.1 10^3/uL (0.0-0.1); EOSINOPHILS # (AUTO) 0.2 10^3/uL (0.0-0.7); EOSINOPHILS % (AUTO) 2.2 %; HGB - HEMOGLOBIN 14.4 g/dL (12.0-16.0); LYMPHOCYTES # (AUTO) 2.4 10^3/uL (1.5-3.5); LYMPHOCYTES % (AUTO) 22.9 %; MEAN CORPUSCULAR HEMOGLOBIN 31.5 pg (27.0-31.0); MEAN CORPUSCULAR HGB CONC 33.6 g/dL (32.0-36.0); MEAN CORPUSCULAR VOLUME 93.9 fL (81.0-99.0); MEAN PLATELET VOLUME 8.2 fL (7.9-10.8); MONOCYTES # (AUTO) 0.8 10^3/uL (0.0-1.0); MONOCYTES % (AUTO) 7.3 %; NEUTROPHILS % (AUTO) 66.6 %; PLT - PLATELET COUNT 257 10^3/uL (130-450); RED BLOOD COUNT 4.57 10^6/uL (4.20-5.40); RED CELL DISTRIBUTION WIDTH 17.1 % (12.0-15.0); WHITE BLOOD COUNT 10.5 x10^3/uL (4.8-10.8)
[2017-05-29 14:41] LABS: ALBUMIN 4.1 g/dL (3.2-5.5); ALBUMIN/GLOBULIN RATIO 1.2 (1.0-2.2); BILIRUBIN,TOTAL 0.7 mg/dL (0.2-1.0); CALCIUM 9.4 mg/dL (8.5-10.3); CREATININE 1.3 mg/dL (0.4-1.0); TOTAL PROTEIN 7.5 g/dL (6.7-8.2)
--- NOTE | 2017-05-29 14:45 | CT Report ---
EXAM: CT HEAD EXAM DATE: 05/29/2017 02:39 PM. CLINICAL HISTORY: Weakness. COMPARISON: None. TECHNIQUE: Multiaxial CT images were obtained from the foramen magnum to the vertex. Reformats: Coron al. IV contrast: None. In accordance with CT protocol optimization, one or more of the following dose reduction techniques w ere utilized for this exam: automated exposure control, adjustment of mA and/or KV based on patient s ize, or use of iterative reconstructive technique. FINDINGS: Parenchyma: No intraparenchymal hemorrhage. No evidence of mass, midline shift, or CT findings of inf arction. Seaman-white differentiation is distinct. Extraaxial Spaces: There is generalized volume loss. No subdural or epidural collections identified. Ventricles: Normal in size and position. Sinuses and Orbits: No acute paranasal sinus opacification. Patient has undergone left orbital globe surgery. Mastoid air cells are clear. Bones: No evidence of fracture or calvarial defect. Other: None. IMPRESSION: No acute intracranial CT abnormality. [facility] Referring Provider Line: [phone] SITE ID: [id number]
[2017-05-29 14:46] LABS: TROPONIN I < 0.04 ng/mL (<0.49)
[2017-05-29 14:48] LABS: CREATINE KINASE MB 1.9 ng/mL (0.6-6.3)
--- NOTE | 2017-05-29 15:07 | XRAY Report ---
EXAM: CHEST RADIOGRAPHY EXAM DATE: 05/29/2017 02:43 PM. CLINICAL HISTORY: Weakness. COMPARISON: 05/09/2017. TECHNIQUE: 1 view. FINDINGS: Lungs/Pleura: Somewhat limited secondary to body habitus and AP technique. No apparent focal consolidation or evide nce of edema. No pleural effusion. Mediastinum: Within exam limitations, the cardiomediastinal contour is normal. Other: None. IMPRESSION: Mildly limited exam. No apparent acute disease. [facility] Referring Provider Line: [phone] SITE ID: [id number]
--- NOTE | 2017-05-29 15:07 | XRAY Preliminary Report ---
Exam: XR CHEST 1 VIEW X-RAY IMPRESSION: Mildly limited exam. No apparent acute disease. [facility] SITE ID: [id number]
[2017-05-29 15:15] LABS: INR 2.8 (0.8-1.2); PT - PROTHROMBIN TIME 29.9 secs (9.9-12.6)
[2017-05-29 16:05] VITALS: BP 119/57
[2017-05-29 16:31] LABS: BILIRUBIN,URINE NEGATIVE (NEGATIVE); GLUCOSE, URINE (UA) NEGATIVE (NEGATIVE); KETONES,URINE (UA) NEGATIVE (NEGATIVE); LEUKOCYTE ESTERASE, URINE NEGATIVE (NEGATIVE); NITRITE,URINE NEGATIVE (NEGATIVE); OCCULT BLOOD,URINE SMALL (NEGATIVE); PROTEIN,URINE NEGATIVE (NEGATIVE); UROBILINOGEN,URINE 0.2 (NORMAL) E.U./dL (NORMAL)
[2017-05-29 16:32] LABS: CLARITY,URINE CLEAR (CLEAR)
[2017-05-29 16:38] LABS: BACTERIA,URINE Few /HPF (None Seen); RBC,URINE 0-5 /HPF (0-5); SQUAMOUS EPITHELIAL CELL,UR MANY Squamous (<= Few)
== END 2017-05-29 17:00 | disposition home or self-care (01) ==
LOC: ED 13:56
DX: R42 Dizziness and giddiness (principal); R53.1 Weakness; I45.10 Unspecified right bundle-branch block; I10 Essential (primary) hypertension; Z86.711 Personal history of pulmonary embolism; Z79.01 Long term (current) use of anticoagulants; E11.9 Type 2 diabetes mellitus without complications; G47.30 Sleep apnea, unspecified; E66.9 Obesity, unspecified; Z85.3 Personal history of malignant neoplasm of breast
CPT/HCPCS: 36415; 70450; 71045; 80053; 81001; 81003; 82550; 82553; 83605; 83690; 84484; 85025; 85610; 86850; 86900; 86901; 87086; 93005; 99284

== ENCOUNTER 2017-06-05 13:15 | Outpatient (CLI) | payer MEDICAID, MEDICARE, OTHER ==
[2017-06-05 14:01] LABS: INR 2.4 (0.8-1.2); PT - PROTHROMBIN TIME 26.5 secs (9.9-12.6)
[2017-06-05 14:09] LABS: CALCIUM 9.4 mg/dL (8.5-10.3); CREATININE 1.2 mg/dL (0.4-1.0)
[2017-06-05 15:42] LABS: HB2 TOTAL 15.1 g/dL; HEMOGLOBIN A1C 0.82 g/dL; HEMOGLOBIN A1C % 7.1 % (4.6-6.2)
== END 2017-06-05 13:16 | disposition home or self-care (01) ==
LOC: LAB 13:15
PROVIDERS: ATTEND Internal Medicine
DX: I26.99 Other pulmonary embolism without acute cor pulmonale (principal); I82.529 Chronic embolism and thrombosis of unspecified iliac vein; Z79.01 Long term (current) use of anticoagulants; E11.9 Type 2 diabetes mellitus without complications
CPT/HCPCS: 36415; 80048; 83036; 85610

== ENCOUNTER 2017-06-16 03:33 | Outpatient (CLI) | payer MEDICARE, OTHER, MEDICAID | END 2017-06-16 03:34 | disposition critical access hospital (66) | LOC: EMS 03:33 | PROVIDERS: ATTEND Surgery | DX: R07.89 Other chest pain (principal); M54.5 Low back pain; W01.198A Fall on same level from slipping, tripping and stumbling with subsequent striking against other object, initial encounter; Y92.009 Unspecified place in unspecified non-institutional (private) residence as the place of occurrence of the external cause | CPT/HCPCS: A0425; A0429 ==

== ENCOUNTER 2017-06-16 03:38 | Observation (INO) | payer MEDICARE, OTHER, MEDICAID ==
--- NOTE | 2017-06-16 04:24 | ED Physician Documentation ---
PD HPI Fall - Stated complaint Stated Complaint: GLF - CHEST AND BACK PAIN - Chief complaint Chief Complaint: Trauma Ch/Bk - History obtained from History obtained from: Patient - History of Present Illness Mechanism of injury: Tripped Fall distance: Standing position Where injury occurred: Home Timing - onset: How many minutes ago (approximately 30-40 minutes [employer]) Injury(ies) location: Chest, Back Pain level now: 8 Quality of pain: Pain Associated symptoms: No: LOC, AMS, Neck pain, Weakness, Dyspnea, Nausea / vomiting Symptoms improve with: Rest Worsens with: Movement Contributing factors: Anticoagulated. No: Intoxicated Recently seen: Emergency Dept (T+R earlier this month for generalized weakness) - Additional information Additional information: patient tripped over a box tonight, the corner of a wall struck her anterior chest and right face. denies WATKINS. She c/o chest pain, low back pain, and right facial pain Review of Systems Constitutional: reports: Reviewed and negative Eyes: reports: Reviewed and negative Ears: reports: Reviewed and negative Nose: reports: Reviewed and negative Throat: reports: Reviewed and negative Cardiac: reports: Chest pain / pressure. denies: Palpitations Respiratory: reports: Reviewed and negative GI: reports: Reviewed and negative : denies: Dysuria, Frequency, Hematuria Skin: denies: Abrasion (s), Laceration (s) Musculoskeletal: reports: Back pain. denies: Neck pain, Extremity pain Neurologic: reports: Generalized weakness, Head injury. denies: Focal weakness , Numbness, Headache, LOC PD PAST MEDICAL HISTORY - Past Medical History Cardiovascular: Hypertension, High cholesterol, Deep vein thrombosis, Pulmonary embolism Respiratory: Shortness of breath, Sleep apnea, CPAP use Neuro: None Endocrine/Autoimmune: Type 2 diabetes GI: GERD : Incontinence, Nocturia, Kidney stones HEENT: Chronic vision loss, Glaucoma, Chronic sinusitis Psych: Depression Musculoskeletal: Osteoarthritis, Osteoporosis, Fatigue, Chronic back pain Derm: None - Past Surgical History Past Surgical History: Yes General: EGD, Colonoscopy Ortho: Arthroscopic surgery /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: 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, Oophrectomy, Mastectomy HEENT: Cataracts, Other - Present Medications Home Medications: Ambulatory Orders Medication Instructions Recorded Confirmed Amlodipine Besylate 5 mg PO DAILY 07/31/12 10/10/16 Warfarin [Coumadin] 2.5 - 5 mg PO QDWARFARIN 04/23/15 10/10/16 DULoxetine [Cymbalta] 30 mg PO BID 05/17/15 10/10/16 Multivitamin [Theragran] 1 tab PO DAILY 06/27/16 10/10/16 Metoprolol Tartrate [Metoprolol 100 mg PO BID 08/01/16 10/10/16 Tartrate] Melatonin 8 mg PO QPM 08/03/16 10/10/16 Diltiazem HCl [Diltiazem 24Hr Cd] 240 mg PO DAILY 06/16/17 Furosemide [Furosemide] 20 mg PO DAILY 06/16/17 Omeprazole [Omeprazole] 40 mg PO DAILY 06/16/17 Potassium Chloride [Micro-K] 10 meq PO DAILY 06/16/17 buPROPion [Wellbutrin Sr] 75 mg PO DAILY 06/16/17 - Allergies Allergies/Adverse Reactions: Allergies Allergy/AdvReac Type Severity Reaction Status Date / Time Penicillins Allergy Rash Verified 06/16/17 03:43 prednisone Allergy Rash Verified 06/16/17 03:43 DEBBIE Inhibitors AdvReac Intermediate cough Verified 06/16/17 03:43 - Social History Does the pt smoke?: No Smoking Status: Never smoker Does the pt drink ETOH?: No Does the pt have substance abuse?: No - Immunizations Immunizations are current?: Yes - POLST Patient has POLST: No PD ED PE NORMAL - Vitals Vital signs reviewed: Yes - General General: Alert and oriented X 3, Well developed/nourished, Other (NAD at rest, painful distress with movement of trunk (such as trying to turn to either side or sit up; she is unable to do so due to pain)) - HEENT HEENT: PERRL, EOMI, Moist mucous membranes - Neck Neck: No bony TTP - Cardiac Cardiac: No murmur - Respiratory Respiratory: No respiratory distress, Clear bilaterally - Abdomen Abdomen: Soft, Non tender - Back Back: No CVA TTP, Other (mild tenderness upper lumbar spine without swelling or obvious/palpable deformity/step-off) - Derm Derm: Other (echymosis across upper chest, from left mid/upper chest to right anterolateral neck base; tenderness left and midline anterior chest wall. 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, No motor deficit, No sensory deficit, Normal speech Eye Opening: Spontaneous Motor: Obeys Commands Verbal: Oriented GCS Score: 15 Results - Vitals Vitals: Vital Signs - 24 hr 06/16/17 06/16/17 06/16/17 03:39 04:30 05:03 Temperature 36.6 C Heart Rate 73 84 83 Respiratory 20 22 21 Rate Blood Pressure 149/79 H 131/66 H 133/70 H O2 Saturation 92 95 95 06/16/17 06/16/17 06/16/17 05:47 06:37 08:00 Temperature Heart Rate 98 89 88 Respiratory 23 23 22 Rate Blood Pressure 135/75 H 128/80 142/90 H O2 Saturation 94 97 99 Oxygen O2 Source [With Activity] Nasal cannula O2 Source Room air - Labs Labs: Laboratory Tests 06/16/17 06/16/17 06/16/17 04:58 04:58 04:58 WBC 12.5 H RBC 4.20 Hgb 12.8 Hct 39.6 MCV 94.4 MCH 30.5 MCHC 32.3 RDW 16.9 H Plt Count 231 MPV 7.7 L Neut # 9.1 H Lymph # 2.1 Candler # 0.9 Eos # 0.2 Baso # 0.1 Absolute Nucleated RBC 0.00 Nucleated RBC % 0.0 PT INR APTT Sodium 137 Potassium 4.1 Chloride 102 Carbon Dioxide 26 Anion Gap 9.0 BUN 29 H Creatinine 1.5 H Estimated GFR (MDRD) 33 L Glucose 159 H Calcium 9.4 Troponin I < 0.04 Urine Color Urine Clarity Urine pH Ur Specific Hung[place] Horse Urine Protein Urine Glucose (UA) Urine Ketones Urine Occult Blood Urine Nitrite Urine Bilirubin Urine Urobilinogen Ur Leukocyte Esterase Ur Microscopic Review Urine Culture Comments 06/16/17 06/16/17 04:58 05:20 WBC RBC Hgb Hct MCV MCH MCHC RDW Plt Count MPV Neut # Lymph # Candler # Eos # Baso # Absolute Nucleated RBC Nucleated RBC % PT 33.6 H INR 3.1 H APTT 31.3 Sodium Potassium Chloride Carbon Dioxide Anion Gap BUN Creatinine Estimated GFR (MDRD) Glucose Calcium Troponin I Urine Color YELLOW Urine Clarity CLEAR Urine pH 6.5 Ur Specific [place] Horse 1.015 Urine Protein NEGATIVE Urine Glucose (UA) NEGATIVE Urine Ketones NEGATIVE Urine Occult Blood TRACE-LYSE Urine Nitrite NEGATIVE Urine Bilirubin NEGATIVE Urine Urobilinogen 0.2 (NORMAL) Ur Leukocyte Esterase NEGATIVE Ur Microscopic Review NOT INDICATED Urine Culture Comments NOT INDICATED - Rads (name of study) CT head Radiology: Prelim report reviewed, See rad report chest CT Radiology: Prelim report reviewed, See rad report PD MEDICAL DECISION MAKING - ED course Complexity details: reviewed old records, reviewed results, re-evaluated patient , considered differential, d/w patient Departure - Departure Disposition: ED Place in Observation Clinical Impression: Accidental fall, Rib fracture Condition: Stable Discharge Date/Time: 06/16/17 08:34
[2017-06-16 05:06] LABS: BASOPHILS # (AUTO) 0.1 10^3/uL (0.0-0.1); BASOPHILS % (AUTO) 1.1 %; EOSINOPHILS # (AUTO) 0.2 10^3/uL (0.0-0.7); HGB - HEMOGLOBIN 12.8 g/dL (12.0-16.0); LYMPHOCYTES # (AUTO) 2.1 10^3/uL (1.5-3.5); LYMPHOCYTES % (AUTO) 16.6 %; MEAN CORPUSCULAR HEMOGLOBIN 30.5 pg (27.0-31.0); MEAN CORPUSCULAR HGB CONC 32.3 g/dL (32.0-36.0); MEAN CORPUSCULAR VOLUME 94.4 fL (81.0-99.0); MEAN PLATELET VOLUME 7.7 fL (7.9-10.8); MONOCYTES # (AUTO) 0.9 10^3/uL (0.0-1.0); MONOCYTES % (AUTO) 7.5 %; NEUTROPHILS # (AUTO) 9.1 10^3/uL (1.5-6.6); NEUTROPHILS % (AUTO) 72.8 %; PLT - PLATELET COUNT 231 10^3/uL (130-450); RED CELL DISTRIBUTION WIDTH 16.9 % (12.0-15.0); WHITE BLOOD COUNT 12.5 x10^3/uL (4.8-10.8)
[2017-06-16 05:09] LABS: CALCIUM 9.4 mg/dL (8.5-10.3); CREATININE 1.5 mg/dL (0.4-1.0)
[2017-06-16 05:11] LABS: INR 3.1 (0.8-1.2); PT - PROTHROMBIN TIME 33.6 secs (9.9-12.6)
[2017-06-16 05:32] LABS: BILIRUBIN,URINE NEGATIVE (NEGATIVE); GLUCOSE, URINE (UA) NEGATIVE (NEGATIVE); KETONES,URINE (UA) NEGATIVE (NEGATIVE); LEUKOCYTE ESTERASE, URINE NEGATIVE (NEGATIVE); NITRITE,URINE NEGATIVE (NEGATIVE); OCCULT BLOOD,URINE TRACE-LYSE (NEGATIVE); PH,URINE 6.5 PH (5.0-7.5); PROTEIN,URINE NEGATIVE (NEGATIVE); UROBILINOGEN,URINE 0.2 (NORMAL) E.U./dL (NORMAL)
[2017-06-16 05:34] LABS: CLARITY,URINE CLEAR (CLEAR)
--- NOTE | 2017-06-16 06:00 | CT Report ---
EXAM: CT HEAD EXAM DATE: 06/16/2017 05:44 AM. CLINICAL HISTORY: Fall, head injury, on warfarin. COMPARISON: 05/29/2017. TECHNIQUE: Multiaxial CT images were obtained from the foramen magnum to the vertex. Reformats: Coron al. IV contrast: None. In accordance with CT protocol optimization, one or more of the following dose reduction techniques w ere utilized for this exam: automated exposure control, adjustment of mA and/or KV based on patient s ize, or use of iterative reconstructive technique. FINDINGS: Parenchyma: No intraparenchymal hemorrhage. No evidence of mass, midline shift, or CT findings of inf arction. Seaman-white differentiation is distinct. Extraaxial Spaces: Normal for age. No subdural or epidural collections identified. Ventricles: Normal in size and position. Sinuses and Orbits: Left orbit implant as before. Paranasal sinuses and mastoids appear unremarkable. Bones: No evidence of fracture or calvarial defect. Other: No change since the prior study. IMPRESSION: No acute intracranial process identified. Stable findings since 05/29/2017. [facility] Referring Provider Line: [phone] SITE ID: [id number]
--- NOTE | 2017-06-16 06:04 | CT Report ---
EXAM: CT CHEST EXAM DATE: 06/16/2017 05:46 AM. CLINICAL HISTORY: Fall, chest pain after injury. COMPARISONS: 11/10/2016. TECHNIQUE: Routine helical CT imaging was performed through the chest. IV contrast: None. Reconstruct ions: Coronal and sagittal. In accordance with CT protocol optimization, one or more of the following dose reduction techniques w ere utilized for this exam: automated exposure control, adjustment of mA and/or KV based on patient s ize, or use of iterative reconstructive technique. FINDINGS: Lungs/Pleura: Bilateral atelectasis, infiltrate, or scarring is similar compared with the prior exam. No pleural effusion seen. No pneumothorax. Mediastinum: Heart size upper normal. Normal-sized mediastinal lymph nodes. Aortic atherosclerosis. N o aortic aneurysm. Bones: Degenerative changes in the spine. Thoracic and lumbar vertebral body fractures are similar co mpared with the prior exam. Visualized Abdomen: Pancreatic atrophy. Bilateral renal cysts. Cortical scarring in the left kidney. Other: Status post right mastectomy. Nondisplaced fractures involving at least the left fourth throug h sixth ribs. IMPRESSION: 1. Nondisplaced left fourth through sixth rib fractures. 2. Thoracic and lumbar vertebral body fractures are similar compared with the prior CT. 3. Bilateral pulmonary opacities are similar compared with the prior exam. 4. Status post right mastectomy. [facility] Referring Provider Line: [phone] SITE ID: [id number]
--- NOTE | 2017-06-16 06:04 | CT Preliminary Report ---
Exam: CT CHEST W/O IMPRESSION: 1. Nondisplaced left fourth through sixth rib fractures. 2. Thoracic and lumbar vertebral body fractures are similar compared with the prior CT. 3. Bilateral pulmonary opacities are similar compared with the prior exam. 4. Status post right mastectomy. [facility] SITE ID: [id number]
[2017-06-16] MEDS ORDERED: HYDROcod/ACETAM 5/325 MG TABLET PO PRN (07:53)
[2017-06-16] MEDS ORDERED: HYDROcod/ACETAM 10 MG/325 MG TABLET PO PRN (07:53)
[2017-06-16] MEDS ORDERED: SODIUM CHLORIDE FLUSH 0.9% 10 ML SYRINGE IVP PRN ×2 (07:53→09:34)
[2017-06-16] MEDS ORDERED: PROCHLORPERAZINE 10 MG/2 ML VIAL IVP PRN ×2 (07:53→09:34)
[2017-06-16] MEDS ORDERED: ONDANSETRON 4 MG/2 ML VIAL IVP PRN ×2 (07:53→09:34)
[2017-06-16] MEDS ORDERED: ACETAMINOPHEN 325 MG TABLET PO PRN ×2 (07:53→09:34)
[2017-06-16] MEDS ORDERED: ZOLPIDEM 5 MG TABLET PO PRN ×2 (07:53→09:34)
[2017-06-16] MEDS ORDERED: HYDROcod/ACETAM 5/325 MG TABLET PO STA (07:57)
[2017-06-16] MEDS ORDERED: SODIUM CHLORIDE 0.9% 1,000 ML IV SCH (08:00)
[2017-06-16] MEDS ORDERED: POLYETHYLENE GLYCOL 3350 17 GM PACKET PO SCH (09:00)
[2017-06-16] MEDS ORDERED: FAMOTIDINE 20 MG TABLET PO SCH (09:00)
[2017-06-16] MEDS ORDERED: SODIUM CHLORIDE FLUSH 0.9% 10 ML SYRINGE IVP SCH (09:00)
[2017-06-16] MEDS ORDERED: SODIUM CHLORIDE FLUSH 0.9% 10 ML SYRINGE ONE (10:00)
[2017-06-16] MEDS: SODIUM CHLORIDE 0.9% 1,000 ML IV SCH ×2 (10:25→20:29)
[2017-06-16] MEDS: HYDROcod/ACETAM 10 MG/325 MG TABLET PO PRN ×2 (11:53→20:44)
[2017-06-16] MEDS: diltiaZEM CD 120 MG CAPSULE PO SCH (11:54)
[2017-06-16] MEDS: amLODIPine 5 MG TABLET PO SCH (11:54)
[2017-06-16] MEDS: INSULIN ASPART 300 UNIT/3 ML PEN SUBQ SCH ×3 (12:02→20:44)
--- NOTE | 2017-06-16 14:22 | HISTORY & PHYSICAL EXAMINATION ---
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 The patient was in her normal state of health and woke up at 230 this morning to use the bathroom. She states that after using the bathroom she got a drink of water and on her way to her bedroom she tripped over a box of the floor and fell into the doorway hitting the side of the doorway on the left side of her face and then across her chest wall. She states that after she fell to the floor she was unable to get up and pressed her life alert button which prompted EMS to come to her home. The patient denies any fevers, chills, headaches, blurred vision, runny nose, sore throat, nasal congestion, difficulty swallowing, shortness of air, orthopnea, PND, increased lower extremity swelling, abdominal pain, nausea, vomiting, diarrhea, constipation, dysuria, increased urinary urgency, joint swelling, back pain, neck stiffness, recent unintentional weight loss, night sweats, changes in appetite, skin rash, hair loss or any focal neurologic deficits. On presentation to the emergency department the patient was afebrile she was slightly hypertensive and tachypneic but was saturating well on room air. The patient underwent routine lab work which did show a mild leukocytosis of 12.5, elevated INR of 3.1, creatinine of 1.5 which was mildly elevated from her baseline. Patient's troponin was negative her UA was negative and she had no fevers. The patient did undergo CT of her head given her fall and that showed no acute intracranial process. The patient's CT chest did reveal nondisplaced left fourth through sixth rib fractures. There is also finding of thoracic and lumbar vertebral fractures which are similar to previous CT scan. The patient had severe weakness and was unable to sit up in her stretcher or get up and stand. The patient also had significant pain due to her new rib fractures therefore she was placed in observation for pain control and weakness. The patient will be given hydration and we will monitor for any bleeding given that she is on Coumadin and had trauma. History - Past Medical History Cardiovascular: reports: Hypertension, High cholesterol, Deep vein thrombosis, Pulmonary embolism Respiratory: reports: Shortness of breath, Sleep apnea, CPAP use Neuro: reports: None Endocrine/Autoimmune: reports: Type 2 diabetes GI: reports: GERD : reports: Incontinence, Nocturia, Kidney stones HEENT: reports: Chronic vision loss, Glaucoma, Chronic sinusitis Psych: reports: Depression Musculoskeletal: reports: Osteoarthritis, Osteoporosis, Fatigue, Chronic back pain Derm: reports: None MRSA Hx?: No Other Past Medical History: Breast ca s/p R breast masectomy - Past Surgical History General: reports: EGD, Colonoscopy Ortho: reports: 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 She lives alone in [place] at [facility]. She lives on the second floor. She has caregivers who come in a few hours a day. She has to go up one flight of stairs but take the elevator. 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 She has a daughter the lives in the area but they do not speak. She also had great grandkids who are in the area but the dynamic with them is not good. She uses a walker at home. She had diminished vision and no longer drives. The patient states that she use to smoke for 3-4 years and smoked less than half a pack a day. She denies any alcohol use or illicit drug use. - POLST Patient has POLST: No POLST Status: DNR Meds/Allgy - Home Medications Home Medications: Ambulatory Orders Medication Instructions Recorded Confirmed Amlodipine Besylate 5 mg PO DAILY 07/31/12 06/16/17 Warfarin [Coumadin] 2.5 mg PO SUMOTUTHFRSA 04/23/15 06/16/17 DULoxetine [Cymbalta] 30 mg PO BID 05/17/15 06/16/17 Multivitamin [Theragran] 1 tab PO DAILY 06/27/16 06/16/17 Metoprolol Tartrate [Metoprolol 100 mg PO BID 08/01/16 06/16/17 Tartrate] Melatonin 8 mg PO QPM 08/03/16 06/16/17 Diltiazem HCl [Diltiazem 24Hr Cd] 240 mg PO DAILY 06/16/17 06/16/17 Furosemide [Furosemide] 30 mg PO DAILY 06/16/17 06/16/17 Hydrocodone/Acetaminophen 1 each PO DAILY PRN 06/16/17 06/16/17 [Hydrocodon-Acetaminoph 7.5-325] Loratadine [Claritin] 10 mg PO DAILY 06/16/17 06/16/17 Magnesium Oxide [Mag Ox] 400 mg PO BID 06/16/17 06/16/17 Omeprazole [Omeprazole] 40 mg PO DAILY 06/16/17 06/16/17 Potassium Chloride [Micro-K] 10 meq PO DAILY 06/16/17 06/16/17 buPROPion [Wellbutrin Sr] 75 mg PO DAILY 06/16/17 06/16/17 metFORMIN [Glucophage] 500 mg PO DAILY 06/16/17 06/16/17 - Allergies Allergies/Adverse Reactions: Allergies Allergy/AdvReac Type Severity Reaction Status Date / Time Penicillins Allergy Rash Verified 06/16/17 03:43 prednisone Allergy Rash Verified 06/16/17 03:43 DEBBIE Inhibitors AdvReac Intermediate cough Verified 06/16/17 03:43 Review of Systems - Other Findings Other Findings: A comprehensive review of systems was performed the pertinent positives and negatives are stated above in the HPI and the remainder of the review of systems is negative. Exam - Vital Signs Reviewed Vital Signs: Yes Vital Signs: Vital Signs x48h Temp Pulse Pulse Resp BP BP BP 06/16/17 12:01 37.7 C H 76 92 H 132/71 H 06/16/17 08:30 36.9 C 89 20 139/89 H 06/16/17 08:00 88 22 142/90 H Pulse Ox 06/16/17 12:01 06/16/17 08:30 93 04/23/18 08:00 99 - Physical Exam General Appearance: positive: No acute distress, Alert, Other (Depressed mood) Eyes Bilateral: positive: Normal inspection, PERRL, EOMI, No lid inflammation, Conjunctivae nml, No scleral icterus ENT: positive: ENT inspection nml, Pharynx nml, Dry mucous membranes. negative : Purulent nasal drainage, Pharyngeal erythema, Oral lesions Neck: positive: Nml inspection, Thyroid nml, No JVD, Trachea midline. negative : Thyromegaly, Lymphadenopathy (R), Lymphadenopathy (L), Stiff neck, Carotid bruit, Tracheal deviation Respiratory: positive: No respiratory distress, Breath sounds nml, Other ( Diminished at bases, tnderness of the left chest wall). negative: Wheezes, Rales, Rhonchi Cardiovascular: positive: Regular rate & rhythm, No murmur, No gallop Peripheral Pulses: positive: 2+ Abdomen: positive: Non-tender, No organomegaly, Nml bowel sounds, No distention. negative: Guarding, Rebound, Hepatomegaly Back: positive: Nml inspection. negative: CVA tenderness (R), CVA tenderness (L ) Skin: positive: Color nml, No rash, Warm, Other (Bruising across left chest wall ) Extremities: positive: Non-tender, Full ROM, Nml appearance, No pedal edema Neurologic/Psychiatric: positive: Oriented x3, CN's nml (2-12), Motor nml, Sensation nml, Mood/affect nml Conclusion/Plan - Problem List (1) Multiple rib fractures Conclusion/Plan: Patient had a mechanical fall at home and hit the doorway with her head and chest wall. Patient had nondisplaced fracture of the left fourth through sixth ribs on CT. In the emergency room the patient had significant pain and weakness. Patient is on Coumadin and has INR of 3.1 Plan: Observe patient overnight Watch for bleeding given elevated INR Treat pain with p.o. Bunch and IV morphine as needed Incentive spirometry PT evaluation Qualifiers: Encounter type: initial encounter Fracture type: closed Laterality: left Qualified Code(s): S22.42XA - Multiple fractures of ribs, left side, initial encounter for closed fracture (2) Weakness Conclusion/Plan: The patient has generalized weakness. She could not sit up in the stretcher in the emergency department. She also could not stand up after her fall. The patient's lab work did show a leukocytosis however her urine analysis was negative and CT of her chest did not reveal any source of pneumonia. The patient may be slightly dehydrated as her creatinine was also elevated and BUN was elevated. The patient will be given IV fluids and we will continue to treat the patient's pain. The patient will be reevaluated in the morning if at that point her strength has improved she may be able to return home. If the patient is still weak we will need a physical therapy evaluation and consideration for placement or home health. (3) Depression Conclusion/Plan: Patient has history of major depression has had suicidal ideations in the past. She still states that she is very depressed because of problems with her family. She states that she really wants to go down to [place], [place] where there is a [place] that is known for healing but at times she just wants to and wonders why God just will not take her. Currently she does not have any suicide plans or suicidal ideation. Plan: Patient will be continued on her home antidepressant medications including Cymbalta and Wellbutrin We will continue to monitor. Qualifiers: Depression Type: major depressive disorder (4) Diabetes Conclusion/Plan: Patient has type 2 diabetes and is on metformin at home. While the patient is hospitalized we will hold metformin and place her on diabetic diet and sliding scale insulin. We will check her hemoglobin A1c and blood glucose before meals at bedtime. Qualifiers: Diabetes mellitus type: type 2 (5) History of pulmonary embolus (PE) Conclusion/Plan: The patient has a history of pulmonary embolism and is on Coumadin. She has a INR of 3.1 on presentation. We will hold her Coumadin for tonight as she had 3 rib fractures and has bruising over her chest wall. We are concerned for possible bleeding or development of hematoma. The patient will be placed in observation will monitor for any trauma. We will also monitor for any bleeding as we will recheck the hemoglobin in the morning. The patient will be restarted on Coumadin once she is ready for discharge. Monitor INR (6) Hypertension Conclusion/Plan: Patient has history of hypertension on presentation the patient's blood pressure was slightly elevated likely secondary to pain. The patient's blood pressure is now stable. The patient's home antihypertensive medications will be restarted while she is hospitalized. We will continue to monitor blood pressure Qualifiers: Hypertension type: essential hypertension Qualified Code(s): I10 - Essential (primary) hypertension - Lab Results Lab results reviewed: Yes Fish Bones: 06/16/17 04:58 06/16/17 04:58 Other Lab Results: Laboratory Results WBC 12.5 x10^3/uL (4.8-10.8) H 06/16/17 04:58 RBC 4.20 10^6/uL (4.20-5.40) 06/16/17 04:58 Hgb 12.8 g/dL (12.0-16.0) 06/16/17 04:58 Hct 39.6 % (37.0-47.0) 06/16/17 04:58 MCV 94.4 fL (81.0-99.0) 06/16/17 04:58 MCH 30.5 pg (27.0-31.0) 06/16/17 04:58 MCHC 32.3 g/dL (32.0-36.0) 06/16/17 04:58 RDW 16.9 % (12.0-15.0) H 06/16/17 04:58 Plt Count 231 10^3/uL (130-450) 06/16/17 04:58 MPV 7.7 fL (7.9-10.8) L 06/16/17 04:58 Neut # 9.1 10^3/uL (1.5-6.6) H 06/16/17 04:58 Lymph # 2.1 10^3/uL (1.5-3.5) 06/16/17 04:58 [place] # 0.9 10^3/uL (0.0-1.0) 06/16/17 04:58 Eos # 0.2 10^3/uL (0.0-0.7) 06/16/17 04:58 Baso # 0.1 10^3/uL (0.0-0.1) 06/16/17 04:58 Absolute Nucleated RBC 0.00 x10^3/uL 06/16/17 04:58 Nucleated RBC % 0.0 /100WBC 06/16/17 04:58 PT 33.6 secs (9.9-12.6) H 06/16/17 04:58 INR 3.1 (0.8-1.2) H 06/16/17 04:58 APTT 31.3 secs (24.9-33.3) 06/16/17 04:58 Sodium 137 mmol/L (135-145) 06/16/17 04:58 Potassium 4.1 mmol/L (3.5-5.0) 06/16/17 04:58 Chloride 102 mmol/L (101-111) 06/16/17 04:58 Carbon Dioxide 26 mmol/L (21-32) 06/16/17 04:58 Anion Gap 9.0 (6-13) 06/16/17 04:58 BUN 29 mg/dL (6-20) H 06/16/17 04:58 Creatinine 1.5 mg/dL (0.4-1.0) H 06/16/17 04:58 Estimated GFR (MDRD) 33 (>89) L 06/16/17 04:58 Glucose 159 mg/dL (70-100) H 06/16/17 04:58 Calcium 9.4 mg/dL (8.5-10.3) 06/16/17 04:58 Troponin I < 0.04 ng/mL (<0.49) 06/16/17 04:58 Urine Color YELLOW 06/16/17 05:20 Urine Clarity CLEAR (CLEAR) 06/16/17 05:20 Urine pH 6.5 PH (5.0-7.5) 06/16/17 05:20 Ur Specific [place] 1.015 (1.002-1.030) 06/16/17 05:20 Urine Protein NEGATIVE mg/dL (NEGATIVE) 06/16/17 05:20 Urine Glucose (UA) NEGATIVE mg/dL (NEGATIVE) 06/16/17 05:20 Urine Ketones NEGATIVE mg/dL (NEGATIVE) 06/16/17 05:20 Urine Occult Blood TRACE-LYSE (NEGATIVE) 06/16/17 05:20 Urine Nitrite NEGATIVE (NEGATIVE) 06/16/17 05:20 Urine Bilirubin NEGATIVE (NEGATIVE) 06/16/17 05:20 Urine Urobilinogen 0.2 (NORMAL) E.U./dL (NORMAL) 06/16/17 05:20 Ur Leukocyte Esterase NEGATIVE (NEGATIVE) 06/16/17 05:20 Ur Microscopic Review NOT INDICATED 06/16/17 05:20 Urine Culture Comments NOT INDICATED 06/16/17 05:20 - Diagnostic Imaging Results Diagnostic Imaging Results: positive: Final report reviewed Diagnostic Imaging Results Comments: EXAM: [id number] CT/CHTWO ([id number]) EXAM: CT CHEST EXAM DATE: 06/16/2017 05:46 AM. CLINICAL HISTORY: Fall, chest pain after injury. COMPARISONS: 11/10/2016. TECHNIQUE: Routine helical CT imaging was performed through the chest. IV contrast: None. Reconstructions: Coronal and sagittal. In accordance with CT protocol optimization, one or more of the following dose reduction techniques were utilized for this exam: automated exposure control, adjustment of mA and/or KV based on patient size, or use of iterative reconstructive technique. FINDINGS: Lungs/Pleura: Bilateral atelectasis, infiltrate, or scarring is similar compared with the prior exam. No pleural effusion seen. No pneumothorax. Mediastinum: Heart size upper normal. Normal-sized mediastinal lymph nodes. Aortic atherosclerosis. No aortic aneurysm. Bones: Degenerative changes in the spine. Thoracic and lumbar vertebral body fractures are similar compared with the prior exam. Visualized Abdomen: Pancreatic atrophy. Bilateral renal cysts. Cortical scarring in the left kidney. Other: Status post right mastectomy. Nondisplaced fractures involving at least the left fourth through sixth ribs. IMPRESSION: 1. Nondisplaced left fourth through sixth rib fractures. 2. Thoracic and lumbar vertebral body fractures are similar compared with the prior CT. 3. Bilateral pulmonary opacities are similar compared with the prior exam. 4. Status post right mastectomy EXAM: [id number] CT/HEADWO ([id number]) EXAM: CT HEAD EXAM DATE: 06/16/2017 05:44 AM. CLINICAL HISTORY: Fall, head injury, on warfarin. COMPARISON: 05/29/2017. TECHNIQUE: Multiaxial CT images were obtained from the foramen magnum to the vertex. Reformats: Coronal. IV contrast: None. In accordance with CT protocol optimization, one or more of the following dose reduction techniques were utilized for this exam: automated exposure control, adjustment of mA and/or KV based on patient size, or use of iterative reconstructive technique. FINDINGS: Parenchyma: No intraparenchymal hemorrhage. No evidence of mass, midline shift, or CT findings of infarction. Seaman-white differentiation is distinct. Extraaxial Spaces: Normal for age. No subdural or epidural collections identified. Ventricles: Normal in size and position. Sinuses and Orbits: Left orbit implant as before. Paranasal sinuses and mastoids appear unremarkable. Bones: No evidence of fracture or calvarial defect. Other: No change since the prior study. IMPRESSION: No acute intracranial process identified. Stable findings since 06/2017. [facility] Core Measures - Anticipated LOS I expect patient to be DC'd or transferred within 96 hours.: Yes - DVT/VTE - Prophylaxis VTE/DVT Device ordered at admit?: Yes
[2017-06-16] MEDS: SODIUM CHLORIDE FLUSH 0.9% 10 ML SYRINGE IVP SCH (17:36)
[2017-06-16] MEDS: MAGNESIUM OXIDE 400 MG TABLET PO SCH (17:36)
[2017-06-16] MEDS: METOPROLOL TARTRATE 50 MG TABLET PO SCH (20:41)
[2017-06-16] MEDS: DULoxetine 30 MG CAPSULE PO SCH (20:41)
[2017-06-16] MEDS ORDERED: MELATONIN 8 MG PO SCH (21:00)
[2017-06-17] MEDS: HYDROcod/ACETAM 5/325 MG TABLET PO PRN ×2 (00:21→06:50)
[2017-06-17] MEDS: SODIUM CHLORIDE FLUSH 0.9% 10 ML SYRINGE IVP SCH ×2 (02:01→12:17)
[2017-06-17 05:43] LABS: HB2 TOTAL 13.3 g/dL; HEMOGLOBIN A1C 0.71 g/dL
[2017-06-17] MEDS: SODIUM CHLORIDE 0.9% 1,000 ML IV SCH (06:33)
[2017-06-17 09:00] LABS: CALCIUM 8.4 mg/dL (8.5-10.3); MAGNESIUM 2.1 mg/dL (1.7-2.8)
[2017-06-17] MEDS ORDERED: MULTIVITAMIN TABLET PO SCH (09:00)
[2017-06-17] MEDS ORDERED: POLYETHYLENE GLYCOL 3350 17 GM PACKET PO SCH (09:00)
[2017-06-17] MEDS ORDERED: LORATADINE 10 MG TABLET PO SCH (09:00)
[2017-06-17] MEDS ORDERED: BUPROPION 75 MG PO SCH (09:00)
[2017-06-17] MEDS ORDERED: FAMOTIDINE 20 MG TABLET PO SCH (09:00)
[2017-06-17 09:21] LABS: INR 2.6 (0.8-1.2)
[2017-06-17] MEDS: INSULIN ASPART 300 UNIT/3 ML PEN SUBQ SCH ×2 (09:49→12:16)
[2017-06-17] MEDS: diltiaZEM CD 120 MG CAPSULE PO SCH (10:09)
[2017-06-17] MEDS: DULoxetine 30 MG CAPSULE PO SCH (10:09)
[2017-06-17] MEDS: MAGNESIUM OXIDE 400 MG TABLET PO SCH (10:10)
[2017-06-17] MEDS: METOPROLOL TARTRATE 50 MG TABLET PO SCH (10:10)
[2017-06-17] MEDS: amLODIPine 5 MG TABLET PO SCH (10:10)
[2017-06-17] MEDS: HYDROcod/ACETAM 10 MG/325 MG TABLET PO PRN ×2 (12:16→16:00)
[2017-06-17] MEDS ORDERED: WARFARIN 2.5 MG TABLET PO SCH (14:00)
--- NOTE | 2017-06-17 14:52 | Discharge Plan ---
Discharge Plan Disposition: Home, Self Care Condition: Stable Prescriptions: HYDROcod/ACETAM 5/325 [[place] 5/325] 1 tab PO Q8HR PRN #18 tablet PRN Reason: Pain 5 to 7 Polyethylene Glycol 3350 [Miralax] 17 gm PO DAILY #7 packet Diet: Diabetic Activity Restrictions: Activity as Tolerated Shower Restrictions: Yes Driving Restrictions: Yes Assistance Devices: Walker Instruction Topics: ED Drug Abuse Narcotic Sedative Rx Additional Instructions or Follow Up instructions: Take the pain medications for pain in the fractured ribs. Stay well hydrated to avoid constipation and use the Miralax daily if you like, while on narcotics. Use the incentive spirometry to avoid a pneumonia. Resume all your pre-hospital medications. Home Health PT, Home Health Aide and Fdc RN for evaluation have been ordered for you. Follow-Up Care: Home Health - RN, Home Health - PT No Smoking: If you smoke, Please STOP! Call for help. Follow-up with: Berry Lance MD [Primary Care Provider] -
[2017-06-17 15:29] VITALS: BP 139/72
--- NOTE | 2017-06-18 23:10 | DISCHARGE SUMMARY ---
Physician: Viki Coronado MD DATE OF ADMISSION: 06/16/2017 DATE OF DISCHARGE: 06/17/2017 HISTORY OF PRESENT ILLNESS: This is an 86-year-old white female with a history of hypertension, obesity, depression with history of suicidal ideation, breast cancer with right-sided mastectomy 4 years ago, sleep apnea, on CPAP at home, CKD stage 3, GERD, DVT two years ago and PE remotely, history of compression fractures 2 years ago, and diabetes. The patient presented to the ER after arising in the middle of the night and tripping over a box on her floor and hitting the doorway with the left side of her face and across her chest wall. She was able to call [facility], which prompted EMS to bring her to the emergency room, where she was found to have three fractured nondisplaced ribs on the left side, and was admitted for pain management plus incentive spirometry. HOSPITAL COURSE AND DISCHARGE DIAGNOSES 1. Rib fractures. Patient had no evidence of pneumothorax on imaging. She required minimal pain medications and was also ordered incentive spirometry in the hospital as well as at discharge. Because of the new narcotic, she was given p.r.n. MiraLax to also use to prevent constipation while taking narcotics. She was advised to be seen by her PCP in followup for this and any further pain control. Since she fell, a head CT was done and was negative. 2. Weakness. Patient had different complaints for being "too weak to put on her CPAP," too weak to get out of bed to go to the bathroom, but then was witnessed to do that on her own. She had physical therapy evaluate her, who recommended that she have home PT for strengthening, which was ordered at discharge. 3. Diabetes. Patient was kept on her insulin doses, diabetic diet, and sliding scale insulin coverage. Her HB A1c was 7.0, indicating good control before this admission. 4. History of pulmonary embolus, on Coumadin. This patient's INR was therapeutic at 3.1 and 2.6 on continued Coumadin dosing. 5. Hypertension. Patient had good blood pressure control and was continued on her management. LABORATORY AND IMAGING: Reviewed and summarized above. ALLERGIES 1. PENICILLIN. 2. PREDNISONE. 3. DEBBIE INHIBITORS. DISCHARGE MEDICATIONS 1. Amlodipine 5 mg daily. 2. Wellbutrin 75 mg daily. 3. Vitamin D3 at 2000 units daily. 4. Diltiazem CD 240 mg daily. 5. Colace 100 mg daily. 6. Cymbalta 30 mg b.i.d. 7. Lasix 30 mg daily. 8. Claritin 10 mg daily. 9. Magnesium oxide 400 mg daily. 10. Melatonin 3 mg q.p.m. 11. Metformin 500 mg daily. 12. Metoprolol tartrate 100 mg b.i.d. 13. Multivitamin daily. 14. Omeprazole 40 mg daily. 15. Micro-K 10 mEq daily. 16. Senna daily. 17. Warfarin 2.5 mg daily. 18. She was discharged on new [place] 10/325 mg every 8 hours p.r.n. pain. 19. and new MiraLax powder for 7 days to avoid constipation from narcotics. PHYSICAL EXAMINATION AT DISCHARGE GENERAL: Obese, white female. VITAL SIGNS: Blood pressure 130/60, heart rate 70-90 in atrial fibrillation. Afebrile. HEENT: Unremarkable. Oral mucosa moist. NECK: Without JVD or carotid bruits. CHEST: Clear. HEART: Sounds normal. ABDOMEN: Obese. No organomegaly. EXTREMITIES: Without edema. NEUROLOGIC: Intact. CODE STATUS: FULL CODE. FOLLOW-UP: with hier PCP. TIME REQUIRED TO COMPLETE THIS ENTIRE DISCHARGE: 30 minutes. TD: 06/18/2017 23:10 MTDD
== END 2017-06-17 16:05 | disposition home health service (06) ==
LOC: EDUNIT# → ED 03:38 → SUPCPDRO 03:38 → OBS 07:53 → ED 08:34
PROVIDERS: ADMIT Internal Medicine; ATTEND Internal Medicine
DX: S22.42XA Multiple fractures of ribs, left side, initial encounter for closed fracture (principal); S00.83XA Contusion of other part of head, initial encounter; W18.09XA Striking against other object with subsequent fall, initial encounter; Y92.003 Bedroom of unspecified non-institutional (private) residence as the place of occurrence of the external cause; R53.1 Weakness; M80.88XD Other osteoporosis with current pathological fracture, vertebra(e), subsequent encounter for fracture with routine healing; I10 Essential (primary) hypertension; E11.9 Type 2 diabetes mellitus without complications; N18.3 Chronic kidney disease, stage 3 (moderate); G47.33 Obstructive sleep apnea (adult) (pediatric); E78.00 Pure hypercholesterolemia, unspecified; K21.9 Gastro-esophageal reflux disease without esophagitis; F32.9 Major depressive disorder, single episode, unspecified; E66.9 Obesity, unspecified; G89.29 Other chronic pain; Z79.01 Long term (current) use of anticoagulants; Z86.718 Personal history of other venous thrombosis and embolism; Z86.711 Personal history of pulmonary embolism; Z68.41 Body mass index [BMI] 40.0-44.9, adult; Z85.3 Personal history of malignant neoplasm of breast; Z90.11 Acquired absence of right breast and nipple; Z87.442 Personal history of urinary calculi; Z79.891 Long term (current) use of opiate analgesic; Z87.891 Personal history of nicotine dependence; Z79.84 Long term (current) use of oral hypoglycemic drugs
CPT/HCPCS: 36415; 51701; 70450; 71250; 80048; 81003; 83036; 83735; 84484; 85025; 85610; 85730; 96360; 96361; 97116; 97161; 99284; 99285; A9270; G0378; G8978; G8979; G8980; 81001; 87086

== ENCOUNTER 2017-06-18 07:57 | Outpatient (CLI) | payer MEDICARE, OTHER, MEDICAID | END 2017-06-18 07:58 | disposition home or self-care (01) | LOC: EMS 07:57 | PROVIDERS: ATTEND Surgery | DX: R07.81 Pleurodynia (principal) | CPT/HCPCS: A0425; A0429 ==

== ENCOUNTER 2017-06-18 08:03 | Inpatient (IN) | payer MEDICARE, OTHER, MEDICAID ==
--- NOTE | 2017-06-18 08:29 | ED Physician Documentation ---
PD HPI DYSPNEA - Stated complaint Stated Complaint: FALL - Chief complaint Chief Complaint: General - History obtained from History obtained from: Patient, EMS - History of Present Illness Timing - onset: Yesterday Timing - onset during: Rest Timing - duration: Days (1) Timing - details: Abrupt onset, Still present Inciting event(s): Other (rib fractures) Improved by: BiPAP / CPAP Worsened by: Exertion, Coughing Associated symptoms: Wheezing, Chest pain / discomfort, Diaphoresis. No: Fever , Cough Similar symptoms before: Diagnosis (COPD) Recently seen: Emergency Dept - Additional information Additional information: 86-year-old female was seen in the emergency department 2 days ago in the early a.m. for a fall fracturing 3 ribs on the left side. She has had increased pain and difficulty breathing and is not able to care for herself at home. She has been wanting to wear her CPAP continuously. Review of Systems Constitutional: reports: Sweats. denies: Fever Eyes: denies: Decreased vision Ears: denies: Ear pain Nose: denies: Rhinorrhea / runny nose, Congestion Throat: denies: Sore throat Cardiac: reports: Chest pain / pressure Respiratory: reports: Dyspnea GI: denies: Nausea, Vomiting, Constipation, Diarrhea : denies: Dysuria Skin: denies: Rash Musculoskeletal: reports: Back pain. denies: Neck pain, Extremity pain Neurologic: reports: Generalized weakness. denies: Focal weakness, Numbness PD PAST MEDICAL HISTORY - Past Medical History Past Medical History: Yes Cardiovascular: Hypertension, High cholesterol, Deep vein thrombosis, Pulmonary embolism Respiratory: Shortness of breath, Sleep apnea, CPAP use Neuro: None Endocrine/Autoimmune: Type 2 diabetes GI: GERD : Incontinence, Nocturia, Kidney stones HEENT: Chronic vision loss, Glaucoma, Chronic sinusitis Psych: Depression Musculoskeletal: Osteoarthritis, Osteoporosis, Fatigue, Chronic back pain Derm: None - Past Surgical History Past Surgical History: Yes General: EGD, Colonoscopy Ortho: Arthroscopic surgery /[employer]: 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, Oophrectomy, Mastectomy HEENT: Cataracts, Other - Present Medications Home Medications: Ambulatory Orders Medication Instructions Recorded Confirmed Amlodipine Besylate 5 mg PO DAILY 07/31/12 06/16/17 Warfarin [Coumadin] 2.5 mg PO SUMOTUTHFRSA 04/23/15 06/16/17 DULoxetine [Cymbalta] 30 mg PO BID 05/17/15 06/16/17 Multivitamin [Theragran] 1 tab PO DAILY 06/27/16 06/16/17 Metoprolol Tartrate 100 mg PO BID 08/01/16 06/16/17 Melatonin 8 mg PO QPM 08/03/16 06/16/17 Diltiazem HCl [Diltiazem 24Hr Cd] 240 mg PO DAILY 06/16/17 06/16/17 Furosemide 30 mg PO DAILY 06/16/17 06/16/17 Hydrocodone/Acetaminophen 1 each PO DAILY PRN 06/16/17 06/16/17 [Hydrocodone-Acetamin 7.5-325] Loratadine [Claritin] 10 mg PO DAILY 06/16/17 06/16/17 Magnesium Oxide [Mag Ox] 400 mg PO BID 06/16/17 06/16/17 Omeprazole 40 mg PO DAILY 06/16/17 06/16/17 Potassium Chloride [Micro-K] 10 meq PO DAILY 06/16/17 06/16/17 buPROPion [Wellbutrin Sr] 75 mg PO DAILY 06/16/17 06/16/17 metFORMIN [Glucophage] 500 mg PO DAILY 06/16/17 06/16/17 HYDROcod/ACETAM 5/325 [[place] 5/325] 1 tab PO Q8HR PRN #18 tablet 06/17/17 Polyethylene Glycol 3350 [Miralax] 17 gm PO DAILY #7 packet 06/17/17 - Allergies Allergies/Adverse Reactions: Allergies Allergy/AdvReac Type Severity Reaction Status Date / Time Penicillins Allergy Rash Verified 06/16/17 03:43 prednisone Allergy Rash Verified 06/16/17 03:43 DEBBIE Inhibitors AdvReac Intermediate cough Verified 06/16/17 03:43 - Social History Does the pt smoke?: No Smoking Status: Never smoker Does the pt drink ETOH?: No Does the pt have substance abuse?: No - Immunizations Immunizations are current?: Yes - POLST Patient has POLST: No POLST Status: DNR PD ED PE NORMAL - Vitals Vital signs reviewed: Yes - General General: Alert and oriented X 3, Well developed/nourished, Other (The patient appears to be in pain and preferrs to wear her CPAP to assist with breathing. ) - HEENT HEENT: PERRL, EOMI, Other (There is bruising to the right cheek) - Neck Neck: Supple, no meningeal sign, No bony TTP - Cardiac Cardiac: RRR, No murmur - Respiratory Respiratory: No respiratory distress, Other (diminished breath sounds bilaterally ) - Abdomen Abdomen: Soft, Non tender, Other (obese) - Back Back: No CVA TTP, No spinal TTP - Derm Derm: Normal color, Warm and dry, No rash - Extremities Extremities: No deformity, No edema - Neuro Neuro: No motor deficit, No sensory deficit, Normal speech Eye Opening: Spontaneous Motor: Obeys Commands Verbal: Oriented GCS Score: 15 - Psych Psych: Normal mood, Normal affect Results - Vitals Vitals: Vital Signs - 24 hr 06/18/17 06/18/17 08:04 10:00 Temperature 35.9 C L 37 C Heart Rate 60 66 Respiratory 17 18 Rate Blood Pressure 122/81 H 134/64 H O2 Saturation 90 L 98 Oxygen O2 Source [] Nasal cannula O2 Source BIPAP - Labs Labs: Laboratory Tests 06/18/17 06/18/17 06/18/17 08:38 08:38 08:38 WBC 11.3 H RBC 4.27 Hgb 13.4 Hct 41.1 MCV 96.4 MCH 31.3 H MCHC 32.5 RDW 17.5 H Plt Count 204 MPV 7.9 Neut # 8.5 H Lymph # 1.4 L Ware # 1.0 Eos # 0.2 Baso # 0.1 Absolute Nucleated RBC 0.01 Nucleated RBC % 0.0 PT INR Sodium 135 Potassium 4.1 Chloride 106 Carbon Dioxide 17 L Anion Gap 12.0 BUN 16 Creatinine 0.8 Estimated GFR (MDRD) 68 L Glucose 187 H Calcium 8.7 Total Bilirubin 0.8 AST 25 ALT 23 Alkaline Phosphatase 64 Troponin I < 0.04 B-Natriuretic Peptide Total Protein 7.1 Albumin 3.6 Globulin 3.5 Albumin/Globulin Ratio 1.0 Lipase < 10 L 06/18/17 06/18/17 08:38 09:35 WBC RBC Hgb Hct MCV MCH MCHC RDW Plt Count MPV Neut # Lymph # Ware # Eos # Baso # Absolute Nucleated RBC Nucleated RBC % PT 22.1 H INR 2.0 H Sodium Potassium Chloride Carbon Dioxide Anion Gap BUN Creatinine Estimated GFR (MDRD) Glucose Calcium Total Bilirubin AST ALT Alkaline Phosphatase Troponin I B-Natriuretic Peptide 327 H Total Protein Albumin Globulin Albumin/Globulin Ratio Lipase - Rads (name of study) 1 view chest Radiology: Prelim report reviewed (Impression: 1. Progression of left basilar consolidation/atelectasis. 2. Possible small left pleural effusion. 3. No pneumothorax.), EMP read indepedently, See rad report Procedures - IVC sono (time) 0815 Bedside IVC sono: IVC measures (cm) (0.94), IVC collapsed c insp (cm) (complete) , Dehydration (est 1.5 liter deficit) PD MEDICAL DECISION MAKING - ED course Complexity details: reviewed old records, reviewed results, re-evaluated patient , considered differential, d/w patient ED course: 86-year-old female with a history of COPD who is usually on CPAP has had 3 broken ribs 2 days ago and she is now having more difficulty breathing is requiring her CPAP more continuously and is hypoxic. She was placed back onto her CPAP and repeat laboratory evaluation and chest x-ray are under taken. The patient has mildly elevated WBC and increased markings and effusion in the left chest on x-ray this morning. She is failing at home not able to care for herself not able to eat and drink as much as she should. Departure - Departure Disposition: [facility] DC/Xfer Clinical Impression: Respiratory failure after trauma Multiple rib fractures Qualifiers: Encounter type: subsequent encounter Fracture type: closed Laterality: left Fracture healing: with routine healing Qualified Code(s): S22.42XD - Multiple fractures of ribs, left side, subsequent encounter for fracture with routine healing Condition: Serious
[2017-06-18 08:49] LABS: BASOPHILS # (AUTO) 0.1 10^3/uL (0.0-0.1); BASOPHILS % (AUTO) 0.7 %; EOSINOPHILS # (AUTO) 0.2 10^3/uL (0.0-0.7); HGB - HEMOGLOBIN 13.4 g/dL (12.0-16.0); LYMPHOCYTES # (AUTO) 1.4 10^3/uL (1.5-3.5); LYMPHOCYTES % (AUTO) 12.7 %; MEAN CORPUSCULAR HEMOGLOBIN 31.3 pg (27.0-31.0); MEAN CORPUSCULAR HGB CONC 32.5 g/dL (32.0-36.0); MEAN CORPUSCULAR VOLUME 96.4 fL (81.0-99.0); MEAN PLATELET VOLUME 7.9 fL (7.9-10.8); NEUTROPHILS # (AUTO) 8.5 10^3/uL (1.5-6.6); NEUTROPHILS % (AUTO) 75.6 %; PLT - PLATELET COUNT 204 10^3/uL (130-450); RED BLOOD COUNT 4.27 10^6/uL (4.20-5.40); RED CELL DISTRIBUTION WIDTH 17.5 % (12.0-15.0); WHITE BLOOD COUNT 11.3 x10^3/uL (4.8-10.8)
[2017-06-18 09:03] LABS: ALBUMIN 3.6 g/dL (3.2-5.5); ALKALINE PHOSPHATASE 64 IU/L (42-121); ALT ALANINE AMINOTRANSFERASE 23 IU/L (10-60); AST ASPARTATE AMINOTRANSFERASE 25 IU/L (10-42); BILIRUBIN,TOTAL 0.8 mg/dL (0.2-1.0); BUN - BLOOD UREA NITROGEN 16 mg/dL (6-20); CALCIUM 8.7 mg/dL (8.5-10.3); CARBON DIOXIDE - CO2 17 mmol/L (21-32); CHLORIDE 106 mmol/L (101-111); CREATININE 0.8 mg/dL (0.4-1.0); GFR - MDRD 68 (>89); GLUCOSE 187 mg/dL (70-100); SODIUM 135 mmol/L (135-145); TOTAL PROTEIN 7.1 g/dL (6.7-8.2)
[2017-06-18 09:04] LABS: LIPASE < 10 U/L (22-51)
--- NOTE | 2017-06-18 09:08 | XRAY Preliminary Report ---
Exam: XR CHEST 1 VIEW X-RAY IMPRESSION: 1. Progression of left basilar consolidation/atelectasis. 2. Possible small left pleural effusion. 3. No pneumothorax. [facility] SITE ID: [id number]
--- NOTE | 2017-06-18 09:08 | XRAY Report ---
EXAM: CHEST RADIOGRAPHY EXAM DATE: 06/18/2017 08:54 AM. CLINICAL HISTORY: L rib fractures hypoxia. COMPARISON: 06/16/2017. 04/24/2017. 05/09/2017. 05/29/2017. TECHNIQUE: 1 view. FINDINGS: Lungs/Pleura: Interstitium is prominent as before. Increasing left basilar opacity. No pneumothorax. Possible small left pleural effusion. Mediastinum: Heart is enlarged. Aortic atherosclerosis. Other: Dextroscoliosis of the thoracic spine. Left-sided rib fractures previously described are not w ell seen on today's study. Surgical clips are seen in the soft tissues of the right hemithorax. IMPRESSION: 1. Progression of left basilar consolidation/atelectasis. 2. Possible small left pleural effusion. 3. No pneumothorax. [facility] Referring Provider Line: [phone] SITE ID: [id number]
[2017-06-18 09:54] LABS: PT - PROTHROMBIN TIME 22.1 secs (9.9-12.6)
[2017-06-18] MEDS ORDERED: KETOROLAC 60 MG/2 ML VIAL IVP STA (10:16)
[2017-06-18] MEDS ORDERED: HYDROcod/ACETAM 5/325 MG TABLET PO STA (10:17)
[2017-06-18] MEDS ORDERED: SODIUM CHLORIDE FLUSH 0.9% 10 ML SYRINGE IVP PRN (10:30)
[2017-06-18] MEDS ORDERED: TEMAZEPAM 15 MG CAPSULE PO PRN (10:30)
[2017-06-18] MEDS ORDERED: ACETAMINOPHEN 325 MG TABLET PO PRN (10:30)
[2017-06-18] MEDS ORDERED: PROCHLORPERAZINE 10 MG/2 ML VIAL IVP PRN (10:30)
[2017-06-18] MEDS ORDERED: FAMOTIDINE 20 MG TABLET PO SCH (10:36)
[2017-06-18 10:43] LABS: BILIRUBIN,URINE NEGATIVE (NEGATIVE); GLUCOSE, URINE (UA) NEGATIVE (NEGATIVE); KETONES,URINE (UA) 15 mg/dL (NEGATIVE); LEUKOCYTE ESTERASE, URINE NEGATIVE (NEGATIVE); NITRITE,URINE NEGATIVE (NEGATIVE); OCCULT BLOOD,URINE TRACE-INTA (NEGATIVE); PROTEIN,URINE NEGATIVE (NEGATIVE); UROBILINOGEN,URINE 0.2 (NORMAL) E.U./dL (NORMAL)
[2017-06-18 10:45] LABS: CLARITY,URINE CLEAR (CLEAR)
[2017-06-18] MEDS ORDERED: cefTRIAXone 1 GM in SODIUM CHLORIDE 0.9% MINIBAG 100 ML IV SCH (12:00)
[2017-06-18] MEDS ORDERED: AZITHROMYCIN INJ 500 MG in SODIUM CHLORIDE 0.9% 250 ML IV SCH (13:00)
[2017-06-18] MEDS: INSULIN ASPART 300 UNIT/3 ML PEN SUBQ SCH ×3 (13:57→20:07)
[2017-06-18] MEDS: cefTRIAXone 1 GM in SODIUM CHLORIDE 0.9% MINIBAG 100 ML IV SCH (13:57)
[2017-06-18] MEDS: HYDROcod/ACETAM 10 MG/325 MG TABLET PO PRN ×2 (14:43→20:05)
[2017-06-18] MEDS: DOCUSATE SODIUM 100 MG CAPSULE PO SCH (16:57)
[2017-06-18] MEDS: SENNA 8.6 MG TABLET PO SCH (16:57)
[2017-06-18] MEDS: POLYETHYLENE GLYCOL 3350 17 GM PACKET PO SCH (16:57)
[2017-06-18] MEDS: AZITHROMYCIN INJ 500 MG in SODIUM CHLORIDE 0.9% 250 ML IV SCH (16:58)
[2017-06-18] MEDS: SODIUM CHLORIDE FLUSH 0.9% 10 ML SYRINGE IVP SCH (16:59)
[2017-06-18] MEDS: SACCHAROMYCES BOULARDII 250 MG CAPSULE PO SCH (17:11)
[2017-06-18] MEDS ORDERED: IPRATROPIUM/ALBUTEROL 3 ML NEB INH PRN (19:00)
[2017-06-18] MEDS: CYCLOBENZAPRINE 10 MG TABLET PO PRN (19:20)
--- NOTE | 2017-06-18 19:43 | XRAY Preliminary Report ---
Exam: XR HIP W/PELVIS 2-3V RT IMPRESSION: Normal pelvis and hip radiography. [facility] SITE ID: [id number]
--- NOTE | 2017-06-18 19:43 | XRAY Report ---
EXAM: RIGHT HIP AND PELVIS RADIOGRAPHY EXAM DATE: 06/18/2017 07:03 PM. HISTORY: S/P fall on 06/16/17, c/o pain. COMPARISONS: None. TECHNIQUE: 1 view of the pelvis and 1 view of the hip. FINDINGS: Bones: Normal. No fracture or bone lesion. Joints: The bilateral hip, pubis symphysis, and sacroiliac joints are preserved. Soft Tissues: Normal. No soft tissue swelling. IMPRESSION: Normal pelvis and hip radiography. [facility] Referring Provider Line: [phone] SITE ID: [id number]
--- NOTE | 2017-06-18 19:45 | XRAY Preliminary Report ---
Exam: XR FOOT 3 VIEW RT IMPRESSION: Normal foot radiography. [facility] SITE ID: [id number]
--- NOTE | 2017-06-18 19:45 | XRAY Report ---
EXAM: RIGHT FOOT RADIOGRAPHY EXAM DATE: 06/18/2017 07:11 PM. CLINICAL HISTORY: S/P fall on 06/17/27, c/o pain. COMPARISON: None. TECHNIQUE: 3 views. FINDINGS: Bones: Normal. No fractures or bone lesions. Joints: Normal. No subluxations. Soft Tissues: Normal. No soft tissue swelling. IMPRESSION: Normal foot radiography. [facility] Referring Provider Line: [phone] SITE ID: [id number]
--- NOTE | 2017-06-18 19:52 | XRAY Preliminary Report ---
Exam: XR KNEE 4 VIEW RT IMPRESSION: Osteoarthritis most severe in the lateral joint compartment. No acute bony abnormality. [facility] SITE ID: [id number]
--- NOTE | 2017-06-18 19:52 | XRAY Report ---
EXAM: RIGHT KNEE RADIOGRAPHY EXAM DATE: 06/18/2017 07:07 PM. CLINICAL HISTORY: S/P fall 06/16/17, c/o pain and clicking. COMPARISON: None. TECHNIQUE: 3 views. FINDINGS: Bones: Normal. No fractures or bone lesions. Joints: Moderate lateral compartment joint space narrowing with marginal osteophytic spurring. Milder degenerative changes seen in the patellofemoral medial compartments. No joint effusion. Soft Tissues: Normal. No soft tissue swelling. IMPRESSION: Osteoarthritis most severe in the lateral joint compartment. No acute bony abnormality. [facility] Referring Provider Line: [phone] SITE ID: [id number]
[2017-06-18] MEDS: METOPROLOL TARTRATE 50 MG TABLET PO SCH (20:05)
[2017-06-18] MEDS: DULoxetine 30 MG CAPSULE PO SCH (20:05)
[2017-06-18] MEDS: MAGNESIUM OXIDE 400 MG TABLET PO SCH (20:05)
[2017-06-19] MEDS: HYDROcod/ACETAM 10 MG/325 MG TABLET PO PRN ×4 (00:47→20:29)
[2017-06-19] MEDS: SODIUM CHLORIDE FLUSH 0.9% 10 ML SYRINGE IVP SCH ×3 (02:15→16:31)
[2017-06-19 05:45] LABS: BASOPHILS # (AUTO) 0.1 10^3/uL (0.0-0.1); BASOPHILS % (AUTO) 1.1 %; EOSINOPHILS # (AUTO) 0.3 10^3/uL (0.0-0.7); EOSINOPHILS % (AUTO) 3.4 %; HGB - HEMOGLOBIN 11.8 g/dL (12.0-16.0); LYMPHOCYTES # (AUTO) 2.2 10^3/uL (1.5-3.5); MEAN CORPUSCULAR HEMOGLOBIN 30.6 pg (27.0-31.0); MEAN CORPUSCULAR HGB CONC 32.3 g/dL (32.0-36.0); MEAN CORPUSCULAR VOLUME 94.8 fL (81.0-99.0); MEAN PLATELET VOLUME 7.9 fL (7.9-10.8); MONOCYTES # (AUTO) 0.9 10^3/uL (0.0-1.0); MONOCYTES % (AUTO) 10.7 %; NEUTROPHILS # (AUTO) 4.6 10^3/uL (1.5-6.6); NEUTROPHILS % (AUTO) 57.8 %; PLT - PLATELET COUNT 196 10^3/uL (130-450); RED BLOOD COUNT 3.85 10^6/uL (4.20-5.40); RED CELL DISTRIBUTION WIDTH 16.8 % (12.0-15.0)
[2017-06-19 05:55] LABS: INR 1.9 (0.8-1.2); PT - PROTHROMBIN TIME 20.5 secs (9.9-12.6)
[2017-06-19] MEDS: PANTOPRAZOLE 40 MG TABLET PO SCH (06:52)
--- NOTE | 2017-06-19 06:55 | ADVANCE CARE PLANNING NOTE ---
Advance Care Planning - Date/Time Date: 06/19/17 Time: 06:30 - Purpose of encounter Text: This morning I was informed by the nurse that the patient's pulsed was scanned into the system and it has are clearly denoted as a DNR. Based on this I change the patient's CODE STATUS to DO NOT RESUSCITATE. Approximately half an hour later the same nurse came to me and said that the patient has changed her mind and now wishes to change her CODE STATUS to full resuscitation. When I had a long discussion with the patient and even though she has made statements to various nurses about wanting to and wanting to higher a hit man to end her life prematurely, these were gestures trying to get attention and not her actual goals. The patient now admits that she wants full resuscitation resuscitation and full treatment at this time. Accordingly, a new POLST was filled out and signed by the patient and myself. - Parties in attendance Parties in attendance: Patient, Ms. Cortez, and myself, Dr. Carole parr - Decisional capacity Decisional capacity of: The patient appears to be of sound mind and is having a logical conversation this morning. - Subjective/Patient's story Subjective/Patient's story: As noted above. The patient also has a history of clinical depression and says that her family is estranged from her. - Objective/Medical story Objective/Medical Story: The patient has end-stage COPD and is oxygen and CPAP dependent. - Goals of Care Goals of care determinations: At this time the patient wants full resuscitation/CPR and full treatment to prolong her life by all means necessary. - Plan Plan: A new POLST has been filled out and signed. - Code Status Code Status: Attempt Resuscitation - Time Spent on Advance Care Planning Time spent on advance care plannin minutes
[2017-06-19] MEDS ORDERED: DORZOLAMIDE/TIMOLOL OPHTH DROPS EACHEYE SCH (07:00)
--- NOTE | 2017-06-19 07:13 | XRAY Report ---
EXAM: CHEST RADIOGRAPHY EXAM DATE: 06/19/2017 05:44 AM. CLINICAL HISTORY: F/U pneumonia. COMPARISON: 06/18/2017. 06/16/2017. TECHNIQUE: 1 view. FINDINGS: Lungs/Pleura: Interstitium is prominent as before. Left basilar opacity is again seen. Small left ple ural effusion. No pneumothorax. Mediastinum: Heart size and mediastinal contour are stable. Other: Previously described left-sided rib fractures not as well seen. Surgical clips again seen in t he soft tissues of the right hemithorax. IMPRESSION: 1. Left basilar consolidation/atelectasis and small left pleural effusion without significant change. [facility] Referring Provider Line: [phone] SITE ID: [id number]
--- NOTE | 2017-06-19 07:13 | XRAY Preliminary Report ---
Exam: XR CHEST 1 VIEW X-RAY IMPRESSION: 1. Left basilar consolidation/atelectasis and small left pleural effusion without significant change. [facility] SITE ID: [id number]
[2017-06-19] MEDS ORDERED: DOCUSATE SODIUM 250 MG CAPSULE PO SCH (09:00)
[2017-06-19] MEDS ORDERED: POLYETHYLENE GLYCOL 3350 17 GM PACKET PO SCH (09:00)
[2017-06-19] MEDS: INSULIN ASPART 300 UNIT/3 ML PEN SUBQ SCH ×4 (09:08→20:34)
[2017-06-19] MEDS: MULTIVITAMIN TABLET PO SCH (09:10)
[2017-06-19] MEDS: SACCHAROMYCES BOULARDII 250 MG CAPSULE PO SCH ×2 (09:10→16:30)
[2017-06-19] MEDS: POTASSIUM CHLORIDE 10 MEQ CAPSULE PO SCH (09:10)
[2017-06-19] MEDS: CHOLECALCIFEROL 1,000 UNIT TABLET PO SCH (09:10)
[2017-06-19] MEDS: SENNA 8.6 MG TABLET PO SCH (09:11)
[2017-06-19] MEDS: diltiaZEM CD 240 MG CAPSULE PO SCH (09:11)
[2017-06-19] MEDS: METOPROLOL TARTRATE 50 MG TABLET PO SCH ×2 (09:11→20:29)
[2017-06-19] MEDS: buPROPion SR 100 MG TABLET PO SCH (09:14)
[2017-06-19] MEDS: amLODIPine 5 MG TABLET PO SCH (09:14)
[2017-06-19] MEDS: LORATADINE 10 MG TABLET PO SCH (09:15)
[2017-06-19] MEDS: DULoxetine 30 MG CAPSULE PO SCH ×2 (09:15→20:29)
[2017-06-19] MEDS: POLYETHYLENE GLYCOL 3350 17 GM PACKET PO SCH (09:15)
[2017-06-19] MEDS: DOCUSATE SODIUM 100 MG CAPSULE PO SCH (09:15)
[2017-06-19] MEDS: FUROSEMIDE 20 MG TABLET PO SCH (09:25)
[2017-06-19] MEDS ORDERED: WARFARIN 2.5 MG TABLET PO SCH (10:38)
[2017-06-19] MEDS: MAGNESIUM OXIDE 400 MG TABLET PO SCH ×2 (10:49→20:29)
[2017-06-19] MEDS: cefTRIAXone 1 GM in SODIUM CHLORIDE 0.9% MINIBAG 100 ML IV SCH (14:14)
--- NOTE | 2017-06-19 15:14 | PROVIDER PROGRESS NOTE ---
Assessment/Plan - Problem List (1) CAP (community acquired pneumonia) Assessment/Plan: Pt on empiric iv antibiotics. No sputum and poor cough, probably due to splinting from fractured ribs. (2) Respiratory failure after trauma Assessment/Plan: Unfortunately, this is a known complication after rib fractures. Continue management with pain meds, treat pneumonia and assist vetilation with Incentive spirometry. (3) Multiple rib fractures Qualifiers: Encounter type: subsequent encounter Fracture type: closed Laterality: left Fracture healing: with routine healing Qualified Code(s): S22.42XD - Multiple fractures of ribs, left side, subsequent encounter for fracture with routine healing Assessment/Plan: Continue pain meds prn. (4) Accidental fall Qualifiers: Encounter type: initial encounter Qualified Code(s): W19.XXXA - Unspecified fall, initial encounter Assessment/Plan: This occurred before the last admission, and was from tripping, not from poor gait or dizziness. (5) Depression Qualifiers: Depression Type: major depressive disorder Assessment/Plan: The Pt made remarks about "hiring a hit man to kill her" but admitted that this was attention getting remark and that she had no specific plan. Continue anti-depressant meds. (6) COPD (chronic obstructive pulmonary disease) with emphysema Assessment/Plan: Continue inhalers. (7) Diabetes Qualifiers: Diabetes mellitus type: type 2 Assessment/Plan: Continue diabetic diet and Insulin coverage. - Current Meds Current Meds: Current Medications Generic Name Dose Route Start Last Admin Trade Name Freq PRN Reason Stop Dose Admin Acetaminophen/Hydrocodone Bitart 1 tab 06/18/17 10:30 06/19/17 12:32 [place] 10 Mg/325 Mg PO 1 tab Q4HR PRN Administration Pain 8 to 10 Albuterol/Ipratropium 3 ml 06/18/17 19:00 06/19/17 09:49 Duoneb INH 3 ml RTQ4H PRN Administration Wheezing Amlodipine Besylate 5 mg 06/19/17 09:00 06/19/17 09:14 Norvasc PO 5 mg DAILY LOWELL Administration Bupropion HCl 75 mg 06/19/17 09:00 06/19/17 09:14 Wellbutrin Sr PO 75 mg DAILY LOWELL Administration Cholecalciferol 2,000 unit 06/19/17 09:00 06/19/17 09:10 Vitamin D3 PO 2,000 unit DAILY LOWELL Administration Cyclobenzaprine HCl 10 mg 06/18/17 18:51 06/18/17 19:20 Flexeril PO 10 mg TID PRN Administration Spasms Diltiazem HCl 240 mg 06/19/17 09:00 06/19/17 09:11 Cardizem Cd PO 240 mg DAILY LOWELL Administration Docusate Sodium 100 mg 06/18/17 16:45 06/19/17 09:15 Colace 100mg Capsule PO 100 mg DAILY LOWELL Administration Duloxetine HCl 30 mg 06/18/17 21:00 06/19/17 09:15 Cymbalta PO 30 mg BID LOWELL Administration Furosemide 30 mg 06/19/17 09:00 06/19/17 09:25 Lasix PO 30 mg DAILY LOWELL Administration Ceftriaxone Sodium 1 gm/ 100 mls @ 200 mls/hr 06/18/17 14:00 06/19/17 14:54 Sodium Chloride IV Infused Q24H LOWELL Infusion Azithromycin 500 mg/ Sodium 250 mls @ 250 mls/hr 06/18/17 16:00 06/18/17 18: 45 Chloride IV Infused Q24H LOWELL Infusion Insulin Aspart 1 - 5 unit 06/18/17 12:00 06/19/17 12:02 Novolog SUBQ 1 unit 0800,1200,1700,2100 LOWELL Administration Protocol Loratadine 10 mg 06/19/17 09:00 06/19/17 09:15 Claritin PO 10 mg DAILY LOWELL Administration Magnesium Oxide 400 mg 06/18/17 21:00 06/19/17 10:49 Mag Ox PO 400 mg BID LOWELL Administration Metoprolol Tartrate 100 mg 06/18/17 21:00 06/19/17 09:11 Lopressor PO 100 mg BID LOWELL Administration Multivitamins 1 tab 06/19/17 09:00 06/19/17 09:10 Theragran PO 1 tab DAILY LOWELL Administration Pantoprazole Sodium 40 mg 06/19/17 07:00 06/19/17 06:52 Protonix PO 40 mg QDAC LOWELL Administration Polyethylene Glycol 17 gm 06/18/17 16:47 06/19/17 09:15 Miralax PO 17 gm DAILY LOWELL Administration Potassium Chloride 10 meq 06/19/17 09:00 06/19/17 09:10 Micro-K PO 10 meq DAILY LOWELL Administration Saccharomyces Boulardii 250 mg 06/18/17 18:00 06/19/17 09:10 Florastor PO 250 mg BIDWM LOWELL Administration Senna 8.6 mg 06/18/17 16:47 06/19/17 09:11 Senokot PO 8.6 mg DAILY LOWELL Administration Sodium Chloride 10 ml 06/18/17 17:00 06/19/17 09:15 Normal Saline Flush 0.9% IVP 10 ml 0100,0900,1700 LOWELL Administration - Lab Result Fish Bone Diagrams: 06/19/17 05:25 06/18/17 08:38 - Diagnostic Imaging Results Diagnostic Imaging Results: Final report reviewed - Additional Planning My Orders: My Active Orders 06/18/17 14:21 Home CPAP/BiPAP [RC] .ONCE 06/18/17 16:00 Azithromycin Inj [Zithromax Inj] 500 mg Sodium Chloride 0.9% [Normal Saline 0.9%] 250 ml IV Q24H 06/18/17 16:45 Docusate Sodium 100Mg Capsule [Colace 100Mg Capsule] 100 mg PO DAILY 06/18/17 16:47 Senna [Senokot] 8.6 mg PO DAILY 06/18/17 18:00 Saccharomyces Boulardii [Florastor] 250 mg PO BIDWM 06/18/17 18:24 Nebulizer/MDI Tx. [RC] .Q4PRN Resp Teach Nebulizer/MDI [RC] .ONCE 06/18/17 18:51 Cyclobenzaprine [Flexeril] 10 mg PO TID PRN 06/18/17 19:00 Ipratropium/Albuterol [Duoneb] 3 ml INH RTQ4H PRN 06/18/17 21:00 DULoxetine [Cymbalta] 30 mg PO BID Magnesium Oxide [Mag Ox] 400 mg PO BID Metoprolol Tartrate [Lopressor] 100 mg PO BID 06/19/17 07:00 Pantoprazole [Protonix] 40 mg PO QDAC 06/19/17 09:00 Cholecalciferol [Vitamin D3] 2,000 unit PO DAILY Furosemide [Lasix] 30 mg PO DAILY Loratadine [Claritin] 10 mg PO DAILY Multivitamin [Theragran] 1 tab PO DAILY Potassium Chloride [Micro-K] 10 meq PO DAILY amLODIPine [Norvasc] 5 mg PO DAILY buPROPion [Wellbutrin Sr] 75 mg PO DAILY diltiaZEM CD [Cardizem Cd] 240 mg PO DAILY 06/19/17 21:00 Warfarin [Coumadin] 2.5 mg PO Frank@2100 Subjective - Subjective Patient Reports: Resting Comfortably Nursing Reports: Other (The patient thinks that signing a POLST for being a Full Code means agreeing to get full treatment for medical problems, and states she doesn't understand what a Code Rescusitation means.) Objective Vital Signs: Vital Signs - 24 hr 06/18/17 06/19/17 06/19/17 15:59 00:07 08:00 Temperature 36.7 C 36.4 C L 36.5 C Heart Rate Heart Rate [ 108 H 74 113 H Brachial] Respiratory 18 20 16 Rate Blood Pressure 136/75 H 146/73 H 147/88 H [Left Brachial artery] O2 Saturation 99 95 94 06/19/17 06/19/17 09:00 09:50 Temperature Heart Rate 112 H 110 H Heart Rate [ Brachial] Respiratory 18 18 Rate Blood Pressure [Left Brachial artery] O2 Saturation Oxygen O2 Source [With Activity] Room air O2 Source Room air I&O (Last 24 Hrs): Intake and Output Totals x24h 06/17/17 06/18/17 06/19/17 23:59 23:59 23:59 Intake Total 945 680 Balance 945 680 General: Alert HEENT: Mucous membr. moist/pink Neck: Supple Neuro: Other (Memory or underestanding are poor) Cardiovascular: No murmurs Respiratory: No respiratory distress Abdomen: Soft Extremities: No edema - Results Results: Laboratory Results WBC 8.0 x10^3/uL (4.8-10.8) 06/19/17 05:25 RBC 3.85 10^6/uL (4.20-5.40) L 06/19/17 05:25 Hgb 11.8 g/dL (12.0-16.0) L 06/19/17 05:25 Hct 36.5 % (37.0-47.0) L 06/19/17 05:25 MCV 94.8 fL (81.0-99.0) 06/19/17 05:25 MCH 30.6 pg (27.0-31.0) 06/19/17 05:25 MCHC 32.3 g/dL (32.0-36.0) 06/19/17 05:25 RDW 16.8 % (12.0-15.0) H 06/19/17 05:25 Plt Count 196 10^3/uL (130-450) 06/19/17 05:25 MPV 7.9 fL (7.9-10.8) 06/19/17 05:25 Neut # 4.6 10^3/uL (1.5-6.6) 06/19/17 05:25 Lymph # 2.2 10^3/uL (1.5-3.5) 06/19/17 05:25 [place] # 0.9 10^3/uL (0.0-1.0) 06/19/17 05:25 Eos # 0.3 10^3/uL (0.0-0.7) 06/19/17 05:25 Baso # 0.1 10^3/uL (0.0-0.1) 06/19/17 05:25 Absolute Nucleated RBC 0.01 x10^3/uL 06/19/17 05:25 Nucleated RBC % 0.1 /100WBC 06/19/17 05:25 PT 20.5 secs (9.9-12.6) H 06/19/17 05:25 INR 1.9 (0.8-1.2) H 06/19/17 05:25 Sodium 135 mmol/L (135-145) 06/18/17 08:38 Potassium 4.1 mmol/L (3.5-5.0) 06/18/17 08:38 Chloride 106 mmol/L (101-111) 06/18/17 08:38 Carbon Dioxide 17 mmol/L (21-32) L 06/18/17 08:38 Anion Gap 12.0 (6-13) 06/18/17 08:38 BUN 16 mg/dL (6-20) 06/18/17 08:38 Creatinine 0.8 mg/dL (0.4-1.0) 06/18/17 08:38 Estimated GFR (MDRD) 68 (>89) L 06/18/17 08:38 Glucose 187 mg/dL (70-100) H 06/18/17 08:38 Calcium 8.7 mg/dL (8.5-10.3) 06/18/17 08:38 Total Bilirubin 0.8 mg/dL (0.2-1.0) 06/18/17 08:38 AST 25 IU/L (10-42) 06/18/17 08:38 ALT 23 IU/L (10-60) 06/18/17 08:38 Alkaline Phosphatase 64 IU/L (42-121) 06/18/17 08:38 Troponin I < 0.04 ng/mL (<0.49) 06/18/17 08:38 B-Natriuretic Peptide 327 pg/mL (5-100) H 06/18/17 08:38 Total Protein 7.1 g/dL (6.7-8.2) 06/18/17 08:38 Albumin 3.6 g/dL (3.2-5.5) 06/18/17 08:38 Globulin 3.5 g/dL (2.1-4.2) 06/18/17 08:38 Albumin/Globulin Ratio 1.0 (1.0-2.2) 06/18/17 08:38 Lipase < 10 U/L (22-51) L 06/18/17 08:38 Urine Color YELLOW 06/18/17 10:34 Urine Clarity CLEAR (CLEAR) 06/18/17 10:34 Urine pH 6.0 PH (5.0-7.5) 06/18/17 10:34 Ur Specific [place] 1.020 (1.002-1.030) 06/18/17 10:34 Urine Protein NEGATIVE mg/dL (NEGATIVE) 06/18/17 10:34 Urine Glucose (UA) NEGATIVE mg/dL (NEGATIVE) 06/18/17 10:34 Urine Ketones 15 mg/dL (NEGATIVE) H 06/18/17 10:34 Urine Occult Blood TRACE-INTA (NEGATIVE) 06/18/17 10:34 Urine Nitrite NEGATIVE (NEGATIVE) 06/18/17 10:34 Urine Bilirubin NEGATIVE (NEGATIVE) 06/18/17 10:34 Urine Urobilinogen 0.2 (NORMAL) E.U./dL (NORMAL) 06/18/17 10:34 Ur Leukocyte Esterase NEGATIVE (NEGATIVE) 06/18/17 10:34 Ur Microscopic Review NOT INDICATED 06/18/17 10:34 Urine Culture Comments NOT INDICATED 06/18/17 10:34 - Procedures Procedures: Procedures ENDO RECTUM POLYPECTOMY (11/29/13) ENDOSC POLYPECTOMY OF LG INTEST (11/29/13) EXC LES SOFT TISSUE NEC (01/05/13) EYELID BIOPSY (03/09/14) INSERTION OF INFUSION DEV INTO SUP VENA CAVA, PERC APPROACH (08/01/16) LOCAL EXCIS BREAST LES (01/05/13) LYMPHATIC STRUCT BIOPSY (08/04/12) OTHER ENDOSCOPY OF SM INTEST (11/29/13) TRANSFUSE NONAUT FROZEN PLASMA IN PERIPH VEIN, PERC (08/01/16) TU REMOV URETER OBSTRUCT (08/30/13) UNILAT EXTEN SIMP MASTEC (08/04/12) URETERAL CATHETERIZATION (08/30/13)
[2017-06-19] MEDS ORDERED: MAGNESIUM HYDROXIDE 2,400 MG/30 ML UDC PO SCH (15:24)
[2017-06-19] MEDS ORDERED: SENNA 8.6 MG TABLET PO SCH (16:00)
[2017-06-19] MEDS: AZITHROMYCIN INJ 500 MG in SODIUM CHLORIDE 0.9% 250 ML IV SCH (16:31)
[2017-06-19] MEDS: WARFARIN 2.5 MG TABLET PO SCH (20:29)
[2017-06-19] MEDS: DORZOLAMIDE/TIMOLOL OPHTH DROPS EACHEYE SCH (20:33)
[2017-06-20] MEDS: SODIUM CHLORIDE FLUSH 0.9% 10 ML SYRINGE IVP SCH ×3 (00:40→16:36)
[2017-06-20] MEDS: HYDROcod/ACETAM 10 MG/325 MG TABLET PO PRN ×4 (02:59→18:53)
[2017-06-20] MEDS: PANTOPRAZOLE 40 MG TABLET PO SCH (06:06)
[2017-06-20] MEDS: INSULIN ASPART 300 UNIT/3 ML PEN SUBQ SCH ×4 (07:50→21:17)
[2017-06-20] MEDS: FUROSEMIDE 20 MG TABLET PO SCH (08:31)
[2017-06-20] MEDS: POTASSIUM CHLORIDE 10 MEQ CAPSULE PO SCH (08:32)
[2017-06-20] MEDS: buPROPion SR 100 MG TABLET PO SCH (08:32)
[2017-06-20] MEDS: METOPROLOL TARTRATE 50 MG TABLET PO SCH ×2 (08:33→21:09)
[2017-06-20] MEDS: SACCHAROMYCES BOULARDII 250 MG CAPSULE PO SCH ×2 (08:33→16:35)
[2017-06-20] MEDS: CHOLECALCIFEROL 1,000 UNIT TABLET PO SCH (08:33)
[2017-06-20] MEDS: LORATADINE 10 MG TABLET PO SCH (08:36)
[2017-06-20] MEDS: amLODIPine 5 MG TABLET PO SCH (08:37)
[2017-06-20] MEDS: MAGNESIUM OXIDE 400 MG TABLET PO SCH ×2 (08:37→21:06)
[2017-06-20] MEDS: MULTIVITAMIN TABLET PO SCH (08:37)
[2017-06-20] MEDS: DULoxetine 30 MG CAPSULE PO SCH ×2 (08:37→21:06)
[2017-06-20] MEDS: POLYETHYLENE GLYCOL 3350 17 GM PACKET PO SCH (08:37)
[2017-06-20] MEDS: diltiaZEM CD 240 MG CAPSULE PO SCH (08:37)
[2017-06-20] MEDS: DORZOLAMIDE/TIMOLOL OPHTH DROPS EACHEYE SCH ×2 (08:38→21:13)
[2017-06-20] MEDS: DOCUSATE SODIUM 100 MG CAPSULE PO SCH (08:39)
[2017-06-20] MEDS: SENNA 8.6 MG TABLET PO SCH (08:39)
[2017-06-20] MEDS ORDERED: REFRESH TEARS EYE EACHEYE PRN (11:33)
[2017-06-20] MEDS: cefTRIAXone 1 GM in SODIUM CHLORIDE 0.9% MINIBAG 100 ML IV SCH (13:28)
[2017-06-20] MEDS: AZITHROMYCIN INJ 500 MG in SODIUM CHLORIDE 0.9% 250 ML IV SCH (16:35)
--- NOTE | 2017-06-20 17:25 | PROVIDER PROGRESS NOTE ---
Assessment/Plan - Problem List (1) CAP (community acquired pneumonia) Assessment/Plan: Will recheck CXR in am. Poss DCh to a SNF tomorrow, where she will need to complete a course of antibiotics (2) Respiratory failure after trauma Assessment/Plan: Continue to promote good ventilation with Incentive Spirometry scheduled and pain control for rib pain. (3) Multiple rib fractures Qualifiers: Encounter type: subsequent encounter Fracture type: closed Laterality: left Fracture healing: with routine healing Qualified Code(s): S22.42XD - Multiple fractures of ribs, left side, subsequent encounter for fracture with routine healing Assessment/Plan: Pt has adequate pain control. (4) Accidental fall Qualifiers: Encounter type: initial encounter Qualified Code(s): W19.XXXA - Unspecified fall, initial encounter Assessment/Plan: No evidence of poor gait or complaints of orthostatic dizziness, but Pt will need further Physical Therapy per PT (5) Depression Qualifiers: Depression Type: major depressive disorder Assessment/Plan: Stable on present meds. (6) COPD (chronic obstructive pulmonary disease) with emphysema Assessment/Plan: Stable on present meds. (7) Diabetes Qualifiers: Diabetes mellitus type: type 2 Assessment/Plan: Adequate control on present diet and Insulin coverage. - Current Meds Current Meds: Current Medications Generic Name Dose Route Start Last Admin Trade Name Freq PRN Reason Stop Dose Admin Acetaminophen/Hydrocodone Bitart 1 tab 06/18/17 10:30 06/20/17 13:27 [place] 10 Mg/325 Mg PO 1 tab Q4HR PRN Administration Pain 8 to 10 Albuterol/Ipratropium 3 ml 06/18/17 19:00 06/19/17 09:49 Duoneb INH 3 ml RTQ4H PRN Administration Wheezing Amlodipine Besylate 5 mg 06/19/17 09:00 06/20/17 08:37 Norvasc PO 5 mg DAILY LOWELL Administration Bupropion HCl 75 mg 06/19/17 09:00 06/20/17 08:32 Wellbutrin Sr PO 75 mg DAILY LOWELL Administration Cholecalciferol 2,000 unit 06/19/17 09:00 06/20/17 08:33 Vitamin D3 PO 2,000 unit DAILY LOWELL Administration Cyclobenzaprine HCl 10 mg 06/18/17 18:51 06/18/17 19:20 Flexeril PO 10 mg TID PRN Administration Spasms Diltiazem HCl 240 mg 06/19/17 09:00 06/20/17 08:37 Cardizem Cd PO 240 mg DAILY LOWELL Administration Docusate Sodium 100 mg 06/18/17 16:45 06/20/17 08:39 Colace 100mg Capsule PO Not Given DAILY LOWELL Duloxetine HCl 30 mg 06/18/17 21:00 06/20/17 08:37 Cymbalta PO 30 mg BID LOWELL Administration Furosemide 30 mg 06/19/17 09:00 06/20/17 08:31 Lasix PO 30 mg DAILY LOWELL Administration Ceftriaxone Sodium 1 gm/ 100 mls @ 200 mls/hr 06/18/17 14:00 06/20/17 14:00 Sodium Chloride IV Infused Q24H LOWELL Infusion Azithromycin 500 mg/ Sodium 250 mls @ 250 mls/hr 06/18/17 16:00 06/20/17 16: 35 Chloride IV 250 mls/hr Q24H LOWELL Administration Insulin Aspart 1 - 5 unit 06/18/17 12:00 06/20/17 11:55 Novolog SUBQ Not Given 0800,1200,1700,2100 [facility] Protocol Loratadine 10 mg 06/19/17 09:00 06/20/17 08:36 Claritin PO 10 mg DAILY LOWELL Administration Magnesium Oxide 400 mg 06/18/17 21:00 06/20/17 08:37 Mag Ox PO 400 mg BID LOWELL Administration Metoprolol Tartrate 100 mg 06/18/17 21:00 06/20/17 08:33 Lopressor PO 100 mg BID LOWELL Administration Multivitamins 1 tab 06/19/17 09:00 06/20/17 08:37 Theragran PO 1 tab DAILY LOWELL Administration Pantoprazole Sodium 40 mg 06/19/17 07:00 06/20/17 06:06 Protonix PO 40 mg QDAC LOWELL Administration Dorzolamide/Timolol 1 each 06/19/17 10:00 06/20/17 08:38 Ophth Drops EACHEYE 1 each BID LOWELL Administration Polyethylene Glycol 17 gm 06/18/17 16:47 06/20/17 08:37 Miralax PO 17 gm DAILY LOWELL Administration Potassium Chloride 10 meq 06/19/17 09:00 06/20/17 08:32 Micro-K PO 10 meq DAILY LOWELL Administration Saccharomyces Boulardii 250 mg 06/18/17 18:00 06/20/17 16:35 Florastor PO 250 mg BIDWM [facility] Administration Senna 8.6 mg 06/18/17 16:47 06/20/17 08:39 Senokot PO Not Given DAILY [facility] Sodium Chloride 10 ml 06/18/17 17:00 06/20/17 16:36 Normal Saline Flush 0.9% IVP 10 ml 0100,0900,1700 [facility] Administration Warfarin Sodium 2.5 mg 06/19/17 21:00 06/19/17 20:29 Coumadin PO 2.5 mg [id number]@2100 [facility] Administration - Lab Result Fish Bone Diagrams: 06/19/17 05:25 06/18/17 08:38 - Additional Planning My Orders: My Active Orders 06/19/17 21:00 Warfarin [Coumadin] 2.5 mg PO [email or web address]@2100 06/20/17 11:33 Patient Own Med [Patient Own Medication] 1 each EACHEYE PRN PRN 06/20/17 21:00 Patient Own Med [Patient Own Medication] 1 each EACHEYE QPM 06/21/17 05:00 BMP - BASIC METABOLIC PANEL [CHEM] DAILYLAB CBC - COMP BLD CT W/AUTO DIFF [HEME] DAILYLAB Subjective - Subjective Patient Reports: Feeling Better Nursing Reports: No Complaints Objective Vital Signs: Vital Signs - 24 hr 06/19/17 06/20/17 06/20/17 23:58 08:00 08:33 Temperature 36.4 C L 36.8 C Heart Rate [ 88 111 H Brachial] Respiratory 18 118 H Rate Blood Pressure 117/65 Blood Pressure 134/84 H 151/91 H [Left Brachial artery] O2 Saturation 97 95 06/20/17 16:00 Temperature 36.4 C L Heart Rate [ 85 Brachial] Respiratory 18 Rate Blood Pressure Blood Pressure 148/75 H [Left Brachial artery] O2 Saturation 96 Oxygen O2 Source [With Activity] Room air O2 Source Room air I&O (Last 24 Hrs): Intake and Output Totals x24h 06/18/17 06/19/17 06/20/17 23:59 23:59 23:59 Intake Total 945 1950 300 Balance 945 1950 300 General: Alert HEENT: Mucous membr. moist/pink Neck: Supple Neuro: Non Focal Cardiovascular: No murmurs Respiratory: No respiratory distress Abdomen: Soft Extremities: No edema - Results Results: Laboratory Results WBC 8.0 x10^3/uL (4.8-10.8) 06/19/17 05:25 RBC 3.85 10^6/uL (4.20-5.40) L 06/19/17 05:25 Hgb 11.8 g/dL (12.0-16.0) L 06/19/17 05:25 Hct 36.5 % (37.0-47.0) L 06/19/17 05:25 MCV 94.8 fL (81.0-99.0) 06/19/17 05:25 MCH 30.6 pg (27.0-31.0) 06/19/17 05:25 MCHC 32.3 g/dL (32.0-36.0) 06/19/17 05:25 RDW 16.8 % (12.0-15.0) H 06/19/17 05:25 Plt Count 196 10^3/uL (130-450) 06/19/17 05:25 MPV 7.9 fL (7.9-10.8) 06/19/17 05:25 Neut # 4.6 10^3/uL (1.5-6.6) 06/19/17 05:25 Lymph # 2.2 10^3/uL (1.5-3.5) 06/19/17 05:25 [place] # 0.9 10^3/uL (0.0-1.0) 06/19/17 05:25 Eos # 0.3 10^3/uL (0.0-0.7) 06/19/17 05:25 Baso # 0.1 10^3/uL (0.0-0.1) 06/19/17 05:25 Absolute Nucleated RBC 0.01 x10^3/uL 06/19/17 05:25 Nucleated RBC % 0.1 /100WBC 06/19/17 05:25 PT 20.5 secs (9.9-12.6) H 06/19/17 05:25 INR 1.9 (0.8-1.2) H 06/19/17 05:25 Sodium 135 mmol/L (135-145) 06/18/17 08:38 Potassium 4.1 mmol/L (3.5-5.0) 06/18/17 08:38 Chloride 106 mmol/L (101-111) 06/18/17 08:38 Carbon Dioxide 17 mmol/L (21-32) L 06/18/17 08:38 Anion Gap 12.0 (6-13) 06/18/17 08:38 BUN 16 mg/dL (6-20) 06/18/17 08:38 Creatinine 0.8 mg/dL (0.4-1.0) 06/18/17 08:38 Estimated GFR (MDRD) 68 (>89) L 06/18/17 08:38 Glucose 187 mg/dL (70-100) H 06/18/17 08:38 Calcium 8.7 mg/dL (8.5-10.3) 06/18/17 08:38 Total Bilirubin 0.8 mg/dL (0.2-1.0) 06/18/17 08:38 AST 25 IU/L (10-42) 06/18/17 08:38 ALT 23 IU/L (10-60) 06/18/17 08:38 Alkaline Phosphatase 64 IU/L (42-121) 06/18/17 08:38 Troponin I < 0.04 ng/mL (<0.49) 06/18/17 08:38 B-Natriuretic Peptide 327 pg/mL (5-100) H 06/18/17 08:38 Total Protein 7.1 g/dL (6.7-8.2) 06/18/17 08:38 Albumin 3.6 g/dL (3.2-5.5) 06/18/17 08:38 Globulin 3.5 g/dL (2.1-4.2) 06/18/17 08:38 Albumin/Globulin Ratio 1.0 (1.0-2.2) 06/18/17 08:38 Lipase < 10 U/L (22-51) L 06/18/17 08:38 Urine Color YELLOW 06/18/17 10:34 Urine Clarity CLEAR (CLEAR) 06/18/17 10:34 Urine pH 6.0 PH (5.0-7.5) 06/18/17 10:34 Ur Specific [place] 1.020 (1.002-1.030) 06/18/17 10:34 Urine Protein NEGATIVE mg/dL (NEGATIVE) 06/18/17 10:34 Urine Glucose (UA) NEGATIVE mg/dL (NEGATIVE) 06/18/17 10:34 Urine Ketones 15 mg/dL (NEGATIVE) H 06/18/17 10:34 Urine Occult Blood TRACE-INTA (NEGATIVE) 06/18/17 10:34 Urine Nitrite NEGATIVE (NEGATIVE) 06/18/17 10:34 Urine Bilirubin NEGATIVE (NEGATIVE) 06/18/17 10:34 Urine Urobilinogen 0.2 (NORMAL) E.U./dL (NORMAL) 06/18/17 10:34 Ur Leukocyte Esterase NEGATIVE (NEGATIVE) 06/18/17 10:34 Ur Microscopic Review NOT INDICATED 06/18/17 10:34 Urine Culture Comments NOT INDICATED 06/18/17 10:34 - Procedures Procedures: Procedures ENDO RECTUM POLYPECTOMY (11/29/13) ENDOSC POLYPECTOMY OF LG INTEST (11/29/13) EXC LES SOFT TISSUE NEC (01/05/13) EYELID BIOPSY (03/09/14) INSERTION OF INFUSION DEV INTO SUP VENA CAVA, PERC APPROACH (08/01/16) LOCAL EXCIS BREAST LES (01/05/13) LYMPHATIC STRUCT BIOPSY (08/04/12) OTHER ENDOSCOPY OF SM INTEST (11/29/13) TRANSFUSE NONAUT FROZEN PLASMA IN PERIPH VEIN, PERC (08/01/16) TU REMOV URETER OBSTRUCT (08/30/13) UNILAT EXTEN SIMP MASTEC (08/04/12) URETERAL CATHETERIZATION (08/30/13)
[2017-06-20] MEDS: CYCLOBENZAPRINE 10 MG TABLET PO PRN (18:52)
--- NOTE | 2017-06-20 19:41 | HISTORY & PHYSICAL EXAMINATION ---
DATE OF SERVICE: 06/18/2017 Physician: Viki Coronado MD DATE OF SERVICE: 06/18/2017. HISTORY OF PRESENT ILLNESS: This is an 86-year-old white female with a history of diabetes, COPD, sleep apnea on CPAP, depression with remote suicidal ideations, recently here for an observation stay after she fell, tripping over an object in the middle of the night and broke 3 ribs. She needed pain management for the broken ribs and had adequate control and no other complications, such as displaced fractures or pneumothorax and was discharged just yesterday. She apparently developed worsening shortness of breath and had respiratory distress and needed the help of a neighbor to call EMS and then was brought to the emergency room where she was found to be in significant respiratory distress and with a new cough. Chest x- ray shows an infiltrate on the side of the rib fractures. PAST MEDICAL HISTORY: Diabetes on insulin, depression on medications, sleep apnea on CPAP, COPD on inhalers, recent fall with rib fractures as above, DVT and pulmonary embolism, treated with Coumadin chronically. REVIEW OF SYSTEMS: A comprehensive review of systems was performed, and the pertinent positives are above and these: There has been no fever. She also mentioned to a staff member here that she "is thinking about hiring a hit man to have him kill her." FAMILY HISTORY: No inherited diseases. SOCIAL HISTORY: The patient is a nonsmoker, never smoked, uses no alcohol, uses no substance in abuse. PAST SURGICAL HISTORY: 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, oophorectomy, mastectomy for right-sided breast cancer. PHYSICAL EXAMINATION GENERAL: An elderly white female. She is in mild respiratory distress with a wet cough, nonproductive. VITAL SIGNS: Blood pressure 150/80, heart rate 60-90, in sinus rhythm, afebrile , room air saturation 99%. HEENT: Unremarkable with moist oral mucosa. NECK: No JVD or carotid bruits. LUNGS: Decreased breath sounds at the left base. There are no rales or wheezes. HEART: Sounds are normal, distant. No murmurs. ABDOMEN: Soft, normal bowel sounds, nontender. EXTREMITIES: No clubbing, cyanosis or edema. NEUROLOGIC: Intact. CHEST X-RAY: Left base consolidation or atelectasis, small left pleural effusion and no pneumothorax. EKG: Sinus tachycardia or ectopic atrial tachycardia, right bundle branch block , left posterior fascicular block and it is similar to a previous one, except for one single PVC. LABORATORY DATA: Sodium 135, potassium 4.1, BUN and creatinine normal. Glucose 187. Liver tests normal. Troponin not detectable. BNP 327. INR 2.0. White blood count 11.3 with a left shift, hemoglobin 13.4, platelet count normal at 204. Urinalysis had positive ketones and negative leukocyte esterase. Initial O2 saturation was below 90%. IMPRESSION/DIAGNOSES 1. Hypoxia, according to the emergency room from EMS. 2. Community-acquired pneumonia. 3. Multiple rib fractures. 4. Chronic obstructive pulmonary disease history. 5. Sleep apnea, on CPAP. 6. Diabetes mellitus. 7. Depression. PLAN: Admit the patient on telemetry. Obtain blood cultures and sputum cultures if she can make sputum. Continue with her pain medications for the rib fractures and begin treatment with empiric IV antibiotics for community-acquired pneumonia. Unfortunately, this is an expected complication following rib fractures, when the patient has chest splinting then poor ventilation secondary to pain. Continue with her diabetic treatment and depression treatment. Have the socially responsible investment adviser address her current concerns about "not wanting to live with everything going on." DVT PROPHYLAXIS: She is on therapeutic Coumadin doses, which will be continued. CODE STATUS: DNR from the last admission and her old POLST. ATTESTATION: The patient is expected to be discharged or transferred to another facility within 96 hours: Yes. TD: 06/20/2017 19:39 MTDStan
[2017-06-20] MEDS ORDERED: LATANOPROST 0.005% EACHEYE SCH (21:00)
[2017-06-20] MEDS ORDERED: OPTHALMIC EACHEYE SCH (21:00)
[2017-06-20] MEDS: WARFARIN 2.5 MG TABLET PO SCH (21:10)
[2017-06-21] MEDS: CYCLOBENZAPRINE 10 MG TABLET PO PRN (00:18)
[2017-06-21] MEDS: HYDROcod/ACETAM 10 MG/325 MG TABLET PO PRN ×4 (00:19→13:10)
[2017-06-21] MEDS: PANTOPRAZOLE 40 MG TABLET PO SCH (05:59)
[2017-06-21] MEDS: SODIUM CHLORIDE FLUSH 0.9% 10 ML SYRINGE IVP SCH ×2 (05:59→08:59)
[2017-06-21 06:22] LABS: BASOPHILS # (AUTO) 0.1 10^3/uL (0.0-0.1); EOSINOPHILS # (AUTO) 0.4 10^3/uL (0.0-0.7); EOSINOPHILS % (AUTO) 4.7 %; HGB - HEMOGLOBIN 11.1 g/dL (12.0-16.0); LYMPHOCYTES # (AUTO) 2.3 10^3/uL (1.5-3.5); LYMPHOCYTES % (AUTO) 29.8 %; MEAN CORPUSCULAR HEMOGLOBIN 30.5 pg (27.0-31.0); MEAN CORPUSCULAR HGB CONC 32.1 g/dL (32.0-36.0); MEAN CORPUSCULAR VOLUME 95.1 fL (81.0-99.0); MEAN PLATELET VOLUME 7.8 fL (7.9-10.8); MONOCYTES # (AUTO) 0.8 10^3/uL (0.0-1.0); MONOCYTES % (AUTO) 9.8 %; NEUTROPHILS # (AUTO) 4.3 10^3/uL (1.5-6.6); NEUTROPHILS % (AUTO) 54.7 %; PLT - PLATELET COUNT 243 10^3/uL (130-450); RED BLOOD COUNT 3.62 10^6/uL (4.20-5.40); RED CELL DISTRIBUTION WIDTH 17.3 % (12.0-15.0); WHITE BLOOD COUNT 7.8 x10^3/uL (4.8-10.8)
[2017-06-21 06:28] LABS: CALCIUM 8.8 mg/dL (8.5-10.3); CREATININE 1.1 mg/dL (0.4-1.0)
[2017-06-21 07:32] VITALS: BP 122/66
[2017-06-21] MEDS: INSULIN ASPART 300 UNIT/3 ML PEN SUBQ SCH ×2 (07:54→12:00)
[2017-06-21] MEDS: METOPROLOL TARTRATE 50 MG TABLET PO SCH (08:58)
[2017-06-21] MEDS: diltiaZEM CD 240 MG CAPSULE PO SCH (08:58)
[2017-06-21] MEDS: POTASSIUM CHLORIDE 10 MEQ CAPSULE PO SCH (08:58)
[2017-06-21] MEDS: amLODIPine 5 MG TABLET PO SCH (08:58)
[2017-06-21] MEDS: SENNA 8.6 MG TABLET PO SCH (08:58)
[2017-06-21] MEDS: CHOLECALCIFEROL 1,000 UNIT TABLET PO SCH (08:58)
[2017-06-21] MEDS: buPROPion SR 100 MG TABLET PO SCH (08:58)
[2017-06-21] MEDS: FUROSEMIDE 20 MG TABLET PO SCH (08:58)
[2017-06-21] MEDS: DOCUSATE SODIUM 100 MG CAPSULE PO SCH (08:58)
[2017-06-21] MEDS: MAGNESIUM OXIDE 400 MG TABLET PO SCH (08:59)
[2017-06-21] MEDS: DULoxetine 30 MG CAPSULE PO SCH (08:59)
[2017-06-21] MEDS: POLYETHYLENE GLYCOL 3350 17 GM PACKET PO SCH (08:59)
[2017-06-21] MEDS: LORATADINE 10 MG TABLET PO SCH (08:59)
[2017-06-21] MEDS: MULTIVITAMIN TABLET PO SCH (08:59)
[2017-06-21] MEDS: SACCHAROMYCES BOULARDII 250 MG CAPSULE PO SCH (08:59)
[2017-06-21] MEDS: DORZOLAMIDE/TIMOLOL OPHTH DROPS EACHEYE SCH (11:59)
--- NOTE | 2017-06-21 11:59 | Discharge Plan ---
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 Notify PCP of admission and forward orders to primary provider for signature. Weight on admission and Weekly. Call PCP immediately if weight increases by 10 pounds or if patient develops dyspnea, chest pain/tightness or edema. House Bowel Program: Yes If no BM after 2 days, nurse may give M.O.M. 30ml PO PRN and /or ducolax Supp 1 CO and /or LASHAE 250mg P.O., and/or senna 1-2 tabs PO. On day 3 nurse may give repeat above order until residents constipation is resolved. Immunizations: Annual Influenza Vaccine: Yes. (between Oct 25 and May 24.) Unless allergy or already given Two-Step PPD: Yes per [facility] [phone] or appropriate documentation of approved exceptions Treatments & Other Orders: CXR in 1 week, OT and PT eval and treatment per protocol Oxygen Orders: None Lab Tests or X-Rays Orders: INR on Mon, Wed, Fri Orthopedic Orders: None. Medications: PLEASE REFER TO THE DISCHARGE MEDICATION LIST. Insulin Orders? Yes Diagnosis: Diabetes Initiate hypo and hyperglycemia protocols for BG <70 and BG >375. May check BG prn for signs/symptoms of dysglycemia. Frequency of BG checks: [AC/HS] Basal Insulin: None Correction Insulin: - Select the type of insulin below [Choose: Novolog] 100 units /ml insulin inject subq per orders indicate below [X] LOW DOSE [] MODERATE DOSE [] MODERATE/HIGH DOSE [] HIGH DOSE GB UNITS GB UNITS GB UNITS GB UNITS 61-140 0 UNITS 61-140 0 UNITS 61-140 0 UNITS 61-140 0 UNITS 141-175 1 UNITS 141-175 1 UNITS 141-175 2 UNITS 141-175 3 UNITS 176-225 2 UNITS 176-225 3 UNITS 176-225 4 UNITS 176-225 5 UNITS 226-275 3 UNITS 226-275 5 UNITS 226-275 6 UNITS 226-275 7 UNITS 276-325 4 UNITS 276-325 7 UNITS 276-325 8 UNITS 276-325 9 UNITS 326-375 5 UNITS 326-375 9 UNITS 326-375 10 UNITS 326-375 11 UNITS >375 CONTACT MD >375 CONTACT MD >375 CONTACT MD >375 CONTACT MD Allergies and Adverse Reactions: Allergies Allergy/AdvReac Type Severity Reaction Status Date / Time Penicillins Allergy Rash Verified 06/16/17 03:43 prednisone Allergy Rash Verified 06/16/17 03:43 DEBBIE Inhibitors AdvReac Intermediate cough Verified 06/16/17 03:43 - Medications New Prescriptions: HYDROcodone/ACET 10/325 [[place] 10 mg/325 mg] 1 tab PO Q4HR PRN #30 tablet PRN Reason: Pain 8 to 10 Azithromycin [Zithromax] 500 mg PO DAILY #14 tablet Cyclobenzaprine [Flexeril] 10 mg PO TID PRN #30 tablet PRN Reason: Spasms Insulin Aspart [NovoLOG] 1 - 5 unit SUBQ 0800,1200,1700,2100 #1 pen - Diet Type: Diabetic diet May have monthly special meal: Yes - Therapies | Activity Therapy: Evaluation | Treat if indicated: PT, OT Rehabilitation Potential: Maximize functional status Activity: Activity as Tolerated Assistance Devices: Walker"
[2017-06-21] MEDS: cefTRIAXone 1 GM in SODIUM CHLORIDE 0.9% MINIBAG 100 ML IV SCH (12:51)
--- NOTE | 2017-06-21 13:39 | XRAY Report ---
EXAM: CHEST RADIOGRAPHY EXAM DATE: 06/21/2017 09:34 AM. CLINICAL HISTORY: F/U infiltrate and effusion. COMPARISON: Chest regressed 06/19/2017, 06/18/2017. CT chest without contrast 06/16/2017. TECHNIQUE: 1 view. FINDINGS: Lungs/Pleura: Diffuse bilateral interstitial opacities appear similar to the prior exam. There is sli ghtly increased density of left basilar pulmonary opacity. Small left pleural effusion is similar. Natalee ng volumes are low. No pneumothorax. Mediastinum: Within exam limitations, the cardiomediastinal contour is stable. Other: The left-sided rib fractures seen on recent prior CT are not well visualized on radiograph. Th ere are surgical clips in the right axillary region. IMPRESSION: Slightly increased density of left basilar infiltrate or atelectasis. Small left pleural effusion and mild diffuse interstitial opacities appear similar to the prior exam. [facility] Referring Provider Line: [phone] SITE ID: [id number]
--- NOTE | 2017-06-21 23:40 | DISCHARGE SUMMARY ---
INCOMPLETE JOB COMPLETED & RESUBMITTED TO [facility] BY FIORELLA - SEE SIGNED COPY CANCELED THIS 06/23/17 jll Physician: Viki Coronado MD DATE OF ADMISSION: 06/18/2017 DATE OF DISCHARGE: 06/21/2017 HISTORY OF PRESENT ILLNESS: This is an 86-year-old white female with a history of diabetes, COPD, sleep apnea on CPAP, depression, hypertension, DVT and pulmonary embolism , on chronic Coumadin, right mastectomy for breast cancer. Patient had been admitted just 1 day before this admission after an accidental fall and breaking 3 ribs and was in observation for pain management, sent home, but returned for this admission with splinting and a pneumonia with pleural effusion on the side of the rib fractures. Patient filled out a POLST while here, requesting to be an ATTEMPT RESUSCITATION. LABS AND IMAGING: Reviewed and summarized above. ALLERGIES 1. PENICILLIN. 2. PREDNISONE. 3. DEBBIE INHIBITORS. MEDICATIONS AT DISCHARGE 1. [place] 10/325 mg p.r.n. pain. 2. Amlodipine 5 mg daily. 3. Zithromax 500 mg p.o. daily for 7 days more. 4. Wellbutrin SR 75 mg p.o. daily. 5. Refresh eyedrops. 6. Vitamin D3 2000 units daily. 7. Flexeril 10 mg p.o. t.i.d. p.r.n. muscle spasm. 8. Diltiazem CD 240 mg p.o. daily. 9. Colace 100 mg p.o. daily. 10. Cosopt eyedrops. 11. Cymbalta 30 mg p.o. b.i.d. 12. Lasix 30 mg p.o. daily. 13. Insulin, aspart, sliding scale coverage. 14. Latanoprost eyedrops. 15. Magnesium oxide 400 mg p.o. every evening. 16. Melatonin 3 mg p.o. every evening. 17. Metformin 500 mg p.o. daily. 18. Metoprolol 100 mg p.o. b.i.d. 19. Theragran vitamins p.o. daily. 20. Omeprazole 40 mg p.o. daily. 21. Potassium 10 mEq p.o. daily. 22. Senna tablet daily. 23. Warfarin 2.5 mg p.o. usually daily, 1 day off. PHYSICAL EXAMINATION AT DISCHARGE VITAL SIGNS: Blood pressure 122/66, pulse of 86, in sinus rhythm, afebrile, room air saturation 96%. HEENT: Unremarkable with moist oral mucosa. NECK: No JVD or carotid bruits. CHEST: Diminished breath sounds, left base. Otherwise, no rales or wheezes. HEART: Sounds normal. ABDOMEN: Obese and benign. EXTREMITIES: No edema. NEUROLOGIC: Grossly intact. CODE STATUS: FULL CODE. FOLLOWUP: Patient is under the care of Dr. Lance while at [facility] and will have followup with him as an outpatient. Time required to complete this entire discharge, including completion of care home orders and review of chart and dictation: 45 minutes. TD: 06/21/2017 23:39 MIRIAN
--- NOTE | 2017-06-23 06:41 | DISCHARGE SUMMARY ---
Physician: Viki Coronado MD DATE OF ADMISSION: 06/18/2017 DATE OF DISCHARGE: 06/21/2017 HISTORY OF PRESENT ILLNESS: This is an 86-year-old white female with a history of diabetes, COPD, sleep apnea on CPAP, depression, hypertension, DVT and pulmonary embolism on chronic Coumadin, right mastectomy for breast cancer. Patient had been admitted just before this admission after an accidental fall at home and breaking 3 ribs and was in observation for pain management, sent home, but returned for this admission with splinting and a pneumonia with pleural effusion on the side of the rib fractures. HOSPITAL COURSE AND DISCHARGE DIAGNOSES 1. Community-acquired pneumonia with pleural effusion after splinting secondary to rib fractures. The patient was placed on empiric antibiotics using IV Zithromax and IV ceftriaxone. She had minimal cough that was nonproductive, no sputum was produced for a culture. Blood cultures were negative. Her pulmonary status responded and she was discharged with a 7-day further course with Zithromax 500 mg p.o. daily. No amoxicillin could be used because of a PENICILLIN ALLERGY. Patient was transferred to [facility] for physical therapy rehab as well. 2. Nondisplaced left-sided rib fracture of 3 ribs from an accidental fall in her home. The patient did require pain medications and she was also given incentive spirometry to prevent further splinting and help ventilation. She had good pain control while here and was discharged with Flexeril for muscle spasm and narcotics for pain control on the transfer orders to [facility]. 3. Status post fall with multiple contusions on the face and body. Patient had x-rays done during this admission of the right hip, right knee and right foot, where she had complaints of pain. No other areas of fractures had been found, except for those 3 ribs on the left. On the last recent admission, she had a head CT done which had been negative. 4. Depression. The patient is on 2 antidepressants. She did make mention of "thinking about hiring a hit man to have herself killed." This was evaluated by the Sterilization Tech and determined that she was saying this for attention and "reaching out for help." There were no specific suicidal ideations. The patient was continued on her antidepressants throughout this stay. 5. Diabetes mellitus, type 2. The patient was only on metformin. During her hospital stay, metformin was held and she was only on a sliding scale of insulin. She was discharged to [facility] on a diabetic diet, metformin was resumed, sliding scale low-dose coverage was ordered p.r.n. with fingerstick glucoses a.c. and at bedtime. 6. Chronic obstructive pulmonary disease. Patient did get nebulizers while here, and she was discharged on her inhaler. 7. Right-sided mastectomy for breast cancer. Stable. 8. Sleep apnea on CPAP. The patient used her home CPAP while here. 9. History of deep venous thrombosis and pulmonary embolism on chronic Coumadin. Patient had INR labs that were in the therapeutic range, and she was discharged on Coumadin at her same dose. Because of the use of Zithromax, which can alter the INR, at discharge: Friday, Friday, Friday monitoring of INR was ordered while at the [facility]. 10. Hypertension. The patient is on several antihypertensives, which were continued throughout this course. 11. Code status: Full code. Patient filled out a POLST while here, requesting to be an attempt resuscitation. LABS AND IMAGING: Reviewed and summarized above. ALLERGIES 1. PENICILLIN. 2. PREDNISONE. 3. DEBBIE INHIBITORS. MEDICATIONS AT DISCHARGE 1. [place] 10/325 mg p.r.n. pain. 2. Amlodipine 5 mg daily. 3. Zithromax 500 mg p.o. daily for 7 days more. 4. Wellbutrin SR 75 mg p.o. daily. 5. Refresh eyedrops. 6. Vitamin D3 2000 units daily. 7. Flexeril 10 mg p.o. t.i.d. p.r.n. muscle spasm. 8. Diltiazem CD 240 mg p.o. daily. 9. Colace 100 mg p.o. daily. 10. Cosopt eyedrops. 11. Cymbalta 30 mg p.o. b.i.d. 12. Lasix 30 mg p.o. daily. 13. Insulin aspart sliding scale coverage. 14. Latanoprost eyedrops. 15. Magnesium oxide 400 mg p.o. every evening. 16. Melatonin 3 mg p.o. every evening. 17. Metformin 500 mg p.o. daily. 18. Metoprolol 100 mg p.o. b.i.d. 19. Theragran vitamins p.o. daily. 20. Omeprazole 40 mg p.o. daily. 21. Potassium 10 mEq p.o. daily. 22. Senna tablet daily. 23. Warfarin 2.5 mg p.o. usually daily, 1 day off. PHYSICAL EXAMINATION AT DISCHARGE VITAL SIGNS: Blood pressure 122/66, pulse of 86, in sinus rhythm, afebrile, room air saturation 96%. HEENT: Unremarkable with moist oral mucosa. NECK: No JVD or carotid bruits. CHEST: Diminished breath sounds, left base. Otherwise, no rales or wheezes. HEART: Sounds normal. ABDOMEN: Obese and benign. EXTREMITIES: No edema. NEUROLOGIC: Grossly intact. CODE STATUS: FULL CODE. FOLLOWUP: Patient is under the care of Dr. Lance while at [facility] and will have followup with him as an outpatient. Time required to complete this entire discharge, including completion of [facility]ci orders and review of chart and dictation: 45 minutes. TD: 06/21/2017 23:39 MTDStan
== END 2017-06-21 14:40 | DRG 193 ==
LOC: EDUNIT# 08:03 → ED 08:03 → MS2 10:31
PROVIDERS: ADMIT Internal Medicine; ATTEND Internal Medicine
DX: J18.1 Lobar pneumonia, unspecified organism (principal); J96.91 Respiratory failure, unspecified with hypoxia; E86.0 Dehydration; J44.9 Chronic obstructive pulmonary disease, unspecified; J43.9 Emphysema, unspecified; E11.9 Type 2 diabetes mellitus without complications; S22.42XD Multiple fractures of ribs, left side, subsequent encounter for fracture with routine healing; K21.9 Gastro-esophageal reflux disease without esophagitis; S00.83XD Contusion of other part of head, subsequent encounter; M25.551 Pain in right hip; M25.561 Pain in right knee; M25.571 Pain in right ankle and joints of right foot; I10 Essential (primary) hypertension; G47.30 Sleep apnea, unspecified; F32.9 Major depressive disorder, single episode, unspecified; Z86.718 Personal history of other venous thrombosis and embolism; Z79.01 Long term (current) use of anticoagulants; Z86.711 Personal history of pulmonary embolism; Z85.3 Personal history of malignant neoplasm of breast; Z90.11 Acquired absence of right breast and nipple; Z88.0 Allergy status to penicillin; Z91.81 History of falling; Z79.899 Other long term (current) drug therapy; Z99.81 Dependence on supplemental oxygen; Z79.84 Long term (current) use of oral hypoglycemic drugs
CPT/HCPCS: 36415; 71045; 80048; 80053; 81001; 81003; 83690; 83880; 84484; 85025; 85610; 87040; 87086; 93005; 94640; 96374; 99284; 99285

== ENCOUNTER 2017-08-05 11:06 | Inpatient (IN) | payer MEDICARE, OTHER, MEDICAID ==
[2017-08-05] MEDS ORDERED: SODIUM CHLORIDE 0.9% 2,500 ML IV STA (11:40)
--- NOTE | 2017-08-05 11:56 | ED Physician Documentation ---
History of Present Illness - Stated complaint Stated Complaint: WEAKNESS/ALOC - Chief complaint Chief Complaint: UTI - History obtained from History obtained from: Patient, Caregiver - History of Present Illness Timing: Today - Additonal information Additional information: 86-year-old female who has had a recent admission to the hospital for pneumonia after a fall and rib fractures has returned to her home after a month at [facility]. She felt that when she left [facility] that she was leaving too early and she has returned to her home without much help. Her mental health counselor is with her today and is brought her to the primary care doctor's office with decreased level of consciousness and the patient is wheeled over to the emergency department for evaluation. The caregiver indicates that the patient takes her own medications and spends most of her time in bed with her CPAP on. This morning she is not responding appropriately and is very slow moving and very weak. She is not able to sit up in bed by herself today. The patient does not have in house caregiving. The person that is here with her today is her mental health counselor who has seen her daily the past several days with concerns of her failure at home. Review of Systems Unable to obtain: AMS Constitutional: reports: Fever, Chills Eyes: denies: Decreased vision Ears: denies: Ear pain Nose: denies: Congestion Throat: denies: Sore throat Respiratory: reports: Dyspnea, Cough GI: denies: Vomiting : denies: Dysuria Skin: denies: Rash Musculoskeletal: denies: Neck pain, Back pain Neurologic: reports: Generalized weakness. denies: Focal weakness, Numbness PD PAST MEDICAL HISTORY - Past Medical History Past Medical History: Yes Cardiovascular: Hypertension, High cholesterol, Deep vein thrombosis, Pulmonary embolism Respiratory: Shortness of breath, Sleep apnea, CPAP use Neuro: None Endocrine/Autoimmune: Type 2 diabetes GI: GERD SPECIAL PROGRAMS DIRECTOR: None : Incontinence, Nocturia, Kidney stones HEENT: Chronic vision loss, Glaucoma, Chronic sinusitis Psych: Depression Musculoskeletal: Osteoarthritis, Osteoporosis, Fatigue, Chronic back pain Derm: None - Past Surgical History Past Surgical History: Yes General: EGD, Colonoscopy Ortho: Arthroscopic surgery /SPECIAL PROGRAMS DIRECTOR: 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, Oophrectomy, Mastectomy HEENT: Cataracts, Other - Present Medications Home Medications: Ambulatory Orders Medication Instructions Recorded Confirmed Multivitamin [Theragran] 1 tab PO DAILY 06/27/16 06/18/17 Metoprolol Tartrate 100 mg PO BID 08/01/16 06/18/17 buPROPion [Wellbutrin Sr] 75 mg PO DAILY 06/16/17 06/18/17 Carboxymethylcellulose Sodium 1 drops EACHEYE PRN PRN 06/20/17 06/20/17 [Refresh Tears] Amlodipine Besylate 5 mg PO DAILY #0 06/21/17 06/18/17 Azithromycin [Zithromax] 500 mg PO DAILY #14 tablet 06/21/17 Cholecalciferol (Vitamin D3) 2,000 units PO DAILY #0 06/21/17 06/18/17 [Vitamin D3] Cyclobenzaprine [Flexeril] 10 mg PO TID PRN #30 tablet 06/21/17 DULoxetine [Cymbalta] 30 mg PO BID #0 06/21/17 06/18/17 Diltiazem HCl [Diltiazem 24Hr Cd] 240 mg PO DAILY #0 06/21/17 06/18/17 Docusate Sodium 100 mg PO DAILY #0 06/21/17 06/18/17 Dorzolamide/Timolol/Pf [Cosopt Pf 1 drops EACHEYE BID #0 06/21/17 06/20/17 Eye Drops] Furosemide 30 mg PO DAILY #0 06/21/17 06/18/17 HYDROcodone/ACET 10/325 [[place] 10 1 tab PO Q4HR PRN #30 tablet 06/21/17 mg/325 mg] Hydrocodone/Acetaminophen 1 tab PO QPM #0 06/21/17 06/18/17 [Hydrocodone-Acetamin 7.5-325] Insulin Aspart [NovoLOG] 1 - 5 unit SUBQ 06/21/17 0800,1200,1700,2100 #1 pen Latanoprost 1 drops EACHEYE QPM #0 06/21/17 06/20/17 Loratadine [Claritin] 10 mg PO DAILY #0 06/21/17 06/18/17 Magnesium Oxide [Mag Ox] 400 mg PO QPM #0 06/21/17 06/18/17 Melatonin 3 mg PO QPM #0 06/21/17 06/18/17 Omeprazole 40 mg PO QDAC #0 06/21/17 06/18/17 Potassium Chloride [Micro-K] 10 meq PO DAILY #0 06/21/17 06/18/17 Sennosides [Senna] 8.6 mg PO DAILY #0 06/21/17 06/18/17 Warfarin [Coumadin] 2.5 mg PO SUMOT[place]ANDRIKA@1400 #0 06/21/17 06/18/17 metFORMIN [Glucophage] 500 mg PO QDDINNER #0 06/21/17 06/18/17 - Allergies Allergies/Adverse Reactions: Allergies Allergy/AdvReac Type Severity Reaction Status Date / Time Penicillins Allergy Rash Verified 06/16/17 03:43 prednisone Allergy Rash Verified 06/16/17 03:43 DEBBIE Inhibitors AdvReac Intermediate cough Verified 06/16/17 03:43 - Social History Does the pt smoke?: No Smoking Status: Never smoker Does the pt drink ETOH?: No Does the pt have substance abuse?: No - Immunizations Immunizations are current?: Yes - POLST Patient has POLST: No POLST Status: DNR PD ED PE NORMAL - Vitals Vital signs reviewed: Yes (hypertensive mild ) - General General: No acute distress, Well developed/nourished, Other (Ther patient has delayed execution of motor commands and no voice. Eyes are closed and open to voice. ) - HEENT HEENT: Atraumatic, PERRL, EOMI - Neck Neck: Supple, no meningeal sign, No bony TTP - Cardiac Cardiac: No murmur, Other (irregularly irregular) - Respiratory Respiratory: No respiratory distress, Other (bibasilar rhonchi) - Abdomen Abdomen: Soft, Non tender - Back Back: No CVA TTP, No spinal TTP - Derm Derm: Normal color, Warm and dry, No rash - Neuro Neuro: No motor deficit, No sensory deficit, Other (speech is latent and no voice. ) Eye Opening: To Voice Motor: Obeys Commands Verbal: Confused GCS Score: 13 - Psych Psych: Normal mood, Normal affect Results - Vitals Vitals: Vital Signs - 24 hr 08/05/17 08/05/17 08/05/17 11:13 13:16 13:30 Temperature 36 C L 35.5 C L 35.7 C L Heart Rate 84 60 74 Respiratory 20 12 12 Rate Blood Pressure 134/75 H 119/57 L 130/109 H O2 Saturation 98 98 99 Oxygen O2 Source [] Room air O2 Source Room air - EKG (time done) 1123 Rate: Rate (enter#) (83) Rhythm: Atrial fibrillation Intervals: RBBB Ischemia: ST depression (lateral ) Compare to prior EKG: Changed from prior EKG (SPT 06-18-17 rhythm has changed to afib) Computer interpretation: Agree with computer - Labs Labs: Laboratory Tests 08/05/17 08/05/17 08/05/17 12:15 12:15 12:15 WBC 9.5 RBC 4.49 Hgb 14.1 Hct 43.0 MCV 95.7 MCH 31.4 H MCHC 32.8 RDW 18.3 H Plt Count 233 MPV 9.2 Neut # (Auto) 6.6 Lymph # (Auto) 2.1 [place] # (Auto) 0.6 Eos # (Auto) 0.1 Baso # (Auto) 0.1 Absolute Nucleated RBC 0.00 Nucleated RBC % 0.1 PT 23.8 H INR 2.2 H APTT 29.7 Sodium 135 Potassium 3.4 L Chloride 105 Carbon Dioxide 21 Anion Gap 9.0 BUN 21 H Creatinine 1.1 H Estimated GFR (MDRD) 47 L Glucose 190 H Lactic Acid Calcium 9.7 Total Bilirubin 0.6 AST 29 ALT 37 Alkaline Phosphatase 88 Total Protein 7.0 Albumin 3.6 Globulin 3.4 Albumin/Globulin Ratio 1.1 Lipase 17 L Urine Color Urine Clarity Urine pH Ur Specific [place] Urine Protein Urine Glucose (UA) Urine Ketones Urine Occult Blood Urine Nitrite Urine Bilirubin Urine Urobilinogen Ur Leukocyte Esterase Urine RBC Urine WBC Ur Squamous Epith Cells Urine Bacteria Urine Casts Ur Microscopic Review Urine Culture Comments 08/05/17 08/05/17 12:15 13:04 WBC RBC Hgb Hct MCV MCH MCHC RDW Plt Count MPV Neut # (Auto) Lymph # (Auto) [place] # (Auto) Eos # (Auto) Baso # (Auto) Absolute Nucleated RBC Nucleated RBC % PT INR APTT Sodium Potassium Chloride Carbon Dioxide Anion Gap BUN Creatinine Estimated GFR (MDRD) Glucose Lactic Acid 1.6 Calcium Total Bilirubin AST ALT Alkaline Phosphatase Total Protein Albumin Globulin Albumin/Globulin Ratio Lipase Urine Color YELLOW Urine Clarity CLEAR Urine pH 5.0 Ur Specific [place] 1.025 Urine Protein TRACE Urine Glucose (UA) NEGATIVE Urine Ketones TRACE Urine Occult Blood SMALL H Urine Nitrite NEGATIVE Urine Bilirubin NEGATIVE Urine Urobilinogen 0.2 (NORMAL) Ur Leukocyte Esterase NEGATIVE Urine RBC 0-5 Urine WBC 4-5 Ur Squamous Epith Cells MOD Squamous H Urine Bacteria Moderate H Urine Casts 0-2 Hyaline Casts Ur Microscopic Review INDICATED Urine Culture Comments NOT INDICATED - Rads (name of study) 1 veiw chest Radiology: Prelim report reviewed (Impression: Mild left basilar infiltrate/ atelectasis.), EMP read indepedently, See rad report Procedures - IVC sono (time) 1150 Bedside IVC sono: IVC measures (cm) (1.12), IVC collapsed c insp (cm) (complete) , Dehydration (est 1+ liter deificit.) PD MEDICAL DECISION MAKING - ED course Complexity details: reviewed old records, reviewed results, re-evaluated patient , considered differential, d/w patient, d/w family ED course: 86 y/o female with recent history of pneumonia after rib fracture presents today with weakness and altered mental status and is found to have infiltrate on x-ray, dehydration , altered mental status and weakness and she will need to be admitted to the hospital. Sepsis protocol 1 was followed and the patient has received IV rocephin and zithromax as well as IV saline. - Sepsis Event Vital Signs: Vital Signs - 24 hr 08/05/17 08/05/17 08/05/17 11:13 13:16 13:30 Temperature 36 C L 35.5 C L 35.7 C L Heart Rate 84 60 74 Respiratory 20 12 12 Rate Blood Pressure 134/75 H 119/57 L 130/109 H O2 Saturation 98 98 99 Oxygen O2 Source [] Room air O2 Source Room air Departure - Departure Disposition: 66 [facility] DC/Xfer Clinical Impression: Weakness CAP (community acquired pneumonia) Qualifiers: Laterality: left Lung location: lower lobe of lung Qualified Code(s): J18.1 - Lobar pneumonia, unspecified organism Condition: Serious
[2017-08-05] MEDS ORDERED: cefTRIAXone 1 GM in SODIUM CHLORIDE 0.9% MINIBAG 100 ML IV STA (12:01)
[2017-08-05] MEDS ORDERED: AZITHROMYCIN INJ 500 MG in SODIUM CHLORIDE 0.9% 250 ML IV STA (12:02)
[2017-08-05 12:38] LABS: BASOPHILS # (AUTO) 0.1 10^3/uL (0.0-0.1); BASOPHILS % (AUTO) 1.3 %; EOSINOPHILS # (AUTO) 0.1 10^3/uL (0.0-0.7); EOSINOPHILS % (AUTO) 0.6 %; HGB - HEMOGLOBIN 14.1 g/dL (12.0-16.0); LYMPHOCYTES # (AUTO) 2.1 10^3/uL (1.5-3.5); LYMPHOCYTES % (AUTO) 22.7 %; MEAN CORPUSCULAR HEMOGLOBIN 31.4 pg (27.0-31.0); MEAN CORPUSCULAR HGB CONC 32.8 g/dL (32.0-36.0); MEAN CORPUSCULAR VOLUME 95.7 fL (81.0-99.0); MEAN PLATELET VOLUME 9.2 fL (7.9-10.8); MONOCYTES # (AUTO) 0.6 10^3/uL (0.0-1.0); MONOCYTES % (AUTO) 5.9 %; NEUTROPHILS # (AUTO) 6.6 10^3/uL (1.5-6.6); NEUTROPHILS % (AUTO) 69.5 %; PLT - PLATELET COUNT 233 10^3/uL (130-450); RED BLOOD COUNT 4.49 10^6/uL (4.20-5.40); RED CELL DISTRIBUTION WIDTH 18.3 % (12.0-15.0); WHITE BLOOD COUNT 9.5 x10^3/uL (4.8-10.8)
[2017-08-05 12:57] LABS: ALBUMIN 3.6 g/dL (3.2-5.5); ALBUMIN/GLOBULIN RATIO 1.1 (1.0-2.2); BILIRUBIN,TOTAL 0.6 mg/dL (0.2-1.0); CALCIUM 9.7 mg/dL (8.5-10.3); CREATININE 1.1 mg/dL (0.4-1.0)
[2017-08-05 13:00] LABS: INR 2.2 (0.8-1.2); PT - PROTHROMBIN TIME 23.8 secs (9.9-12.6)
[2017-08-05 13:12] LABS: GLUCOSE, URINE (UA) NEGATIVE (NEGATIVE); KETONES,URINE (UA) TRACE mg/dL (NEGATIVE); LEUKOCYTE ESTERASE, URINE NEGATIVE (NEGATIVE); NITRITE,URINE NEGATIVE (NEGATIVE); OCCULT BLOOD,URINE SMALL (NEGATIVE); PROTEIN,URINE TRACE mg/dL (NEGATIVE); UROBILINOGEN,URINE 0.2 (NORMAL) E.U./dL (NORMAL)
[2017-08-05 13:17] LABS: BILIRUBIN,URINE NEGATIVE (NEGATIVE); CLARITY,URINE CLEAR (CLEAR); ICTOTEST,URINE NEGATIVE
[2017-08-05 13:22] LABS: BACTERIA,URINE Moderate /HPF (None Seen); RBC,URINE 0-5 /HPF (0-5); SQUAMOUS EPITHELIAL CELL,UR MOD Squamous (<= Few)
[2017-08-05 13:23] LABS: CASTS, URINE 0-2 Hyaline Casts /LPF
[2017-08-05] MEDS ORDERED: CYCLOBENZAPRINE 10 MG TABLET PO PRN (13:51)
[2017-08-05] MEDS ORDERED: CARBOXYMETHYLCELLULOSE OPHTH DROPS EACHEYE PRN (13:51)
[2017-08-05] MEDS ORDERED: ONDANSETRON 4 MG/2 ML VIAL IVP PRN (13:53)
[2017-08-05] MEDS ORDERED: ACETAMINOPHEN 325 MG TABLET PO PRN (13:53)
[2017-08-05] MEDS ORDERED: PROMETHAZINE 25 MG/1 ML VIAL IM PRN (13:53)
[2017-08-05] MEDS ORDERED: HYDROcod/ACETAM 5/325 MG TABLET PO PRN (13:53)
[2017-08-05] MEDS ORDERED: PROCHLORPERAZINE 10 MG/2 ML VIAL IVP PRN (13:53)
[2017-08-05] MEDS ORDERED: ZOLPIDEM 5 MG TABLET PO PRN (13:53)
[2017-08-05] MEDS ORDERED: IPRATROPIUM/ALBUTEROL 3 ML NEB INH PRN (13:53)
[2017-08-05] MEDS ORDERED: WARFARIN 2.5 MG TABLET PO SCH (14:00)
[2017-08-05] MEDS ORDERED: NS W/20 MEQ KCL 1,000 ML IV SCH (14:00)
--- NOTE | 2017-08-05 14:07 | HISTORY & PHYSICAL EXAMINATION ---
Chief Complaint - Chief Complaint Chief Complaint: Generalized Weakness History of Present Illness - Admitted From Admitted From:: Emergency Department - History Obtained From Records Reviewed: Yes History obtained from: Patient Exam Limitations: None - History of Present Illness HPI Comment/Other: Patient is an 86-year-old female with a past medical history significant for hypertension, obesity, depression with history of suicidal ideations, infiltrating ductal carcinoma of the right breast status post mastectomy in 2012 , diabetes, obstructive sleep apnea on CPAP, atrial fibrillation, CKD stage 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 The patient was recently hospitalized at [facility] from 06/20/2017 till 06/21/2017 for pneumonia following rib fracture. She was discharged to [facility] for rehab under the care of Dr. Berry Lance her primary care physician. She states that she returned home from [facility] about 2 weeks ago and states that she has been struggling since. She states that since returning from [facility] she has had no help at home and has been unable to take care of herself. She states that she has been getting weaker and weaker over the last 2 weeks. She states that she has been having spells of feeling cold, chills and feeling hot. She states that over the last week she has developed a cough and increasing shortness of breath. She states that today her state behavioral health patient case coordinator had come to see her and the patient states that she just was not feeling well and asked to go see her primary care physician. She was seen at her primary care physician's office by Altagracia Mckeon and was found to be too weak to even stand up. Given her severe generalized weakness she was sent over to the emergency department. The patient also states that she has been having burning with urination over the last day. She states that she has friends that have helped her to give her food and with other things around the house. The patient states that at this point she needs a lot more help but has been unable to get any kind of caregiver support or other support. Patient denies any headaches, blurred vision, runny nose, sore throat, nasal congestion, chest pain, palpitations, orthopnea, PND, increased lower extremity swelling, abdominal pain, nausea, vomiting, diarrhea, constipation, polyuria, increased urinary frequency or urgency, change in her back pain, neck stiffness , recent unintentional weight loss, night sweats, new skin rashes, hair loss, difficulty swallowing or any focal neurologic deficits. On presentation to the emergency department the patient was afebrile and vital signs were within normal limits. The patient did appear to be extremely weak as she could not even sit up to have her lungs examined. The patient's lab work did not reveal any leukocytosis. The patient's INR was therapeutic. She did have a slight hypo-kalemia but otherwise electrolytes were within normal limits. The patient's glucose was slightly elevated at 190. The patient's urine analysis was positive for small occult blood, 4-5 WBCs and moderate bacteria. The patient also underwent a chest x-ray which did show a slight opacity in the left base consistent with a pneumonia. Given the patient's generalized weakness, cough and increasing shortness of breath the patient was admitted for healthcare associated pneumonia due to her recent hospitalization and stay in a senior care and was placed on IV antibiotics and IV fluids. History - Past Medical History Cardiovascular: reports: Hypertension, High cholesterol, Deep vein thrombosis, Pulmonary embolism Respiratory: reports: Shortness of breath, Sleep apnea, CPAP use Neuro: reports: None Endocrine/Autoimmune: reports: Type 2 diabetes GI: reports: GERD PROFESSIONAL ORGANIZER: reports: None : reports: Incontinence, Nocturia, Kidney stones HEENT: reports: Chronic vision loss, Glaucoma, Chronic sinusitis Psych: reports: Depression Musculoskeletal: reports: Osteoarthritis, Osteoporosis, Fatigue, Chronic back pain Derm: reports: None MRSA Hx?: No - Past Surgical History General: reports: EGD, Colonoscopy Ortho: reports: Arthroscopic surgery /PROFESSIONAL ORGANIZER: reports: 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, Oophrectomy, Mastectomy HEENT: reports: Cataracts, Other - Family & Social History Family History: Mother: (Mom breast Ca, dad of CVA), Cancer, CVA/ TIA, Father: Living arrangement: At home Living Situation: Alone Social History Notes: The patient is , currently single. She lives alone in [place] at [facility]. She lives on the second floor. She has caregivers who come in a few hours a day. She has to go up one flight of stairs but take the elevator. 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 She has a daughter the lives in the area but they do not speak. She also had great grandkids who are in the area but the dynamic with them is not good. She uses a walker at home. She had diminished vision and no longer drives. The patient states that she use to smoke for 3-4 years and smoked less than half a pack a day. She denies any alcohol use or illicit drug use. - POLST Patient has POLST: No POLST Status: DNR Meds/Allgy - Home Medications Home Medications: Ambulatory Orders Medication Instructions Recorded Confirmed Multivitamin [Theragran] 1 tab PO DAILY 06/27/16 08/05/17 Metoprolol Tartrate 100 mg PO BID 08/01/16 08/05/17 buPROPion [Wellbutrin Sr] 75 mg PO DAILY 06/16/17 08/05/17 Carboxymethylcellulose Sodium 1 drops EACHEYE PRN PRN 06/20/17 08/05/17 [Refresh Tears] Amlodipine Besylate 5 mg PO DAILY #0 06/21/17 08/05/17 Cholecalciferol (Vitamin D3) 2,000 units PO DAILY #0 06/21/17 08/05/17 [Vitamin D3] Diltiazem HCl [Diltiazem 24Hr Cd] 240 mg PO DAILY #0 06/21/17 08/05/17 Docusate Sodium 100 mg PO DAILY #0 06/21/17 08/05/17 Furosemide 30 mg PO DAILY #0 06/21/17 08/05/17 Insulin Aspart [NovoLOG] 1 - 5 unit SUBQ 06/21/17 0800,1200,1700,2100 #1 pen Latanoprost 1 drops EACHEYE QPM #0 06/21/17 08/05/17 Loratadine [Claritin] 10 mg PO DAILY #0 06/21/17 06/18/17 Magnesium Oxide [Mag Ox] 400 mg PO QPM #0 06/21/17 08/05/17 Melatonin 3 mg PO QPM #0 06/21/17 08/05/17 Omeprazole 40 mg PO QDAC #0 06/21/17 08/05/17 Potassium Chloride [Micro-K] 10 meq PO DAILY #0 06/21/17 08/05/17 Sennosides [Senna] 8.6 mg PO DAILY #0 06/21/17 08/05/17 Warfarin [Coumadin] 2.5 mg PO BONY@1400 #0 06/21/17 06/18/17 metFORMIN [Glucophage] 500 mg PO QDDINNER #0 06/21/17 08/05/17 Dorzolamide/Timolol Ophth Soln 1 drops EACHEYE BID 08/05/17 08/05/17 [Cosopt] Duloxetine HCl 60 mg PO DAILY 08/05/17 08/05/17 HYDROcodone/ACET 7.5/325 [Darwin 1 tab PO QPM 08/05/17 08/05/17 7.5/325] - Allergies Allergies/Adverse Reactions: Allergies Allergy/AdvReac Type Severity Reaction Status Date / Time Penicillins Allergy Rash Verified 06/16/17 03:43 prednisone Allergy Rash Verified 06/16/17 03:43 DEBBIE Inhibitors AdvReac Intermediate cough Verified 06/16/17 03:43 Review of Systems - Other Findings Other Findings: A comprehensive review of systems was performed the pertinent positives and negatives are stated above in the HPI and the remainder of the review of systems is negative. Exam - Vital Signs Reviewed Vital Signs: Yes Vital Signs: Vital Signs x48h Temp Pulse Resp BP Pulse Ox 08/05/17 13:30 35.7 C L 74 12 130/109 H 99 08/05/17 13:16 35.5 C L 60 12 119/57 L 98 08/05/17 11:13 36 C L 84 20 134/75 H 98 - Physical Exam General Appearance: positive: Alert, Other (Obese, severe weakness) Eyes Bilateral: positive: Normal inspection, PERRL, EOMI, No lid inflammation, Conjunctivae nml, No scleral icterus ENT: positive: ENT inspection nml, Pharynx nml, Dry mucous membranes. negative : Purulent nasal drainage, Pharyngeal erythema, Oral lesions Neck: positive: Nml inspection, Thyroid nml, No JVD, Trachea midline. negative : Thyromegaly, Lymphadenopathy (R), Lymphadenopathy (L), Stiff neck, Carotid bruit, Tracheal deviation Respiratory: positive: Chest non-tender, Rhonchi (Left base). negative: Wheezes , Rales Cardiovascular: positive: Regular rate & rhythm, No murmur, No gallop Peripheral Pulses: positive: 2+ Abdomen: positive: Non-tender, No organomegaly, Nml bowel sounds, No distention. negative: Guarding, Rebound, Hepatomegaly Back: positive: Nml inspection. negative: CVA tenderness (R), CVA tenderness (L ) Skin: positive: Color nml, No rash, Warm. negative: Dry, Cyanosis, Diaphoresis , Pallor, Skin rash Extremities: positive: Non-tender, Full ROM, Nml appearance, No pedal edema Neurologic/Psychiatric: positive: Oriented x3, CN's nml (2-12), Motor nml, Sensation nml, Mood/affect nml Conclusion/Plan - Problem List (1) HCAP (healthcare-associated pneumonia) Conclusion/Plan: Patient presented with generalized weakness, cough and increasing shortness of air. She was not found to be in any respiratory distress or hypoxic but had severe weakness barely able to sit up for lung exam. Patient had rhonchi in the left base and chest x-ray revealed a left base pneumonia. Patient was recently hospitalized less than 1 month ago and was in a senior care for several weeks posthospitalization. She will be treated as healthcare associated pneumonia. Plan: IV cefepime Supplemental oxygen Duo nebs as needed Blood cultures pending (2) Urinary tract infection Conclusion/Plan: Patient presented with generalized weakness and states that she was having dysuria for the past day. She also states that she had some hematuria. The patient's urine analysis revealed moderate bacteria with small occult blood and 4-5 WBCs. Given the patient's clinical picture this was concerning for urinary tract infection especially in the setting of history of UTIs and diabetes. Plan: Patient will be treated for urinary tract infection which will be covered by both medications treating healthcare associated pneumonia cefepime We will follow up on urine culture Follow-up blood culture IV fluids Qualifiers: Urinary tract infection type: acute cystitis Hematuria presence: with hematuria Qualified Code(s): N30.01 - Acute cystitis with hematuria (3) Weakness Conclusion/Plan: The patient presented with generalized weakness which is likely secondary to pneumonia, UTI and dehydration. The patient is unable to take care of herself at home. She does not have any caregiver support at this time. She was [facility] at [facility] facility with [facility]. She states that after returning home she has been slowly declining. She is unable to do her activities of daily living and requires friends to bring her food and clean for her. Plan: PT/OT consultation Social work consultation for possible caregiver support at home versus placement in correction facility. IV fluids, IV antibiotics (4) Diabetes Conclusion/Plan: Patient has history of diabetes and is on metformin at home. On presentation the patient's blood glucose is elevated at 190. Her blood glucose is likely elevated in the setting of infection. Plan: IV fluids Hold metformin Sliding scale insulin Hemoglobin A1c Check blood glucose before meals at bedtime Diabetic diet Qualifiers: Diabetes mellitus type: type 2 Diabetes mellitus terminal block assembler insulin use: without terminal block assembler use Diabetes mellitus complication status: with hyperglycemia Qualified Code(s): E11.65 - Type 2 diabetes mellitus with hyperglycemia (5) Atrial fibrillation Conclusion/Plan: Patient has a history of atrial fibrillation. Currently she is rate controlled. She is on metoprolol, diltiazem and Coumadin. We will continue her medications. She appears to be stable at this time. Qualifiers: Atrial fibrillation type: chronic Qualified Code(s): I48.2 - Chronic atrial fibrillation (6) History of DVT (deep vein thrombosis) Conclusion/Plan: Patient has history of DVT and is on Coumadin. Patient's INR is therapeutic. Stable (7) Depression Conclusion/Plan: Patient has history of depression with suicidal ideations. The patient is currently stable but does appear to have a depressed mood. The patient is followed by a state behavioral health glassblower. The patient will be continued on her home medications of duloxetine and Wellbutrin. Qualifiers: Depression Type: major depressive disorder (8) Hypertension Conclusion/Plan: Patient has history of hypertension. On presentation the patient blood pressure is well controlled. We will continue the patient on her home blood pressure medications including diltiazem and metoprolol. We will hold her Lasix as she does appear slightly dry. Qualifiers: Hypertension type: essential hypertension Qualified Code(s): I10 - Essential (primary) hypertension - Lab Results Lab results reviewed: Yes Fish Bones: 08/05/17 12:15 08/05/17 12:15 Other Lab Results: Laboratory Results WBC 9.5 x10^3/uL (4.8-10.8) 08/05/17 12:15 RBC 4.49 10^6/uL (4.20-5.40) 08/05/17 12:15 Hgb 14.1 g/dL (12.0-16.0) 08/05/17 12:15 Hct 43.0 % (37.0-47.0) 08/05/17 12:15 MCV 95.7 fL (81.0-99.0) 08/05/17 12:15 MCH 31.4 pg (27.0-31.0) H 08/05/17 12:15 MCHC 32.8 g/dL (32.0-36.0) 08/05/17 12:15 RDW 18.3 % (12.0-15.0) H 08/05/17 12:15 Plt Count 233 10^3/uL (130-450) 08/05/17 12:15 MPV 9.2 fL (7.9-10.8) 08/05/17 12:15 Neut # (Auto) 6.6 10^3/uL (1.5-6.6) 08/05/17 12:15 Lymph # (Auto) 2.1 10^3/uL (1.5-3.5) 08/05/17 12:15 Sebastian # (Auto) 0.6 10^3/uL (0.0-1.0) 08/05/17 12:15 Eos # (Auto) 0.1 10^3/uL (0.0-0.7) 08/05/17 12:15 Baso # (Auto) 0.1 10^3/uL (0.0-0.1) 08/05/17 12:15 Absolute Nucleated RBC 0.00 x10^3/uL 08/05/17 12:15 Nucleated RBC % 0.1 /100WBC 08/05/17 12:15 PT 23.8 secs (9.9-12.6) H 08/05/17 12:15 INR 2.2 (0.8-1.2) H 08/05/17 12:15 APTT 29.7 secs (24.9-33.3) 08/05/17 12:15 Sodium 135 mmol/L (135-145) 08/05/17 12:15 Potassium 3.4 mmol/L (3.5-5.0) L 08/05/17 12:15 Chloride 105 mmol/L (101-111) 08/05/17 12:15 Carbon Dioxide 21 mmol/L (21-32) 08/05/17 12:15 Anion Gap 9.0 (6-13) 08/05/17 12:15 BUN 21 mg/dL (6-20) H 08/05/17 12:15 Creatinine 1.1 mg/dL (0.4-1.0) H 08/05/17 12:15 Estimated GFR (MDRD) 47 (>89) L 08/05/17 12:15 Glucose 190 mg/dL (70-100) H 08/05/17 12:15 Lactic Acid 1.6 mmol/L (0.5-2.2) 08/05/17 12:15 Calcium 9.7 mg/dL (8.5-10.3) 08/05/17 12:15 Total Bilirubin 0.6 mg/dL (0.2-1.0) 08/05/17 12:15 AST 29 IU/L (10-42) 08/05/17 12:15 ALT 37 IU/L (10-60) 08/05/17 12:15 Alkaline Phosphatase 88 IU/L (42-121) 08/05/17 12:15 Total Protein 7.0 g/dL (6.7-8.2) 08/05/17 12:15 Albumin 3.6 g/dL (3.2-5.5) 08/05/17 12:15 Globulin 3.4 g/dL (2.1-4.2) 08/05/17 12:15 Albumin/Globulin Ratio 1.1 (1.0-2.2) 08/05/17 12:15 Lipase 17 U/L (22-51) L 08/05/17 12:15 Urine Color YELLOW 08/05/17 13:04 Urine Clarity CLEAR (CLEAR) 08/05/17 13:04 Urine pH 5.0 PH (5.0-7.5) 08/05/17 13:04 Ur Specific Bill[place] 1.025 (1.002-1.030) 08/05/17 13:04 Urine Protein TRACE mg/dL (NEGATIVE) 08/05/17 13:04 Urine Glucose (UA) NEGATIVE mg/dL (NEGATIVE) 08/05/17 13:04 Urine Ketones TRACE mg/dL (NEGATIVE) 08/05/17 13:04 Urine Occult Blood SMALL (NEGATIVE) H 08/05/17 13:04 Urine Nitrite NEGATIVE (NEGATIVE) 08/05/17 13:04 Urine Bilirubin NEGATIVE (NEGATIVE) 08/05/17 13:04 Urine Urobilinogen 0.2 (NORMAL) E.U./dL (NORMAL) 08/05/17 13:04 Ur Leukocyte Esterase NEGATIVE (NEGATIVE) 08/05/17 13:04 Urine RBC 0-5 /HPF (0-5) 08/05/17 13:04 Urine WBC 4-5 /HPF (0-5) 08/05/17 13:04 Ur Squamous Epith Cells MOD Squamous (<= Few) H 08/05/17 13:04 Urine Bacteria Moderate /HPF (None Seen) H 08/05/17 13:04 Urine Casts 0-2 Hyaline Casts /LPF 08/05/17 13:04 Ur Microscopic Review INDICATED 08/05/17 13:04 Urine Culture Comments NOT INDICATED 08/05/17 13:04 - Diagnostic Imaging Results Diagnostic Imaging Results: positive: Final report reviewed Diagnostic Imaging Results Comments: Chest x-ray Impression: 1. Mild left basilar infiltrate/atelectasis - EKG Results EKG Interpreted Independently: Yes EKG Findings: PVCs, atrial fibrillation Core Measures - Anticipated LOS I expect patient to be DC'd or transferred within 96 hours.: Yes - DVT/VTE - Prophylaxis VTE/DVT Device ordered at admit?: Yes
[2017-08-05] MEDS ORDERED: levoFLOXacin 750 MG/150 ML 750 MG/150 ML BAG IV SCH (15:00)
[2017-08-05] MEDS: CEFEPIME 2 GM in SODIUM CHLORIDE 0.9% MINIBAG 100 ML IV SCH (15:39)
[2017-08-05] MEDS: SODIUM CHLORIDE FLUSH 0.9% 10 ML SYRINGE IVP SCH (15:42)
[2017-08-05] MEDS: INSULIN ASPART 300 UNIT/3 ML PEN SUBQ SCH ×2 (16:00→21:49)
[2017-08-05] MEDS: SACCHAROMYCES BOULARDII 250 MG CAPSULE PO SCH (16:00)
--- NOTE | 2017-08-05 16:10 | XRAY Report ---
Procedure Date: 08/05/2017 Accession Number: [id number] / [id number] Procedure: XR - Chest 1 View X-Ray CPT Code: 02125 FULL RESULT: EXAM: CHEST RADIOGRAPHY EXAM DATE: 08/05/2017 12:41 PM. CLINICAL HISTORY: Possible sepsis. Weak, lethargic COMPARISON: None. TECHNIQUE: 1 view. FINDINGS: Lungs/Pleura: Mild left basilar infiltrate/atelectasis. No pleural effusion. No pneumothorax. Mediastinum: Within exam limitations, the cardiomediastinal contour is normal. Other: None. IMPRESSION: Mild left basilar infiltrate/atelectasis RADIA
[2017-08-05] MEDS: LORazepam 0.5 MG TABLET PO PRN (19:15)
[2017-08-05] MEDS: HYDROcod/ACETAM 10 MG/325 MG TABLET PO PRN (19:15)
[2017-08-05] MEDS: LATANOPROST 0.005% OPHTH DROPS EACHEYE SCH (21:48)
[2017-08-05] MEDS: DULoxetine 30 MG CAPSULE PO SCH (21:48)
[2017-08-05] MEDS: MAGNESIUM OXIDE 400 MG TABLET PO SCH (21:48)
[2017-08-05] MEDS: METOPROLOL TARTRATE 50 MG TABLET PO SCH (21:51)
[2017-08-05] MEDS: DORZOLAMIDE/TIMOLOL OPHTH DROPS EACHEYE SCH (22:01)
[2017-08-06] MEDS: SODIUM CHLORIDE FLUSH 0.9% 10 ML SYRINGE IVP SCH ×4 (00:10→23:54)
[2017-08-06] MEDS: SODIUM CHLORIDE FLUSH 0.9% 10 ML SYRINGE IVP PRN ×2 (03:39→04:22)
[2017-08-06] MEDS: HYDROcod/ACETAM 10 MG/325 MG TABLET PO PRN ×3 (03:39→21:10)
[2017-08-06] MEDS: CEFEPIME 2 GM in SODIUM CHLORIDE 0.9% MINIBAG 100 ML IV SCH ×2 (03:41→17:20)
[2017-08-06 05:57] LABS: INR 2.5 (0.8-1.2); PT - PROTHROMBIN TIME 27.2 secs (9.9-12.6)
[2017-08-06 05:58] LABS: BASOPHILS # (AUTO) 0.1 10^3/uL (0.0-0.1); BASOPHILS % (AUTO) 1.3 %; EOSINOPHILS # (AUTO) 0.1 10^3/uL (0.0-0.7); EOSINOPHILS % (AUTO) 1.8 %; HGB - HEMOGLOBIN 12.8 g/dL (12.0-16.0); LYMPHOCYTES % (AUTO) 25.7 %; MEAN CORPUSCULAR HGB CONC 32.2 g/dL (32.0-36.0); MEAN CORPUSCULAR VOLUME 96.3 fL (81.0-99.0); MEAN PLATELET VOLUME 8.5 fL (7.9-10.8); MONOCYTES # (AUTO) 0.6 10^3/uL (0.0-1.0); MONOCYTES % (AUTO) 7.4 %; NEUTROPHILS # (AUTO) 4.9 10^3/uL (1.5-6.6); NEUTROPHILS % (AUTO) 63.8 %; PLT - PLATELET COUNT 210 10^3/uL (130-450); RED BLOOD COUNT 4.12 10^6/uL (4.20-5.40); RED CELL DISTRIBUTION WIDTH 18.2 % (12.0-15.0); WHITE BLOOD COUNT 7.7 x10^3/uL (4.8-10.8)
[2017-08-06] MEDS: PANTOPRAZOLE 40 MG TABLET PO SCH (06:01)
[2017-08-06 06:05] LABS: ALBUMIN 3.3 g/dL (3.2-5.5); ALBUMIN/GLOBULIN RATIO 1.1 (1.0-2.2); ALKALINE PHOSPHATASE 81 IU/L (42-121); ALT ALANINE AMINOTRANSFERASE 46 IU/L (10-60); AST ASPARTATE AMINOTRANSFERASE 29 IU/L (10-42); BILIRUBIN,TOTAL 0.6 mg/dL (0.2-1.0); BUN - BLOOD UREA NITROGEN 15 mg/dL (6-20); CALCIUM 8.7 mg/dL (8.5-10.3); CARBON DIOXIDE - CO2 21 mmol/L (21-32); CHLORIDE 110 mmol/L (101-111); GFR - MDRD 53 (>89); GLUCOSE 155 mg/dL (70-100); SODIUM 137 mmol/L (135-145); TOTAL PROTEIN 6.4 g/dL (6.7-8.2)
[2017-08-06 06:07] LABS: HB2 TOTAL 13.3 g/dL; HEMOGLOBIN A1C 0.69 g/dL; HEMOGLOBIN A1C % 6.9 % (4.6-6.2)
[2017-08-06] MEDS: INSULIN ASPART 300 UNIT/3 ML PEN SUBQ SCH ×4 (08:11→21:12)
[2017-08-06] MEDS: DOCUSATE SODIUM 100 MG CAPSULE PO SCH (08:25)
[2017-08-06] MEDS: POLYETHYLENE GLYCOL 3350 17 GM PACKET PO SCH (08:25)
[2017-08-06] MEDS: buPROPion SR 100 MG TABLET PO SCH (08:26)
[2017-08-06] MEDS: METOPROLOL TARTRATE 50 MG TABLET PO SCH ×2 (08:26→21:08)
[2017-08-06] MEDS: DULoxetine 30 MG CAPSULE PO SCH ×2 (08:27→21:10)
[2017-08-06] MEDS: amLODIPine 5 MG TABLET PO SCH (08:27)
[2017-08-06] MEDS: LORATADINE 10 MG TABLET PO SCH (08:27)
[2017-08-06] MEDS: SACCHAROMYCES BOULARDII 250 MG CAPSULE PO SCH ×2 (08:27→17:19)
[2017-08-06] MEDS: CHOLECALCIFEROL 1,000 UNIT TABLET PO SCH (08:27)
[2017-08-06] MEDS: POTASSIUM CHLORIDE 10 MEQ CAPSULE PO SCH (08:27)
[2017-08-06] MEDS: diltiaZEM CD 240 MG CAPSULE PO SCH (08:27)
[2017-08-06] MEDS: MULTIVITAMIN TABLET PO SCH (08:27)
[2017-08-06] MEDS: DORZOLAMIDE/TIMOLOL OPHTH DROPS EACHEYE SCH ×2 (08:28→21:12)
--- NOTE | 2017-08-06 15:03 | PROVIDER PROGRESS NOTE ---
Assessment/Plan - Problem List (1) HCAP (healthcare-associated pneumonia) Assessment/Plan: No sputum to have a sample. Blood culture neg thus far. Continue empiric antibiotics for HCAP. (2) UTI (urinary tract infection) Qualifiers: Urinary tract infection type: site unspecified Assessment/Plan: No pos cultures by urine or blood. Continue empiric antibiotics, (3) Weakness Assessment/Plan: Pt feels somewhat better with antibiotics and iv fluids. Monitor MG and TSH. (4) Diabetes Qualifiers: Diabetes mellitus type: type 2 Diabetes mellitus ocean transportation intermediary insulin use: without ocean transportation intermediary use Diabetes mellitus complication status: with hyperglycemia Qualified Code(s): E11.65 - Type 2 diabetes mellitus with hyperglycemia Assessment/Plan: Continue carb-controlled diet and Insulin coverage, while off oral agent. (5) Atrial fibrillation Qualifiers: Atrial fibrillation type: chronic Qualified Code(s): I48.2 - Chronic atrial fibrillation Assessment/Plan: Heart rate is controlled. Continue present Diltiazem and Metoprolol. INR was therapeutic. Continue Coumadin. (6) History of DVT (deep vein thrombosis) Assessment/Plan: Pt on chronic Coumadin. (7) Depression Qualifiers: Depression Type: major depressive disorder Assessment/Plan: Pt on treatment. (8) Hypertension Qualifiers: Hypertension type: essential hypertension Qualified Code(s): I10 - Essential (primary) hypertension Assessment/Plan: Continue meds, except off Lasix while rehydrating. Monitor BMP and Mg. - Current Meds Current Meds: Current Medications Generic Name Dose Route Start Last Admin Trade Name Freq PRN Reason Stop Dose Admin Hydrocodone Bitart/Acetaminophen 1 tab 08/05/17 13:53 08/06/17 08:27 [place] 10 Mg/325 Mg PO 1 tab Q4HR PRN Administration Pain 8 to 10 Albuterol/Ipratropium 3 ml 08/05/17 13:53 08/06/17 07:24 Duoneb INH 3 ml RTQID PRN Administration Wheezing Amlodipine Besylate 5 mg 08/06/17 09:00 08/06/17 08:27 Norvasc PO 5 mg DAILY LOWELL Administration Bupropion HCl 75 mg 08/06/17 09:00 08/06/17 08:26 Wellbutrin Sr PO 75 mg DAILY LOWELL Administration Cholecalciferol 2,000 unit 08/06/17 09:00 08/06/17 08:27 Vitamin D3 PO 2,000 unit DAILY LOWELL Administration Diltiazem HCl 240 mg 08/06/17 09:00 08/06/17 08:27 Cardizem Cd PO 240 mg DAILY LOWELL Administration Docusate Sodium 100 mg 08/06/17 09:00 08/06/17 08:25 Colace 100mg Capsule PO 100 mg DAILY LOWELL Administration Dorzolamide/Timolol 1 drops 08/05/17 21:00 08/06/17 08:28 Cosopt EACHEYE 1 drops BID LOWELL Administration Duloxetine HCl 30 mg 08/05/17 21:00 08/06/17 08:27 Cymbalta PO 30 mg BID LOWELL Administration Cefepime HCl 2 gm/ Sodium 100 mls @ 200 mls/hr 08/05/17 16:00 08/06/17 04:30 Chloride IV Infused 0400,1600 LOWELL Infusion Insulin Aspart 1 - 5 unit 08/05/17 17:00 08/06/17 12:01 Novolog SUBQ 1 unit 0800,1200,1700,2100 LOWELL Administration Protocol Latanoprost 1 drops 08/05/17 21:00 08/05/17 21:48 Xalatan Ophth Drops EACHEYE 1 drops QPM LOWELL Administration Loratadine 10 mg 08/06/17 09:00 08/06/17 08:27 Claritin PO 10 mg DAILY LOWELL Administration Lorazepam 0.5 mg 08/05/17 17:20 08/05/17 19:15 Ativan PO 0.5 mg Q6H PRN Administration Anxiety Magnesium Oxide 400 mg 08/05/17 21:00 08/05/17 21:48 Mag Ox PO 400 mg QPM LOWELL Administration Metoprolol Tartrate 100 mg 08/05/17 21:00 08/06/17 08:26 Lopressor PO 100 mg BID LOWELL Administration Multivitamins 1 tab 08/06/17 09:00 08/06/17 08:27 Theragran PO 1 tab DAILY LOWELL Administration Ondansetron HCl 4 mg 08/05/17 13:53 08/05/17 19:15 Zofran Inj IVP 4 mg Q6HR PRN Administration Nausea / Vomiting Pantoprazole Sodium 40 mg 08/06/17 07:00 08/06/17 06:01 Protonix PO 40 mg QDAC LOWELL Administration Patient Own Med ( 1 each 08/06/17 09:00 08/06/17 08:29 Melatonin 3mg) PO Not Given DAILY LOWELL Polyethylene Glycol 17 gm 08/06/17 09:00 08/06/17 08:25 Miralax PO 17 gm DAILY LOWELL Administration Potassium Chloride 10 meq 08/06/17 09:00 08/06/17 08:27 Micro-K PO 10 meq DAILY LOWELL Administration Prochlorperazine Edisylate 10 mg 08/05/17 13:53 08/05/17 15:38 Compazine Inj IVP 10 mg Q6HR PRN Administration Nausea / Vomiting Saccharomyces Boulardii 250 mg 08/05/17 17:00 08/06/17 08:27 Florastor PO 250 mg BIDWM LOWELL Administration Sodium Chloride 10 ml 08/05/17 13:53 08/06/17 04:22 Normal Saline Flush 0.9% IVP 10 ml PRN PRN Administration NEEDED PER PROVIDER ORDERS Sodium Chloride 10 ml 08/05/17 17:00 08/06/17 08:27 Normal Saline Flush 0.9% IVP 10 ml 0100,0900,1700 LOWELL Administration Warfarin Sodium 2.5 mg 08/05/17 14:00 08/05/17 15:52 Coumadin PO 2.5 mg SUMOTUTHFRSA@1400 LOWELL Administration - Lab Result Fish Bone Diagrams: 08/06/17 05:42 08/06/17 05:42 - Additional Planning My Orders: My Active Orders 08/06/17 Dinner DIET [Dysphagia Puree Diet] [DIET] Subjective - Subjective Patient Reports: Feeling Better, Resting Comfortably Nursing Reports: Other (Is sleeping alot. Gets nervous when told she has to get up with PT.) Objective Vital Signs: Vital Signs - 24 hr 08/05/17 08/05/17 08/06/17 16:04 21:51 00:20 Temperature 36.2 C L 36.4 C L Heart Rate Heart Rate [ Activity] Heart Rate [ 81 102 H Brachial] Heart Rate [ Supine] Respiratory 16 16 Rate Blood Pressure 112/71 Blood Pressure [Activity] Blood Pressure 112/87 H [Left Brachial artery] Blood Pressure 123/77 [Right Brachial artery] Blood Pressure [Supine] O2 Saturation 99 95 08/06/17 08/06/17 08/06/17 07:24 08:00 08:26 Temperature 35.2 C L Heart Rate 114 H Heart Rate [ Activity] Heart Rate [ 117 H Brachial] Heart Rate [ Supine] Respiratory 18 18 Rate Blood Pressure 132/82 H Blood Pressure [Activity] Blood Pressure 132/82 H [Left Brachial artery] Blood Pressure [Right Brachial artery] Blood Pressure [Supine] O2 Saturation 97 08/06/17 11:40 Temperature Heart Rate Heart Rate [ 121 H Activity] Heart Rate [ Brachial] Heart Rate [ 122 H Supine] Respiratory Rate Blood Pressure Blood Pressure 128/76 [Activity] Blood Pressure [Left Brachial artery] Blood Pressure [Right Brachial artery] Blood Pressure 132/79 H [Supine] O2 Saturation Oxygen O2 Source Room air I&O (Last 24 Hrs): Intake and Output Totals x24h 08/04/17 08/05/17 08/06/17 23:59 23:59 23:59 Intake Total 3500 2070 Output Total 50 400 Balance 3450 1670 General: Alert, Oriented x3, Other (Sleeping using her CPAP, when I enetered the room.) HEENT: Mucous membr. moist/pink Neck: Supple Neuro: Non Focal Cardiovascular: Normal S1, Normal S2, No murmurs Respiratory: No respiratory distress, Breath sounds nml Abdomen: Soft Extremities: No edema - Results Results: Laboratory Results WBC 7.7 x10^3/uL (4.8-10.8) 08/06/17 05:42 RBC 4.12 10^6/uL (4.20-5.40) L 08/06/17 05:42 Hgb 12.8 g/dL (12.0-16.0) 08/06/17 05:42 Hct 39.6 % (37.0-47.0) 08/06/17 05:42 MCV 96.3 fL (81.0-99.0) 08/06/17 05:42 MCH 31.0 pg (27.0-31.0) 08/06/17 05:42 MCHC 32.2 g/dL (32.0-36.0) 08/06/17 05:42 RDW 18.2 % (12.0-15.0) H 08/06/17 05:42 Plt Count 210 10^3/uL (130-450) 08/06/17 05:42 MPV 8.5 fL (7.9-10.8) 08/06/17 05:42 Neut # (Auto) 4.9 10^3/uL (1.5-6.6) 08/06/17 05:42 Lymph # (Auto) 2.0 10^3/uL (1.5-3.5) 08/06/17 05:42 [place] # (Auto) 0.6 10^3/uL (0.0-1.0) 08/06/17 05:42 Eos # (Auto) 0.1 10^3/uL (0.0-0.7) 08/06/17 05:42 Baso # (Auto) 0.1 10^3/uL (0.0-0.1) 08/06/17 05:42 Absolute Nucleated RBC 0.01 x10^3/uL 08/06/17 05:42 Nucleated RBC % 0.1 /100WBC 08/06/17 05:42 PT 27.2 secs (9.9-12.6) H 08/06/17 05:42 INR 2.5 (0.8-1.2) H 08/06/17 05:42 APTT 29.7 secs (24.9-33.3) 08/05/17 12:15 Sodium 137 mmol/L (135-145) 08/06/17 05:42 Potassium 3.9 mmol/L (3.5-5.0) 08/06/17 05:42 Chloride 110 mmol/L (101-111) 08/06/17 05:42 Carbon Dioxide 21 mmol/L (21-32) 08/06/17 05:42 Anion Gap 6.0 (6-13) 08/06/17 05:42 BUN 15 mg/dL (6-20) 08/06/17 05:42 Creatinine 1.0 mg/dL (0.4-1.0) 08/06/17 05:42 Estimated GFR (MDRD) 53 (>89) L 08/06/17 05:42 Glucose 155 mg/dL (70-100) H 08/06/17 05:42 POC Whole Bld Glucose 134 mg/dL (70 - 100) H 08/06/17 07:33 Glycated Hemoglobin 6.9 % (4.6-6.2) H 08/06/17 05:42 Estim Average Glucose 151 (70-100) H 08/06/17 05:42 Lactic Acid 1.6 mmol/L (0.5-2.2) 08/05/17 12:15 Calcium 8.7 mg/dL (8.5-10.3) 08/06/17 05:42 Ionized Calcium NO 08/06/17 05:42 Total Bilirubin 0.6 mg/dL (0.2-1.0) 08/06/17 05:42 AST 29 IU/L (10-42) 08/06/17 05:42 ALT 46 IU/L (10-60) 08/06/17 05:42 Alkaline Phosphatase 81 IU/L (42-121) 08/06/17 05:42 Total Protein 6.4 g/dL (6.7-8.2) L 08/06/17 05:42 Albumin 3.3 g/dL (3.2-5.5) 08/06/17 05:42 Globulin 3.1 g/dL (2.1-4.2) 08/06/17 05:42 Albumin/Globulin Ratio 1.1 (1.0-2.2) 08/06/17 05:42 Lipase 17 U/L (22-51) L 08/05/17 12:15 Urine Color YELLOW 08/05/17 13:04 Urine Clarity CLEAR (CLEAR) 08/05/17 13:04 Urine pH 5.0 PH (5.0-7.5) 08/05/17 13:04 Ur Specific [place] 1.025 (1.002-1.030) 08/05/17 13:04 Urine Protein TRACE mg/dL (NEGATIVE) 08/05/17 13:04 Urine Glucose (UA) NEGATIVE mg/dL (NEGATIVE) 08/05/17 13:04 Urine Ketones TRACE mg/dL (NEGATIVE) 08/05/17 13:04 Urine Occult Blood SMALL (NEGATIVE) H 08/05/17 13:04 Urine Nitrite NEGATIVE (NEGATIVE) 08/05/17 13:04 Urine Bilirubin NEGATIVE (NEGATIVE) 08/05/17 13:04 Urine Urobilinogen 0.2 (NORMAL) E.U./dL (NORMAL) 08/05/17 13:04 Ur Leukocyte Esterase NEGATIVE (NEGATIVE) 08/05/17 13:04 Urine RBC 0-5 /HPF (0-5) 08/05/17 13:04 Urine WBC 4-5 /HPF (0-5) 08/05/17 13:04 Ur Squamous Epith Cells MOD Squamous (<= Few) H 08/05/17 13:04 Urine Bacteria Moderate /HPF (None Seen) H 08/05/17 13:04 Urine Casts 0-2 Hyaline Casts /LPF 08/05/17 13:04 Ur Microscopic Review INDICATED 08/05/17 13:04 Urine Culture Comments NOT INDICATED 08/05/17 13:04 - Procedures Procedures: Procedures ENDO RECTUM POLYPECTOMY (11/29/13) ENDOSC POLYPECTOMY OF LG INTEST (11/29/13) EXC LES SOFT TISSUE NEC (01/05/13) EYELID BIOPSY (03/09/14) INSERTION OF INFUSION DEV INTO SUP VENA CAVA, PERC APPROACH (08/01/16) LOCAL EXCIS BREAST LES (01/05/13) LYMPHATIC STRUCT BIOPSY (08/04/12) OTHER ENDOSCOPY OF SM INTEST (11/29/13) TRANSFUSE NONAUT FROZEN PLASMA IN PERIPH VEIN, PERC (08/01/16) TU REMOV URETER OBSTRUCT (08/30/13) UNILAT EXTEN SIMP MASTEC (08/04/12) URETERAL CATHETERIZATION (08/30/13) ABX Reporting Has patient been on IV antibiotics over the past 48 hours?: No
[2017-08-06] MEDS: MAGNESIUM OXIDE 400 MG TABLET PO SCH (21:11)
[2017-08-06] MEDS: LATANOPROST 0.005% OPHTH DROPS EACHEYE SCH (21:12)
[2017-08-06] MEDS: LORazepam 0.5 MG TABLET PO PRN (23:43)
[2017-08-07] MEDS: HYDROcod/ACETAM 10 MG/325 MG TABLET PO PRN (01:11)
[2017-08-07] MEDS: CEFEPIME 2 GM in SODIUM CHLORIDE 0.9% MINIBAG 100 ML IV SCH (04:01)
[2017-08-07] MEDS: SODIUM CHLORIDE FLUSH 0.9% 10 ML SYRINGE IVP PRN ×2 (04:01→04:30)
[2017-08-07 05:40] LABS: BASOPHILS # (AUTO) 0.1 10^3/uL (0.0-0.1); BASOPHILS % (AUTO) 1.1 %; EOSINOPHILS # (AUTO) 0.3 10^3/uL (0.0-0.7); EOSINOPHILS % (AUTO) 3.7 %; HGB - HEMOGLOBIN 12.1 g/dL (12.0-16.0); LYMPHOCYTES # (AUTO) 2.6 10^3/uL (1.5-3.5); LYMPHOCYTES % (AUTO) 34.7 %; MEAN CORPUSCULAR HEMOGLOBIN 31.6 pg (27.0-31.0); MEAN CORPUSCULAR HGB CONC 32.9 g/dL (32.0-36.0); MEAN CORPUSCULAR VOLUME 96.1 fL (81.0-99.0); MEAN PLATELET VOLUME 8.3 fL (7.9-10.8); MONOCYTES # (AUTO) 0.6 10^3/uL (0.0-1.0); MONOCYTES % (AUTO) 8.1 %; NEUTROPHILS % (AUTO) 52.4 %; PLT - PLATELET COUNT 188 10^3/uL (130-450); RED BLOOD COUNT 3.83 10^6/uL (4.20-5.40); RED CELL DISTRIBUTION WIDTH 18.2 % (12.0-15.0); WHITE BLOOD COUNT 7.6 x10^3/uL (4.8-10.8)
[2017-08-07 05:41] LABS: INR 2.9 (0.8-1.2); PT - PROTHROMBIN TIME 31.5 secs (9.9-12.6)
[2017-08-07 05:47] LABS: CALCIUM 8.7 mg/dL (8.5-10.3); CREATININE 1.1 mg/dL (0.4-1.0)
[2017-08-07] MEDS: PANTOPRAZOLE 40 MG TABLET PO SCH (06:15)
[2017-08-07] MEDS: INSULIN ASPART 300 UNIT/3 ML PEN SUBQ SCH ×2 (08:26→11:33)
[2017-08-07] MEDS: DULoxetine 30 MG CAPSULE PO SCH (10:09)
[2017-08-07] MEDS: buPROPion SR 100 MG TABLET PO SCH (10:09)
[2017-08-07] MEDS: DOCUSATE SODIUM 100 MG CAPSULE PO SCH (10:09)
[2017-08-07] MEDS: METOPROLOL TARTRATE 50 MG TABLET PO SCH (10:10)
[2017-08-07] MEDS: SODIUM CHLORIDE FLUSH 0.9% 10 ML SYRINGE IVP SCH (10:10)
[2017-08-07] MEDS: POLYETHYLENE GLYCOL 3350 17 GM PACKET PO SCH (10:10)
[2017-08-07] MEDS: POTASSIUM CHLORIDE 10 MEQ CAPSULE PO SCH (10:10)
[2017-08-07] MEDS: CHOLECALCIFEROL 1,000 UNIT TABLET PO SCH (10:10)
[2017-08-07] MEDS: LORATADINE 10 MG TABLET PO SCH (10:13)
[2017-08-07] MEDS: MULTIVITAMIN TABLET PO SCH (10:13)
[2017-08-07] MEDS: SACCHAROMYCES BOULARDII 250 MG CAPSULE PO SCH (10:13)
[2017-08-07] MEDS: amLODIPine 5 MG TABLET PO SCH (10:14)
[2017-08-07] MEDS: DORZOLAMIDE/TIMOLOL OPHTH DROPS EACHEYE SCH (10:14)
[2017-08-07] MEDS: diltiaZEM CD 240 MG CAPSULE PO SCH (10:15)
--- NOTE | 2017-08-07 11:46 | Discharge Plan ---
Discharge Plan Disposition: Home, Self Care Condition: Stable Prescriptions: Azithromycin [Zithromax] 250 mg PO BID #6 tablet Diet: Diabetic Shower Restrictions: No Driving Restrictions: Yes Assistance Devices: Walker Weight Bearing: Full Weight Additional Instructions or Follow Up instructions: Resume all your prehospital medications EXCEPT take your Coumadin (Warfarin) every day but NOT on Fri or Fri. Take the antibiotics til finished (3 more days). See your Primary Care Provider in 1-2 weeks in follow up. Keep the same appointments for Coumadin blood tests as you have done before. Home Health visits with [facility] have been ordered for you. They will provide you with a Staff Nurse, Bath Aide and Physical and Occupational Therapist. Follow-Up Care: Home Health - RN, Home Health - PT, Home Health - OT No Smoking: If you smoke, Please STOP! Call for help. Follow-up with: Berry Lance MD [Primary Care Provider] -
--- NOTE | 2017-08-07 13:12 | Discharge Plan ---
"Discharge Plan for SNF / [facility] - DC Plan and Transition Orders Disposition: 03 SNF DC/Xfer Condition: Stable SNF Transition Orders: Admit to: [facility] under the care of Dr Lance Discharge Diagnosis: 1) Health Care Associated Pneumonia 2) UTI 3) Weakness/ Deconditioning 4) DM 5) Depression with previous suicidal ideations 6) CHELA on CPAP 7) HTN 8) Hx of DVT and PE 9) Permanent Afib, on Coumadin (watch INR while on antibiotic) 10) GERD 11) Breast CA with R sided mastectomy 12) Code Status: DNR Medicare Certification: I certify that Post Hospital intermediate care is medically necessary on a continuing basis for any of the conditions for which she/he is receiving care during hospitalization. Notify PCP of admission and forward orders to primary provider for signature. Weight on admission and Weekly. Call PCP immediately if weight increases by 5 pounds or if patient develops dyspnea, chest pain/tightness or edema. House Bowel Program: Yes If no BM after 2 days, nurse may give M.O.M. 30ml PO PRN and /or ducolax Supp 1 RI and /or LASHAE 250mg P.O., and/or senna 1-2 tabs PO. On day 3 nurse may give repeat above order until residents constipation is resolved. Immunizations: Annual Influenza Vaccine: Yes. (between Oct 25 and May 24.) Unless allergy or already given Two-Step PPD: Yes per [facility] [id number] or appropriate documentation of approved exceptions Treatments & Other Orders: Daily PT for strengthening Home CPAP at night Oxygen Orders: None Lab Tests or X-Rays Orders: INR on M,W,F and report to Dr Lance Orthopedic Orders: None. Medications: PLEASE REFER TO THE DISCHARGE MEDICATION LIST. Insulin Orders? No Allergies and Adverse Reactions: Allergies Allergy/AdvReac Type Severity Reaction Status Date / Time Penicillins Allergy Rash Verified 06/16/17 03:43 prednisone Allergy Rash Verified 06/16/17 03:43 DEBBIE Inhibitors AdvReac Intermediate cough Verified 06/16/17 03:43 - Medications New Prescriptions: Azithromycin [Zithromax] 250 mg PO BID #6 tablet Nitrofurantoin Macrocrystal [Macrodantin] 100 mg PO BID #8 capsule Saccharomyces Boulardii [Florastor] 250 mg PO BID #10 capsule - Diet Type: Geriatric Texture: Regular May have monthly special meal: Yes - Therapies | Activity Therapy: Evaluation | Treat if indicated: PT, OT Rehabilitation Potential: Maximize functional status Activity: Activity as Tolerated Weight Bearing: Full Weight Assistance Devices: Walker"
[2017-08-07 15:44] VITALS: BP 131/81
--- NOTE | 2017-08-11 07:25 | DISCHARGE SUMMARY ---
Physician: Viki Coronado MD DATE OF ADMISSION: 08/05/2017 DATE OF DISCHARGE: 08/07/2017 HISTORY OF PRESENT ILLNESS: This is an 82-year-old white female with a history of hypertension, sleep apnea on CPAP, depression with prior suicidal ideations, diabetes, DVT and PE history, permanent atrial fibrillation on Coumadin, remote breast cancer with right mastectomy, and GERD history. The patient was recently admitted here and transferred for rehabilitation to [facility]. She has been home for approximately 2 weeks. She noticed worsening weakness and presented to the emergency room, where she was found to have cloudy urine and evidence of a UTI. She was admitted for weakness and management of a UTI. Her chest x-ray also showed evidence of an infiltrate, therefore, she was treated for a healthcare-associated pneumonia. HOSPITAL COURSE AND DISCHARGE DIAGNOSES: 1. Healthcare-associated pneumonia. The patient did not produce any sputum. She was put on empiric cefepime and vancomycin for healthcare-associated pneumonia. The patient herself was concerned about aspiration and underwent a swallowing evaluation, which showed that she had normal swallowing, however, was quite weak, and therefore a dysphagia mechanical diet with thin liquids was advised as well as sitting bolt upright for meals. She was transferred to [facility] for rehab, strengthening, and placed on Zithromax to complete a course of treatment for 6 more days. 2. Urinary tract infection. Urine cultures as well as blood cultures had no growth. Her empiric IV antibiotics for 48 hours covered the potential urinary bacterial organisms, and she was discharged with a course of Macrodantin to complete a 4 more day course. 3. Weakness and deconditioning. The patient was very weak with shortness of breath during physical therapy here. She was advised to be transferred for PT at a half-way facility, which she agreed to do. 4. Diabetes. The patient was on carb-controlled diet and sliding scale insulin and had an admission HbA1c of 6.9. 5. Depression with previous suicidal ideations. Her antidepressant medications were continued throughout this course. 6. Sleep apnea, on CPAP. The patient was compliant with her CPAP while here and transferred to use this at [facility]. 7. Hypertension. The patient's blood pressure was well controlled while here, blood pressure ran 105-130/60-80. She was continued on her present medications. 8. Chronic atrial fibrillation, on Coumadin. Her INR was followed. It was climbing while here. This was felt to be from antibiotics. The next INR should be done in 2 and then 4 days at [facility]. 9. Gastroesophageal reflux disease. Her medications were continued. 10. History of breast cancer. 11. CODE STATUS: DNR. ALLERGIES: PENICILLIN, PREDNISONE, AND DEBBIE INHIBITORS. MEDICATIONS AT THE TIME OF DISCHARGE: 1. Amlodipine 5 mg daily. 2. Zithromax 250 p.o. b.i.d. for 3 more days. 3. Wellbutrin SR 75 mg daily. 4. Refresh eyedrops. 5. Vitamin D3 at 2000 units daily. 6. Diltiazem CD 240 mg daily. 7. Colace 100 mg daily. 8. Cosopt ophthalmic solution daily. 9. Duloxetine 60 mg daily. 10. Lasix 30 mg daily. 11. Tylenol with codeine 7.5/325 p.r.n. pain. 12. Latanoprost eyedrops daily. 13. Claritin 10 mg daily. 14. Magnesium oxide 400 mg daily. 15. Melatonin 3 mg every evening. 16. Glucophage 500 mg daily. 17. Metoprolol tartrate 100 mg b.i.d. 18. Theragran vitamin daily. 19. Macrodantin 100 mg b.i.d. for 4 more days. 20. Omeprazole 40 mg daily. 21. Potassium 10 mEq daily. 22. Florastor 250 mg b.i.d. for 5 more days. 23. Senna as needed. 24. Warfarin 2.5 mg daily, watching the INR closely while on antibiotics. LABORATORY AND IMAGING: Reviewed and summarized above. PHYSICAL EXAMINATION AT DISCHARGE: VITAL SIGNS: Blood pressure 130/80, heart rate 115, in Afib. Afebrile. Room air saturation 98%. HEENT: Unremarkable. NECK: Without JVD or carotid bruits. CHEST: Diminished breath sounds, but no wheezes or rales. HEART: Heart sounds distant. ABDOMEN: Obese with pannus. EXTREMITIES: Trace pedal edema. No clubbing or cyanosis. NEUROLOGIC: Intact. CODE STATUS: DNR. FOLLOWUP: After discharge from [facility], routine followup with Dr. Lance. Time required to complete this entire discharge, review of chart, medication and transfer orders: 60 minutes. cc: Berry Lance MD TD: 08/10/2017 18:40 MIRIAN
== END 2017-08-07 16:02 | DRG 194 ==
LOC: ED 11:06 → MS2 13:53
PROVIDERS: ADMIT Internal Medicine; ATTEND Internal Medicine
DX: J18.1 Lobar pneumonia, unspecified organism (principal); R53.1 Weakness; J18.9 Pneumonia, unspecified organism; I10 Essential (primary) hypertension; N30.01 Acute cystitis with hematuria; G47.30 Sleep apnea, unspecified; E11.9 Type 2 diabetes mellitus without complications; R32 Unspecified urinary incontinence; R35.1 Nocturia; I48.2 Chronic atrial fibrillation; J32.9 Chronic sinusitis, unspecified; G47.33 Obstructive sleep apnea (adult) (pediatric); F32.9 Major depressive disorder, single episode, unspecified; R53.83 Other fatigue; K21.9 Gastro-esophageal reflux disease without esophagitis; I12.9 Hypertensive chronic kidney disease with stage 1 through stage 4 chronic kidney disease, or unspecified chronic kidney disease; E11.22 Type 2 diabetes mellitus with diabetic chronic kidney disease; E11.65 Type 2 diabetes mellitus with hyperglycemia; N18.3 Chronic kidney disease, stage 3 (moderate); E66.9 Obesity, unspecified; Z68.38 Body mass index [BMI] 38.0-38.9, adult; H40.9 Unspecified glaucoma; E87.6 Hypokalemia; E86.0 Dehydration; E78.00 Pure hypercholesterolemia, unspecified; G89.29 Other chronic pain; M54.9 Dorsalgia, unspecified; M19.90 Unspecified osteoarthritis, unspecified site; M81.0 Age-related osteoporosis without current pathological fracture; Y95 Nosocomial condition; Z66 Do not resuscitate; Z79.891 Long term (current) use of opiate analgesic; Z79.4 Long term (current) use of insulin; Z79.01 Long term (current) use of anticoagulants; Z79.899 Other long term (current) drug therapy; Z86.718 Personal history of other venous thrombosis and embolism; Z87.442 Personal history of urinary calculi; Z86.711 Personal history of pulmonary embolism; Z85.3 Personal history of malignant neoplasm of breast
CPT/HCPCS: 36415; 51701; 71045; 80048; 80053; 81001; 81003; 83036; 83605; 83690; 83735; 84443; 85025; 85610; 85730; 87040; 87086; 93005; 94640; 96365; 99284

== ENCOUNTER 2017-09-09 07:25 | Outpatient (CLI) | payer MEDICARE, OTHER, MEDICAID ==
[2017-09-09 08:43] LABS: HB2 TOTAL 13.5 g/dL; HEMOGLOBIN A1C 0.73 g/dL; HEMOGLOBIN A1C % 7.1 % (4.6-6.2)
== END 2017-09-09 07:26 | disposition home or self-care (01) ==
LOC: LAB.R 07:25
PROVIDERS: ATTEND Internal Medicine
DX: E11.9 Type 2 diabetes mellitus without complications (principal)
CPT/HCPCS: 83036

== ENCOUNTER 2017-10-06 15:05 | Outpatient (CLI) | payer MEDICARE, OTHER, MEDICAID ==
[2017-10-06 16:00] LABS: BASOPHILS # (AUTO) 0.1 10^3/uL (0.0-0.1); EOSINOPHILS # (AUTO) 0.2 10^3/uL (0.0-0.7); EOSINOPHILS % (AUTO) 2.6 %; LYMPHOCYTES # (AUTO) 1.9 10^3/uL (1.5-3.5); LYMPHOCYTES % (AUTO) 24.7 %; MEAN CORPUSCULAR HEMOGLOBIN 30.8 pg (27.0-31.0); MEAN CORPUSCULAR HGB CONC 32.7 g/dL (32.0-36.0); MEAN CORPUSCULAR VOLUME 94.3 fL (81.0-99.0); MEAN PLATELET VOLUME 8.7 fL (7.9-10.8); MONOCYTES # (AUTO) 0.6 10^3/uL (0.0-1.0); MONOCYTES % (AUTO) 7.7 %; NEUTROPHILS # (AUTO) 4.9 10^3/uL (1.5-6.6); PLT - PLATELET COUNT 227 10^3/uL (130-450); RED BLOOD COUNT 4.22 10^6/uL (4.20-5.40); RED CELL DISTRIBUTION WIDTH 19.6 % (12.0-15.0); WHITE BLOOD COUNT 7.7 x10^3/uL (4.8-10.8)
[2017-10-06 16:10] LABS: ALBUMIN 3.7 g/dL (3.2-5.5); ALBUMIN/GLOBULIN RATIO 1.3 (1.0-2.2); BILIRUBIN,TOTAL 0.6 mg/dL (0.2-1.0); CALCIUM 9.1 mg/dL (8.5-10.3); CREATININE 1.2 mg/dL (0.4-1.0); TOTAL PROTEIN 6.5 g/dL (6.7-8.2)
== END 2017-10-06 15:06 | disposition home or self-care (01) ==
LOC: LAB.R 15:05
DX: I10 Essential (primary) hypertension (principal); E11.9 Type 2 diabetes mellitus without complications
CPT/HCPCS: 80053; 85025

== ENCOUNTER 2018-01-13 14:02 | Outpatient (CLI) | payer MEDICARE, OTHER, MEDICAID | END 2018-01-13 14:03 | disposition home or self-care (01) | LOC: SC 14:02 | PROVIDERS: ATTEND Internal Medicine Pulmonary Disease | DX: G47.33 Obstructive sleep apnea (adult) (pediatric) (principal) | CPT/HCPCS: 99213; G0463; 99212 ==

== ENCOUNTER 2018-02-02 12:57 | Outpatient (CLI) | payer MEDICARE, OTHER, MEDICAID ==
--- NOTE | 2018-02-02 14:52 | XRAY Report ---
Reason: DYSPHAGIA WITH GLOBUS Procedure Date: 02/02/2018 Accession Number: [id number] / [id number] Procedure: FL - Modified Barium Swallow W/SP CPT Code: FULL RESULT: EXAM: MODIFIED BARIUM SWALLOW. EXAM DATE: 02/02/2018 02:14 PM. CLINICAL HISTORY: Dysphagia with globus. COMPARISON: None. TECHNIQUE: Under the direction of speech pathology, patient swallowed various consistencies of barium under lateral fluoroscopic observation of the neck. Fluoroscopy Time: 39 seconds. Number of Images: 162. FINDINGS: Swallowing Mechanism: Normal oral phase and swallowing reflex. Airway Protection: Normal epiglottic motion. No episodes of tracheal penetration or aspiration with all consistencies of barium. Pharynx: Normal. No significant vallecular or piriform sinus contrast pooling. Other: None. IMPRESSION: Normal modified barium swallow. No aspiration identified. CRITICAL RESULT: The findings were discussed with Dr. Lance on 02/02/2018 at 2:30 PM. RADIA
== END 2018-02-02 12:58 | disposition home or self-care (01) ==
LOC: DI 12:57
PROVIDERS: ATTEND Physician Assistant Medical
DX: R13.10 Dysphagia, unspecified (principal)
CPT/HCPCS: 74230; 92611; G8996; G8997; G8998

== ENCOUNTER 2018-03-05 09:59 | Outpatient (CLI) | payer MEDICARE, OTHER, MEDICAID ==
--- NOTE | 2018-03-05 14:17 | CT Report ---
Reason: HOARSENESS Procedure Date: 03/05/2018 Accession Number: [id number] / [id number] Procedure: CT - Neck Soft Tissue W/O CPT Code: FULL RESULT: EXAM: CT SOFT TISSUE NECK WITHOUT CONTRAST. EXAM DATE: 03/05/2018 10:25 AM. HISTORY: 87-year-old female, hoarseness COMPARISONS: MODIFIED SWALLOW 02/02/2018 2:01 PM. TECHNIQUE: Routine soft tissue neck CT protocol. Reconstructions: Coronal and sagittal. IV contrast: None. In accordance with CT protocol optimization, one or more of the following dose reduction techniques were utilized for this exam: automated exposure control, adjustment of mA and/or KV based on patient size, or use of iterative reconstructive technique. FINDINGS: Visualized Intracranial Contents: Unremarkable. Orbits: Symmetric and unremarkable. Sinuses: Visualized paranasal sinuses and mastoid air cells are clear. Oral cavity: The visualized oral cavity is unremarkable. The floor of the mouth is symmetric. Pharynx : Pharyngeal mucosa is unremarkable. The infratemporal fossa, parapharyngeal spaces, and retropharyngeal space are unremarkable. The base of the tongue is symmetric and unremarkable. The airway is patent. Larynx: Larynx and supraglottic airway are patent without mass lesion. Vocal cords are symmetric. The visualized trachea is unremarkable. Parotid and Submandibular Glands: Symmetric and unremarkable. Lymph Nodes: No enlarged lymph nodes are identified in the cervical, supraclavicular, and visualized superior mediastinal regions. Soft tissues: Soft tissues are unremarkable. No mass lesion . 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 Mild atherosclerosis aortic arch. Mild atherosclerosis left carotid bifurcation. Thyroid Gland: Normal. Lung: The visualized lung apices are clear. Bones: No evidence of acute fracture or malalignment. There are moderate multilevel degenerative changes. Other: None. IMPRESSION: 1. No evidence of soft tissue mass, adenopathy, abscess, or definite mucosal abnormality on this noncontrast study. 2. 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 RADIA
== END 2018-03-05 10:00 | disposition home or self-care (01) ==
LOC: DI 09:59
PROVIDERS: ATTEND Internal Medicine
DX: R49.0 Dysphonia (principal); S19.9XXA Unspecified injury of neck, initial encounter
CPT/HCPCS: 70490

== ENCOUNTER 2018-04-21 08:20 | Outpatient (CLI) | payer MEDICARE, OTHER, MEDICAID | END 2018-04-21 08:21 | disposition home or self-care (01) | LOC: SC 08:20 | PROVIDERS: ATTEND Nurse Practitioner Family | DX: G47.33 Obstructive sleep apnea (adult) (pediatric) (principal) | CPT/HCPCS: 99215; G0463; 99212 ==

== ENCOUNTER 2018-04-28 14:15 | Outpatient (CLI) | payer MEDICARE, OTHER, MEDICAID ==
[2018-04-28 15:52] LABS: CALCIUM 9.2 mg/dL (8.5-10.3); CREATININE 1.1 mg/dL (0.4-1.0)
[2018-04-28 16:08] LABS: BILIRUBIN,URINE NEGATIVE (NEGATIVE); GLUCOSE, URINE (UA) NEGATIVE (NEGATIVE); KETONES,URINE (UA) NEGATIVE (NEGATIVE); LEUKOCYTE ESTERASE, URINE NEGATIVE (NEGATIVE); NITRITE,URINE NEGATIVE (NEGATIVE); OCCULT BLOOD,URINE NEGATIVE (NEGATIVE); PH,URINE 5.5 PH (5.0-7.5); PROTEIN,URINE NEGATIVE (NEGATIVE); UROBILINOGEN,URINE 0.2 (NORMAL) E.U./dL (NORMAL)
[2018-04-28 16:09] LABS: CLARITY,URINE CLEAR (CLEAR)
== END 2018-04-28 23:59 | disposition home or self-care (01) ==
LOC: LAB.R 14:15
DX: E11.9 Type 2 diabetes mellitus without complications (principal); J11.1 Influenza due to unidentified influenza virus with other respiratory manifestations
CPT/HCPCS: 80048; 81001; 81003; 84443; 85025; 87275; 87276

== ENCOUNTER 2018-06-22 08:52 | Outpatient (CLI) | payer MEDICARE, OTHER, MEDICAID | END 2018-06-22 08:53 | disposition home or self-care (01) | LOC: SC 08:52 | PROVIDERS: ATTEND Nurse Practitioner Family | DX: G47.33 Obstructive sleep apnea (adult) (pediatric) (principal) | CPT/HCPCS: 99214; G0463; 99212 ==